=== PATIENT | female | born 1965 | race Two or more races ===

== ENCOUNTER 2020-09-25 11:46 | Day surgery (SDC) | payer MEDICAID, SELFPAY ==
[2020-09-22 14:14] VITALS: BMI 46.7
--- NOTE | 2020-09-23 15:09 | P.CONAN_ITS ---
Documented by User: Aleksandra Boyle 09/23/20 15:09 HPI - Anesthesia Eval Consult details Narrative: 55yo F for Colonoscopy PMFSH Past Medical History Medical History (Updated 09/25/20 @ 13:05 by Hanny Rajput) Anemia Asthma GERD (gastroesophageal reflux disease) History of anxiety History of COVID-19 HTN (hypertension) Hx of irritable bowel syndrome Hx of renal calculi Increased BMI Thyroid disease Surgical History Surgical History H/O colonoscopy History of endometrial ablation History of esophagogastroduodenoscopy (EGD) History of surgery on arm Hx of section Hx of cholecystectomy Hx of cystoscopy Hx of laparoscopy Social History Social History Patient Tobacco Use Status: Tobacco use Unknown Use of substances other than those prescribed or required for medical reasons: No Advance Directives Information Provided: No Meds Allergies Allergy/AdvReac Type Severity Reaction Status Date / Time lisinopril [LISINOPRIL] Allergy Intermediate COUGH Unverified 01/09/20 16:51 Home Medications Medication Instructions Recorded Confirmed Last Taken Type albuterol sulfate 1 amp INHALATION TID 09/22/20 09/22/20 Unknown History albuterol sulfate [ProAir HFA] 2 puff INHALATION Q4-6H PRN 09/22/20 09/22/20 Unknown History chlorthalidone 50 mg PO DAILY 09/22/20 09/22/20 Unknown History cholecalciferol (vitamin D3) 1 tab PO BID 09/22/20 09/22/20 Unknown History [Vitamin D3] cyanocobalamin (vitamin B-12) 1 ml IM QMONTH 09/22/20 09/22/20 Unknown History dicyclomine 1 tab PO TID 09/22/20 09/22/20 Unknown History ergocalciferol (vitamin D2) 1,250 mcg PO QWEEK 09/22/20 09/22/20 Unknown History [Vitamin D2] fluoxetine 20 mg PO DAILY 09/22/20 09/22/20 09/25/20 07:00 History hydralazine 100 mg PO BID 09/22/20 09/22/20 09/25/20 07:00 History lorazepam 1 tab PO DAILY PRN 09/22/20 09/22/20 Unknown History metoprolol tartrate 1 tab PO BID 09/22/20 09/22/20 09/25/20 07:00 History omeprazole 1 cap PO QAM 09/22/20 09/22/20 09/25/20 07:00 History verapamil 1 cap PO DAILY 09/22/20 09/22/20 09/25/20 07:00 History Exam Exam Date and Time: September 23, 2020 1509 Height,Weight and Vital Signs: Height 5 ft 4 in Weight 123.377 kg Assessment and Plan Assessment Anesthesia Assessment: Chart Reviewed Documented by User: Hanny Rajput 09/25/20 13:05 [facility] Past Medical History Medical History (Updated 09/25/20 @ 13:05 by Hanny Rajput) Anemia Asthma GERD (gastroesophageal reflux disease) History of anxiety History of COVID-19 HTN (hypertension) Hx of irritable bowel syndrome Hx of renal calculi Increased BMI Thyroid disease Family History Family history of problems with anesthesia: No Surgical History Surgical History H/O colonoscopy History of endometrial ablation History of esophagogastroduodenoscopy (EGD) History of surgery on arm Hx of section Hx of cholecystectomy Hx of cystoscopy Hx of laparoscopy History of Problems with Anesthesia: No Social History Social History Patient Tobacco Use Status: Tobacco use Unknown Use of substances other than those prescribed or required for medical reasons: No Advance Directives Information Provided: No Meds Allergies Allergy/AdvReac Type Severity Reaction Status Date / Time lisinopril [LISINOPRIL] Allergy Intermediate COUGH Unverified 01/09/20 16:51 Home Medications Medication Instructions Recorded Confirmed Last Taken Type albuterol sulfate 1 amp INHALATION TID 09/22/20 09/22/20 Unknown History albuterol sulfate [ProAir HFA] 2 puff INHALATION Q4-6H PRN 09/22/20 09/22/20 Unknown History chlorthalidone 50 mg PO DAILY 09/22/20 09/22/20 Unknown History cholecalciferol (vitamin D3) 1 tab PO BID 09/22/20 09/22/20 Unknown History [Vitamin D3] cyanocobalamin (vitamin B-12) 1 ml IM QMONTH 09/22/20 09/22/20 Unknown History dicyclomine 1 tab PO TID 09/22/20 09/22/20 Unknown History ergocalciferol (vitamin D2) 1,250 mcg PO QWEEK 09/22/20 09/22/20 Unknown History [Vitamin D2] fluoxetine 20 mg PO DAILY 09/22/20 09/22/20 09/25/20 07:00 History hydralazine 100 mg PO BID 09/22/20 09/22/20 09/25/20 07:00 History lorazepam 1 tab PO DAILY PRN 09/22/20 09/22/20 Unknown History metoprolol tartrate 1 tab PO BID 09/22/20 09/22/20 09/25/20 07:00 History omeprazole 1 cap PO QAM 09/22/20 09/22/20 09/25/20 07:00 History verapamil 1 cap PO DAILY 09/22/20 09/22/20 09/25/20 07:00 History Exam Height,Weight and Vital Signs: Vital Signs Temp Pulse Resp BP Pulse Ox 09/25/20 12:31 97.8 F 96 20 149/86 H 95 Airway Mallampati Class: II TM Dist: >3cm Neck ROM: Full Heart: RRR Lungs: CTAB Assessment and Plan Assessment Anesthesia Assessment: Anesthesia Plan Discussed and Chart Reviewed Final Anesthetic Review NPO: Yes ASA Class: III Final Preanesthetic Review: No Changes in Pt Med Stat, Meds/Allgs Chart Reviewed, Consent Obtained/Reviewed and Anes Risks/Benef Reviewed Patient Risk: Intermediate Procedure Risk: Low Assessment/Block/Sedation in SS: Assess/Block/Sedation-SS Anesthetic Plan Anesthetic Plan: MAC: Disposition: Standard PACU
[2020-09-25] MEDS: Lactated Ringers 1,000 ML 100 ML IVCONT (12:30)
[2020-09-25 12:31] VITALS: BP 149/86; PULSE 96; RESP 20; TEMP 36.6; O2SAT 95
--- NOTE | 2020-09-25 12:49 | MHC.SHP ---
Pre-Procedural Eval Section A The patient is an INPATIENT: No Changes since office visit: No Cold of Flu in the past 2 weeks, No New Medical Problems, No Changes in Medication and No Patient answered all questions The History & Physical has been completed within 30 days and I have reviewed it.: Yes Section B Chief Complaint: screening Allergies: Allergies Allergy/AdvReac Type Severity Reaction Status Date / Time lisinopril [LISINOPRIL] Allergy Intermediate COUGH Unverified 01/09/20 16:51 Plan I have reviewed the history and physical and performed a pertinent physical examination on my patient. No changes have occurred unless specified.
[2020-09-25 13:37] VITALS: BP 107/53; PULSE 85; RESP 14; TEMP 36.2; O2SAT 94
[2020-09-25 13:47] VITALS: BP 118/62; PULSE 83; RESP 18; O2SAT 96
--- NOTE | 2020-09-25 15:17 | OP_ITS ---
SURGEON: Jeffrey Rios MD INDICATIONS: Colon cancer screening. PREOPERATIVE DIAGNOSIS: POSTOPERATIVE DIAGNOSIS: PROCEDURE PERFORMED: Colonoscopy to the terminal ileum with snare polypectomy. ESTIMATED BLOOD LOSS: COMPLICATIONS: ANESTHESIA: ASSISTANTS: SPECIMENS: MEDICATIONS: Monitored anesthesia care. DESCRIPTION OF PROCEDURE: History and physical performed. The risks and benefits of the procedure were explained to the patient. Informed consent was obtained. The patient was placed in the left lateral decubitus position. A digital rectal exam was performed and was found to be normal. The Olympus pediatric video colonoscope was introduced into the rectum and advanced to the cecum without difficulty. The cecum was identified by transillumination, palpation, identification of ileocecal valve. Examination was performed and the scope was removed. She tolerated the procedure well and was taken to recovery area in stable condition. FINDINGS: The terminal ileum was normal. The visualized colonic mucosa was normal. Three polyps, all measuring less than 10 mm were removed with snare. These were located in the cecum, at 80 cm, and at 40 cm. There was some liquid stool coating the mucosa, limiting examination for detection of small polyps. This was washed and suctioned. Retroflexed examination showed moderate-sized internal hemorrhoids. IMPRESSION: Colon polyps. RECOMMENDATION: Follow up the biopsy results. MD NAILA Chavez/DISHA / [id number] MTDD
== END 2020-09-25 14:56 | disposition home or self-care (01) ==
PROVIDERS: Visit Provider Internal Medicine Gastroenterology
PROC: 0DJD8ZZ Inspection of Lower Intestinal Tract, Via Natural or Artificial Opening Endoscopic (ICD-10-PCS; CPT 45378; principal; 2020-09-25 13:20)
DX: Z12.11 Encounter for screening for malignant neoplasm of colon (principal); D12.0 Benign neoplasm of cecum; D12.4 Benign neoplasm of descending colon; D12.5 Benign neoplasm of sigmoid colon; K64.8 Other hemorrhoids; K58.9 Irritable bowel syndrome, unspecified; D64.9 Anemia, unspecified; J45.909 Unspecified asthma, uncomplicated; K21.9 Gastro-esophageal reflux disease without esophagitis; I10 Essential (primary) hypertension; Z79.899 Other long term (current) drug therapy; Z88.8 Allergy status to other drugs, medicaments and biological substances; Z90.49 Acquired absence of other specified parts of digestive tract; Z86.16 Personal history of COVID-19
CPT/HCPCS: 45385; 88305

== ENCOUNTER → 2021-09-10 14:38 | Outpatient (BNVA) | payer MEDICAID, SELFPAY | PROVIDERS: PCP Pediatrics; Visit Provider Internal Medicine Pulmonary Disease | DX: R06.00 Dyspnea, unspecified (principal); U09.9 Post COVID-19 condition, unspecified | CPT/HCPCS: 99202 ==

== ENCOUNTER 2021-09-16 09:29 | Outpatient (REF) | payer MEDICAID, SELFPAY ==
--- NOTE | ~2021-09-16 | CT_ITS ---
EXAMINATION: CT CHEST WITHOUT CONTRAST CLINICAL INFORMATION: Post Covid condition COMPARISON: None TECHNIQUE: Multidetector volumetric CT imaging of the chest was done. Axial MIP volume rendering provided. Sagittal and coronal reformatted images were obtained. This CT examination was performed using dose optimization techniques as appropriate, variously including the following: *Automated exposure control *Adjustment of mA and/or kV according to patient size (this includes techniques or standardized protocols for targeted exams where dose is matched to indication/reason for exam; i.e. extremities or head) *Use of iterative reconstruction technique DLP: 258 mGy-cm FINDINGS: HIGH SCHOOL GUIDANCE COUNSELOR: Slight elevation of the left hemidiaphragm LUNGS: The lung volumes are low. There is elevation of the right hemidiaphragm. There is heterogeneous attenuation of the lungs questionable for hypoventilatory changes. There is scarring or subsegmental atelectasis in the right middle lobe. MEDIASTINUM: The mediastinum is normal. PLEURA: There is no pleural effusion. No pleural mass or thickening. AXILLA: No lymphadenopathy. UPPER ABDOMEN: The liver is low in attenuation suggestive of fatty infiltration. OSSEOUS STRUCTURES: There are degenerative changes of the spine. CT/CT chest wo con IMPRESSION: Low lung volumes, elevated right hemidiaphragm and heterogeneous attenuation suggestive of hypoventilatory changes. Fleischner guidelines were followed.
== END 2021-09-16 09:30 | disposition home or self-care (01) ==
LOC: HO.CT 09:29
PROVIDERS: PCP Pediatrics; Visit Provider Internal Medicine Pulmonary Disease
DX: U09.9 Post COVID-19 condition, unspecified (principal)
CPT/HCPCS: 71250

== ENCOUNTER → 2021-12-17 09:14 | Outpatient (REF) | payer MEDICAID, SELFPAY ==
--- NOTE | 2021-12-17 09:18 | CA_ITS ---
Transthoracic Echocardiogram Patient (Last, First, Middle): Chelle Melchor, Gender: Female Date of : 1965 Age: 56 Procedure Date: 12/17/2021 Procedure Type: Transthoracic Echocardiogram Location: OP Height: 160.02 cm Weight: 118.84 kg BSA: 2.17 m2 Heart Rate: bpm BP: 137 / 80 mmHg Order Schedule Clerk: Referring MD: Ry Plata MD Symptoms: R06.00 - Dyspnea, unspecified Study Quality: Adequate ECG Rhythm: Sinus Conclusions: - The left ventricular systolic function is normal. The calculated ejection fraction is 63% by biplane method. - No obvious valvular pathology seen on this study. - There is no evidence of pulmonary hypertension. - There is no evidence of pericardial effusion. Findings Left Ventricle Normal left ventricular cavity size. There is mildly increased left ventricular wall thickness. The left ventricular systolic function is normal. The calculated ejection fraction is 63% by biplane method. There is no evidence of regional wall motion abnormalities. Diastolic function is normal for age. Right Ventricle Normal right ventricular cavity size and systolic function. Atria Both atria are normal in size. Aortic Valve There is a normal trileaflet aortic valve. There is no aortic valve stenosis. There is no aortic valve regurgitation. Mitral Valve The mitral valve appears normal. There is no mitral valve regurgitation. There is no mitral valve stenosis. Pulmonic Valve The pulmonic valve is likely normal. Tricuspid Valve Normal tricuspid valve structure. There is trace tricuspid valve regurgitation. There is no evidence of pulmonary hypertension. Great Vessels The aortic annulus, sinuses of valsalva, and asc aorta are normal in size. Venous The inferior vena cava was not well visualized. Pericardium/Pleural There is no evidence of pericardial effusion. Prior Study Comparison No prior study available for comparison. Recommendations, Care & Conclusions No obvious valvular pathology seen on this study. Measurements 2D Linear Measurements IVSd: 1.28 0.6-0.9/0.6-1.0 cm LVIDd: 3.43 3.9-5.3/4.2-5.9 cm LVIDd Index: 1.58 2.4-3.2/2.2-3.1 cm/m2 LVIDs: 2.35 2.0-3.6 cm LVPWd: 1.25 0.7-1.1 cm Ao Root: 3.10 2.1-3.5 cm LA Diam: 2.90 2.7-3.8/3.0-4.0 cm LAIDs Index: 1.34 1.5-2.3 cm/m2 LV Mass: 178.21 67-162/88-224 g LV Mass Index: 82.12 43-95/49-115 g/m2 LVOT Diam: 2.10 3.0+(-)1.3 cm 2D Systolic Function EF 4C: 64.20 >55% EF 2C: 62.40 >55% EF BiP: 62.70 >55% Mitral Valve MV Pk E: 0.50 MV PK A: 0.74 MV Decel Time: 113.00 E/A: 0.70 E'Lateral: 4.46 E'Medial: 6.20 E/E' Med: 8.10 E/E' Lat: 11.20 PHT: 33.00 MVA PHT: 6.67 Decel Zapata: 4.44 Aortic Valve AoV Pk Ovidio: 1.05 AoV Mn Ovidio: 0.68 AoV VTI: 0.19 AoV Pk Grad: 4.00 Aov Mn Grad: 2.00 DINORAH Cont.VTI: 3.03 LVOT LVOT Pk Ovidio: 0.80 LVOT Mn Ovidio: 0.50 LVOT VTI: 0.17 LVOT Pk Grad: 3.00 LVOT Mn Grad: 1.00 LVOT Diam: 2.10 LVOT Area: 3.46 Diastolic Function MV Pk E: 0.50 MV Pk A: 0.74 E/A: 0.70 E'Medial: 6.20 E/E' Med: 8.10 E' Laterial: 4.46 E/E' Lat: 11.20 Right Ventricle TAPSE (mm): 20.00 Tricuspid Valve TR Pk Ovidio: 1.84 TR Pk Grad: 14.00 RA Press: 3.00 RVSP: 17.00 Great Vessels Aorta Ao Root-2D: 3.10 2.0-3.7 cm Ao Asc: 3.20 2.1-3.4 cm Pulmonary Valve PV Pk Ovidio: 0.92 Peak PV Grad: 3.00 Updated in Other Vendor System with Status of Final Олег Fuentes MD electronically signed on 12/19/2021 1:02:12 PM with status of Final
== END ==
LOC: HO.CARD 09:14
PROVIDERS: Visit Provider Internal Medicine Pulmonary Disease
DX: R06.00 Dyspnea, unspecified (principal)
CPT/HCPCS: 93306

== ENCOUNTER 2022-01-06 14:22 | Outpatient (REF) | payer MEDICAID, SELFPAY ==
--- NOTE | 2022-01-06 17:30 | PFT_ITS ---
Forced vital capacity 79%, FEV1 91%. FEV1 over FVC ratio is 91. [id number] 160% and MVV 111%. Post bronchodilator therapy, no significant changes noted. Total lung capacity 73%. Residual volume 51%. Diffusion capacity 77%. CONCLUSION: Mild restrictive pulmonary disorder. No obstructive airway disorder. No significant response to bronchodilator therapy. The results are compared with the PFT results from 07/01/2019, and the total lung capacity is slightly decreased. No other significant change. Azucena Rodriguez MD MSB/MODL / [id number]
== END 2022-01-06 14:23 | disposition home or self-care (01) ==
LOC: HO.RESP 14:22
PROVIDERS: Visit Provider Internal Medicine Pulmonary Disease
DX: R06.00 Dyspnea, unspecified (principal)
CPT/HCPCS: 94060; 94727; 94729

== ENCOUNTER → 2022-01-14 13:53 | Outpatient (BNVA) | payer MEDICAID, SELFPAY | PROVIDERS: PCP Pediatrics; Visit Provider Internal Medicine Pulmonary Disease | DX: R06.00 Dyspnea, unspecified (principal); U09.9 Post COVID-19 condition, unspecified | CPT/HCPCS: 99212 ==

== ENCOUNTER 2023-08-01 10:28 | Day surgery (SDC) | payer MEDICAID, SELFPAY ==
[2023-07-28 13:56] VITALS: BMI 46.5
--- NOTE | 2023-07-31 11:50 | HO.ANESPROP2 ---
HPI - Anesthesia Eval Consult details Narrative: 58yo F for Colonoscopy PMFSH Active Problems Active Problems: All Active Problems Dyspnea on exertion (Acute) Post covid-19 condition, unspecified (Acute) Increased BMI (Acute) Past Medical History Medical History (Updated 09/10/21 @ 15:09 by Ry Plata MD) Increased BMI History of COVID-19 History of anxiety Hx of renal calculi Asthma Hx of irritable bowel syndrome Thyroid disease HTN (hypertension) GERD (gastroesophageal reflux disease) Anemia Family History Family history of problems with anesthesia: No Surgical History Surgical History (Updated 07/28/23 @ 13:56 by Paula Pickard, MINDI) Hx of cystoscopy History of surgery on arm Hx of section Hx of cholecystectomy Hx of laparoscopy History of endometrial ablation History of esophagogastroduodenoscopy (EGD) H/O colonoscopy History of Problems with Anesthesia: No Social History Social History (Updated 07/28/23 @ 13:57 by Paula Pickard, MINDI) Patient Tobacco Use Status: Tobacco use Unknown Meds Allergies Allergy/AdvReac Type Severity Reaction Status Date / Time lisinopril [LISINOPRIL] Allergy Intermediate COUGH Verified 01/14/22 13:54 Home Medications ?Medication ?Instructions ?Recorded ?Confirmed ?Last Taken ?Type albuterol sulfate 2.5 mg/3 mL 1 amp inhalation TID 09/22/20 07/28/23 Unknown History (0.083 %) solution for nebulization albuterol sulfate 90 mcg/actuation 2 puff inhalation Q4-6H PRN 09/22/20 07/28/23 Unknown History aerosol inhaler (ProAir HFA) Shortness Of Breath chlorthalidone 50 mg tablet 50 mg PO DAILY 09/22/20 07/28/23 Unknown History cholecalciferol (vitamin D3) 50 1 tab PO BID 09/22/20 07/28/23 Unknown History mcg (2,000 unit) tablet (Vitamin D3) cyanocobalamin (vitamin B-12) 1 ml IM QMONTH 09/22/20 07/28/23 Unknown History 1,000 mcg/mL injection solution dicyclomine 20 mg tablet 1 tab PO TID 09/22/20 07/28/23 Unknown History ergocalciferol (vitamin D2) 1,250 1,250 mcg PO QWEEK 09/22/20 07/28/23 Unknown History mcg (50,000 unit) capsule (Vitamin D2) fluoxetine 20 mg tablet 20 mg PO DAILY 09/22/20 07/28/23 09/25/20 07:00 History hydralazine 100 mg tablet 100 mg PO BID 09/22/20 07/28/23 09/25/20 07:00 History lorazepam 0.5 mg tablet 1 tab PO DAILY PRN Anxiety 09/22/20 07/28/23 Unknown History metoprolol tartrate 100 mg tablet 1 tab PO BID 09/22/20 07/28/23 09/25/20 07:00 History verapamil 360 mg 24 hr 1 cap PO DAILY 09/22/20 07/28/23 09/25/20 07:00 History capsule,extended release pantoprazole 40 mg tablet,delayed 40 mg PO DAILY 07/28/23 07/28/23 Unknown History release Exam Height,Weight and Vital Signs: Height 5 ft 4 in Weight 122.924 kg Assessment and Plan Assessment Anesthesia Assessment: Chart Reviewed Final Anesthetic Review Family History of Problems with Anesthesia: No History of Problems with Anesthesia: No
[2023-08-01 11:32] VITALS: BMI 44.3
[2023-08-01 11:45] VITALS: BP 137/75; PULSE 62; RESP 16; TEMP 36.5; O2SAT 100
[2023-08-01] MEDS: Lactated Ringers 1,000 ML 100 ML IVCONT (11:55)
--- NOTE | 2023-08-01 12:41 | HO.ANESPROP2 ---
[facility] Active Problems Active Problems: All Active Problems (Updated 09/10/21 @ 15:09 by Ry Plata MD) Dyspnea on exertion (Acute) Post covid-19 condition, unspecified (Acute) Increased BMI (Acute) Past Medical History Medical History (Updated 09/10/21 @ 15:09 by Ry Plata MD) Increased BMI History of COVID-19 History of anxiety Hx of renal calculi Asthma Hx of irritable bowel syndrome Thyroid disease HTN (hypertension) GERD (gastroesophageal reflux disease) Anemia Family History Family history of problems with anesthesia: No Surgical History Surgical History (Updated 07/28/23 @ 13:56 by Paula Pickard RN) Hx of cystoscopy History of surgery on arm Hx of section Hx of cholecystectomy Hx of laparoscopy History of endometrial ablation History of esophagogastroduodenoscopy (EGD) H/O colonoscopy History of Problems with Anesthesia: No Social History Social History (Updated 07/28/23 @ 13:57 by Paula Pickard RN) Patient Tobacco Use Status: Never used Tobacco Use of substances other than those prescribed or required for medical reasons: No Are you DNR?: No Advance Directives: No Advance Directives Information Provided: Yes Meds Allergies Allergy/AdvReac Type Severity Reaction Status Date / Time lisinopril [LISINOPRIL] Allergy Intermediate COUGH Verified 01/14/22 13:54 Active Medications: Current Medications Albuterol Sulfate (Albuterol Sulfate (0.083%) 2.5 Mg/3 Ml Vial.Neb) 2.5 mg INHALE ONCE PRN PRN Reason: Shortness of Breath/Wheezing Lactated Ringer's (Lr) 1,000 mls @ 100 mls/hr IVCONT .Q10H DIANE Last Admin: 08/01/23 11:55 Dose: 100 mls/hr Ondansetron HCl (Ondansetron Hcl 4 Mg/2 Ml Vial) 4 mg IVPUSH ONCE PRN PRN Reason: Nausea and Vomiting Stop: 08/01/23 15:36 Ondansetron HCl (Ondansetron Hcl 4 Mg/2 Ml Vial) 4 mg IVPUSH ONCE PRN PRN Reason: Nausea and Vomiting Stop: 08/01/23 16:42 Home Medications ?Medication ?Instructions ?Recorded ?Confirmed ?Last Taken ?Type albuterol sulfate 2.5 mg/3 mL 1 amp inhalation TID 09/22/20 07/28/23 Unknown History (0.083 %) solution for nebulization albuterol sulfate 90 mcg/actuation 2 puff inhalation Q4-6H PRN 09/22/20 07/28/23 Unknown History aerosol inhaler (ProAir HFA) Shortness Of Breath chlorthalidone 50 mg tablet 50 mg PO DAILY 09/22/20 07/28/23 Unknown History cholecalciferol (vitamin D3) 50 1 tab PO BID 09/22/20 07/28/23 Unknown History mcg (2,000 unit) tablet (Vitamin D3) cyanocobalamin (vitamin B-12) 1 ml IM QMONTH 09/22/20 07/28/23 Unknown History 1,000 mcg/mL injection solution dicyclomine 20 mg tablet 1 tab PO TID 09/22/20 07/28/23 Unknown History ergocalciferol (vitamin D2) 1,250 1,250 mcg PO QWEEK 09/22/20 07/28/23 Unknown History mcg (50,000 unit) capsule (Vitamin D2) fluoxetine 20 mg tablet 20 mg PO DAILY 09/22/20 07/28/23 09/25/20 07:00 History hydralazine 100 mg tablet 100 mg PO BID 09/22/20 07/28/23 09/25/20 07:00 History lorazepam 0.5 mg tablet 1 tab PO DAILY PRN Anxiety 09/22/20 07/28/23 Unknown History metoprolol tartrate 100 mg tablet 1 tab PO BID 09/22/20 07/28/23 08/01/23 History verapamil 360 mg 24 hr 1 cap PO DAILY 09/22/20 07/28/23 08/01/23 History capsule,extended release pantoprazole 40 mg tablet,delayed 40 mg PO DAILY 07/28/23 07/28/23 Unknown History release Exam Height,Weight and Vital Signs: Height 5 ft 4 in Weight 117.084 kg Last Vital Signs Temp 97.7 F 08/01/23 11:45 Pulse 62 08/01/23 11:45 Resp 16 08/01/23 11:45 BP 137/75 08/01/23 11:45 Pulse Ox 100 08/01/23 11:45 O2 Del Method Room Air 08/01/23 11:45 Airway Mallampati Class: III TM Dist: >3cm Neck ROM: Full Loose/Missing/Broken Teeth: No Heart: rrr Lungs: clear Assessment and Plan Final Anesthetic Review Family History of Problems with Anesthesia: No History of Problems with Anesthesia: No NPO: Yes ASA Class: III Final Preanesthetic Review: No Changes in Pt Med Stat, Meds/Allgs Chart Reviewed, Consent Obtained/Reviewed and Anes Risks/Benef Reviewed Patient Risk: Intermediate Procedure Risk: Low Anesthetic Plan Anesthetic Plan: MAC: Disposition: Standard PACU
--- NOTE | 2023-08-01 12:48 | MHC.SHP ---
Pre-Procedural Eval Section A - 24 Hr Update-Section A only Date of Service: 08/01/23 Section B - Complete if H&P > 30 days Chief Complaint: Encounter for screening for malignant neoplasm of Details of Present Illness: see H&P no changes Relevant Family History (Specify if Yes): No Relevant Social History: None Present Medications: see Short Stay Collaborative assessment Medical History: No relevant PMH History of Previous Operations: No relevant previous surgery Allergies: Allergies Allergy/AdvReac Type Severity Reaction Status Date / Time lisinopril [LISINOPRIL] Allergy Intermediate COUGH Verified 01/14/22 13:54 Review of Systems Sugical H&P ROS: Negative: Constitution, Cardiovascular, Respiratory, Neurological, Psychiatric, Hem-Onc, Allergic/Immunologic, Gastrointestinal, Genitourinary, Musculoskeletal, Integumentary, Endocrine and Eyes/Ears/Nose/Throat Exam Surgical H&P Exam: Normal: HEENT, Normal: Heart, Normal: Lungs, Normal: Extremities, Normal: Abdomen, Normal: Skin and Normal: Neurological Plan Diagnosis/Plan: Unchanged I have reviewed the history and physical and performed a pertinent physical examination on my patient. No changes have occurred unless specified. Time Spent With Patient Time: Total time managing care of this patient today ____ minutes.
[2023-08-01 13:15] VITALS: BP 102/54; PULSE 64; RESP 16; TEMP 36.8; O2SAT 95
[2023-08-01 13:30] VITALS: BP 125/60; PULSE 54; RESP 18; TEMP 36.4; O2SAT 98
--- NOTE | 2023-08-01 22:39 | OP_ITS ---
DATE OF SERVICE: 08/01/2023 SURGEON: Jeffrey Rios MD INDICATIONS: Colon cancer screening. PREOPERATIVE DIAGNOSIS: POSTOPERATIVE DIAGNOSIS: PROCEDURE PERFORMED: Colonoscopy to the terminal ileum with biopsy. ESTIMATED BLOOD LOSS: COMPLICATIONS: ANESTHESIA: Monitored anesthesia care. ASSISTANTS: SPECIMENS: DESCRIPTION OF PROCEDURE: A history and physical was performed. The risks and benefits of the procedure were explained to the patient. Informed consent was obtained. The patient was placed in the left lateral decubitus position. A digital rectal exam was performed and was found to be normal. The Olympus pediatric video colonoscope was introduced into the rectum and advanced to the cecum. The cecum was identified by transillumination, palpation, and identification of ileocecal valve. Examination was performed. The scope was removed. She tolerated the procedure well and was returned to the recovery area in stable condition. FINDINGS: The terminal ileum was examined and appeared normal. The visualized colonic mucosa was within normal limits without evidence of masses or ulcers. A single polyp measuring less than 5 mm was identified at 45 cm and removed with a biopsy forceps. Retroflexed examination showed moderate-sized internal hemorrhoids. IMPRESSION: Colon polyp. RECOMMENDATION: Follow up the biopsy results. MD NAILA Chavez/DISAH / [id number]
== END 2023-08-01 14:01 | disposition home or self-care (01) ==
PROVIDERS: PCP Pediatrics; Visit Provider Internal Medicine Gastroenterology
PROC: 0DJD8ZZ Inspection of Lower Intestinal Tract, Via Natural or Artificial Opening Endoscopic (ICD-10-PCS; CPT 45378; principal; 2023-08-01 13:40)
DX: Z12.11 Encounter for screening for malignant neoplasm of colon (principal); Z86.010 Personal history of colon polyps; K63.5 Polyp of colon; K64.8 Other hemorrhoids; K58.9 Irritable bowel syndrome, unspecified; K21.9 Gastro-esophageal reflux disease without esophagitis; I10 Essential (primary) hypertension; D50.9 Iron deficiency anemia, unspecified; E55.9 Vitamin D deficiency, unspecified; E53.8 Deficiency of other specified B group vitamins; E03.9 Hypothyroidism, unspecified; J45.909 Unspecified asthma, uncomplicated; Z87.442 Personal history of urinary calculi; F41.8 Other specified anxiety disorders; Z79.899 Other long term (current) drug therapy; Z86.16 Personal history of COVID-19; Z90.49 Acquired absence of other specified parts of digestive tract
CPT/HCPCS: 45380; 88305; J2704

== ENCOUNTER 2023-08-17 14:17 | Outpatient (REF) | payer MEDICAID, SELFPAY ==
[2023-08-18 08:42] LABS: HIV AB/AG Nonreactive (Nonreactive); HIV Num 1 0.04 S/CO (0.00-0.99); ~HepC Num1 0.05 S/CO (0.00-0.79); ~Hepatitis C Antibody Nonreactive (Nonreactive)
== END 2023-08-17 14:18 | disposition home or self-care (01) ==
LOC: HO.CHCLDS 14:17
PROVIDERS: Visit Provider Internal Medicine
DX: Z00.00 Encounter for general adult medical examination without abnormal findings (principal); Z11.4 Encounter for screening for human immunodeficiency virus [HIV]
CPT/HCPCS: 36415; 86803; 87389

== ENCOUNTER 2023-12-14 09:30 | Outpatient (REF) | payer MEDICAID, SELFPAY ==
[2023-12-14 14:21] LABS: MANUAL DIFF FLAG NO
[2023-12-14 14:37] LABS: Basophils Percent Auto 0.4 % (0-2); Eosinophils Absolute Auto 0.1 X10*3/uL (0.0-0.4); Eosinophils Percent Auto 1.3 % (0-4); Estimated Average Glucose 105 mg/dL; Hematocrit 41.1 % (37.0-47.0); Hemoglobin 13.3 g/dl (12.0-16.0); Hemoglobin A1c % 5.3 % (<6.0); Imm Gran Abs Auto 0.02 X10*3/uL (0.00-0.03); Imm Gran Pct Auto 0.3 % (0.0-0.4); Lymphocytes Percent Auto 42.9 % (20-40); Mean Corpuscular HGB Conc 32.4 g/dl (31.0-35.0); Mean Corpuscular Hemoglobin 31.8 pg (27.0-33.0); Mean Corpuscular Volume 98.3 fL (80.0-98.0); Monocytes Absolute Auto 0.6 X10*3/uL (0.1-1.2); Monocytes Percent Auto 8.5 % (2-11); Neutrophils Absolute Auto 3.3 x10*3/uL (2.0-8.3); Neutrophils Percent Auto 46.6 % (45-73); Platelet Count 304 X10*3/uL (160-400); Red Blood Count 4.18 X10*6/uL (4.20-5.50); Red Cell Distribution Width 13.6 % (11.0-16.0); White Blood Count 7.1 X10*3/uL (4.8-10.8)
[2023-12-14 14:45] LABS: Alanine Aminotransferase 17 U/L (0-31); Alkaline Phosphatase 94 U/L (39-117); Anion Gap 13 (12-20); Aspartate Amino Transferase 18 U/L (5-31); Bilirubin Direct 0.2 mg/dL (0.0-0.5); Bilirubin Total 0.5 mg/dL (0.0-1.0); Blood Urea Nitrogen 13 mg/dL (9-16); Carbon Dioxide 27 mmol/L (22-29); Chloride 110 mmol/L (96-108); Cholesterol 193 mg/dL (<200); Estimated Glomerular Filt Rate > 60; Glucose Fasting 102 mg/dL (60-99); HDL Cholesterol 48 mg/dL (>40); LDL Cholesterol Calculated 113 mg/dL (<100); Lipase 9 U/L (8-78); Sodium 146 mmol/L (135-145); Total Protein 6.7 g/dL (6.5-8.0); Triglycerides 162 mg/dL (<150)
[2023-12-14 14:49] LABS: Creatinine Urine 348.94 mg/dL
[2023-12-14 15:08] LABS: TSH reflex Free T4 1.95 uIU/mL (0.32-4.0)
[2023-12-14 15:13] LABS: Vitamin B12 244 pg/mL (200-900)
== END 2023-12-14 09:31 | disposition home or self-care (01) ==
LOC: HO.CHCLDS 09:30
PROVIDERS: Visit Provider Pediatrics
DX: I10 Essential (primary) hypertension (principal); E66.01 Morbid (severe) obesity due to excess calories; G47.33 Obstructive sleep apnea (adult) (pediatric); Z80.0 Family history of malignant neoplasm of digestive organs
CPT/HCPCS: 36415; 80048; 80061; 80076; 82043; 82306; 82570; 82607; 82746; 83036; 83690; 84443; 85025

== ENCOUNTER 2024-05-28 09:36 | Outpatient (REF) | payer MEDICAID, SELFPAY ==
--- OUTSIDE RECORDS SUMMARY | 2024-05-28 10:06 | XMS_ITS | Encounter Summary ---
Author Organization [employer] Address [address] [place] [address] Care Team Providers Care Pig Breeder Name Role Phone Dorinda Iniguez MD Primary Care Provider [phone] Encounter Details Date Type Department Care Team (Late st Contact Info) Description 05/06/2022 Orders Only [facility] [address] [place] [address] Suki Schmitt LPN Social History Tobacco Use Types Packs/Day Years Used Date Smoking Tobacco: Never Assessed Comments Unknown Sex and Gender Information Value Date Recorded Sex Assigned at Female 02/21/2022 10:16 AM EDT Legal Sex Female 10:16 AM EDT Gender Identity Female 02/21/2022 10:16 AM EDT Sexual Orientation Straight 02/21/2022 10 :16 AM EDT documented as of this encounter Plan of Treatment Upcoming Encounters Date Type Department Care Team (Late st Contact Info) Description 07/09/2024 10:00 AM EDT Office Visit [facility] [address] [place], [place] [phone] Dee Lynch [address] [place], [place] [phone] documented as of this encounter Visit Diagnoses Not on filedocumented in this encounter Care Teams Pig Breeder Relationship Specialty Start Date End Date Dorinda Iniguez MD [address] [place] [address] PCP - General Family Medicine 04/24/18 Ginny Hernandez Splitter MachinePlate Embosser 01/17/24 documented as of this encounter
--- OUTSIDE RECORDS SUMMARY | 2024-05-28 10:07 | XMS_ITS | Encounter Summary ---
Author Organization [facility] Address [address] [place] [address] Care Team Providers Care Slps Name Role Phone Dorinda Iniguez MD Primary Care Provider [phone] Encounter Details Date Type Department Care Team (Latest Contact Info) Description 09/08/2021 Abstract [facility] CONVERSIONS Dental, Provider, DDS Social History Tobacco Use Types Packs/Day Years [...] Description 07/09/2024 10:00 AM EDT Office Visit [facility] [address] [place], [place] [phone] Dee Lynch [address] [place] [address] documented as of this encounter Visit Diagnoses Not on filedocumented in this encounter Care Teams Slps Relationship Specialty Start Date End Date Dorinda Iniguez MD [address] [place] [address] PCP - General Family Medicine 04/24/18 Ginny Hernandez Cone CleanerVenue Coordinator 01/17/24 documented as of this encounter
--- OUTSIDE RECORDS SUMMARY | 2024-05-28 10:07 | XMS_ITS | Encounter Summary ---
Author Organization [employer] [facility] Address [address] [place] [address] Care Team Providers Care Master Machinist Name Role Phone Dorinda Iniguez MD Primary Care Provider [phone] Encounter Details Date Type Department Care Team (Latest Contact Info) Description 10/15/2018 Abstract [facility] CONVERSIONS Dental, Provider, DDS Social History [...] Description 07/09/2024 10:00 AM EDT Office Visit [facility] [address] [place], [place] [phone] Dee Lynch [address] [place] [address] documented as of this encounter Visit Diagnoses Not on filedocumented in this encounter Care Teams Master Machinist Relationship Specialty Start Date End Date Dorinda Iniguez MD [address] [place] [address] PCP - General Family Medicine 04/24/18 Ginny Hernandez Staking TechnicianTerra Cotta Roofer 01/17/24 documented as of this encounter
--- OUTSIDE RECORDS SUMMARY | 2024-05-28 10:07 | XMS_ITS | Encounter Summary ---
Author Organization [employer] Address [address] [facility] 7 [place] [address] Care Team Providers Care Teacher Home Therapy Name Role Phone Dorinda Iniguez MD Primary Care Provider [phone] Reason for Visit * Reason Onset Date Comments Medication Question 04/12/2024 Encounter Details Date Type Department Care Team ([facility] st Contact Info) Description 04/12/2024 Telephone [facility] [address] [place] [address] Dorinda Iniguez MD [address] [place] [phone] Medication Question Social History Tobacco Use Types Packs/Day Years Used Date Smoking Tobacco: Never Passive Smoke Exposure: Never Smokeless Tobacco: Never Alcohol Use Standard Drinks/Week Comments Never 0 (1 standard drink = 0.6 oz pur e alcohol) Depression Answer Date Recorded Patient Health Questionnaire-9 Score 4 08/17/2023 Patient Health Questionnaire-9 Score 4 08/17/2023 Last PHQ-9: Questionnaire Data Not on file 0 08/17/2023 Housing Stability Answer Date Recorded What is your housing situation today? I have alva garcia 08/10/[address] you li ve. Do you have problems with any of the following? None of the above 08/10/2023 Food Insecurity Answer Date Recorded Within the past 12 months, y ou worried that your food would run out before you got money to buy more: Never True 08/10/2023 Within the past 12 months,th e food you bought just didn't last and you didn't have enough money to get more: Never True Transportation Answer Date Recorded In the past 12 months, has l ack of transportation kept you from medical appts, meetings, work or from getting things needed for daily living? No 08/10/2023 Utilities Answer Date Recorded In the past 12 months, has t he electric, gas, oil or water company threatened to shut off services in your home? No 08/10/2023 Depression Answer Date Recorded Patient Health Questionnaire-2 Score 0 08/17/2023 Comments Unknown Sex and Gender Information Value Date Recorded Sex Assigned at Female 02/21/2022 10:16 AM EDT Legal Sex Female 10:16 AM EDT Gender Identity Female 02/21/2022 10:16 AM EDT Sexual Orientation Straight 02/21/2022 10 :16 AM EDT documented as of this encounter Miscellaneous Notes * Telephone Encounter - Andrew Davis - 04/15/2024 9:30 AM EST Tc from pt calling in regards to message prior requesting guaiFENesin-codeine (Robitussin-AC) 100-10 MG/5ML syrup stating it helps her much more. * Telephone Encounter - Blade [place] - 04/12/2024 1:20 PM EST Tc from pt requesting a call back to discuss getting a medication for her couch. PT stating that she would like a medication to suppress her Cough but she doesn't want med benzonatate 200 mg capsule.Pt states that medication doesn't work for her and it doesn't help. Contact pt at [phone] documented in this encounter Plan of Treatment Upcoming Encounters Date Type Department Care Team (Late st Contact Info) Description 07/09/2024 10:00 AM EDT Office Visit [facility] [address] [place], [place] [phone] Dee Lynch [address] [place], [place] [phone] documented as of this encounter Visit Diagnoses Not on filedocumented in this encounter Additional Health Concerns Assessment Noted Time PHQ-9 Depression Total Score: 4 08/17/19 24 1:37 PM EDT documented as of this encounter Care Teams Teacher Home Therapy Relationship Specialty Start Date End Date Dorinda Iniguez MD [address] [place] [phone] PCP - General Family Medicine 04/24/18 Ginny Hernandez Director Utilization ManagementGoodyear Welter 01/17/24 documented as of this encounter
--- OUTSIDE RECORDS SUMMARY | 2024-05-28 10:07 | XMS_ITS | Encounter Summary ---
Author Organization [employer] Address [address] [facility] 7 [place] [address] Care Team Providers Care Career Services Director Name Role Phone Dorinda Iniguez MD Primary Care Provider [phone] Reason for Visit * Reason Comments Pre-visit Planning SDOH negative, Tobac co screening negative. Encounter Details Date Type Department Care Team ([facility] Contact Info) Description 05/21/2024 Patient Outreach [facility] P[facility]S [address] [place], [place] [phone] Dorinda Iniguez MD [address] [place] [address] Pre-visit Planning (SDOH negative, Tobacco screening negative.) Social History Tobacco Use Types Packs/Day Years [...] Recorded Patient Health Questionnaire-2 Score 0 08/17/2023 Internet Access Answer Date Recorded Internet Access Q1 Yes 05/21/2024 Internet Access Q2 Not on file 05/21/2024 Comments Unknown Sex and Gender Information Value Date Recorded Sex Assigned at Female 02/21/2022 10:16 AM EDT Legal Sex Female 10:16 AM EDT Gender Identity Female 02/21/2022 10:16 AM EDT Sexual Orientation Straight 02/21/2022 10 :16 AM EDT documented as of this encounter Progress Notes * Kitty Dior - 05/21/2024 11:52 AM EST CC Kitty Alaniz placed successful outbound call to patient for pre-visit planning. Patient name and confirmed. Patient confirms appt date and time, and has transportation arrangements. Biggest concern for appointment at this time is no concerns. Appropriate screenings completed in anticipation ofappointment. documented in this encounter Plan of Treatment Upcoming Encounters Date Type Department Care Team (Late st Contact Info) Description 07/09/2024 10:00 AM EDT Office Visit [facility] [address] [place] [phone] Dee Lynch [address] [place], [place] [phone] documented as of this encounter Visit Diagnoses Not on filedocumented in this encounter Additional Health Concerns Assessment Noted Time PHQ-9 Depression Total Score: 4 08/17/19 24 1:37 PM EDT documented as of this encounter Care Teams Career Services Director Relationship Specialty Start Date End Date Dorinda Iniguez MD [address] [place] [address] PCP - General Family Medicine 04/24/18 Ginny Hernandez Tractor Trailer DriverWound Care Coordinator 01/17/24 documented as of this encounter
--- OUTSIDE RECORDS SUMMARY | 2024-05-28 10:07 | XMS_ITS | Clinical Summary ---
Author Organization [employer] Address [address] [place] [address] [address] [place] [address] Care Team Providers Care Residential Lawn Specialist Name Role Phone Dorinda Iniguez MD Primary Care Provider [phone] Allergies Active Allergy Reactions Criticality Noted Date Comments Lisinopril Rash,Unknown,Cough High 04/24/2010 Other reaction(s): cough, Cough Other reaction(s): cough Other reaction(s): cough, Cough Medications LORazepam (Ativan) 0.5 MG tablet TAKE ONE TABLET EVERY MORNING AND TWO TABLETS AT BEDTIME NEEDED 023 Active lidocaine (Lidoderm) 5 % patch APPLY TO LOWER BACK REGION. LEAVE ON FOR 12 HOURS OFF FOR 12 HOURS, NEEDED. 023 Active Procto-Med HC 2.5 % rectal creamIndication s:Irritable bowel syndrome with diarrhea APPLY RECTALLY TWICE DAILY 28 g 5 023 Active metoprolol tartrate (Lopressor) 75 MG tablet Take 75 mg by mouth in the morning and 75 mg at noon and 75 mg in the evening. 023 Active loperamide (Imodium) 2 MG capsule Take 2 mg by mouth. Active traMADol (Ultram) 50 MG tablet Take 50 mg by mouth every 6 (six) hours if needed. Active pregabalin (Lyrica) 75 MG capsule ONE BY MOUTH EVERY NIGHT X3 DAYS THEN ONE BY MOUTH TWICE A DAY 024 Active Ventolin HFA 108 (90 Base) MCG/ACT inhalerIndicati ons:Moderate persistent asthma without complication INHALE ONE PUFF EVERY 4 HOURS NEEDED FOR COUGH 18 g 1 024 Active ammonium lactate (AmLactin) 12 % lotionIndicatio ns:Dry skin Apply topically if needed for dry skin. 225 g 11 024 2024 Active albuterol (2.5 MG/3ML) 0.083% nebulizer solutionIndicat ions:Moderate persistent asthma without complication Take 3 mL (2.5 mg) by nebulization every 6 (six) hours if needed for wheezing or shortness of breath. 90 mL 3 Active hydrALAZINE (Apresoline) 100 MG tablet Take 1 tablet (100 mg) by mouth 3 times daily. 90 tablet 024 2024 Active Arnuity Ellipta 100 MCG/ACT inhaler TAKE 1 PUFF EVERY DAY Active verapamil ER (Verelan) 360 MG 24 hr capsuleIndicati ons:Benign essential hypertension Take 1 tab orally daily 30 capsule Active dicyclomine (Bentyl) 20 MG tablet Take 1 tablet (20 mg) by mouth before breakfast, before lunch, before evening meal, and at bedtime. 120 tablet Active cholecalciferol ( Vitamin D3) 50 MCG (2000 UT) capsuleIndicati ons:Vitamin D deficiency Take 1 capsule orally daily 30 capsule Active fluticasone (Flonase) 50 MCG/ACT nasal sprayIndication s:Nasal congestion INSERT 1-2 SPRAYS IN EACH NOSTRIL EVERY DAY NEEDED 48 mL 1 Active LORazepam (Ativan) 0.5 MG tablet Take 1 tab orally daily prn anxiety 30 tablet Active Advair Diskus 500-50 MCG/ACT aerosol powder INHALE 1 PUFF INTO THE LUNGS 2 TIMES DAILY FOR 30 DAYS. Active aspirin (Aspirin Low Dose) 81 MG chewable tablet Chew 1 tablet (81 mg) Once per day. 90 tablet 5 Active nystatin (Mycostatin) 183923 UNIT/GM powder Apply topically 2 times daily. 60 g 5 024 2024 Active pantoprazole (ProtoNix) 40 MG EC tablet TAKE 1 TABLET BY MOUTH EVERY MORNING 90 tablet Active Semaglutide-Bin ght Management (Wegovy) 0.5 MG/0.5ML solution auto-injector INJECT ONE PEN (=0.5 MG) SUBCUTANEOUSLY ONCE A WEEK 2 mL Active gabapentin (Neurontin) 100 MG capsule Take 2 capsules orally qhs 60 capsule 3 025 Active gabapentin (Neurontin) 100 MG capsule Take 2 capsules orally qhs 60 capsule 3 024 2024 Discontinued(R eorder (will not trigger notification to Pharmacy)) Semaglutide-Bin ght Management (Wegovy) 0.5 MG/0.5ML solution auto-injector INJECT ONE PEN (=0.5 MG) SUBCUTANEOUSLY ONCE A WEEK 2 mL 024 2024 Discontinued(R eorder (will not trigger notification to Pharmacy)) acetaminophen (Tylenol 8 Hour) 650 MG ER tablet Take 1 tablet (650 mg) by mouth every 8 (eight) hours if needed for mild pain for up to 10 days. Do not crush, chew, or split. 30 tablet 2024 amoxicillin-cla vulanate (Augmentin) 875-125 MG tablet Take 1 tablet by mouth 2 times daily for 10 days. 20 tablet 024 2024 dextromethorpha n-guaiFENesin (Tussin DM) 10-100 MG/5ML liquidIndicatio ns:Influenza B Take 5 mL by mouth every 4 (four) hours if needed for cough for up to 10 days. 236 mL 2024 oseltamivir (Tamiflu) 75 MG capsuleIndicati ons:Influenza B Take 1 capsule (75 mg) by mouth 2 times daily for 5 days. 10 capsule 025 2024 predniSONE (Deltasone) 20 MG tabletIndicatio ns:Influenza B Take 1 tablet (20 mg) by mouth Once per day for 5 days. 5 tablet 025 2024 Active Problems Problem Noted Date Diagnosed Date Ear ache 10/04/2023 Assessment & Plan (10/04/2023 3:32 PM EDT): Advised if symptoms worsen of ear infection to f/u with [facility]. Epigastric pain 06/09/2022 Disorder of vitamin B12 11/15/2018 Female stress incontinence 05/08/2018 Muscle strain of right thigh 10/05/2017 Verruca vulgaris 09/22/2017 Kidney stone 02/02/2016 Generalized anxiety disorder 10/06/2015 Hordeolum externum 07/04/2013 Vitamin D deficiency 02/03/2012 Obesity 02/03/2012 Irritable bowel syndrome with diarrhea 2 Iron deficiency anemia 02/03/2012 Hypothyroidism 02/03/2012 Gastroesophageal reflux disease without esophagi tis 02/03/2012 Depressive disorder 02/03/2012 Benign essential hypertension 02/03/2012 Assessment & Plan (10/04/2023 3:33 PM EDT): F/u with Dr. Iniguez Anxiety state 02/03/2012 Encounters Date Type Department Care Team Description 05/28/2024 9:15 AM EST Office Visit [facility] [address] [place] [address] Dorinda Iniguez MD Benign essential hypertension (Primary Dx); Dietary counseling; Exercise counseling 05/28/2024 Travel 05/22/2024 Refill [facility] [address] [place] [address] Dorinda Iniguez MD Influenza B 05/21/2024 Patient Outreach [facility] [address] [place] [address] Dorinda Iniguez MD Pre-visit Planning (SDOH negative, Tobacco screening negative.) 05/17/2024 3:20 PM EST Office Visit [facility] [address] [place] [address] Angie Giraldo MD Influenza B (Primary Dx) 05/17/2024 Travel 05/17/2024 Telephone [facility] [address] [place] [address] Dorinda Iniguez MD Nurse Triage 05/06/2024 Telephone [facility] [address] [place] [address] Dorinda Iniguez MD Prior Authorization (Anne ) 04/30/2024 Refill [facility] [address] [place] [address] Dorinda Iniguez MD 04/25/2024 Refill [facility] [address] [place] [phone] Dorinda Iniguez MD 04/25/2024 Telephone [facility] [address] [place] [phone] Dorinda Iniguez MD Nurse Triage 04/18/2024 11:30 AM EST Telemedicine [facility] [address] [place] [address] Logan Guerrero MD Acute non-recurrent maxillary sinusitis (Primary Dx) 04/18/2024 Travel 04/18/2024 Telephone [facility] [address] [place] [phone] Dorinda Iniguez MD Nurse Triage 04/12/2024 Telephone [facility] [address] [place] [phone] Dorinda Iniguez MD Medication Question 03/05/2024 Refill [facility] [address] [place] [address] Dorinda Iniguez MD 03/04/2024 Telephone [facility] [address] [place] [address] Dorinda Iniguez MD Wejoselyn no longer covered April 24, 2024 03/01/2024 Refill [facility] [address] [place] [address] Dorinda Iniguez MD from Last 3 Months Immunizations Name Administration Dates Next Due Hep A, Adult 12/14/2023 Influenza injectable quadriv alent IIV4 with preservative 03/08/2018,03/07/2017,01/22/2015 Influenza injectable quadriv alent preservative free 01/11/2023,02/10/2022,01/13/2021,03/16,01/17/2019,01/11/2016 Influenza, IIV3, injectable 12/14/2023,1 05/16/2021,12/23/2020,01/28,02/27/2019,02/03/2014 Influenza, Split (incl. emily fied surface antigen) 01/10/2013,12/21/2011 Pneumococcal Conjugate PCV 20 08/17/2023 Pneumococcal Polysaccharide PPSV23 09/05/2013 RSV Adjuvant 08/25/2023 Tdap 07/06/2023,09/05/2013 Zoster, Recombinant 12/06/2017,09/23/2017 Social History Tobacco Use Types Packs/Day Years Used Date Smoking Tobacco: Never Passive Smoke Exposure: Never Smokeless Tobacco: Never Tobacco Cessation:Counseling Given: Not Answered Alcohol Use Standard Drinks/Week Comments Never 0 (1 standard drink = 0.6 oz pur e alcohol) Depression Answer Date Recorded Patient Health Questionnaire-9 Score 2 05/28/2024 Patient Health Questionnaire-9 Score 2 05/28/2024 Last PHQ-9: Questionnaire Data Not on file 0 05/28/2024 Housing Stability Answer Date Recorded What is [...] Date Recorded Patient Health Questionnaire-2 Score 0 05/28/2024 Internet Access Answer Date Recorded Internet Access Q1 Yes 05/21/2024 Internet Access Q2 Not on file 05/21/2024 Comments No Sex and Gender Information Value Date Recorded Sex Assigned at Female 02/21/2022 10:16 AM EDT Legal Sex Female 10:16 AM EDT Gender Identity Female 02/21/2022 10:16 AM EDT Sexual Orientation Straight 02/21/2022 10 :16 AM EDT Last Filed Vital Signs Vital Sign Reading Time Taken Comments Blood Pressure 112/70 05/28/2024 9:05 AM EST Pulse 100 05/28/2024 9:05 AM EST Temperature 36.8 ??C (98.3 ??F) 05/28/2024 9:05 AM ES T Respiratory Rate 20 05/28/2024 9:05 AM EST Oxygen Saturation 98% 05/17/2024 3:01 PM EST Inhaled Oxygen Concentration - - Weight 109 kg (240 lb) 05/28/2024 9:05 AM EST Height 160 cm (5' 3 ) 05/28/2024 9:05 AM EST Body Mass Index 42.51 05/28/2024 9:05 AM EST Plan of Treatment Upcoming Encounters Date Type Department Care Team (Late st Contact Info) Description 07/09/2024 10:00 AM EDT Office Visit [facility] [address] [place] [phone] [address] [place] [phone] Health Maintenance Due Date Last Done Comments CT Colonography 1963 Dental X-Ray: Full Mouth 1963 FIT DNA/Cologuard 1963 FIT 1963 FOBT 1963 Sigmoidoscopy 1963 Dental Oral Exam 06/04/2023 12/01/2022 COVID-19 Vaccine ( season) 2023 Dental Prophylaxis 07/08/2024 01/08/2024, 0 07/04/2023, 12/01/2022, Additional history exists Depression Screening 08/16/2024 08/17/2023, 08/17/19 24 Dental X-Ray: Bitewings 01/08/2025 01/08/2024 SDOH Screening 05/21/2025 05/21/2024 Alcohol/Substance Use Screening 05/28/2025 05/28/2024 Tobacco Screening 05/28/2025 05/28/2024 Mammogram 08/03/2025 08/04/2023 Cervical Cancer Screening 09/01/2026 HPV/Cotest 09/01/2026 09/01/2021 Pap Smear 09/01/2026 09/01/2021 Colonoscopy 07/31/2028 08/01/2023, 09/25/2020 Colorectal Cancer Screening 07/31/2028 Lipid Panel 12/13/2028 12/14/2023, 06/09/2022 DTaP/Tdap/Td Vaccines (3 - Td or Tdap) 07/05/2033 07/06/2023, 09/05/2013 Zoster Vaccines Completed 12/06/2017, 09/23/2017 HIV Screening Completed 08/17/2023 Hepatitis C Screening Completed 08/17/2023 Pneumococcal Vaccine: 50+ Years Completed 08/17/2023, 09/05/2013 RSV Patients and Patients Aged 60 years or older Completed 08/25/2023 Hepatitis A Vaccines Aged Out 12/14/2023 No long er eligible based on patient's age to complete this topic Influenza Vaccine Completed 12/14/2023, , 01/11/2023, Additional history exists HIB Vaccines Aged Out No longer eligi ble based on patient's age to complete this topic HPV Vaccines Aged Out No longer eligi ble based on patient's age to complete this topic Hepatitis B Vaccines Aged Out No long er eligible based on patient's age to complete this topic IPV Vaccines Aged Out No longer eligi ble based on patient's age to complete this topic Meningococcal Vaccine Aged Out No kenia brooke eligible based on patient's age to complete this topic RSV under 20 months Aged Out No longe r eligible based on patient's age to complete this topic Rotavirus Vaccines Aged Out No longer eligible based on patient's age to complete this topic Procedures Procedure Name Priority Date/Time Associated Diagnosis Comments POCT INFLUENZA B Routine 05/17/2024 3:50 PM EST Influenza B POCT INFLUENZA A Routine 05/17/2024 3:50 PM EST Influenza B POCT RAPID COVID ANTIGEN Routine 05/17/2024 3:48 PM EST Influenza B PROPHYLAXIS - ADULT Routine 01/08/2024 1 0:00 AM EDT BITEWINGS - 4 RADIOGRAPHIC IMAGES Routine 01/08/2024 10:00 AM EDT LIPID PANEL, STANDARD Routine 12/14/2023 9:32 AM EDT Family history of pancreatic cancer FARHAN (obstructive sleep apnea) Class 3 severe obesity with serious comorbidity in adult, unspecified BMI, unspecified obesity type (CMS/HCC) Benign essential hypertension HEPATITIS C AB W/REFL TO HCV RNA, QN, PCR Routine 08/17/2023 2:19 PM EDT Annual physical exam HIV 1/2 ANTIGEN/ANTIBODY, FOURTH GENERATION W/RFL Routine 08/17/2023 2:19 PM EDT Annual physical exam MAMMOGRAPHY Routine 08/04/2023 COLONOSCOPY Routine 08/01/2023 PERIODIC ORAL EVALUATION - ESTABLISHED PATIENT Routine 12/01/2022 3:00 PM EDT HM PAP/HPV Routine 09/01/2021 from Last 3 Months or Most Recently Relevant to Health Maintenance Results * (ABNORMAL) POCT Rapid Influenza B OSOM (05/17/2024 3:50 PM EST) Pathologist [facility] Rapid Influenza B Ag Positive( A) Negative, Indeterminate QC Media Lot # [id number] Lot# Expiration Date Swab 05/17/2024 3:50 PM EST Angie Giraldo MD POINT OF CARE TEST ENTER/ED IT ORDERABLES Final Result * POCT Rapid Influenza A OSOM (05/17/2024 3:50 PM EST) Pathologist [facility] Rapid Influenza A Ag Negative Negative, Indeterminate QC Media Lot # [id number] Lot# Expiration Date Swab Nasopharyngeal structure / Unknown 05/17/2024 3:50 PM EST us Angie Giraldo MD POINT OF CARE TEST ENTER/ED IT ORDERABLES Final Result * POCT Rapid Covid-19 BinaxNOW (05/17/2024 3:48 PM EST) Rapid COVID Ag Negative QC Media Lot # [id number] Lot# Expiration Date [id number] Swab 05/17/2024 3:48 PM EST Angie Giraldo MD POINT OF CARE TEST ENTER/ED IT ORDERABLES Final Result * (ABNORMAL) Lipid Panel, Standard (12/14/2023 9:32 AM EDT) Triglycerides 162(H) <150 mg/dL [facility] Comment:Desirable Triglyceri de: less than 150 mg/dLBorderline High Triglyceride 150-199 mg/dLHigh Triglyceride: 200-499 mg/dLVery High Triglyceride: greater than or equal to 5OO mg/dL Cholesterol 193 <200 mg/dL [facility] Comment:Desirable Cholestero l: less than 200 mg/dLBorderline High Cholesterol: 200-239 mg/dLHigh Cholesterol: greater than 239 mg/dL LDL Cholesterol Calculated 113(H) <100 mg/dL [facility] Comment:Desirable LDL: less than 100 mg/dLNear Optimal/Above Optimal LDL: 110- 129 mg/dLBorderline High LDL: 130-159 mg/dLHigh LDL: 160-189 mg/dLVery High LDL: greater than or equal to 190 mg/dL HDL Cholesterol 48 >40 mg/dL [facility] Comment:Desirable HDL: great er than 40 mg/dL Note: This HDL assay may give artificially low results in patients with liver disease. Blood Venous blood specimen / Unknown 12/14/2023 9:32 AM EDT 12/14/2023 2:14 PM EDT us Dorinda Iniguez MD LAB BLOOD ORDERABLES Final Re sult [facility] [address] [place] [phone] * Hepatitis C Antibody with Reflex to HCV, RNA, Quantitative, Real-Time PCR (08/17/2023 2:19 PM EDT) Hepatitis C Antibody Nonreactive Nonreactive [facility] Comment:Antibodies to HCV no t detected; does not exclude early acuteHCV infection. Blood Venous blood specimen / Unknown 08/17/2023 2:19 PM EDT 08/17/2023 5:21 PM EDT us Angie Giraldo MD LAB BLOOD ORDERABLES Final Result Performing Organization Address [facility]/ZIP Co de Phone Number [facility] [address] [place] [address] [phone] * HIV-1/2 Antigen and Antibodies, Fourth Generation, with Reflexes (08/17/2023 2:19 PM EDT) HIV AB/AG Nonreactive Nonreactive [facility] Comment:HIV-1 p24 Ag and/or HIV-1/HIV-2 Ab not detected.A test result that is nonreactive does not exclude thepossibility of exposure to or infection with HIV-1 and/orHIV-2. Nonreactive results in this assay for individualswith prior exposure to HIV-1 and/or HIV-2 may be due toantigen and antibody levels that are below the limit ofdetection of this assay.The [employer] HIV Ag/Ab Combo assay result andsupplemental assay results should be interpreted inconjunction with the patient's clinical presentation,history and other laboratory results. If the results areinconsistent with clinical evidence, additional testing issuggested to confirm the result. Blood Venous blood specimen / Unknown 08/17/2023 2:19 PM EDT 08/17/2023 5:21 PM EDT us Angie Giraldo MD LAB BLOOD ORDERABLES Final Result Performing Organization Address [facility]/ZIP Co de Phone Number [facility] [address] [place] [address] [phone] * Hm Mammography (08/04/2023) Mammogram Normal Normal, Abnormal, BIRADS 1 , BIRADS 2 Anatomical Region Laterality Modality Other Dorinda Iniguez MD HEALTH MAINTENANCE Final Resu lt * (ABNORMAL) Colonoscopy (08/01/2023) Colonoscopy Abnormal(A ) Normal Dorinda Iniguez MD HEALTH MAINTENANCE Final Resu lt * Pap Smear (09/01/2021) Pap Negative for intraephithelial lesion or malignancy Negative for intraephithelial lesion or malignancy, Other HPV Undetected Undetected, Indeterminate, Quantitative, Not Detected Sakina Cline MD HEALTH MAINTENANCE Final Result from Last 3 Months or Most Recently Relevant to Health Maintenance [place] [address] [place] [address] [facility] MEDICAID STAND ADULT Care Teams Residential Lawn Specialist Relationship Specialty Start Date End Date Dorinda Iniguez MD [address] [place] [phone] PCP - General Family Medicine 04/24/18 Ginny Hernandez Trace Evidence TechnicianMobile Architect 01/17/24
--- OUTSIDE RECORDS SUMMARY | 2024-05-28 10:07 | XMS_ITS | Encounter Summary ---
Author Organization [employer] Address [address] [place] [address] 7 [place] [address] Care Team Providers Care Jv Baseball Coach Name Role Phone Dorinda Iniguez MD Primary Care Provider [phone] Reason for Visit * Reason Comments Cough Encounter Details Date Type Department Care Team ([facility] Contact Info) Description 05/17/2024 3:20 PM EST Office Visit [facility] PEDS [address] [place], [place] [phone] Angie Giraldo MD [address] [place] [address] Influenza B (Primary Dx) Social History Tobacco Use Types Packs/Day Years [...] AM EDT documented as of this encounter Last Filed Vital Signs Vital Sign Reading Time Taken Comments Blood Pressure 135/88 05/17/2024 3:01 PM EST Pulse 107 05/17/2024 3:01 PM EST Temperature 36.4 ??C (97.5 ??F) 05/17/2024 3:01 PM ES T Respiratory Rate 20 05/17/2024 3:01 PM EST Oxygen Saturation 98% 05/17/2024 3:01 PM EST Inhaled Oxygen Concentration - - Weight - - Height - - Body Mass Index - - documented in this encounter Progress Notes * Angie Giraldo MD - 05/17/2024 3:20 PM EST Subjective Patient ID: Chelle Arias is a 58 y.o. female who presents for No chief complaint on file.. Cough Pertinent negatives include no chills. Patient was diagnosed with COVID-19 at the end of March and presented with a cough.. Treated with initial improvement and then developed a cough subsequently after. As the cough was persistent shedecides to come here to the office for an evaluation. It is associated with fatigue, body aches andsubjective fever. Patient is also anxious because her father is currently in the ICU in [place]. States that she was supposed to receive a course of prednisone from her press bucker which was notsent to her pharmacy. .prb Current Outpatient Medications on File Prior to Visit Medication Sig Dispense Refill Advair Diskus 500-50 MCG/ACT aerosol powder INHALE 1 PUFF INTO THE LUNGS 2 TIMES DAILY FOR 30 DAYS. albuterol (2.5 MG/3ML) 0.083% nebulizer solution Take 3 mL (2.5 mg) by nebulization every 6 (six) hours if needed for wheezing or shortness of breath. 90 mL 3 ammonium lactate (AmLactin) 12 % lotion Apply topically if needed for dry skin. 225 g 11 Arnuity Ellipta 100 MCG/ACT inhaler TAKE 1 PUFF EVERY DAY aspirin (Aspirin Low Dose) 81 MG chewable tablet Chew 1 tablet (81 mg) Once per day. 90 tablet 5 cholecalciferol (SM Vitamin D3) 50 MCG (2000 UT) capsule Take 1 capsule orally daily 30 capsule 11 dicyclomine (Bentyl) 20 MG tablet Take 1 tablet (20 mg) by mouth before breakfast, before lunch, before evening meal, and at bedtime. 120 tablet 11 fluticasone (Flonase) 50 MCG/ACT nasal spray INSERT 1-2 SPRAYS IN EACH NOSTRIL EVERY DAY NEEDED 48 mL 1 gabapentin (Neurontin) 100 MG capsule Take 2 capsules orally qhs 60 capsule 3 hydrALAZINE (Apresoline) 100 MG tablet Take 1 tablet (100 mg) by mouth 3 times daily. 90 tablet 11 lidocaine (Lidoderm) 5 % patch APPLY TO LOWER BACK REGION. LEAVE ON FOR 12 HOURS OFF FOR 12 HOURS, NEEDED. loperamide (Imodium) 2 MG capsule Take 2 mg by mouth. LORazepam (Ativan) 0.5 MG tablet TAKE ONE TABLET EVERY MORNING AND TWO TABLETS AT BEDTIME NEEDED LORazepam (Ativan) 0.5 MG tablet Take 1 tab orally daily prn anxiety 30 tablet 0 metoprolol tartrate (Lopressor) 75 MG tablet Take 75 mg by mouth in the morning and 75 mg at noon and 75 mg in the evening. nystatin (Mycostatin) 244299 UNIT/GM powder Apply topically 2 times daily. 60 g 5 pantoprazole (ProtoNix) 40 MG EC tablet TAKE 1 TABLET BY MOUTH EVERY MORNING 90 tablet 0 pregabalin (Lyrica) 75 MG capsule ONE BY MOUTH EVERY NIGHT X3 DAYS THEN ONE BY MOUTH TWICE A DAY Procto-Med HC 2.5 % rectal cream APPLY RECTALLY TWICE DAILY 28 g 5 Semaglutide-Weight Management (Wegovy) 0.5 MG/0.5ML solution auto-injector INJECT ONE PEN (=0.5 MG)SUBCUTANEOUSLY ONCE A WEEK 2 mL 0 traMADol (Ultram) 50 MG tablet Take 50 mg by mouth every 6 (six) hours if needed. Ventolin HFA 108 (90 Base) MCG/ACT inhaler INHALE ONE PUFF EVERY 4 HOURS NEEDED FOR COUGH 18 g 1 verapamil ER (Verelan) 360 MG 24 hr capsule Take 1 tab orally daily 30 capsule 11 No current facility-administered medications on file prior to visit. Allergies Allergen Reactions Lisinopril Rash, Unknown and Cough Other reaction(s): cough, Cough Other reaction(s): cough Other reaction(s): cough, Cough Review of Systems Constitutional: Negative for activity change, appetite change, chills and diaphoresis. HENT: Negative for dental problem, drooling and ear discharge. Respiratory: Positive for cough. Gastrointestinal: Negative for anal bleeding, blood in stool and constipation. Objective BP 135/88 (BP Location: Left arm, Patient Position: Sitting, BP Cuff Size: Adult long) Pulse 107 Temp 97.5 ??F (36.4 ??C) (Oral) Resp 20 SpO2 98% Physical Exam Constitutional: General: She is not in acute distress. Appearance: Normal appearance. She is ill-appearing. She is not toxic-appearing or diaphoretic. Pulmonary: Breath sounds: Decreased air movement present. Neurological: Mental Status: She is alert. Assessment/Plan Diagnoses and all orders for this visit: Influenza B Comments: Supportive care: Fluids, rest, Medication as directed. Call the office if no improvement in the next week or so. Orders: - POCT Rapid Influenza A OSOM - POCT Rapid Influenza B OSOM - POCT Rapid Covid-19 BinaxNOW - dextromethorphan-guaiFENesin (Tussin DM) 10-100 MG/5ML liquid; Take 5 mL by mouth every 4 (four) hours if needed for cough for up to 10 days. - oseltamivir (Tamiflu) 75 MG capsule; Take 1 capsule (75 mg) by mouth 2 times daily for 5 days. - predniSONE (Deltasone) 20 MG tablet; Take 1 tablet (20 mg) by mouth Once per day for 5 days. documented in this encounter Plan of Treatment Upcoming Encounters Date Type Department Care Team (Late st Contact Info) Description 07/09/2024 10:00 AM EDT Office Visit [facility] DENTAL [address] [place] [address] [phone] Dee Lynch [address] [place] [address] [phone] documented as of this encounter Procedures Procedure Name Priority Date/Time Associated Diagnosis Comments POCT INFLUENZA B Routine 05/17/2024 3:50 PM EST Influenza B POCT INFLUENZA A Routine 05/17/2024 3:50 PM EST Influenza B POCT RAPID COVID ANTIGEN Routine 05/17/2024 3:48 PM EST Influenza B documented in this encounter Results * (ABNORMAL) POCT Rapid Influenza B OSOM (05/17/2024 3:50 PM EST) Rapid Influenza B Ag Positive( A) Negative, Indeterminate QC Media Lot # [id number] Lot# Expiration Date Swab 05/17/2024 3:50 PM EST Angie Giraldo MD POINT OF CARE TEST ENTER/ED IT ORDERABLES Final Result * POCT Rapid Influenza A OSOM (05/17/2024 3:50 PM EST) Pathologist [facility] Rapid Influenza A Ag Negative Negative, Indeterminate QC Media Lot # [id number] Lot# Expiration Date Swab Nasopharyngeal structure / Unknown 05/17/2024 3:50 PM EST Angie Giraldo MD POINT OF CARE TEST ENTER/ED IT ORDERABLES Final Result * POCT Rapid Covid-19 BinaxNOW (05/17/2024 3:48 PM EST) Rapid COVID Ag Negative QC Media Lot # [id number] Lot# Expiration Date 3,,026 Swab 05/17/2024 3:48 PM EST Angie Giraldo MD POINT OF CARE TEST ENTER/ED IT ORDERABLES Final Result documented in this encounter Visit Diagnoses Diagnosis Influenza B- Primary Influenza with other respiratory manifestations documented in this encounter Additional Health Concerns Assessment Noted Time PHQ-9 Depression Total Score: 4 08/17/19 1:37 PM EDT documented as of this encounter Care Teams Jv Baseball Coach Relationship Specialty Start Date End Date Dorinda Iniguez MD [address] [place] [id number] PCP - General Family Medicine 04/24/18 Ginny Hernandez Origination SpecialistSurgical Services Asst 01/17/24 documented as of this encounter
--- OUTSIDE RECORDS SUMMARY | 2024-05-28 10:07 | XMS_ITS | Clinical Summary ---
Author Organization [facility] Address [address] [place] [address] Phone Care Team Providers Care [facility] Psychiatrist Name Role Phone Dorinda Iniguez MD Primary Care Provider [phone] Allergies Active Allergy Reactions Criticality Noted Date Comments Lisinopril Other (see comments) 04/24/2010 Other reaction(s): cough Other reaction(s): cough, Cough Oxycodone 12/15/2014 Other reaction(s): Itching Medications albuterol (2.5 MG/3ML) 0.083% nebulizer solution INHALE ONE AMPULE USING A NEBULIZER THREE TIMES DAILY NEEDED Active verapamil ER (VERELAN) 360 MG 24 hr capsule Take 360 mg by mouth in the morning. 3 Active sucralfate (CARAFATE) 1 g tablet TAKE ONE TABLET BY MOUTH THREE TIMES DAILY ON AN EMPTY STOMACH ONE HOUR BEFORE MEALS AND BEDTIME 3 Active LORazepam (ATIVAN) 0.5 MG tablet TAKE ONE TABLET EVERY MORNING AND TWO TABLETS AT BEDTIME NEEDED 9 Active ketotifen (ZADITOR) 0.025 % ophthalmic solution 1 drop Active acetaminophen-c odeine (TYLENOL with CODEINE #3) 300-30 MG per tablet Take 1 tablet by mouth every 6 (six) hours if needed Active aspirin 81 MG chewable tablet CHEW ONE TABLET BY MOUTH EVERY DAY 3 Active nystatin (MYCOSTATIN) cream Apply topically 2 (two) times a day 1 Active dicyclomine (BENTYL) 20 MG tablet Take 20 mg by mouth 3 Active pantoprazole (PROTONIX) 40 MG EC tablet Take 40 mg by mouth 1 (one) time each day before breakfast Do not crush, chew, or split. Active Cholecalciferol (Vitamin D3) 50 MCG (2000 UT) tablet Take 1 tablet by mouth 1 (one) time each day Active gabapentin (NEURONTIN) 300 MG capsule Take 300 mg by mouth in the morning and 300 mg in the evening and 300 mg before bedtime. Active loperamide (IMODIUM) 2 MG capsule Take 2 mg by mouth 4 (four) times a day if needed for diarrhea Active traMADol (ULTRAM) 50 MG tablet Take 50 mg by mouth every 6 (six) hours if needed for moderate pain Active lidocaine (LIDODERM) 5 % patch Apply 1 patch topically 1 (one) time each day Remove & discard patch within 12 hours or as directed by MD. Active hydrALAZINE 100 MG tablet Take 1 tablet (100 mg total) by mouth in the morning and 1 tablet (100 mg total) in the evening and 1 tablet (100 mg total) before bedtime. 270 tablet 3 3 Active metoprolol tartrate 75 MG tablet Take 75 mg by mouth 3 times a day 270 tablet 3 3 Active Fluticasone Furoate (Arnuity Ellipta) 100 MCG/ACT aerosol powder Inhale 1 puff Active QUEtiapine (SEROquel) 25 MG tablet Take 25 mg by mouth every night Active Melatonin 5 MG tablet Take 1 tablet by mouth every night Active Active Problems Problem Noted Date Diagnosed Date Noncompliance with treatment 06/04/2023 Asthma 04/07/2022 Overview (10/10/2022): Last Assessment & Plan: Continue with the use of Flovent 1 puff twice a day and albuterol as needed At this moment patient does not need further interventions for asthma. Her asthma is well under control and she knows how to use inhalers and has a plan of action. The dyspnea on exertion will continue being working out as above. Obstructive sleep apnea 04/07/2022 Overview (10/10/2022): Last Assessment & Plan: Patient definitely not willing to use CPAP. She said that she is claustrophobic. I explained her that this may be predisposing to right ventricular strain and pulmonary hypertension. Female stress incontinence 05/08/2018 Renal stone 02/02/2016 Hypertension 02/03/2012 Hypothyroidism 02/03/2012 Iron deficiency anemia 02/03/2012 Obesity 02/03/2012 Irritable bowel syndrome with diarrhea 2 Vitamin D deficiency 02/03/2012 Resolved Problems Problem Noted Date Diagnosed Date Resolved Date Gastro-esophageal reflux dis ease without esophagitis 10/10/2022 06/04/2023 Screening for malignant neoplasm of colon 10/10/2022 10/11/2022 Epigastric pain 06/09/2022 10/11/2022 Dyspnea on exertion 04/07/2022 10/12/19 23 Overview (10/10/2022): Last Assessment & Plan: I explained Chelle that her dyspnea is probably multifactorial. Her asthma is well under control and the pulmonary function test did not show restriction, did not show obstruction and her diffusing capacity is only mildly reduced but corrects with alveolar ventilation which rule out pulmonary hypertension. Most likely her dyspnea is secondary to the following factors: Deconditioning, overweight, mild asthma. She is going to have the echocardiogram in the next couple of days and depending of the results I will decide if I do a referral to cardiology or if he needs further testing. Disorder of vitamin B12 11/15/201805/25 Strain of muscle of right thigh 10/05/2017 10/11/2022 Verruca vulgaris 09/22/2017 10/11/2022 Generalized anxiety disorder 10/06/2015 06/04/2023 Hordeolum externum 07/04/2013 3 Anxiety state 02/03/2012 06/04/2023 Depressive disorder 02/03/2012 06/04/19 24 Family History Medical History Relation Comments Diabetes Father Heart disease Father Hypertension Father Diabetes Mother Hypertension Mother Cancer Sister Relation Status Comments Father Mother Sister Social History Tobacco Use Types Packs/Day Years Used Date Smoking Tobacco: Never Smokeless Tobacco: Never Alcohol Use Standard Drinks/Week Comments Never 0 (1 standard drink = 0.6 oz pur e alcohol) Comments Unknown Sex and Gender Information Value Date Recorded Sex Assigned at Not on file Legal Sex Female 8:13 AM EDT Gender Identity Not on file Sexual Orientation Not on file Last Filed Vital Signs Vital Sign Reading Time Taken Comments Blood Pressure 128/80 06/05/2023 9:29 AM EST Pulse 58 06/05/2023 9:29 AM EST Temperature - - Respiratory Rate - - Oxygen Saturation 96% 10/11/2022 8:42 AM EDT Inhaled Oxygen Concentration - - Weight 112 kg (247 lb) 06/05/2023 9:29 AM EST Height 162.6 cm (5' 4 ) 10/11/2022 8:42 AM EDT Body Mass Index 42.4 10/11/2022 8:42 AM EDT Plan of Treatment Health Maintenance Due Date Last Done Comments Breast Cancer Screening 1965 Colorectal Cancer Screening: Annual FOBT 2012 Colorectal Cancer Screening: Colonoscopy 2012 Colorectal Cancer Screening: Sigmoidoscopy 2012 Pneumococcal Vaccine: Pediatrics (0 to 5 Years) and At-Risk Patients (6 to 64 Years) (2 of 2 - PCV) 09/05/2014 09/05/2013 Influenza Vaccine (#1) 2023 3, 02/10/2022, 01/13/2021, Additional history exists Hepatitis B Vaccine Aged Out No longe r eligible based on patient's age to complete this topic Insurance [place] Care Teams [facility] Facility Psychiatrist Relationship Specialty Start Date End Date Dorinda Iniguez MD [address] PCP - General Internal Medicine 07/06/22
--- OUTSIDE RECORDS SUMMARY | 2024-05-28 10:07 | XMS_ITS | Encounter Summary ---
Author Organization [employer] Address [address] [facility] 7t [place] [address] Care Team Providers Care Cardiology Associate Name Role Phone Dorinda Iniguez MD Primary Care Provider [phone] Encounter Details Date Type Department Care Team (Latest Contact Info) Description 05/28/2024 Travel Social History Tobacco Use Types Packs/Day Years [...] Description 07/09/2024 10:00 AM EDT Office Visit [facility] [address] [place], [place] [phone] Dee Lynch [address] [place], [place] [phone] documented as of this encounter Visit Diagnoses Not on filedocumented in this encounter Additional Health Concerns Assessment Noted Time PHQ-9 Depression Total Score: 2 05/28/19 25 9:31 AM EST documented as of this encounter Care Teams Cardiology Associate Relationship Specialty Start Date End Date Dorinda Iniguez MD [address] [place] [address] PCP - General Family Medicine 04/24/18 Ginny Hernandez Airplane TechnicianSteel Handler 01/17/24 documented as of this encounter
--- OUTSIDE RECORDS SUMMARY | 2024-05-28 10:07 | XMS_ITS | Encounter Summary ---
Author Organization [facility] Address [address] [place] [address] Care Team Providers Care Assistant Hairstylist Name Role Phone Dorinda Iniguez MD Primary Care Provider [phone] Encounter Details Date Type Department Care Team (Latest Contact Info) Description 04/22/2019 Abstract [facility] CONVERSIONS Dental, Provider, DDS Social History [...] Description 07/09/2024 10:00 AM EDT Office Visit [facility] DENTAL [address] [place], [place] [phone] Dee Lynch [address] [place] [address] documented as of this encounter Visit Diagnoses Not on filedocumented in this encounter Care Teams Assistant Hairstylist Relationship Specialty Start Date End Date Dorinda Iniguez MD [address] [place] [address] PCP - General Family Medicine 04/24/18 Ginny Hernandez Nutritional Health CoachDragline Operator 01/17/24 documented as of this encounter
--- OUTSIDE RECORDS SUMMARY | 2024-05-28 10:07 | XMS_ITS | Encounter Summary ---
Author Organization [employer] Address [address] [facility] 7t [place] [address] Care Team Providers Care Pin Inserter Regulator Name Role Phone Dorinda Iniguez MD Primary Care Provider [phone] Encounter Details Date Type Department Care Team (Latest Contact Info) Description 05/17/2024 Travel Social History Tobacco Use Types Packs/Day [...] Description 07/09/2024 10:00 AM EDT Office Visit [facility] [address] [place], [place] [phone] Dee Lynch [address] [place], [place] [phone] documented as of this encounter Visit Diagnoses Not on filedocumented in this encounter Additional Health Concerns Assessment Noted Time PHQ-9 Depression Total Score: 4 08/17/19 24 1:37 PM EDT documented as of this encounter Care Teams Pin Inserter Regulator Relationship Specialty Start Date End Date Dorinda Iniguez MD [address] [place] [address] PCP - General Family Medicine 04/24/18 Ginny Hernandez Infrastructure Design EngineerPolitical Science Professor 01/17/24 documented as of this encounter
--- OUTSIDE RECORDS SUMMARY | 2024-05-28 10:07 | XMS_ITS | Encounter Summary ---
Author Organization [employer] [facility] Address [address] [place] [address] Care Team Providers Care Carpenters Name Role Phone Dorinda Iniguez MD Primary Care Provider [phone] Encounter Details Date Type Department Care Team (Latest Contact Info) Description 04/02/2020 Abstract [facility] CONVERSIONS Dental, Provider, DDS Social History Tobacco [...] Description 07/09/2024 10:00 AM EDT Office Visit [facility] DENTAL [address] [place], [place] [phone] Dee Lynch [address] [place] [address] documented as of this encounter Visit Diagnoses Not on filedocumented in this encounter Care Teams Carpenters Relationship Specialty Start Date End Date Dorinda Iniguez MD [address] [place] [address] PCP - General Family Medicine 04/24/18 Ginny Hernandez Analysis DirectorSystems Test Engineer 01/17/24 documented as of this encounter
--- OUTSIDE RECORDS SUMMARY | 2024-05-28 10:07 | XMS_ITS | Encounter Summary ---
Author Organization [employer] Address [address] [facility] 7 [place] [address] Care Team Providers Care Facility Maintenance Helper Name Role Phone Dorinda Iniguez MD Primary Care Provider Reason for Visit * Reason Onset Date Comments Nurse Triage 05/17/2024 Encounter Details Date Type Department Care Team ([facility] st Contact Info) Description 05/17/[address] [facility] MED & PEDS [address] [place] [address] Dorinda Iniguez MD [address] [place] [address] Nurse Triage Social History Tobacco Use Types Packs/Day Years [...] encounter Miscellaneous Notes * Telephone Encounter - Kristina Kinsey RN - 05/17/2024 10:22 AM EST Call returned to Chelle Arias to triage below. Reports having cough x 2 months. Per pt continues to have cough with sputum. Pt also endorses fever , congestion x 2 days. Denies any vomiting. Mild diarrhea yesterday. Pt using albuterol nebulizer Q4H. Pt advised of disposition, agrees to DEC today. Reviewed home care advise, ER precautions and reasons to call back. Protocol Used: COVID-19 - Diagnosed or Suspected (Adult) Protocol-Based Disposition: Discuss with PCP and Callback by Nurse within 1 Hour Future Appointments Date Time Provider Department Center 05/17/2024 3:[address] [facility] SAME DAY CARE [facility] 05/28/2024 9:15 AM Dorinda Iniguez MD [facility] 07/09/2024 10:[address] [facility] Insurance verified as active per Real Time Eligibility in [place]. Video visit offer not recorded Positive Triage Question: * HIGH RISK patient (e.g., weak immune system, age > 64 years, obesity with BMI of 30 or higher,, chronic lung disease) and COVID symptoms (e.g., cough, fever) (Exceptions: Already seen by doctor or FIELD SERVICE ANALYST/PA and no new or worsening symptoms.) * All higher-acuity triage questions were negative Care Advice Discussed: * Reassurance and Education - Suspected COVID-19 and Testing Needed * Cough Medicines * Coughing Spells * Pain and Fever Medicines * Reasons To Call Back - Fever over 103 F (39.4 C) - Chest pain or difficulty breathing occurs - Cough or other symptoms last more than 3 weeks - You become worse * Telephone Encounter - Autumn Cline - 05/17/2024 9:15 AM EST Symptom: Cough Outcome: Schedule an urgent appointment (within 1 hour) or talk to a nurse or provider soon Reason: Wheezing (high-pitched whistling sound) The caller accepted this outcome. documented in this encounter Plan of Treatment Upcoming Encounters Date Type Department Care Team (Late st Contact Info) Description 07/09/2024 10:00 AM EDT Office Visit [facility] DENTAL [address] [place] [phone] Dee Lynch [address] [place] [address] documented as of this encounter Visit Diagnoses Not on filedocumented in this encounter Additional Health Concerns Assessment Noted Time PHQ-9 Depression Total Score: 4 08/17/19 24 1:37 PM EDT documented as of this encounter Care Teams Facility Maintenance Helper Relationship Specialty Start Date End Date Dorinda Iniguez MD [address] [place] [address] PCP - General Family Medicine 04/24/18 Ginny Hernandez Wind Turbine Sheet Metal WorkerBusiness Management Manager 01/17/24 documented as of this encounter
--- OUTSIDE RECORDS SUMMARY | 2024-05-28 10:07 | XMS_ITS | Encounter Summary ---
Author Organization [employer] Address [address] [place] [address] 7t [place] [address] Care Team Providers Care Personal Driver Name Role Phone Dorinda Iniguez MD Primary Care Provider [phone] Encounter Details Date Type Department Care Team ([facility] Contact Info) Description 05/28/2024 9:15 AM EST Office Visit [facility] CHC MED & PEDS [address] [place], [place] [phone] Dorinda Iniguez MD [address] [place] [address] Benign essential hypertension (Primary Dx); Dietary counseling; Exercise counseling Social History Tobacco Use Types Packs/Day Years [...] 20 05/28/2024 9:05 AM EST Oxygen Saturation - - Inhaled Oxygen Concentration - - Weight 109 kg (240 lb) 05/28/2024 9:05 AM EST Height 160 cm (5' 3 ) 05/28/2024 9:05 AM EST Body Mass Index 42.51 05/28/2024 9:05 AM EST documented in this encounter Plan of Treatment Upcoming Encounters Date Type Department Care Team (Late st Contact Info) Description 07/09/2024 10:00 AM EDT Office Visit [facility] D[facility]AL [address] [place] [address] [phone] Dee Lynch [address] [place] [address] [phone] Scheduled Orders Name Type Priority Associated Diagnoses Orde r Schedule CBC auto differential Lab Routine Dietary counseling Exercise counseling Benign essential hypertension Expected: 05/28/2024 (Approximate), Expires: 05/28/2025 Albumin, Random Urine W/Creatinine Lab Routine Dietary counseling Exercise counseling Benign essential hypertension Expected: 05/28/2024 (Approximate), Expires: 05/28/2025 TSH with Reflex to Free T4 Lab Routine Dietary counseling Exercise counseling Benign essential hypertension Expected: 05/28/2024 (Approximate), Expires: 05/28/2025 Vitamin D 1,25 dihydroxy Lab Routine Dietary counseling Exercise counseling Benign essential hypertension Expected: 05/28/2024 (Approximate), Expires: 05/28/2025 Basic Metabolic Panel Lab Routine Dietary counseling Exercise counseling Benign essential hypertension Expected: 05/28/2024 (Approximate), Expires: 05/28/2025 documented as of this encounter Visit Diagnoses Diagnosis Benign essential hypertension- Primary Essential hypertension, benign Dietary counseling Dietary surveillance and counseling Exercise counseling documented in this encounter Additional Health Concerns Assessment Noted Time PHQ-9 Depression Total Score: 2 05/28/19 25 9:31 AM EST documented as of this encounter Care Teams Personal Driver Relationship Specialty Start Date End Date Dorinda Iniguez MD [address] [place] [address] PCP - General Family Medicine 04/24/18 Ginny Hernandez Software Licensing ExecutiveOphthalmic Surgical Assistant 01/17/24 documented as of this encounter
--- OUTSIDE RECORDS SUMMARY | 2024-05-28 10:07 | XMS_ITS | Encounter Summary ---
Author Organization [employer] Address [address] [facility] 7t [place] [address] Care Team Providers Care Printed Circuit Boards Beveler Name Role Phone Dorinda Iniguez MD Primary Care Provider [phone] Reason for Visit * Reason Comments Med Refill Encounter Details Date Type Department Care Team ([facility] st Contact Info) Description 03/05/2024 Refill [facility] CHC MED & PEDS [address] [place], [place] [phone] Dorinda Iniguez MD 505 [place] [address] Social History Tobacco Use Types Packs/Day Years [...] Description 07/09/2024 10:00 AM EDT Office Visit [facility] D[facility]AL [address] [place], [place] [phone] Dee Lynch [address] [place], [place] [phone] documented as of this encounter Visit Diagnoses Not on filedocumented in this encounter Additional Health Concerns Assessment Noted Time PHQ-9 Depression Total Score: 4 08/17/19 24 1:37 PM EDT documented as of this encounter Care Teams Printed Circuit Boards Beveler Relationship Specialty Start Date End Date Dorinda Iniguez MD 505 [place] [address] PCP - General Family Medicine 04/24/18 Ginny Hernandez Physical Therapy Aides TeacherWebsphere Commerce Consultant 01/17/24 documented as of this encounter
--- OUTSIDE RECORDS SUMMARY | 2024-05-28 10:07 | XMS_ITS | Encounter Summary ---
Author Organization [employer] Address [address] [facility] 7t [place] [address] Care Team Providers Care Scientific Manager Name Role Phone Dorinda Iniguez MD Primary Care Provider [phone] Reason for Visit * Reason Comments Med Refill Encounter Details Date Type Department Care Team ([facility] st Contact Info) Description 03/01/2024 Refill [facility] CHC MED & PEDS [address] [place], [place] [phone] Dorinda Iniguez MD 505 [place] [address] Social History Tobacco Use Types Packs/Day Years [...] Description 07/09/2024 10:00 AM EDT Office Visit [facility] D[facility]AL 91 [place], [place] [phone] Dee Lynch 91 [place], [place] [phone] documented as of this encounter Visit Diagnoses Not on filedocumented in this encounter Additional Health Concerns Assessment Noted Time PHQ-9 Depression Total Score: 4 08/17/19 24 1:37 PM EDT documented as of this encounter Care Teams Scientific Manager Relationship Specialty Start Date End Date Dorinda Iniguez MD [address] [place] [address] PCP - General Family Medicine 04/24/18 Ginny Hernandez Registration RepScrap Materials Buyer 01/17/24 documented as of this encounter
--- OUTSIDE RECORDS SUMMARY | 2024-05-28 10:07 | XMS_ITS | Encounter Summary ---
Author Organization [employer] Address [address] [facility] 7 [place] [address] Care Team Providers Care Tube Bender Hand Name Role Phone Dorinda Iniguez MD Primary Care Provider Reason for Visit * Reason Onset Date Comments Nurse Triage 04/18/2024 Encounter Details Date Type Department Care Team ([facility] st Contact Info) Description 04/18/2024 Telephone [facility] MEDICINE [address] [place] [address] Dorinda Iniguez MD [address] [place] [address] Nurse Triage Social History Tobacco Use Types [...] encounter Miscellaneous Notes * Telephone Encounter - Ilene Norton RN - 04/18/2024 10:26 AM EST Called pt. Back via [email or web address] customer service analyst [phone] Andrew. Rescheduled pt. Appt to a televisit with dr. Harper for 1130am Positive Covid x 3 days and cough congested with green phlegm. * Telephone Encounter - Ilene Norton RN - 04/18/2024 9:42 AM EST Called pt. Via [employer] customer service analyst Carly [phone]. Pt. States that she went to ED x 3 days ago and pt. Is positive for Covid. Pt. Has been taking Prednisone and a cough pill that has not been helping Tessalon. Pt. Is still having a bad cough, congestion, phlegm is green. Positive fever. Inside of mouth is raw. No problem with breathing because she has been using inhaler. Protocol Used: COVID-19 - Diagnosed or Suspected (Adult) Protocol-Based Disposition: Discuss with PCP and Callback by Nurse within 1 Hour Video visit not offered Positive Triage Questions: * HIGH RISK patient and influenza exposure within the last 7 days and ONE OR MORE respiratory symptoms: cough, sore throat, runny or stuffy nose * Fever present > 3 days (72 hours) * All higher-acuity triage questions were negative Care Advice Discussed: * Humidifier * Coughing Spells * COVID-19 - How to Protect Others - When You Are Sick With COVID-19 * Clean Your Hands Often * Clean High Touch Surfaces Every Day * Stay Away From Others in Your Home * Call Ahead Before Visiting Your Doctor (or SUPPORT STAFF/PA) * Telephone Encounter - Kerry Quickjia - 04/18/2024 8:42 AM EST Symptom: Cough Outcome: Schedule an urgent appointment (within 1 hour) or talk to a nurse or provider soon Reason: a barky, tight cough (or croup by caller's report) + COVID on 04/12/24 The caller accepted this outcome. Please contact at [phone] Sammarinese documented in this encounter Plan of Treatment Upcoming Encounters Date Type Department Care Team (Late st Contact Info) Description 07/09/2024 10:00 AM EDT Office Visit [facility] [address] [place] [address] Dee Lynch [address] [place] [address] documented as of this encounter Visit Diagnoses Not on filedocumented in this encounter Additional Health Concerns Assessment Noted Time PHQ-9 Depression Total Score: 4 08/17/19 24 1:37 PM EDT documented as of this encounter Care Teams Tube Bender Hand Relationship Specialty Start Date End Date Dorinda Iniguez MD [address] [place] [address] PCP - General Family Medicine 04/24/18 Ginny Hernandez Message Broker DeveloperTechnical Manager Chemical Plant 01/17/24 documented as of this encounter
--- OUTSIDE RECORDS SUMMARY | 2024-05-28 10:07 | XMS_ITS | Encounter Summary ---
Author Organization [employer] Address 75 [facility] 7 [place] [address] Care Team Providers Care Bookstore Clerk Name Role Phone Dorinda Iniguez MD Primary Care Provider [phone] Reason for Visit * Reason Onset Date Comments Prior Authorization 05/06/2024 Anne Encounter Details Date Type Department Care Team ([facility] st Contact Info) Description 05/06/2024 Telephone [facility] CHC MED & PEDS [address] [place] [address] Dorinda Iniguez MD [address] [place] [address] Prior Authorization (Anne ) Social History Tobacco Use Types Packs/Day Years [...] encounter Miscellaneous Notes * Telephone Encounter - Deb Rubio LPN - 05/06/2024 11:04 AM EST Pt was denied for Wegovy scanned into media , sending as an FYI documented in this encounter Plan of Treatment Upcoming Encounters Date Type Department Care Team (Late st Contact Info) Description 07/09/2024 10:00 AM EDT Office Visit [facility] [address] [place] [address] [phone] Dee Lynch [address] [place], [place] [phone] documented as of this encounter Visit Diagnoses Not on filedocumented in this encounter Additional Health Concerns Assessment Noted Time PHQ-9 Depression Total Score: 4 08/17/19 24 1:37 PM EDT documented as of this encounter Care Teams Bookstore Clerk Relationship Specialty Start Date End Date Dorinda Iniguez MD [address] [place] [address] PCP - General Family Medicine 04/24/18 Ginny Hernandez Newspaper Editor ManagingAutomotive Assembler 01/17/24 documented as of this encounter
--- OUTSIDE RECORDS SUMMARY | 2024-05-28 10:07 | XMS_ITS | Encounter Summary ---
Author Organization [employer] Address 75 [facility] 7 [place] [address] Care Team Providers Care Cooker Syrup Name Role Phone Dorinda Iniguez MD Primary Care Provider [phone] Reason for Visit * Reason Onset Date Comments Med Refill 04/30/2024 Encounter Details Date Type Department Care Team ([facility] st Contact Info) Description 04/30/2024 Refill [facility] CHC MED & PEDS [address] [place] [address] Dorinda Iniguez MD [address] [place] [address] Social History Tobacco Use Types Packs/Day Years [...] encounter Miscellaneous Notes * Telephone Encounter - Autumn Cline - 04/30/2024 10:31 AM EST TC from pt requesting medication refill. Medications needing refill : Semaglutide-Weight Management (Wegovy) 0.5 MG/0.5ML solution auto-injector To be sent to: [facility]/pharmacy #[id number] [place], [place] - [address] [place] [address] documented in this encounter Plan of Treatment Upcoming Encounters Date Type Department Care Team ([facility] st Contact Info) Description 07/09/2024 10:00 AM EDT Office Visit [facility] DENTAL [address] [place] [address] Dee Lynch 91 [place], [place] [phone] documented as of this encounter Visit Diagnoses Not on filedocumented in this encounter Additional Health Concerns Assessment Noted Time PHQ-9 Depression Total Score: 4 08/17/19 24 1:37 PM EDT documented as of this encounter Care Teams Cooker Syrup Relationship Specialty Start Date End Date Dorinda Iniguez MD [address] [place] [address] PCP - General Family Medicine 04/24/18 Ginny Hernandez Leaf TinnerLegal Assistant 01/17/24 documented as of this encounter
--- OUTSIDE RECORDS SUMMARY | 2024-05-28 10:07 | XMS_ITS | Encounter Summary ---
Author Organization [employer] Address 75 [facility] 7 [place] [address] Care Team Providers Care Digital Project Manager Name Role Phone Dorinda Iniguez MD Primary Care Provider [phone] Reason for Visit * Reason Onset Date Comments Med Refill 05/22/2024 Encounter Details Date Type Department Care Team ([facility] st Contact Info) Description 05/22/2024 Refill [facility] CHC MED & PEDS [address] [place] [address] Dorinda Iniguez MD [address] [place] [address] Influenza B Social History Tobacco Use Types Packs/Day Years [...] * Telephone Encounter - Autumn Cline - 05/22/2024 9:57 AM EST TC from pt requesting medication refill. Medications needing refill : predniSONE (Deltasone) 20 MG tablet To be sent to: [facility]/pharmacy #[id number] documented in this encounter Plan of Treatment Upcoming Encounters Date Type Department Care Team (Late st Contact Info) Description 07/09/2024 10:00 AM EDT Office Visit [facility] DENTAL [address] [place] [address] [phone] Dee Lynch [address] [place], [place] [phone] documented as of this encounter Visit Diagnoses Diagnosis Influenza B Influenza with other respiratory manifestations documented in this encounter Additional Health Concerns Assessment Noted Time PHQ-9 Depression Total Score: 4 08/17/19 24 1:37 PM EDT documented as of this encounter Care Teams Digital Project Manager Relationship Specialty Start Date End Date Dorinda Iniguez MD [address] [place] [address] PCP - General Family Medicine 04/24/18 Ginny Hernandez Constitutional Law ProfessorRaise Driller 01/17/24 documented as of this encounter
--- OUTSIDE RECORDS SUMMARY | 2024-05-28 10:08 | XMS_ITS | Encounter Summary ---
Author Organization [employer] Address [address] [place] [address] 7 [place] [address] Care Team Providers Care Tube Filler Name Role Phone Dorinda Iniguez MD Primary Care Provider [phone] Reason for Visit * Reason Comments Med Refill Encounter Details Date Type Department Care Team (Late Contact Info) Description 11/08/2022 Refill [facility] MED & PEDS [address] [place], [place] [phone] Dorinda Iniguez MD [address] [place], [place] [phone] Vitamin D deficiency; Generalized anxiety disorder Social History Tobacco Use Types Packs/Day Years Used Date Smoking Tobacco: Never Passive Smoke Exposure: Never Smokeless Tobacco: Never Depression Answer Date Recorded Patient Health Questionnaire-9 Score 4 06/09/2022 Depression Answer Date Recorded Patient Health Questionnaire-2 Score 1 06/09/2022 Comments Unknown Sex and Gender Information Value Date Recorded Sex Assigned at Female 02/21/2022 10:16 AM EDT Legal Sex Female 10:16 AM EDT Gender Identity Female 02/21/2022 10:16 AM EDT Sexual Orientation Straight 02/21/2022 10 :16 AM EDT COVID-19 Exposure Response Date Recorded In the last 10 days, have yo u been in contact with someone who was confirmed or suspected to have Coronavirus/COVID-19? No / Unsure 10/20/2022 3:02 PM EDT documented as of this encounter Plan of Treatment Upcoming Encounters Date Type Department Care Team ([facility] Contact Info) Description 07/09/2024 10:00 AM EDT Office Visit [facility] DENTAL [address] [place] [address] Dee Lnych [address] [place] [address] documented as of this encounter Visit Diagnoses Diagnosis Vitamin D deficiency Generalized anxiety disorder documented in this encounter Additional Health Concerns Assessment Noted Time PHQ-9 Depression Total Score: 4 06/09/19 23 1:44 PM EST documented as of this encounter Care Teams Tube Filler Relationship Specialty Start Date End Date Dorinda Iniguez MD [address] [place] [phone] PCP - General Family Medicine 04/24/18 Ginny Henrandez Trim Setter HelperVan Driver Helper 01/17/24 documented as of this encounter
--- OUTSIDE RECORDS SUMMARY | 2024-05-28 10:08 | XMS_ITS | Clinical Summary ---
Author Organization [facility] Address [address] [place] [id number] Care Team Providers Care Science Liaison Name Role Phone Dorinda Iniguez MD Primary Care Provider [phone] Allergies Active Allergy Reactions Criticality Noted Date Comments Lisinopril Cough 04/07/2022 Medications Medication Sig Dispensed Refills Start Date End Date Status semaglutide (Wegovy) 0.25 mg/0.5 mL injection pen Inject into the skin. Active traMADoL (ULTRAM) 50 mg tablet Take 1 Tablet by mouth every 6 hours as needed. Active gabapentin (NEURONTIN) 100 mg capsule Take 1 Capsule by mouth daily. Active LORazepam (ATIVAN) 0.5 mg tablet Take 1 Tablet by mouth daily as needed. Active hydrocortisone (ANUSOL-HC) 2.5 % rectal cream Apply topically. Active biotin 5 mg capsule Take by mouth. A ctive hydrOXYzine HCL (ATARAX) 50 mg tablet Take 1 Tablet by mouth at bedtime. Active miscellaneous medical supply misc Elastic Bandages & Supports (Relief Knee) Misc By Does not apply route. Active cyanocobalamin (VITAMIN B-12) 1,000 mcg/mL injection Inject 0.1 mL into the muscle every 30 days. Active hydrALAZINE (APRESOLINE) 100 mg tablet Take 1 Tablet by mouth 3 times daily. Active ketotifen fumarate (ZADITOR) 0.035 % ophthalmic solution 1 Drop 2 times daily. Active acetaminophen-codeine (TYLENOL #3) 300-30 mg per tablet Take 1 Tablet by mouth every 6 hours as needed. Active aspirin 81 mg chewable tablet Take 1 Tablet by mouth daily. Active omeprazole (PriLOSEC) [address] capsule Take 1 Capsule by mouth daily. Active nystatin (MYCOSTATIN) cream Apply topically 2 times daily. Active cetirizine (ZyrTEC) 10 mg capsule Take by mouth. Active hydrocortisone 2.5 % cream Apply topically 2 times daily. Active sucralfate (CARAFATE) 1 gram tablet Take 1 Tablet by mouth 3 times daily. Active dextromethorphan-guai FENesin (ROBITUSSIN-DM) 10-100 mg/5 mL liquid Take by mouth. Active acetaminophen (TYLENOL) 500 mg capsule Take by mouth. Active Active Problems Problem Noted Date Diagnosed Date Asthma 04/07/2022 Overview (04/01/2024): Last Assessment & Plan: Continue with Flovent 110 mcg twice a day Continue with albuterol as needed Dyspnea on exertion 04/07/2022 Overview (04/01/2024): Last Assessment & Plan: Multifactorial dyspnea due to combination of deconditioning, asthma and most likely diastolic dysfunction due to the hypertension She will benefit from a weight reduction program. Continue with medications for asthma Continue following at [facility] with Dr. Dickey Obstructive sleep apnea 04/07/2022 Overview (04/01/2024): Last Assessment & Plan: Follow-up with her sleep physician Medical History Medical History Date Comments Anemia DX:Anemia GERD (gastroesophageal reflux disease) DX:GERD (gastroesophageal reflux disease) Obesity DX:Obesity Essential hypertension, benign D X:Essential hypertension, benign Depression determined by examination DX:Depression determined by examination IBS (irritable colon syndrome) D X:IBS (irritable colon syndrome) Hordeolum externum of right eye, unspecified eyelid DX:Hordeolum externum of rig ht eye, unspecified eyelid Vitamin C deficiency DX:Vitamin C deficiency Vitamin D deficiency disease DX: Vitamin D deficiency disease Anxiety disorder DX:Anxiety diso rder Hypothyroid DX:Hypothyroid Kidney stones DX:Kidney stones Female stress incontinence DX:Fe male stress incontinence Other viral warts DX:Other viral warts Benign essential hypertension DX :Benign essential hypertension Irritable bowel syndrome with diarrhea DX:Irritable bowel syndrome with diarrhea Muscle strain of right thigh DX: Muscle strain of right thigh Generalized anxiety disorder DX: Generalized anxiety disorder B12 deficiency DX:B12 deficienc y Social History Tobacco Use Types Packs/Day Years Used Date Smoking Tobacco: Never Smokeless Tobacco: Never Alcohol Use Standard Drinks/Week Comments Never 0 (1 standard drink = 0.6 oz pur e alcohol) Sex and Gender Information Value Date Recorded Sex Assigned at Not on file Gender Identity Not on file Sexual Orientation Not on file Obstetrics History Last Filed Vital Signs Vital Sign Reading Time Taken Comments Blood Pressure 148/78 01/05/2024 1:39 PM EDT Pulse 85 01/05/2024 1:39 PM EDT Temperature - - Respiratory Rate - - Oxygen Saturation - - Inhaled Oxygen Concentration - - Weight 117 kg (259 lb) 01/05/2024 1:39 PM EDT Height 160 cm (5' 3 ) 01/05/2024 1:39 PM EDT Body Mass Index 45.88 01/05/2024 1:39 PM EDT Plan of Treatment Upcoming Encounters Date Type Department Care Team (Late st Contact Info) Description 07/04/2024 11:30 AM EDT Office Visit Pulmonolgy - [place] [address] [facility] [address] [place] [phone] Artem Hanna MD [address] [facility] [address] [place] [address] Health Maintenance Due Date Last Done Comments Breast Cancer Screening 1965 Pneumococcal Vaccine: Pediat rics (0 to 5 Years) and At-Risk Patients (6 to 64 Years) (1 of 2 - PCV) 1969 DTaP,Tdap,and Td Vaccines (1 - Tdap) 1982 Cervical Cancer Screening: P ap Smear 1984 Zoster Vaccines (1 of 2) 2013 Cholesterol Screening (Lipid Panel) 03/22/2022 Colorectal Cancer Screening: Colonoscopy 03/22/2022 Depression Screening 03/22/2022 HIV Screening 03/22/2022 Hepatitis C Screening 03/22/2022 Social Influencers of Health Screening 03/22/2022 RSV Immunization Patients 60 + Years Old (1 - Risk 60-74 years 1-dose series) 2023 COVID-19 Vaccine ( - 2023-2 5 season) 2023 Influenza Vaccine (#1) 2023 HIB Vaccines Aged Out No longer eligi ble based on patient's age to complete this topic HPV Vaccines Aged Out No longer eligi ble based on patient's age to complete this topic Hepatitis A Vaccines Aged Out No long er eligible based on patient's age to complete this topic Hepatitis B Vaccines Aged Out No long er eligible based on patient's age to complete this topic IPV Vaccines Aged Out No longer eligi ble based on patient's age to complete this topic MMR Vaccines Aged Out No longer eligi ble based on patient's age to complete this topic Meningococcal ACWY Vaccine Aged Out N o longer eligible based on patient's age to complete this topic RSV Immunization Patients Un jann 20 months Aged Out No longer eligible b ased on patient's age to complete this topic Varicella Vaccines Aged Out No longer eligible based on patient's age to complete this topic Care Teams Science Liaison Relationship Specialty Start Date End Date Dorinda Iniguez MD [address] [place] [phone] PCP - General 07/07/11
--- OUTSIDE RECORDS SUMMARY | 2024-05-28 10:08 | XMS_ITS | Encounter Summary ---
Author Organization [employer] Address 75 [facility] 7 [place] [address] Care Team Providers Care Statistical Geneticist Name Role Phone Dorinda Iniguez MD Primary Care Provider [phone] Reason for Visit * Reason Onset Date Comments Nurse Triage 12/13/2022 Encounter Details Date Type Department Care Team ([facility] st Contact Info) Description 12/13/2022 Telephone [facility] MEDICINE [address] [place] [address] Dorinda Iniguez MD [address] [place] [address] Nurse Triage Social History Tobacco Use Types [...] encounter Miscellaneous Notes * Telephone Encounter - Kerry Chappell - 12/13/2022 2:48 PM EDT Symptom: Cough Outcome: Schedule an appointment to be seen within 24 hours Reason: Caller denied all higher acuity questions The caller accepted this outcome Please contact at [phone] documented in this encounter Plan of Treatment Upcoming Encounters Date Type Department Care Team (Late st Contact Info) Description 07/09/2024 10:00 AM EDT Office Visit [facility] DENTAL [address] [place] [phone] Dee Lynch [address] [place], [place] [phone] documented as of this encounter Visit Diagnoses Not on filedocumented in this encounter Additional Health Concerns Assessment Noted Time PHQ-9 Depression Total Score: 4 06/09/19 23 1:44 PM EST documented as of this encounter Care Teams Statistical Geneticist Relationship Specialty Start Date End Date Dorinda Iniguez MD 505 [place] [address] PCP - General Family Medicine 04/24/18 Ginny Hernandez Cloth BookerUser Acceptance Tester 01/17/24 documented as of this encounter
--- OUTSIDE RECORDS SUMMARY | 2024-05-28 10:08 | XMS_ITS | Encounter Summary ---
Author Organization [employer] Address 75 [facility] 7 [place] [address] Care Team Providers Care Electrical Engineering Technologist Name Role Phone Dorinda Iniguez MD Primary Care Provider [phone] Reason for Visit * Reason Onset Date Comments Appointment Request 10/11/2022 Encounter Details Date Type Department Care Team ([facility] st Contact Info) Description 10/11/2022 Telephone [facility] MEDICINE [address] [place] [address] Dorinda Iniguez MD [address] [place] [address] Appointment Request Social History Tobacco Use Types Packs/Day Years [...] PM EDT documented as of this encounter Miscellaneous Notes * Telephone Encounter - Kerry Chappell - 10/11/2022 3:14 PM EDT Tc from pt requesting an office visit with PCP , states PCP advised pt to follow up with pt after seeing back specialist[facility]. Please contact at [phone] Kiswahili documented in this encounter Plan of Treatment Upcoming Encounters Date Type Department Care Team (Late st Contact Info) Description 07/09/2024 10:00 AM EDT Office Visit [facility] DENTAL [address] [place] [address] [phone] Dee Lynch [address] [place], [place] [phone] documented as of this encounter Visit Diagnoses Not on filedocumented in this encounter Additional Health Concerns Assessment Noted Time PHQ-9 Depression Total Score: 4 06/09/19 23 1:44 PM EST documented as of this encounter Care Teams Electrical Engineering Technologist Relationship Specialty Start Date End Date Dorinda Iniguez MD [address] [place] [address] PCP - General Family Medicine 04/24/18 Ginny Hernandez Director BroadcastEdi Specialist 01/17/24 documented as of this encounter
--- OUTSIDE RECORDS SUMMARY | 2024-05-28 10:08 | XMS_ITS | Encounter Summary ---
Author Organization [employer] Address 75 [facility] 7 [place] [address] Care Team Providers Care Pin Sorter And Bagger Name Role Phone Dorinda Inigeuz MD Primary Care Provider [phone] Reason for Visit * Reason Onset Date Comments Appointment Request 06/15/2023 Encounter Details Date Type Department Care Team ([facility] st Contact Info) Description 06/15/2023 Telephone [facility] MEDICINE [address] [place] [address] Dorinda Iniguez MD [address] [place] [address] Appointment Request Social History Tobacco Use Types Packs/Day Years Used Date Smoking Tobacco: Never Passive Smoke Exposure: Never Smokeless Tobacco: Never Alcohol Use Standard Drinks/Week Comments Never 0 (1 standard drink = 0.6 oz pur e alcohol) Depression Answer Date Recorded Patient Health Questionnaire-9 Score 4 06/09/2022 Housing Stability Answer Date Recorded What is your housing situation today? I have alva garcia 02/09/[address] you li ve. Do you have problems with any of the following? None of the above 02/09/2023 Food Insecurity Answer Date Recorded Within the past 12 months, y ou worried that your food would run out before you got money to buy more: Sometimes True 2022 Within the past 12 months,th e food you bought just didn't last and you didn't have enough money to get more: Never True 02/09/2023 Transportation Answer Date Recorded In the past 12 months, has l ack of transportation kept you from medical appts, meetings, work or from getting things needed for daily living? No 02/09/2023 Utilities Answer Date Recorded In the past 12 months, has t he electric, gas, oil or water company threatened to shut off services in your home? No 02/09/2023 Depression Answer Date Recorded Patient Health Questionnaire-2 Score 1 06/09/2022 Comments Unknown Sex and Gender Information Value Date Recorded Sex Assigned at Female 02/21/2022 10:16 AM EDT Legal Sex Female 10:16 AM EDT Gender Identity Female 02/21/2022 10:16 AM EDT Sexual Orientation Straight 02/21/2022 10 :16 AM EDT documented as of this encounter Miscellaneous Notes * Telephone Encounter - Debra Burt - 06/15/2023 2:32 PM EST Tc from pt requesting a call back pt is traveling on July 08 and will like to see PCP before traveling and also do PE. Georgian Speaker documented in this encounter Plan of Treatment Upcoming Encounters Date Type Department Care Team (Late st Contact Info) Description 07/09/2024 10:00 AM EDT Office Visit [facility] DENTAL [address] [place] [address] Dee Lynch [address] [place], [place] [phone] documented as of this encounter Visit Diagnoses Not on filedocumented in this encounter Additional Health Concerns Assessment Noted Time PHQ-9 Depression Total Score: 4 06/09/19 23 1:44 PM EST documented as of this encounter Care Teams Pin Sorter And Bagger Relationship Specialty Start Date End Date Dorinda Iniguez MD [address] [place] [address] PCP - General Family Medicine 04/24/18 Ginny Hernandez Business Employment SpecialistBean Sorter 01/17/24 documented as of this encounter
--- OUTSIDE RECORDS SUMMARY | 2024-05-28 10:08 | XMS_ITS | Encounter Summary ---
Author Organization [employer] Address 75 [facility] 7 [place] [address] Care Team Providers Care Cattle Tester Name Role Phone Dorinda Iniguez MD Primary Care Provider [phone] Reason for Visit * Reason Onset Date Comments Paperwork/Forms 08/17/2023 Encounter Details Date Type Department Care Team ([facility] st Contact Info) Description 08/17/2023 Telephone [facility] MEDICINE [address] [place] [address] Dorinda Iniguez MD [address] [place] [address] Paperwork/Forms Social History Tobacco Use Types Packs/Day Years [...] encounter Miscellaneous Notes * Telephone Encounter - Jerrica Quiles RN - 08/21/2023 3:15 PM EDT [facility] Returned call to [facility] regarding VO. LVM to return call. * Telephone Encounter - Piotr Mata - 08/17/2023 2:01 PM EDT [facility] requesting orders to restart home services and the last officeto be faxed to [phone] documented in this encounter Plan of Treatment Upcoming Encounters Date Type Department Care Team (Late st Contact Info) Description 07/09/2024 10:00 AM EDT Office Visit [facility] DENTAL [address] [place] [address] [phone] Dee Lynch [address] [place], [place] [phone] documented as of this encounter Visit Diagnoses Not on filedocumented in this encounter Additional Health Concerns Assessment Noted Time PHQ-9 Depression Total Score: 4 08/17/19 24 1:37 PM EDT documented as of this encounter Care Teams Cattle Tester Relationship Specialty Start Date End Date Dorinda Iniguez MD [address] [place] [address] PCP - General Family Medicine 04/24/18 Ginny Hernandez Clinical InvestigatorProduction Control Clerk 01/17/24 documented as of this encounter
--- OUTSIDE RECORDS SUMMARY | 2024-05-28 10:08 | XMS_ITS | Encounter Summary ---
Author Organization [employer] Address 75 [facility] 7t [place] [address] Care Team Providers Care Technical Editor Name Role Phone Dorinda Iniguez MD Primary Care Provider [phone] Encounter Details Date Type Department Care Team ([facility] st Contact Info) Description 08/04/2023 Orders Only [facility] MED & PEDS [address] [place], [place] [phone] ProviderSakina MD Social History Tobacco Use Types Packs/Day Years [...] Description 07/09/2024 10:00 AM EDT Office Visit [facility] DENTAL [address] [place], [place] [phone] Dee Lynch [address] [place], [place] [phone] documented as of this encounter Procedures Procedure Name Priority Date/Time Associated Diagnosis Comments MAMMOGRAPHY SCREENING Routine 08/04/2023 3:41 PM EDT documented in this encounter Results * MAMMOGRAPHY SCREENING (08/04/2023 3:41 PM EDT) Anatomical Region Laterality Modality Breast Left Mammography us Historical Provider MD AQUINO BI PROCEDURES Final R esult documented in this encounter Visit Diagnoses Not on filedocumented in this encounter Additional Health Concerns Assessment Noted Time PHQ-9 Depression Total Score: 4 06/09/19 23 1:44 PM EST documented as of this encounter Care Teams Technical Editor Relationship Specialty Start Date End Date Dorinda Iniguez MD [address] [place] [address] PCP - General Family Medicine 04/24/18 Ginny Hernandez Brim RounderClient Program Manager 01/17/24 documented as of this encounter
--- OUTSIDE RECORDS SUMMARY | 2024-05-28 10:08 | XMS_ITS | Encounter Summary ---
Author Organization [employer] Address 75 [facility] 7 [place] [address] Care Team Providers Care Ditch Rider Name Role Phone Dorinda Iniguez MD Primary Care Provider [phone] Reason for Visit * Reason Onset Date Comments Nurse Triage 02/21/2023 Encounter Details Date Type Department Care Team ([facility] st Contact Info) Description 02/21/2023 Telephone [facility] MEDICINE [address] [place] [address] Dorinda Iniguez MD [address] [place] [phone] Nurse Triage Social History Tobacco Use Types [...] encounter Miscellaneous Notes * Telephone Encounter - Jailene Dia RN - 02/21/2023 3:40 PM EDT Triage call Pt reports dizziness. Pt was positive for Covid 02/03/23 and was prescribed paxlovid completing this medication. Pt reports that dizziness has been a problem ever since Covid. Pt reports if standing too long Pt will become dizzy and excessively fatigued. Pt is concerned because the dizziness could cause a fall. Pt drinks up to 5 glasses of liquid daily and is encouraged to increase to6-8 glasses daily, Pt agrees. Pt is voiding without difficulty and has increased the last 2 days. Pt is offered [facility] tomorrow in [facility] but reports another apt. Apt with Dr. Iniguez 02/23/23 @ 345pm. Insurance is verified as active prior to booking. Protocol Used: Dizziness (Adult) Care Advice Discussed: * Reassurance and Education - Dizziness From Not Drinking Enough Liquids * Drink Fluids * Lie Down and Rest * Reasons To Call Back - After 2 hours of rest and fluids And still feeling dizzy. - Passes out (faints). - You become worse. * Telephone Encounter - Kerry Chappell - 02/21/2023 2:43 PM EDT Symptom: Dizziness Outcome: Schedule an urgent appointment (within 4 hours) or talk to a nurse or provider soon Reason: Getting worse The caller accepted this outcome Please contact at [phone] Cuban documented in this encounter Plan of Treatment Upcoming Encounters Date Type Department Care Team (Late st Contact Info) Description 07/09/2024 10:00 AM EDT Office Visit [facility] DENTAL [address] [place], [place] [phone] Dee Lynch [address] [place], [place] [phone] documented as of this encounter Visit Diagnoses Not on filedocumented in this encounter Additional Health Concerns Assessment Noted Time PHQ-9 Depression Total Score: 4 06/09/19 23 1:44 PM EST documented as of this encounter Care Teams Ditch Rider Relationship Specialty Start Date End Date Dorinda Iniguez MD [address] [place] [address] PCP - General Family Medicine 04/24/18 Ginny Hernandez Medical Billing And Coding InstructorWire Saw Operator 01/17/24 documented as of this encounter
--- OUTSIDE RECORDS SUMMARY | 2024-05-28 10:08 | XMS_ITS | Encounter Summary ---
Author Organization [employer] Address 75 [facility] 7t [place] [address] Care Team Providers Care Social Service Liaison Name Role Phone Dorinda Iniguez MD Primary Care Provider [phone] Encounter Details Date Type Department Care Team ([facility] st Contact Info) Description 03/03/2023 Abstract [facility] MEDICINE [address] [place], [place] [phone] Sarahi Pearl Social History Tobacco Use Types Packs/Day Years [...] Description 07/09/2024 10:00 AM EDT Office Visit [facility] DENTAL [address] [place], [place] [phone] Syed, Dee [address] [place], [place] [phone] documented as of this encounter Procedures Procedure Name Priority Date/Time Associated Diagnosis Comments COLONOSCOPY Routine 09/25/2020 documented in this encounter Results * Colonoscopy (09/25/2020) Colonoscopy Normal Normal Narrative Sarahi Pearl - 09/25/2020 Recommended 5 year follow up Historical Provider HEALTH MAINTENANCE Final Result documented in this encounter Visit Diagnoses Not on filedocumented in this encounter Additional Health Concerns Assessment Noted Time PHQ-9 Depression Total Score: 4 06/09/19 23 1:44 PM EST documented as of this encounter Care Teams Social Service Liaison Relationship Specialty Start Date End Date Dorinda Iniguez MD [address] [place] [address] PCP - General Family Medicine 04/24/18 Ginny Hernandez Benefits Specialist RecruiterArt Therapy Certified Supervisor 01/17/24 documented as of this encounter
--- OUTSIDE RECORDS SUMMARY | 2024-05-28 10:08 | XMS_ITS | Encounter Summary ---
Author Organization [employer] Address 75 [facility] 7 [place] [address] Care Team Providers Care Biophysics Professor Name Role Phone Dorinda Iniguez MD Primary Care Provider [phone] Reason for Visit * Reason Onset Date Comments Call Back Request 09/29/2023 Encounter Details Date Type Department Care Team ([facility] Contact Info) Description 09/29/2023 Telephone [facility] CHC MED & PEDS [address] [place] [address] Dorinda Iniguez MD [address] [place] [address] Call Back Request Social History Tobacco Use Types Packs/Day [...] encounter Miscellaneous Notes * Telephone Encounter - Wing Aleah RN - 10/04/2023 10:56 AM EDT Tc to pt using [facility] [employer] [place] [id number]. Advised pt about message by Brenda. Pt reportsfinishing last antibiotic regiment of bactrim prescribed by PCP on 09/21 and pt reports no signs of improvement for ear pain. Gave same day appt today at 2:[address] Burns. Pt verbalized understanding and agreement with plan. * Telephone Encounter - LUIS ALFREDO Carter - 10/04/2023 8:58 AM EDT Ok, thank you for letting me know Evelia Sending to team nurses to please reach out to pt and let her know that we attempted to contact office for sooner appt and switch office for sooner availability, but no such luck at this time. She maycall office herself and ask to be on waiting list, and go to ED/Walk in Center sooner PRN. Thanks! * Telephone Encounter - LUIS ALFREDO Carter - 10/03/2023 2:42 PM EDT If new referral needed for alternative location, please let me know and I can place. Thank you! * Telephone Encounter - Jerrica Quiles RN - 10/02/2023 2:19 PM EDT Attempted to call ENT pt was referred to at last visit. This RN was on hold for an hour to speak with someone. Please advise if there is another facility pt can be referred to that can see pt stat asoriginal referral was sent. * Telephone Encounter - LUIS ALFREDO Carter - 09/29/2023 4:54 PM EDT Covering provider: Reviewed last PCP note from 09/22/23: Plan for urgent/[facility] ENT referral. 6 months is a little long. Please call ENT office to see if possible to speak with a nurse to triage/prioritize pt visit. Thank you! * Telephone Encounter - Renetta Mejia - 09/29/2023 2:40 PM EDT Tc from pt requesting to speak with a nurse. Pt states was scheduled with ENT for 04/04/24. Please contact pt at [phone] documented in this encounter Plan of Treatment Upcoming Encounters Date Type Department Care Team (Late st Contact Info) Description 07/09/2024 10:00 AM EDT Office Visit [facility] DENTAL [address] [place] [address] [phone] Dee Lynch [address] [place], [place] [phone] documented as of this encounter Visit Diagnoses Not on filedocumented in this encounter Additional Health Concerns Assessment Noted Time PHQ-9 Depression Total Score: 4 08/17/19 24 1:37 PM EDT documented as of this encounter Care Teams Biophysics Professor Relationship Specialty Start Date End Date Dorinda Iniguez MD [address] [place] [address] PCP - General Family Medicine 04/24/18 Ginny Hernandez Motorcoach DriverOrchid Grower 01/17/24 documented as of this encounter
[2024-05-28 14:14] LABS: MANUAL DIFF FLAG NO
[2024-05-28 14:18] LABS: Basophils Percent Auto 0.3 % (0-2); Eosinophils Percent Auto 0.3 % (0-4); Hematocrit 39.1 % (37.0-47.0); Imm Gran Abs Auto 0.08 X10*3/uL (0.00-0.03); Imm Gran Pct Auto 0.7 % (0.0-0.4); Lymphocytes Absolute Auto 2.7 X10*3/uL (1.2-4.9); Lymphocytes Percent Auto 24.4 % (20-40); Mean Corpuscular HGB Conc 33.2 g/dl (31.0-35.0); Mean Corpuscular Hemoglobin 32.3 pg (27.0-33.0); Mean Platelet Volume 11.2 fL (9.4-12.3); Monocytes Absolute Auto 1.4 X10*3/uL (0.1-1.2); Monocytes Percent Auto 12.6 % (2-11); Neutrophils Absolute Auto 6.7 x10*3/uL (2.0-8.3); Neutrophils Percent Auto 61.7 % (45-73); Platelet Count 342 X10*3/uL (160-400); Red Blood Count 4.03 X10*6/uL (4.20-5.50); Red Cell Distribution Width 13.6 % (11.0-16.0); White Blood Count 10.9 X10*3/uL (4.8-10.8)
[2024-05-28 14:34] LABS: Anion Gap 15 (12-20); Blood Urea Nitrogen 7 mg/dL (9-16); Calcium 8.4 mg/dL (8.4-10.2); Carbon Dioxide 28 mmol/L (22-29); Chloride 105 mmol/L (96-108); Estimated Glomerular Filt Rate > 60; Glucose Random 118 mg/dL (60-115); Potassium 4.2 mmol/L (3.3-5.1); Sodium 144 mmol/L (135-145)
[2024-05-28 14:41] LABS: Microalbum/Creatinine Ratio Ur 68.1 ug/mg cr (<30)
[2024-05-28 14:53] LABS: TSH reflex Free T4 1.68 uIU/mL (0.32-4.0)
[2024-06-02 15:13] LABS: VITAMIN D (1,25 OH) D3 33 pg/mL; Vit D (1,25-Dihydroxy) Total 33 pg/mL (18-72); Vitamin D (1,25 OH) D2 <8 pg/mL
== END 2024-05-28 09:37 | disposition home or self-care (01) ==
LOC: HO.CHCLDS 09:36
PROVIDERS: Visit Provider Pediatrics
DX: I10 Essential (primary) hypertension (principal); Z71.3 Dietary counseling and surveillance; Z18.2 Retained plastic fragments
CPT/HCPCS: 36415; 80048; 82043; 82570; 82652; 84443; 85025

== ENCOUNTER 2024-10-12 07:36 | Outpatient (REF) | payer MEDICAID, SELFPAY ==
[2024-10-12 08:38] LABS: Hematocrit 40.6 % (37.0-47.0); Hemoglobin 13.7 g/dl (12.0-16.0); Mean Corpuscular HGB Conc 33.7 g/dl (31.0-35.0); Mean Corpuscular Hemoglobin 32.1 pg (27.0-33.0); Mean Corpuscular Volume 95.1 fL (80.0-98.0); Mean Platelet Volume 10.4 fL (9.4-12.3); Platelet Count 325 X10*3/uL (160-400); Red Blood Count 4.27 X10*6/uL (4.20-5.50); Red Cell Distribution Width 13.8 % (11.0-16.0); White Blood Count 9.3 X10*3/uL (4.8-10.8)
[2024-10-12 09:13] LABS: Alanine Aminotransferase 12 U/L (0-31); Alkaline Phosphatase 78 U/L (39-117); Aspartate Amino Transferase 17 U/L (5-31); Bilirubin Direct 0.2 mg/dL (0.0-0.5); Bilirubin Total 0.6 mg/dL (0.0-1.0); Blood Urea Nitrogen 21 mg/dL (9-16); Estimated Glomerular Filt Rate 56; Lipase 8 U/L (8-78); Total Protein 6.4 g/dL (6.5-8.0)
== END 2024-10-12 07:37 | disposition home or self-care (01) ==
LOC: HO.LAB 07:36
PROVIDERS: Visit Provider Internal Medicine Gastroenterology
DX: R10.9 Unspecified abdominal pain (principal)
CPT/HCPCS: 36415; 80076; 82565; 83690; 84520; 85027

== ENCOUNTER 2024-10-30 11:54 | Day surgery (SDC) | payer MEDICAID, SELFPAY ==
--- OUTSIDE RECORDS SUMMARY | 2024-10-11 12:42 | XMS_ITS | Encounter Summary ---
Author Organization [employer] Address 75 [facility] 7 [place] [address] Care Team Providers Care Buttonhole Marker Name Role Phone Dorinda Iniguez MD Primary Care Provider [phone] Reason for Visit * Reason Onset Date Comments Med Refill 08/28/2024 Encounter Details Date Type Department Care Team ([facility] st Contact Info) Description 08/28/2024 Telephone [facility] MEDICINE [address] [place] [address] Dorinda Iniguez MD [address] [place] [address] Med Refill Social History Tobacco Use Types Packs/Day Years [...] encounter Miscellaneous Notes * Telephone Encounter - Suki Schmitt LPN - 08/28/2024 2:22 PM EDT Medication pended to PCP. * Telephone Encounter - Nu Casas - 08/28/2024 2:16 PM EDT TC from pt requesting medication refill. Medications needing refill : Tirzepatide-Weight Management 5 MG/0.5ML solution auto-injector To be sent to: [facility]/pharmacy #[id number] - [place], [place] - [address] [facility] documented in this encounter Plan of Treatment Upcoming Encounters Date Type Department Care Team (Late st Contact Info) Description 01/13/2025 10:00 AM EDT Office Visit [facility] DENTAL [address] [place] [address] Dee Lynch [address] [place] [address] documented as of this encounter Visit Diagnoses Not on filedocumented in this encounter Additional Health Concerns Assessment Noted Time PHQ-9 Depression Total Score: 2 05/28/19 25 9:31 AM EST documented as of this encounter Care Teams Buttonhole Marker Relationship Specialty Start Date End Date Dorinda Iniguez MD [address] [place] [address] PCP - General Family Medicine 04/24/18 Ginny Hernandez Relay CheckerChief Of Field Operations 01/17/24 documented as of this encounter
[2024-10-28 12:22] VITALS: BMI 40.6
--- NOTE | 2024-10-29 13:49 | HO.ANESPROP2 ---
Documented by User: Aleksandra Boyle NP 10/29/24 13:53 HPI - Anesthesia Eval Consult details Narrative: 59yo F for Upper Endoscopy Anesthesia Pre-Procedure Meds Is the patient on any of the following meds?: GLP1/DPP4 PMFSH Active Problems Active Problems: All Active Problems Dyspnea on exertion (Acute) Post covid-19 condition, unspecified (Acute) Increased BMI (Acute) Past Medical History Medical History Hypothyroid IBS (irritable bowel syndrome) Iron deficiency anemia Renal calculi Anxiety Increased BMI Asthma HTN (hypertension) GERD (gastroesophageal reflux disease) Family History Family history of problems with anesthesia: No Surgical History Surgical History Hx of cystoscopy History of surgery on arm Hx of section Hx of cholecystectomy Hx of laparoscopy History of endometrial ablation History of esophagogastroduodenoscopy (EGD) H/O colonoscopy History of Problems with Anesthesia: No Social History Social History Patient Tobacco Use Status: Never used Tobacco Use of substances other than those prescribed or required for medical reasons: No Are you DNR?: No Advance Directives: No Advance Directives Information Provided: Yes Patient : No : No Poor oral hygiene: No Meds Allergies Allergy/AdvReac Type Severity Reaction Status Date / Time lisinopril (LISINOPRIL) AdvReac Intermediate Cough Verified 10/28/24 12:25 Home Medications ?Medication ?Instructions ?Recorded ?Confirmed ?Last Taken ?Type albuterol sulfate 2.5 mg/3 mL 1 amp inhalation TID 09/22/20 10/28/24 Unknown History (0.083 %) solution for nebulization chlorthalidone 50 mg tablet 50 mg PO DAILY 09/22/20 10/28/24 Unknown History cholecalciferol (vitamin D3) 50 1 tab PO BID 09/22/20 10/28/24 Unknown History mcg (2,000 unit) tablet (Vitamin D3) cyanocobalamin (vitamin B-12) 1 ml IM QMONTH 09/22/20 10/28/24 Unknown History 1,000 mcg/mL injection solution dicyclomine 20 mg tablet 1 tab PO TID 09/22/20 10/28/24 Unknown History ergocalciferol (vitamin D2) 1,250 1,250 mcg PO QWEEK 09/22/20 10/28/24 Unknown History mcg (50,000 unit) capsule (Vitamin D2) fluoxetine 20 mg tablet 20 mg PO DAILY 09/22/20 10/28/24 09/25/20 07:00 History hydralazine 100 mg tablet 100 mg PO BID 09/22/20 10/28/24 09/25/20 07:00 History lorazepam 0.5 mg tablet 1 tab PO DAILY PRN Anxiety 09/22/20 10/28/24 Unknown History metoprolol tartrate 100 mg tablet 1 tab PO BID 09/22/20 10/28/24 10/17/24 History verapamil 360 mg 24 hr 1 cap PO DAILY 09/22/20 10/28/24 10/17/24 History capsule,extended release pantoprazole 40 mg tablet,delayed 40 mg PO DAILY 07/28/23 10/28/24 Unknown History release albuterol sulfate 90 mcg/actuation 2 puff inhalation Q4-6H PRN 10/28/24 10/28/24 Unknown History aerosol inhaler Shortness Of Breath Or Wheezing gabapentin 300 mg capsule 300 mg PO BEDTIME 10/28/24 10/28/24 Unknown History multivitamin 1 tab PO DAILY 10/28/24 10/28/24 Unknown History pregabalin 75 mg capsule 75 mg PO BID 10/28/24 10/28/24 Unknown History sucralfate 1 gram tablet 1 g PO TID 10/28/24 10/28/24 Unknown History tirzepatide (weight loss) 7.5 7.5 mg subcut QWEEK 10/28/24 10/28/24 Unknown History mg/0.5 mL subcutaneous pen injector (Zepbound) Exam Height,Weight and Vital Signs: Height 5 ft 4 in Weight 107.229 kg Assessment and Plan Assessment Anesthesia Assessment: Chart Reviewed Final Anesthetic Review Family History of Problems with Anesthesia: No History of Problems with Anesthesia: No Documented by User: Daniela Collado MD 10/30/24 13:17 [facility] Past Medical History Medical History Hypothyroid IBS (irritable bowel syndrome) Iron deficiency anemia Renal calculi Anxiety Increased BMI Asthma HTN (hypertension) GERD (gastroesophageal reflux disease) Surgical History Surgical History Hx of cystoscopy History of surgery on arm Hx of section Hx of cholecystectomy Hx of laparoscopy History of endometrial ablation History of esophagogastroduodenoscopy (EGD) H/O colonoscopy Social History Social History Patient Tobacco Use Status: Never used Tobacco Use of substances other than those prescribed or required for medical reasons: No Are you DNR?: No Advance Directives: No Advance Directives Information Provided: Yes Patient : No : No Poor oral hygiene: No Meds Allergies Allergy/AdvReac Type Severity Reaction Status Date / Time lisinopril (LISINOPRIL) AdvReac Intermediate Cough Verified 10/28/24 12:25 Home Medications ?Medication ?Instructions ?Recorded ?Confirmed ?Last Taken ?Type albuterol sulfate 2.5 mg/3 mL 1 amp inhalation TID 09/22/20 10/28/24 Unknown History (0.083 %) solution for nebulization chlorthalidone 50 mg tablet 50 mg PO DAILY 09/22/20 10/28/24 Unknown History cholecalciferol (vitamin D3) 50 1 tab PO BID 09/22/20 10/28/24 Unknown History mcg (2,000 unit) tablet (Vitamin D3) cyanocobalamin (vitamin B-12) 1 ml IM QMONTH 09/22/20 10/28/24 Unknown History 1,000 mcg/mL injection solution dicyclomine 20 mg tablet 1 tab PO TID 09/22/20 10/28/24 Unknown History ergocalciferol (vitamin D2) 1,250 1,250 mcg PO QWEEK 09/22/20 10/28/24 Unknown History mcg (50,000 unit) capsule (Vitamin D2) fluoxetine 20 mg tablet 20 mg PO DAILY 09/22/20 10/28/24 09/25/20 07:00 History hydralazine 100 mg tablet 100 mg PO BID 09/22/20 10/28/24 09/25/20 07:00 History lorazepam 0.5 mg tablet 1 tab PO DAILY PRN Anxiety 09/22/20 10/28/24 Unknown History metoprolol tartrate 100 mg tablet 1 tab PO BID 09/22/20 10/28/24 10/17/24 History verapamil 360 mg 24 hr 1 cap PO DAILY 09/22/20 10/28/24 10/17/24 History capsule,extended release pantoprazole 40 mg tablet,delayed 40 mg PO DAILY 07/28/23 10/28/24 Unknown History release albuterol sulfate 90 mcg/actuation 2 puff inhalation Q4-6H PRN 10/28/24 10/28/24 Unknown History aerosol inhaler Shortness Of Breath Or Wheezing gabapentin 300 mg capsule 300 mg PO BEDTIME 10/28/24 10/28/24 Unknown History multivitamin 1 tab PO DAILY 10/28/24 10/28/24 Unknown History pregabalin 75 mg capsule 75 mg PO BID 10/28/24 10/28/24 Unknown History sucralfate 1 gram tablet 1 g PO TID 10/28/24 10/28/24 Unknown History tirzepatide (weight loss) 7.5 7.5 mg subcut QWEEK 10/28/24 10/28/24 Unknown History mg/0.5 mL subcutaneous pen injector (Zepbound) Exam Airway Mallampati Class: II TM Dist: >3cm Neck ROM: Full Heart: rrr Lungs: cta Assessment and Plan Assessment Anesthesia Assessment: Anesthesia Plan Discussed Final Anesthetic Review NPO: Yes ASA Class: III Final Preanesthetic Review: No Changes in Pt Med Stat, Meds/Allgs Chart Reviewed, Consent Obtained/Reviewed and Anes Risks/Benef Reviewed Patient Risk: Intermediate Procedure Risk: Low Anesthetic Plan Anesthetic Plan: MAC: Disposition: Standard PACU
[2024-10-30 12:46] VITALS: BMI 40.4
[2024-10-30 12:57] VITALS: BP 149/75; PULSE 70; RESP 16; TEMP 36.8; O2SAT 99
--- NOTE | 2024-10-30 13:29 | MHC.SHP ---
Pre-Procedural Eval Section A - 24 Hr Update-Section A only Date of Service: 10/30/24 The patient is an INPATIENT: No Changes since office visit: No Cold of Flu in the past 2 weeks, No New Medical Problems, No Changes in Medication and No Patient answered all questions The patient has been examined within 24 hours of the surgical procedure. The History & Physical has been completed within 30 days and I have reviewed it.: Yes Section B - Complete if H&P > 30 days Chief Complaint: Unspecified abdominal pain Allergies: Allergies Allergy/AdvReac Type Severity Reaction Status Date / Time lisinopril (LISINOPRIL) AdvReac Intermediate Cough Verified 10/28/24 12:25 Plan I have reviewed the history and physical and performed a pertinent physical examination on my patient. No changes have occurred unless specified. Time Spent With Patient Time: Total time managing care of this patient today ____ minutes.
[2024-10-30 13:54] VITALS: BP 100/55; PULSE 73; RESP 20; TEMP 36.2; O2SAT 92
[2024-10-30 14:00] VITALS: BP 100/55; PULSE 69; RESP 18; O2SAT 94
--- NOTE | 2024-10-30 14:04 | OP_ITS ---
DATE OF SERVICE: 10/30/2024 SURGEON: Jeffrey Rios MD INDICATIONS: 1. Gastroesophageal reflux disease. 2. Epigastric pain. PREOPERATIVE DIAGNOSIS: POSTOPERATIVE DIAGNOSIS: PROCEDURE PERFORMED: Upper endoscopy with biopsy. ESTIMATED BLOOD LOSS: COMPLICATIONS: ANESTHESIA: Monitored anesthesia care. ASSISTANTS: SPECIMENS: DESCRIPTION OF PROCEDURE: A history and physical was performed. The risks and benefits of the procedure were explained to the patient. Informed consent was obtained. The patient was placed in the left lateral decubitus position. The Olympus video gastroscope was introduced into the esophagus, stomach, and duodenum. Examination was performed. The scope was removed. She tolerated the procedure well and was returned to the recovery area in stable condition. FINDINGS: Esophagus: The esophagus showed an irregular EG junction. This was biopsied. Stomach: The stomach showed no evidence of masses, ulcers, or polyps. Duodenum: The bulb and second portion were normal. Biopsies were obtained from the esophagus, stomach, and duodenum. IMPRESSION: Gastroesophageal reflux disease. RECOMMENDATION: Follow up the biopsy results. MD NAILA Chavez/MODL / [id number]
[2024-10-30 14:15] VITALS: BP 135/65; PULSE 57; RESP 18; O2SAT 96
== END 2024-10-30 14:45 | disposition home or self-care (01) ==
PROVIDERS: PCP Pediatrics; Visit Provider Internal Medicine Gastroenterology
PROC: 0DJ08ZZ Inspection of Upper Intestinal Tract, Via Natural or Artificial Opening Endoscopic (ICD-10-PCS; CPT 43235; principal; 2024-10-30 14:00)
DX: R10.13 Epigastric pain (principal); K21.9 Gastro-esophageal reflux disease without esophagitis; Z80.0 Family history of malignant neoplasm of digestive organs; K58.0 Irritable bowel syndrome with diarrhea; I10 Essential (primary) hypertension; J45.909 Unspecified asthma, uncomplicated; D50.9 Iron deficiency anemia, unspecified; E03.9 Hypothyroidism, unspecified; E53.8 Deficiency of other specified B group vitamins; E55.9 Vitamin D deficiency, unspecified; Z87.442 Personal history of urinary calculi; F41.9 Anxiety disorder, unspecified; Z79.85 Long-term (current) use of injectable non-insulin antidiabetic drugs; Z79.899 Other long term (current) drug therapy; Z90.49 Acquired absence of other specified parts of digestive tract; Z98.890 Other specified postprocedural states; Z88.8 Allergy status to other drugs, medicaments and biological substances
CPT/HCPCS: 43239; 88305; 88313; 88342; J2003; J2704

== ENCOUNTER 2024-11-12 11:16 | Outpatient (REF) | payer MEDICAID, SELFPAY ==
--- OUTSIDE RECORDS SUMMARY | 2024-10-30 10:00 | XMS_ITS ---
Author Organization [facility] Address [address] [place] [phone] Care Team Providers Care Oil Sprayer Name Role Phone Hira JASON, Dorinda Primary Care Provider Ute Rios Jr, Jeffrey Goins REASON FOR VISIT abdominal pain Encounters Encounter Location Date Provider [place] [facility] [address] [place] [id number] 10/30/2024 Jeffrey Rios Jr Plan Of Treatment No Information Progress Notes * RAYMOND WRIGHT MDOB: [birth year] (59 yo F)Acc No.[id number]:10/30/2024 EGD/MAC Patient: Jerrell RAYMOND HERNANDEZ Provider: Jerrell Rios MD :1965 A ge:59 Y S ex:Female Date:10/30/2024 Address:[address] [place] [address] Pcp:Dorinda Iniguez MD Subjective: * Chief Complaints: * 1 . Abdominal pain. * Medical History: Objective: * Vitals: Assessment: Plan: * Treatment: * * The named appointment provid er may or may not be the originator of this progress note, and it is not deemed complete until electronically signed by the appointment provider. Sign off status: Pending * Provider: Jerrell Rios MD Date: 10/30/2024 Generated for Printi ng/Faxing/eTransmitting on: 11/12/2024 12:30 PM EDT
--- NOTE | ~2024-11-12 | CT_ITS ---
EXAMINATION: CT ABDOMEN PELVIS WITH IV CONTRAST HISTORY: abd pain COMPARISON: There are no prior studies for available comparison. TECHNIQUE: CT scan of the abdomen and pelvis was performed following administration of 85 mL Omnipaque 350 using standard departmental protocol. Coronal and sagittal reformatted images were generated and reviewed. Oral contrast material was not administered at the request of the referring physician. This CT exam was performed with one or more of the following dose reduction techniques: automated exposure control, adjustment of the mA and/or kV according to patient size, use of iterative reconstruction technique. DLP: 667 mGy-cm FINDINGS: LOWER CHEST: The visualized lung bases are clear. There is no pleural effusion. CARDIOVASCULATURE: The heart is normal in size. There is no pericardial effusion. LIVER: The liver is normal in size and contour. No liver mass is identified. The hepatic and portal veins are patent. GALLBLADDER / BILE DUCTS: The gallbladder is surgically absent. There is no intra or extrahepatic biliary ductal dilatation. SPLEEN: The spleen is normal in size. No focal splenic lesion is identified. PANCREAS: The pancreas is unremarkable in appearance. ADRENAL GLANDS: Within normal limits. KIDNEYS/RETROPERITONEUM: No renal calculi are identified. There is no hydronephrosis. No renal masses are identified. LYMPH NODES: No abdominal or pelvic lymphadenopathy. VASCULATURE: The abdominal aorta is normal in caliber. MESENTERY/PERITONEUM: No free fluid. No masses. There is no free intraperitoneal gas. STOMACH: The stomach is collapsed, limiting evaluation. SMALL BOWEL: The small bowel is normal in caliber. COLON: The colon is unremarkable. APPENDIX: Normal. URINARY BLADDER/PELVIC ORGANS: The urinary bladder is collapsed, limiting evaluation. The uterus is unremarkable. BONES / SOFT TISSUES: There is a fat-containing right inguinal hernia. There is a rounded sclerotic focus in the L5 vertebral body, of uncertain significance CT/CT abdomen pelvis w IV con IMPRESSION: Fat-containing right inguinal hernia. Electronically signed by: Roni Salguero MD 11/12/2024 12:17 PM EDT
[2024-11-12] MEDS: iohexoL 350 MG/ML 100 ML INFUS..BTL IV (12:10)
--- OUTSIDE RECORDS SUMMARY | 2024-11-12 12:30 | XMS_ITS | Clinical Summary ---
Author Organization [facility] Address [address] [place] [address] Phone Care Team Providers Care Data Operations Director Name Role Phone Dorinda Iniguez MD Primary Care Provider [phone] Allergies Active Allergy Reactions Criticality Noted Date [...] Colorectal Cancer Screening: Sigmoidoscopy 2012 Pneumococcal Vaccine: 50+ Years (2 of 2 - PCV) 09/05/2014 09/05/2013 Influenza Vaccine (#1) 2024 3, 02/10/2022, 01/13/2021, Additional history exists Pneumococcal Vaccine: Peds (0 to 5 Years) and At-Risk Patients (6 to 49 Years) Discontinued 09/05/2013 Hepatitis B Vaccine Aged Out No longe r eligible based on patient's age to complete this topic Insurance Medicaid [place] Medicaid [place] Care Teams Data Operations Director Relationship Specialty Start Date End Date Dorinda Iniguez MD [address] PCP - General Internal Medicine 07/06/22
--- OUTSIDE RECORDS SUMMARY | 2024-11-12 12:30 | XMS_ITS | Clinical Summary ---
Author Organization [address] [facility] Address [address] [place] [address] Phone Care Team Providers Care Real Estate Branch Manager Name Role Phone Dorinda Iniguez MD Primary Care Provider [phone] Allergies Active Allergy Reactions Criticality Noted Date Comments Lisinopril Cough 04/07/2022 Medications semaglutide (Wegovy) 0.25 mg/0.5 mL injection pen [...] biotin 5 mg capsule Take by mouth. Activ e hydrOXYzine HCL (ATARAX) 50 mg tablet Take [...] solution 1 Drop 2 times daily. Active acetaminophen-c odeine (TYLENOL #3) 300-30 mg per tablet Take 1 Tablet by mouth every 6 hours as needed. Active aspirin 81 mg chewable tablet Take 1 Tablet by mouth daily. Active omeprazole (PriLOSEC) [address] capsule Take 1 Capsule by mouth daily. Active nystatin (MYCOSTATIN) cream Apply topically 2 times daily. Active cetirizine (ZyrTEC) 10 mg capsule Take by mouth. Activ e hydrocortisone 2.5 % cream Apply topically 2 times daily. Active sucralfate (CARAFATE) 1 gram tablet Take 1 Tablet by mouth 3 times daily. Active dextromethorpha n-guaiFENesin (ROBITUSSIN-DM) 10-100 mg/5 mL liquid Take by mouth. Activ e acetaminophen (TYLENOL) 500 mg capsule Take by mouth. Acti ve fluticasone propion-salmete roL (Wixela Inhub) 500-50 mcg/dose diskus inhaler Inhale 1 puff by mouth 2 (two) times a day. Rinse mouth with water after use to reduce aftertaste and incidence of candidiasis. Do not swallow. 1 each 12 5 07/05/19 26 Active albuterol HFA (PROAIR HFA ; PROVENTIL HFA ; VENTOLIN HFA) 90 mcg/actuation inhaler Inhale 2 puffs by mouth every 6 (six) hours if needed for wheezing. 6.7 g 11 5 07/05/19 26 Active Active Problems Problem Noted Date Diagnosed [...] with medications for asthma Continue following at [facility] with Dr. Dickey Obstructive sleep apnea [...] at Not on file Legal Sex Female 10:51 AM EST Gender Identity Not on file Sexual Orientation Not on file Obstetrics History Last Filed Vital Signs Vital Sign Reading Time Taken Comments Blood Pressure 143/78 07/04/2024 11:16 AM EDT Pulse 85 01/05/2024 1:39 PM EDT Temperature 36 C (96.8 F) 07/04/2024 11:16 AM EDT Respiratory Rate - - Oxygen Saturation 100% 07/04/2024 11:16 AM EDT Inhaled Oxygen Concentration - - Weight 111 kg (244 lb 3.2 oz) 07/04/2024 11:16 A M EDT Height 160 cm (5' 3 ) 01/05/2024 1:39 PM EDT Body Mass Index 43.26 01/05/2024 1:39 PM EDT Plan of Treatment Upcoming Encounters Date Type Department Care Team (Late st Contact Info) Description 01/17/2025 1:00 PM EDT Office Visit Pulmonolgy - [place] [address] [place] [phone] Artem Hanna MD [address] [facility] [address] [address] [place] [address] Health Maintenance Due Date Last Done Comments Breast Cancer Screening 1965 Cervical Cancer Screening: Pap Smear 1984 Colorectal Cancer Screening: Colonoscopy 03/22/2022 Social Influencers of Health Screening 03/22/2022 COVID-19 Vaccine ( - season) 2023 Depression Screening 04/24/2024 Influenza Vaccine (#1) 2024 , 01/11/2023, 03/16/2022, Additional history exists Hypertension/CHF/CAD Annual BMP Blood Test 05/28/2025 05/28/2024 Cholesterol Screening (Lipid Panel) 12/13/2028 12/14/2023 DTaP,Tdap,and Td Vaccines (3 - Td or Tdap) 07/05/2033 07/06/2023, 09/05/2013 Zoster Vaccines Completed 12/06/2017, 09/23/2017 HIV Screening Completed 08/17/2023 Hepatitis C Screening Completed 08/17/2023 Pneumococcal Vaccine: 50+ Years Completed 08/17/2023, 09/05/2013 RSV Immunization Adult Patients Completed 08/25/2023 Hepatitis A Vaccines Aged Out 12/14/2023 No long er eligible based on patient's age to complete this topic HIB Vaccines Aged Out No longer eligi [...] patient's age to complete this topic Meningococcal B Vaccine Aged Out No l onger eligible based on patient's age to complete this topic RSV Immunization Patients Under 20 months Aged Out No longer eligible based on patient's age to complete this topic Varicella Vaccines Aged Out No longer eligible based on patient's age to complete this topic Insurance MEDICAID - [place] Care Teams Real Estate Branch Manager Relationship Specialty Start Date End Date Dorinda Iniguez MD [address] [place] [phone] PCP - General 07/07/11
--- OUTSIDE RECORDS SUMMARY | 2024-11-12 12:30 | XMS_ITS | Encounter Summary ---
Author Organization [employer] Address [address] [facility] 7 [place] [address] Care Team Providers Care Realtime Reporter Name Role Phone Dorinda Iniguez MD Primary Care Provider [phone] Reason for Visit * Reason Onset Date Comments Med Refill 08/28/2024 Encounter Details Date Type Department Care Team ([facility] st Contact Info) Description 08/28/2024 Telephone [facility] [address] [place] [address] Dorinda Iniguez MD [address] [place] [id number] Med Refill Social History Tobacco Use Types [...] MG/0.5ML solution auto-injector To be sent to: [facility]/pharmacy #[id number] [place], [place] - [address] [place] [address] documented in this encounter Plan of Treatment Upcoming Encounters Date Type Department Care Team (Late st Contact Info) Description 12/24/2024 10:30 AM EDT Office Visit [facility] [address] [place] [address] Dorinda Iniguez MD [address] [place] [address] 01/13/2025 10:00 AM EDT Office Visit [facility] [address] [place] [address] Dee Lynch [address] [place] [address] documented as of this encounter Visit Diagnoses Not on filedocumented in this encounter Additional Health Concerns Assessment Noted Time PHQ-9 Depression Total Score: 2 05/28/19 25 9:31 AM EST documented as of this encounter Care Teams Realtime Reporter Relationship Specialty Start Date End Date Dorinda Iniguez MD [address] [place] [address] PCP - General Family Medicine 04/24/18 Ginny Hernandez Licensed EmbalmerTipple Operator 01/17/24 documented as of this encounter
--- OUTSIDE RECORDS SUMMARY | 2024-11-12 12:30 | XMS_ITS | Data Portability ---
Author Organization [facility] Lawrence Ballard [facility], [facility] Address [address] [place] [address] Care Team Providers Care Vice President Fixed Income Name Role Phone [facility] Primary Care Provider Assessment Encounter Date Assessment Date Assessment LastModified by Organization Details LastModified Time 10/04/2023 10/04/2023 I am seeing the patient today under the supervision of Dr. Martinez who was available but who did not see the patient. Patient comes to the office with known Right shoulder impingement syndrome. The patient has done well with conservative management for their shoulder pain. Has had increasing discomfort over the past several weeks without injury. Pain is generalized about the shoulder. Off and on discomfort is noted at night. PFMSH and ROS has been reviewed, updated, and signed by me and is located in the patient's chart. PHYSICAL FINDINGS: The patient is well appearing, in no apparent distress, alert and oriented to person, place and time. Gait is symmetric. No significant swelling, warmth or erythema about either shoulder. There is mild tenderness to palpation about the shoulder and AC joint. Active range of motion of the shoulder is near full with mild to moderate pain through mid range manipulations. 4/5 strength of the shoulder, but the rotator cuff seems to fire well. Good stability of the shoulder. Peripheral, vascular, lymphatic examination, skin, neurologic coordination, reflexes, sensation are within normal limits. ASSESSMENT: Impingement SyndromeRight shoulder. PLAN: The patient has done well with conservative management in regards to the Right shoulder. We discussed the role of medications, physical therapy, injections, and potential surgical interventions depending on conservative outcome Continued conservative management recommended. Along with cortisone injection today. Please see procedure note. Patient will follow up as directed. I am seeing the patient today under the supervision of Dr. Martinez who was available but who did not see the patient. HPI: Patient presents today follow-up regarding their Right knee. They have had difficulty up and down stairs sitting standing. Previous injection gave good relief until recent. Problems ambulating. Csns-hfm-koggobj medications are helping somewhat but not significantly. Pain is constant aching sometimes sharp pain with giving out sensations. Past family, medical, social history and review of systems has been reviewed, updated and is located in the patient s chart. Examination: The patient is well appearing and in no apparent distress. Alert and oriented x3. Gait is symmetric. Examination of the Right knee reveals no evidence of any edema, erythema, or warmth. No Deformity. Range of motion of the knee limited with mild discomfort at the end ranges. Mild effusion. Does have some tenderness to palpation about the medial hemijoint line. No tenderness to palpation about the lateral hemijoint line. Patellofemoral crepitus is noted. mild lateral ligamentous laxity. Negative Greta s. Calf is supple and nontender. Neurovascularly intact distally. Impression: Right Knee osteoarthritis Plan: We discussed the role of conservative management including medications, physical therapy, injection and bracing. At this point the patient was to proceed with injection. Please see procedure note [email or web address] Not available 10/04/2023 16:12:58 01/04/2024 01/04/2024 I am seeing the patient today under the supervision of Dr Martinez who was available but who did not see the patient. [email or web address] Not available 01/04/2024 13:18:51 04/05/2024 04/05/2024 I am seeing the patient today under the supervision of Dr Martinez who was available but who did not see the patient. [email or web address] Not available 04/05/2024 10:57:07 08/30/2024 08/30/2024 I am seeing the patient today under the supervision of Dr Martinez who was available but who did not see the patient. [email or web address] Not available 08/30/2024 08:52:13 Plan of Treatment Reminders Order Date Submit Date Provider Last Modified By Organization Details Last Modified Time Details Appointments NEW PROBLEM 2024 03:30P M Toan Vazquez PA-C Not available Not available Not available NEW PROBLEM 2024 03:00P Al Mcgill PA-C Not available Not available Not available NEW PROBLEM 2024 02:00P Al Mcgill PA-C Not available Not available Not available Lab None recorded . Referral None recorded . Procedures None recorded . Surgeries None recorded . Imaging None recorded . Medication Orders None recorded . Patient TargetsNo targets recorded. Patient InstructionsNo instructions recorded. Reason for Referral None Reported. Problems Name Problem SNOMED Code Status Onset Date Resolution Date Notes Provider Name and Address Organization Details Recorded Time Full thickness rotator cuff tear 187446690 Active 2015 Problem Code: M75.120; Problem Code Type: ICD-10; Status: 'A'; Not Available [facility] 4 11:28:24 Strain of muscle and/or tendon of thigh 473165836 Active 2017 Problem Code: S76.311A ; Problem Code Type: ICD-10; Status: 'A'; Not Available [facility] 4 11:28:23 Idiopathi c osteoarth ritis 233021297 Active 2018 Problem Code: M17.11; Problem Code Type: ICD-10; Status: 'A'; Not Available [facility] 4 11:28:24 Impingeme nt syndrome of left shoulder region 539269295086 104 Active 2023 Christoph Juarez PA-C [address], [place], [address] , [facility] 4 10:56:59 Impingeme nt syndrome of right shoulder region 391275020589 102 Active 2023 GIANA thayer [place] [facility] 4 09:41:15 Bilateral osteoarth ritis of knees 104511681561 107 Active 2023 GIANA thayer [place] [facility] 4 09:41:24 Osteoarth ritis of knee 726046059 Active 2023 GIANA thayer [facility] 4 09:41:26 Osteoarth ritis of right knee joint 907503662803 100 Active 2023 Christoph Juarez PA-C [address], [place], [address] , [facility] 4 10:57:31 Problem Notes None recorded. Procedures Surgical History Date Name Laterality Status Provider Name and Address Organization Details Recorded Time 5 JZKNEE INJ Marcelino completed Christoph Juarez PA-C [address], [place], [address], [facility] 08/30/2024 08:52:05 5 JZShoulder INJ Marcelino completed Christoph Juarez PA-C [address], [place], [address], [facility] 08/30/2024 08:52:07 4 JZKNEE INJ completed Christoph Juarez PA-C [address], [place], [address], [facility] 04/05/2024 10:56:45 4 JZShoulder INJ Marcelino completed Christoph Juarez PA-C [address], [place], [address], [facility] 04/05/2024 10:56:48 4 JZKNEE INJ completed Christoph Juarez PA-C [address], [place], [address], [facility] 01/04/2024 13:18:30 4 JZShoulder INJ Marcelino completed Christoph Juarez PA-C [address], [place], [address], [facility] 01/04/2024 13:18:21 4 JZKNEE INJ completed Christoph Juarez PA-C [address], [place], [address], [facility] 10/04/2023 16:12:36 4 JZShoulder INJ completed Christoph Juarez PA-C [address], [place], [address], [facility] 10/04/2023 16:12:39 Imaging Results None recorded. Procedure Notes None recorded. Medical Equipment None Reported. Allergies Allergen ID Allergen Name Allergen Category Reaction Reaction Severity Criticality Documentation Date Start Date Code Code System Note Provider Name and Address Organization Details Recorded Time 755071 lisinopri l medicatio n Not available Not available Not available 10/04/2023 02534 RxNorm GIANA MATTHEWS [facility] 16:05:49 Medications Name Sig Start Date Stop Date Status Note LastModified by Organization Details LastModified Time quetiapine 25 mg tablet TAKE 1 TABLET BY MOUTH EVERYDAY AT BEDTIME active Not Available Not Available No t Available amoxicillin 500 mg capsule TAKE 1 CAPSULE BY MOUTH TWICE A DAY FOR 10 DAYS 10/03 completed Not Available Not Available Not Available prednisone 10 mg tablet TAKE 1 TABLET (10 MG) BY MOUTH ONCE PER DAY FOR 5 DAYS. 10/03 completed Not Available Not Available Not Available albuterol sulfate 2.5 mg/3 mL (0.083 %) solution for nebulizatio n TAKE 1 VIAL BY NEBULIZAT ION EVERY 4 HOURS NEEDED FOR WHEEZING FOR UP TO 30 DAYS. active Not Available Not Available No t Available verapamil ER 360 mg 24 hr capsule,ext ended release TAKE ONE CAPSULE DAILY active Not Available Not Available No t Available loperamide 2 mg capsule TAKE ONE CAPSULE FOUR TIMES DAILY NEEDED FOR DIARRHEA active Not Available Not Available No t Available metoprolol tartrate 100 mg tablet TAKE ONE TABLET TWICE DAILY active Not Available Not Available No t Available fluconazole 150 mg tablet TAKE 1 TABLET BY MOUTH ONE TIME FOR 1 DOSE active Not Available Not Available No t Available sucralfate 1 gram tablet TAKE ONE TABLET BY MOUTH THREE TIMES DAILY ON AN EMPTY STOMACH ONE HOUR BEFORE MEALS AND AT BEDTIME active Not Available Not Available No t Available ondansetron HCl 4 mg tablet TAKE 2 TABLETS BY MOUTH EVERY 8 HRS IF NEEDED FOR NAUSEA OR VOMITING FOR UP TO 7 DAYS. active Not Available Not Available No t Available prednisone 20 mg tablet TAKE 1 TABLET (20 MG) BY MOUTH ONCE PER DAY FOR 5 DAYS. 08/30 completed Not Available Not Available Not Available metronidazo le 250 mg tablet TAKE 1 TABLET BY MOUTH 3 TIMES A DAY FOR 10 DAYS 08/30 completed Not Available Not Available Not Available verapamil ER (SR) 180 mg tablet,exte nded release TAKE 2 CAPSULES BY MOUTH EVERY DAY active Not Available Not Available No t Available dextrometho rphan-guaif enesin 10 mg-100 mg/5 mL oral syrup TAKE 5 ML BY MOUTH EVERY 4 HOURS NEEDED FOR COUGH FOR UP TO 10 DAYS * NOT COVERED active Not Available Not Available No t Available sulfamethox azole 800 mg-trimetho prim 160 mg tablet TAKE 1 TABLET BY MOUTH TWICE A DAY FOR 10 DAYS 10/03 completed Not Available Not Available Not Available tramadol 50 mg tablet TAKE 1 TABLET BY MOUTH 3 TIMES A DAY NEEDED FOR SEVERE PAIN active Not Available Not Available No t Available acetaminoph en 500 mg tablet TAKE 1-2 TABLETS BY MOUTH EVERY 6 HOURS IF NEEDED FOR MODERATE PAIN/FEVE R OR HEADACHE. MAX 3000MG/DA Y active Not Available Not Available No t Available acetaminoph en ER 650 mg tablet,exte nded release PLEASE SEE ATTACHED FOR DETAILED DIRECTION S active Not Available Not Available No t Available lorazepam 0.5 mg tablet TAKE 1 TABLET BY MOUTH EVERY DAY NEEDED FOR ANXIETY active Not Available Not Available No t Available dicyclomine 20 mg tablet TAKE 1 TABLET (20 MG) BY MOUTH BEFORE BREAKFAST , BEFORE LUNCH, BEFORE EVENING MEAL, AND AT BEDTIME. active Not Available Not Available No t Available hydralazine 100 mg tablet TAKE 1 TABLET BY MOUTH 3 TIMES DAILY. active Not Available Not Available No t Available pantoprazol e 40 mg tablet,mile yed release TAKE 1 TABLET BY MOUTH EVERY DAY IN THE MORNING active Not Available Not Available No t Available erythromyci n 5 mg/gram (0.5 %) eye ointment PLACE 1/2 INCH STRIP INSIDE LEFT UPPER EYELID AND ON LEFT UPPER EYELID 3 TIMES A DAY FOR 10 DAYS 10/03 completed Not Available Not Available Not Available oseltamivir 75 mg capsule TAKE 1 CAPSULE BY MOUTH TWICE A DAY FOR 5 DAYS active Not Available Not Available No t Available pseudoephed rine-guaife nesin ER 80-700 mg tablet,exte nded release Percocet 5-325MG Tablet 06/28 completed Statu s: 'Disc ontin ued'; Not Available Not Available Not Available nystatin 100,000 unit/gram topical cream APPLY TO AFFECTED AREA TWICE A DAY active Not Available Not Available No t Available prednisone 50 mg tablet TAKE 1 TABLET BY MOUTH EVERY DAY FOR 5 DAYS 08/30 completed Not Available Not Available Not Available lidocaine 5 % topical patch APPLY TO LOWER BACK REGION LEAVE ON FOR 12 HOURS OFF FOR 12 HOURS , NEEDED. active Not Available Not Available No t Available metoprolol tartrate 50 mg tablet TAKE 1 AND 1/2 TABLETS BY MOUTH 3 TIMES A DAY active Not Available Not Available No t Available Advair Diskus 500 mcg-50 mcg/dose powder for inhalation INHALE 1 PUFF INTO THE LUNGS 2 TIMES DAILY FOR 30 DAYS. active Not Available Not Available No t Available gabapentin 300 mg capsule TAKE 1 TO 2 CAPSULES BEDTIME NEEDED active Not Available Not Available No t Available aspirin 81 mg chewable tablet CHEW ONE TABLET ONCE DAILY active Not Available Not Available No t Available ammonium lactate 12 % topical cream APPLY TO THE AFFECTED AREA(S) NEEDED FOR DRY SKIN active Not Available Not Available No t Available codeine 10 mg-guaifene sin 100 mg/5 mL oral liquid TAKE 5 ML BY MOUTH EVERY 6 (SIX) HOURS IF NEEDED FOR COUGH FOR UP TO 5 DAYS. 10/03 completed Not Available Not Available Not Available fluticasone propionate 220 mcg/actuati on HFA aerosol inhaler INHALE 1 PUFF BY MOUTH 2 TIMES A DAY active Not Available Not Available No t Available gabapentin 100 mg capsule TAKE 2 CAPSULES BY MOUTH AT BEDTIME active Not Available Not Available No t Available nystatin 100,000 unit/gram topical powder APPLY TO AFFECTED AREA TWICE A DAY active Not Available Not Available No t Available lorazepam 1 mg tablet TAKE ONE TABLET BY MOUTH ONE HOUR PRIOR TO THE MRI PROCEDURE , MAY TAKE SECOND DOSE IF NEEDED active Not Available Not Available No t Available ibuprofen 600 mg tablet TAKE 1 TABLET BY MOUTH 3 TIMES A DAY FOR 10 DAYS 08/30 completed Not Available Not Available Not Available fluticasone propionate 50 mcg/actuati on nasal spray,suspe nsion INSERT 1-2 SPRAYS IN EACH NOSTRIL EVERY DAY NEEDED active Not Available Not Available No t Available amoxicillin 875 mg-potassiu m clavulanate 125 mg tablet TAKE 1 TABLET BY MOUTH TWICE A DAY FOR 10 DAYS 08/30 completed Not Available Not Available Not Available amoxicillin 500 mg-potassiu m clavulanate 125 mg tablet TAKE 1 TABLET BY MOUTH THREE TIMES A DAY 08/30 completed Not Available Not Available Not Available Ventolin HFA 90 mcg/actuati on aerosol inhaler INHALE 2 PUFFS BY MOUTH EVERY 6 HOURS NEEDED FOR WHEEZE active Not Available Not Available No t Available Laxative (bisacodyl) 5 mg tablet,mile yed release TAKE 2 TABLETS BY MOUTH AT 3PM AND 7PM FOR 1 DAY 01/03 completed Not Available Not Available Not Available pregabalin 75 mg capsule TAKE 1 CAPSULE BY MOUTH TWICE A DAY active Not Available Not Available No t Available diclofenac 1 % topical gel DIRECTED APPLY 3-4 GRAMS TO AFFECTED AREA 3 TIMES A DAY active Not Available Not Available No t Available melatonin 5 mg tablet TAKE TWO TABLETS AT BEDTIME active Not Available Not Available No t Available cholecalcif alexus (vitamin D3) 50 mcg (2,000 unit) capsule TAKE 1 CAPSULE BY MOUTH EVERY DAY active Not Available Not Available No t Available Gavilax 17 gram/dose oral powder MIX WITH GATORADE/ CRYSTAL LIGHT AND DRINK STARTING AT 5:00 PM THE DAY BEFORE PROCEDURE active Not Available Not Available No t Available Arnuity Ellipta 100 mcg/actuati on powder for inhalation TAKE 1 PUFF EVERY DAY active Not Available Not Available No t Available Proctosol HC 2.5 % topical cream perineal applicator APPLY RECTALLY TWICE DAILY active Not Available Not Available No t Available Wegovy 0.25 mg/0.5 mL subcutaneou s pen injector INJECT 0.25 MG SUBCUTANE OUSLY WEEKLY active Not Available Not Available No t Available Wegovy 0.5 mg/0.5 mL subcutaneou s pen injector INJECT ONE PEN (=0.5 MG) SUBCUTANE OUSLY ONCE A WEEK active Not Available Not Available No t Available Paxlovid 300 mg (150 mg x 2)-100 mg tablets in a dose pack TAKE 3 TABLETS BY MOUTH TWICE A DAY FOR 5 DAYS DIRECTED 10/03 completed Not Available Not Available Not Available Zepbound 5 mg/0.5 mL subcutaneou s pen injector INJECT 0.5 ML (5 MG) UNDER THE SKIN 1 (ONE) TIME PER WEEK. active Not Available Not Available No t Available Zepbound 2.5 mg/0.5 mL subcutaneou s pen injector INJECT 0.5 ML (2.5 MG) UNDER THE SKIN 1 (ONE) TIME PER WEEK. active Not Available Not Available No t Available Vitals Date Recorded Body height Body mass index (BMI) Body weight Provider Name and Address Organization Details Last Updated DateTime 08/30/2024 162.56 cm 43.3 kg/m2 719753.28 [facility] 08/30/2024 08:42:57 Date Recorded Body height Body mass index (BMI) Body weight Provider Name and Address Organization Details Last Updated DateTime 10/04/2023 162.56 cm 43.3 kg/m2 505101.28 g GIANA MATTHEWS [facility] 10/04/2023 16:05:41 Date Recorded Body height Body mass index (BMI) Body weight Provider Name and Address Organization Details Last Updated DateTime 01/04/2024 162.56 cm 43.3 kg/m2 344646.28 g [facility] 01/04/2024 13:07:55 Date Recorded Body height Body mass index (BMI) Body weight Provider Name and Address Organization Details Last Updated DateTime 04/05/2024 162.56 cm 43.3 kg/m2 720931.28 g [facility] 04/05/2024 10:54:19 Social History None recorded. Functional Status None recorded. Mental Status None recorded. Family History Nothing Reported. Medical History No medical history recorded. Gynecological HistoryNo gynecological history recorded. Obstetrics History GPAL:G 0 P 0 0 0 0 Past Encounters Encounter ID Performer Location Encounter Start Date Encounter Closed Date Diagnosis/Indication Diagnosis SNOMED-CT Code Diagnosis ICD10 Code Diagnosis Note [id number] MAURIZIO Dominguez [address] [place] [address] 10/04/2023 15:56:12 10/30/2023 15:48:51 Impingement syndrome of right shoulder region 2720959314 63394 M75.41 Osteoarthr itis of knee 144080770 M17.9 [id number] MAURIZIO Dominguez [address] [place] [address] 01/04/2024 13:02:45 01/26/2024 09:47:57 Bilateral osteoarthritis of knees 5630584073 81369 M17.0 Impingemen t syndrome of right shoulder region 4328553242 59063 M75.41 Impingemen t syndrome of left shoulder region 5013166361 38206 M75.42 [id number] MAURIZIO Dominguez [address] [place] [address] 04/05/2024 10:49:56 04/29/2024 15:31:43 Impingement syndrome of right shoulder region 8850265651 16110 M75.41 Impingemen t syndrome of left shoulder region 6782322297 25525 M75.42 Osteoarthr itis of right knee joint 3199645827 51296 M17.11 [id number] MAURIZIO Dominguez [address] [place] [address] 08/30/2024 08:22:16 09/18/2024 10:24:29 Bilateral osteoarthritis of knees 8121580265 37451 M17.0 Impingemen t syndrome of right shoulder region 4511594386 12248 M75.41 Health Concerns Section Related Observation LastModified by Organization Detai ls LastModified Time None Recorded Concern Status LastModified by Organization Details LastModified Time None Recorded Advance Directives Directive None Recorded Payers Insurance Date Sequence Insurance Name Policy Number Policy Ash Covered Member ID Ash Member ID Guarantor Name 09/18/2024 1 [place] [facility] ([place]) Chelle Melchor [id number] Chelle Melchor 09/25/2023 1 [place] [facility] Chelle Melchor [id number] Chelle Melchor 04/02/2024 1 [place] [facility] Chelle Melchor [id number] Chelle Al Melchor OBGyn Episode No OBEpisode recorded.
[2024-11-13 08:45] LABS: Creatinine POC 1.1 mg/dL (0.5-1.4); GFR POC 52
== END 2024-11-12 11:17 | disposition home or self-care (01) ==
LOC: HO.CT 11:16
PROVIDERS: PCP Pediatrics; Visit Provider Internal Medicine Gastroenterology
DX: R10.9 Unspecified abdominal pain (principal)
CPT/HCPCS: 74177; 82565; Q9967

== ENCOUNTER → 2024-11-12 11:56 | Outpatient (BNV) | payer MEDICAID, SELFPAY | PROVIDERS: PCP Pediatrics; Visit Provider Radiology Diagnostic Radiology | DX: K40.90 Unilateral inguinal hernia, without obstruction or gangrene, not specified as recurrent (principal) | CPT/HCPCS: 74177 ==

== ENCOUNTER 2025-01-20 11:31 | Outpatient (REF) | payer MEDICAID, SELFPAY ==
--- OUTSIDE RECORDS SUMMARY | 2023-08-01 08:00 | XMS_ITS ---
Author Organization [facility] Address [address] [place] [id number] Care Team Providers Care Soldering Machine Feeder Name Role Phone Hira JASON, Dorinda Primary Care Provider Jeffrey [place] Jr REASON FOR VISIT screening Encounters Encounter Location Date Provider Diagnosis [facility] [address] [place] [id number] 08/01/2023 Jeffrey Rios Jr Encounter for screening colonoscopy Z12.11 and Colon polyps K63.5 Assessments Encounter Date Diagnosis (ICD Code) Assessment Notes Treatment Notes Treatment Clinical Notes Section Notes 08/01/2023 Encounter for screening colonoscopy (ICD-10 - Z12.11) 08/01/2023 Colon polyps (ICD-10 - K63.5) Plan Of Treatment No Information Progress Notes * RAYMOND WRIGHT MDOB: [birth year] (59 yo F)Acc No.[id number]:08/01/2023 COLON WITH MAC Patient: Jerrell RAYMOND HERNANDEZ Provider: Jerrell Rios MD :1965 A ge:58 Y S ex:Female Date:08/01/2023 Address:[address] [place], [place] [id number] Pcp:Dorinda Iniguez MD Subjective: * Chief Complaints: [...] 0 08/01/2023 Generated for Jaymie lucia/Hilary/Alonsoitting on: 0 01/20/2025 11:16 AM EDT
--- OUTSIDE RECORDS SUMMARY | 2024-10-30 10:00 | XMS_ITS ---
Author Organization [facility] Address [address] [place] [phone] Care Team Providers Care Saddle And Harness Maker Name Role Phone Hira JASON, Dorinda Primary Care Provider Ute Rios Jr, Jeffrey Goins [phone] REASON FOR VISIT abdominal pain Encounters Encounter Location Date Provider Diagnosis [facility] [place] [address] [place] [id number] 10/30/2024 Jeffrey Rios Jr Plan Of Treatment No Information Progress Notes * RAYMOND WRIGHT MDOB: [birth year] (59 yo F)Acc No.[id number]:10/30/2024 EGD/MAC Patient: Jerrell RAYMOND HERNANDEZ Provider: Jerrell Rios MD :1965 A ge:59 Y S ex:Female Date:10/30/2024 Address:[address] [place] [address] Pcp:Dorinda Iniguez MD Subjective: * Chief Complaints: [...] 0 10/30/2024 Generated for Printi ng/Faxing/eTransmitting on: 0 01/20/2025 11:16 AM EDT
--- OUTSIDE RECORDS SUMMARY | 2025-01-20 13:09 | XMS_ITS | Clinical Summary ---
Author Organization [facility] Address [address] [place] [address] Phone Care Team Providers Care Director Of Channel Marketing Name Role Phone Dorinda Iniguez MD Primary Care Provider [phone] Allergies Active Allergy Reactions Criticality Noted Date [...] complete this topic Insurance Medicaid [place] Medicaid [place] Care Teams Director Of Channel Marketing Relationship Specialty Start Date End Date Dorinda Iniguez MD [address] PCP - General Internal Medicine 07/06/22
--- OUTSIDE RECORDS SUMMARY | 2025-01-20 13:09 | XMS_ITS | Patient Health Record ---
Author Organization [facility] Address [address] [place] [address] Care Team Providers Care Greens Planter Name Role Phone Hira JASON, Dorinda Primary Care Provider Jeffrey Blackman Jr Unavailable [phone] Allergies Allergen (clinical drug ingredient) Drug/Non Drug Allergy documented on EMR Reaction Allergy Type Onset Date Status lisinopril Lisinopril Unknown Drug Allergy Activ e Results Component Value Reference Range Notes Complete Blood Count no Diff Reviewed date:10/22/2024 03:41:25 PM Interpretation: Performing Lab:[facility], [address] [place] [phone] Notes/Report: White Blood Count 9.3 4.8-10.8 X10*3/uL Red Blood Count 4.27 4.20-5.50 X10*6/uL Hemoglobin 13.7 12.0-16.0 g/dl Hematocrit 40.6 37.0-47.0 % Mean Corpuscular Volume 95.1 80.0-98.0 fL Mean Corpuscular Hemoglobin 32.1 27.0-33.0 pg Mean Corpuscular HGB Conc 33.7 31.0-35.0 g/dl Red Cell Distribution Width 13.8 11.0-16.0 % Platelet Count 325 160-400 X10*3/uL Mean Platelet Volume 10.4 9.4-12.3 fL NRBC Pct Auto 0.0 0.0-0.2 /100WBC NRBC Abs Auto 0.000 0.0-0.012 X10*3/uL Liver Panel Reviewed date:10/22/2024 03:38:48 PM Interpretation: Performing Lab:[facility], [address] [place] [phone] Notes/Report: Bilirubin Total 0.6 0.0-1.0 mg/dL Bilirubin Direct 0.2 0.0-0.5 mg/dL Aspartate Amino Transferase 17 5-31 U/L Alanine Aminotransferase 12 0-31 U/L Total Protein 6.4 6.5-8.0 g/dL Albumin Level 4.0 3.5-5.0 g/dL Alkaline Phosphatase 78 39-117 U/L Blood Urea Nitrogen Reviewed date:10/15/2024 04:39:10 PM Interpretation: Performing Lab:[facility], [address] [place] [phone] Notes/Report: Blood Urea Nitrogen 21 9-16 mg/dL Creatinine Reviewed date:10/15/2024 04:39:19 PM Interpretation: Performing Lab:[facility], [address] [place] [phone] Notes/Report: Creatinine 1.01 0.5-1.4 mg/dL Estimated Glomerular Filt Rate 56 Chronic Kidney Disease: Estimated GFR < 60 mL/min/1.73m2 Severe Kidney Disease: Estimated GFR < 15 mL/min/1.73m2 Lipase Reviewed date:10/22/2024 03:39:01 PM Interpretation: Performing Lab:[facility], [address] [place] [phone] Notes/Report: Lipase 8 8-78 U/L Pathology Reviewed date:11/04/2024 08:11:06 AM Interpretation: Performing Lab:[facility], [address] [place] [phone] Notes/Report: CT abdomen pelvis w con Reviewed date:11/14/2024 08:46:19 AM Interpretation: Performing Lab: Notes/Report: [address] [address] [address] Scan Report Signed Patient: Chelle Helm MR# : [id number] : 1965 Acct:[id number] Age/Sex: 59 / F ADM Date: 11/12/24 Loc: HO.CT Attending Dr: Jeffrey Narayan MD Ordering Physician: Jeffrey Narayan MD Date of Service: 11/12/24 Procedure(s): CT abdomen pelvis w IV con Accession Number(s): [id number] cc: Dorinda Iniguez MD; Jeffrey Narayan MD Report Number: [id number]: Total DLP = 667.00 mGy-cm EXAMINATION: CT ABDOMEN PELVIS WITH IV CONTRAST HISTORY: abd pain COMPARISON: There are no prior studies for available comparison. TECHNIQUE: CT scan of the abdomen and pelvis was performed following administration of 85 mL Omnipaque 350 using standard departmental protocol. Coronal and sagittal reformatted images were generated and reviewed. Oral contrast material was not administered at the request of the referring physician. This CT exam was performed with one or more of the following dose reduction techniques: automated exposure control, adjustment of the mA and/or kV according to patient size, use of iterative reconstruction technique. DLP: 667 mGy-cm FINDINGS: LOWER CHEST: The visualized lung bases are clear. There is no pleural effusion. CARDIOVASCULATURE: The heart is normal in size. There is no pericardial effusion. LIVER: The liver is normal in size and contour. No liver mass is identified. The hepatic and portal veins are patent. GALLBLADDER / BILE DUCTS: The gallbladder is surgically absent. There is no intra or extrahepatic biliary ductal dilatation. SPLEEN: The spleen is normal in size. No focal splenic lesion is identified. PANCREAS: The pancreas is unremarkable in appearance. ADRENAL GLANDS: Within normal limits. KIDNEYS/RETROPERITONEUM: No renal calculi are identified. There is no hydronephrosis. No renal masses are identified. LYMPH NODES: No abdominal or pelvic lymphadenopathy. VASCULATURE: The abdominal aorta is normal in caliber. MESENTERY/PERITONEUM: No free fluid. No masses. There is no free intraperitoneal gas. STOMACH: The stomach is collapsed, limiting evaluation. SMALL BOWEL: The small bowel is normal in caliber. COLON: The colon is unremarkable. APPENDIX: Normal. URINARY BLADDER/PELVIC ORGANS: The urinary bladder is collapsed, limiting evaluation. The uterus is unremarkable. BONES / SOFT TISSUES: There is a fat-containing right inguinal hernia. There is a rounded sclerotic focus in the L5 vertebral body, of uncertain significance CT/CT abdomen pelvis w IV con IMPRESSION: Fat-containing right inguinal hernia. Electronically signed by: Roni Salguero MD 11/12/2024 12:17 PM EDT RP Dictated By: Roni Salguero MD Signed By: <Electronically signed by Roni Salguero MD in OV> 11/12/24 1217 DD/ 1156 TD/TT: 11/12/24 1209 Casing Puller: Creatinine GFR POC Reviewed date:11/14/2024 08:44:34 AM Interpretation: Performing Lab:[facility], [address] [place] [phone] Notes/Report: [id number] 1.14 52 1149 [place] Creatinine POC 1.1 0.5-1.4 mg/dL GFR POC 52 Chronic Kidney Disease: Estimated GFR < 60 mL/min/1.73m2 Severe Kidney Disease: Estimated GFR < 15 mL/min/1.73m2 Reason For Referral Referring Provider First Name Dorinda Referring Provider Last Name Hira Referring Provider Speciality Internal M edicine Referred Organization [facility] Referred Provider Jeffrey Narayan Jr Referred Address [address] [place] [phone], Referred Provider Specialty Gastroentero logy General Awilda Harvey 2024 02:39:04 PM >[place] REFERRAL FROM [facility] FOR VISIT WITH DR NARAYAN ON [phone] Referral Priority Routine Reason small right groin he rnia Diagnosis 1 Right inguinal pain (R10.31) Referral Organization [facility] Referring Provider First Name Jeffrey Referring Provider Last Name Gabriel Coronado Referring Provider Speciality Gastroente rology Referred Provider Ibrahima Victoria Referred Provider Specialty Surgery Referral Priority Routine Referral Appointment Date 01/14/2025 Medications Medication SIG (Take, Route, Frequency, Duration) Notes Start Date End Date Status Verapamil HCl ER 360 MG TAKE ONE CAPSULE BY MOUTH EVERY DAY Oral for 30 Active Vitamin D (Ergocalciferol) 1.25 MG (79332 UT) TAKE ONE CAPSULE EVERY WEEK Oral for 28 Active Chlorthalidone 50 MG TAKE ONE TABLET DAILY Oral for 30 Active Vitamin D3 50 MCG (2000 UT) TAKE ONE CAPSULE BY MOUTH TWICE DAILY Oral for 30 Active Multivitamin Active Biotin Active hydroCHLOROthiazide 25 MG TAKE ONE TABLE T BY MOUTH EVERY MORNING Diagnosis Unavailable Oral for 90 Not-Taking traMADol HCl 50 MG TAKE 1 TABLET BY MOUTH THREE TIMES A DAY NEEDED FOR MODERATE TO SEVERE PAIN Oral for 20 Not-Taking Albuterol Sulfate (2.5 MG/3ML) 0.083% INHALE ONE AMPULE USING A NEBULIZER THREE TIMES DAILY NEEDED Inhalation for 10 Active LORazepam 0.5 MG one in morning two at night Oral Twice a day Active Lidocaine Active Collagen Active Pantoprazole Sodium 40 MG 1 tablet Orall y Once a day for 30 day(s) 07/01/2021 Active Loperamide HCl 2 MG 1 capsule as needed Orally Four times a day for 30 days 03/14/2019 Active Sucralfate 1 GM TAKE ONE TABLET BY MOUTH THREE TIMES DAILY ON AN EMPTY STOMACH ONE HOUR BEFORE MEALS AND AT BEDTIME Diagnosis Unavailable Oral for 30 Active Vitamin C Active hydrALAZINE HCl 100 MG TAKE ONE TABLET TWICE DAILY WITH FOOD Oral for 30 Active Zepbound 7.5 MG/0.5ML INJECT 0.5 ML (7.5 MG) UNDER THE SKIN 1 (ONE) TIME PER WEEK. Subcutaneous for 28 Days Active Metoprolol Tartrate 100 MG TAKE ONE TABLET BY MOUTH TWICE DAILY Oral for 30 Active ProAir HFA 108 (90 Base) MCG/ACT INHALE ONE PUFF EVERY 4 HOURS NEEDED FOR COUGH Inhalation for 30 Active Biotin Maximum Strength 5000 MCG TAKE ONE CAPSULE DAILY Oral for 90 Active Dicyclomine HCl 20 MG 1 tablet Orally 2- 4 times a day for 30 days 03/14/2019 Active Gabapentin 300 MG TAKE ONE OR TWO CAPSULES AT BEDTIME NEEDED Oral for 30 Active Cyanocobalamin 1000 MCG/ML INJECT 1ml INTRAMUSCULARLY EVERY MONTH Injection for 28 Active Ventolin HFA 108 (90 Base) MCG/ACT INHALE ONE PUFF EVERY 4 HOURS NEEDED FOR COUGH Inhalation for 36 [id number],Unav ailable Active FLUoxetine HCl 20 MG TAKE ONE CAPSULE EVERY MORNING Oral for 30 Active Pregabalin 75 MG ONE BY MOUTH EVERY NIGHT X3 DAYS THEN ONE BY MOUTH TWICE A DAY Oral for 30 Active Immunizations Vaccine Route Administration Date Status Comme nts Influenza Unknown 02/27/2019 Administered Influenza Unknown 01/29/2020 Administered Influenza Unknown 12/23/2020 Administered Influenza Unknown 03/16/2022 Administered Influenza Unknown 06/28/2023 Refused Social History Tobacco Use: Social History Observation Description Date Details (start date - stop date) Never Smoker NA - NA Tobacco Use/Smoking Question Answer Notes Patient is a nonsmoker Alcohol Screen Question Answer Notes Did you have a drink containing alcohol in the p ast year? No Points 0 Interpretation Negative Problems Problem Type SNOMED Code ICD Code Onset Dates Problem Status W/U Status Risk Notes Problem 67076090 Epigastric pain (R10.13) Active confirmed Problem 769035431 Special screenin g for malignant neoplasms, colon (Z12.11) Active confirmed Problem 828357089 Irritable bowel syndrome with diarrhea (K58.0) Active confirmed Problem 828596676 Gastroesophageal reflux disease without esophagitis (K21.9) Active confirmed Vital Signs Temperature 97.8 degrees Fahrenheit 10/11/2024 Blood pressure diastolic 01 mm Hg 10/11/2024 Height 64 in 10/11/2024 Blood pressure systolic 001 mm Hg 10/11/2024 Weight 236.4 lbs 10/11/2024 BMI 40.57 kg/m2 10/11/2024 Encounters Encounter Location Date Provider Diagnosis [facility] [address] [place] [phone] 10/30/2024 Jeffrey Narayan Jr [facility] [address] [place] [phone] 10/11/2024 Jeffrey Narayan Jr Abdominal pain R10.9 ; Irritable bowel syndrome with diarrhea K58.0 and Special screening for malignant neoplasms, colon Z12.11 [facility] [address] [place] [phone] 10/22/2024 Jeffrey Narayan Jr [facility] [address] [place] [phone] 11/04/2024 Jeffrey Narayan Jr [facility] [address] [place] [phone] 11/14/2024 Jeffrey Narayan Jr [facility] [address] [place] [phone] 12/31/2024 Jeffrey Narayan Jr Assessments Encounter Date Diagnosis (ICD Code) Assessment Notes Treatment Notes Treatment Clinical Notes Section Notes 10/11/2024 Abdominal pain (ICD-10 - R10.9) We discussed her symptoms today. She will have further evaluation with urther laboratory testing, CT imaging, and endoscopy because of her persistent symptoms despite treatment with proton pump inhibitors and antispasmodics. She is advised to stop Zepbound 1 week before the procedure and chlorthalidone the day before the procedure. She will continue her present medical regimen unchanged. 10/11/2024 Irritable bowel syndrome with diarrhea (ICD-10 - K58.0) We discussed her symptoms today. She will have further evaluation with urther laboratory testing, CT imaging, and endoscopy because of her persistent symptoms despite treatment with proton pump inhibitors and antispasmodics. She is advised to stop Zepbound 1 week before the procedure and chlorthalidone the day before the procedure. She will continue her present medical regimen unchanged. 10/11/2024 Special screening for malignant neoplasms, colon (ICD-10 - Z12.11) We discussed her symptoms today. She will have further evaluation with urther laboratory testing, CT imaging, and endoscopy because of her persistent symptoms despite treatment with proton pump inhibitors and antispasmodics. She is advised to stop Zepbound 1 week before the procedure and chlorthalidone the day before the procedure. She will continue her present medical regimen unchanged. Plan Of Treatment Pending Test Test Name Order Date BUN 10/11/2024 CREATININE 10/11/2024 LIVER PROFILE 09/14/2020 LIVER PROFILE 10/11/2024 LIPASE 09/14/2020 LIPASE 10/11/2024 CBC w/o DIFF 09/14/2020 CBC w/o DIFF 10/11/2024 CT ABD & PELVIS WITH CONTRAST 10/11/2024 TSH REFLEX FREE T4 09/14/2020 Future Test Test Name Order Date UPPER GI ENDOSCOPY 06/26/2019 COLONOSCOPY 09/14/2020 COLONOSCOPY 06/28/2023 Insurance Providers Payer Name Payer Address Payer Phone Subscriber Number Group Number Insured Name Patient Relationship to Insured Coverage Start Date Coverage End Date MEDICAID OF [facility] [address] [place] [phone] [id number] CHELLE WRIGHT Self - patient is the insured Medical (General) History Medical History History ICD Code iron deficiency anemia GERD, EGD 06/28/19, and no H. pylori or Ba rrett's esophagus hypertension irritable bowel syndrome vitamin D deficiency kidney stones vitamin B12 deficiency Anxiety disorder Hypothyroidism asthma History of covid 19 infection Colonoscopy 08/15, benign polyp, 5-year f ollow-up Surgical History Surgery Date(Month/Year) Surgery in the right kidney - kidney sto [place] Right arm surgery section cholecystectomy
[2025-01-20 14:31] LABS: Anion Gap 12 (12-20); Blood Urea Nitrogen 25 mg/dL (9-16); Calcium 9.4 mg/dL (8.4-10.2); Carbon Dioxide 26 mmol/L (22-29); Chloride 109 mmol/L (96-108); Estimated Glomerular Filt Rate > 60; Potassium 5.1 mmol/L (3.3-5.1); Sodium 142 mmol/L (135-145)
== END 2025-01-20 11:32 | disposition home or self-care (01) ==
LOC: HO.CHCLDS 11:31
PROVIDERS: Visit Provider Student in an Organized Health Care Education/Training Program
DX: R25.2 Cramp and spasm (principal)
CPT/HCPCS: 36415; 80048

== ENCOUNTER 2025-01-24 13:26 | Outpatient (REF) | payer MEDICAID, SELFPAY ==
--- OUTSIDE RECORDS SUMMARY | 2023-08-01 08:00 | XMS_ITS ---
Author Organization [facility] Address [address] [place] [id number] Care Team Providers Care Band Builder Name Role Phone Hira JASON, Dorinda Primary Care Provider Jeffrey Blackman Jr [phone] REASON FOR VISIT screening Encounters Encounter Location Date Provider Diagnosis [facility] [address] [place] [id number] 08/01/2023 Jeffrey Rios Jr Encounter for screening colonoscopy Z12.11 and Colon polyps K63.5 Assessments Encounter Date Diagnosis (ICD Code) Assessment Notes Treatment Notes Treatment Clinical Notes Section Notes 08/01/2023 Encounter for screening colonoscopy (ICD-10 - Z12.11) 08/01/2023 Colon polyps (ICD-10 - K63.5) Plan Of Treatment No Information Progress Notes * RAYMOND WRIGHT MDOB: [birth year] (59 yo F)Acc No.[id number]:08/01/2023 COLON WITH MAC Patient: Jerrell RAYMOND HERNANDEZ Provider: Jerrell Rios MD :1965 A ge:58 Y S ex:Female Date:08/01/2023 Address:[address] [place], [place] [id number] Pcp:Dorinda Iniguez MD Subjective: * Chief Complaints: * 1 . Screening. * Medical History: Objective: * Vitals: Assessment: * Assessment: 1. E ncounter for screening colonoscopy - Z12.11 (Primary) 2 . C olon polyps - K63.5 Plan: * Treatment: * Procedure Codes: 4 5380 COLONOSCOPY AND BIOPSY * * The named appointment provid er may or may not be the originator of this progress note, and it is not deemed complete until electronically signed by the appointment provider. Sign off status: Pending * Provider: Jerrell Rios MD Date: 0 08/01/2023 Generated for Jaymie lucia/Hilary/Alonsoitting on: 01:48 PM EDT
--- OUTSIDE RECORDS SUMMARY | 2024-10-30 10:00 | XMS_ITS ---
Author Organization [facility] Address [address] [place] [phone] Care Team Providers Care Brake Tester Name Role Phone Hira JASON, Dorinda Primary Care Provider Ute Rios Jr, Jeffrey Goins REASON FOR VISIT abdominal pain Encounters Encounter Location Date Provider [place] [facility] [place] [address] [place] [id number] 10/30/2024 Jeffrey Rios Jr Plan Of Treatment No Information Progress Notes * RAYMOND WRIGHT MDOB: [birth year] (59 yo F)Acc No.[id number]:10/30/2024 EGD/MAC Patient: Jerrell RAYMOND HERNANDEZ Provider: Jerrell Rios MD :1965 A ge:59 Y S ex:Female Date:10/30/2024 Address:[address] [place] [address] Pcp:Dorinda Iniguez MD Subjective: * Chief Complaints: [...] 0 10/30/2024 Generated for Printi ng/Faxing/eTransmitting on: 01:47 PM EDT
--- OUTSIDE RECORDS SUMMARY | 2025-01-20 11:00 | XMS_ITS | Encounter Summary ---
Author Organization [employer] Address [address] [place] [address] [address] [place] [address] Care Team Providers Care Seo Executive Name Role Phone Dorinda Iniguez MD Primary Care Provider [phone] Reason for Referral * Imaging (Routine) - Authorized Specialty Diagnoses / Procedures Referred By Conttraci t Referred To Contact Cardiology Diagnoses Leg cramps Procedures Vascular US lower extremity venous insufficiency right Nona Umaña MD [address] [place] [address] Phone: tel: fax: [address] Phone: tel: fax: Referral ID Status Reason Start Date Expiration Date Visits Requested Visits Authorized [id number] Authorized Perform Procedure 01/20/2025 01/20/2026 1 1 Encounter Details Date Type Department Care Team (Late st Contact Info) Description 01/20/2025 11:00 AM EDT Office Visit [facility] [address] [place], [place] [phone] Nona Umaña MD [address] [place], [place] [phone] Leg cramps (Primary Dx); Ecchymosis Social History Tobacco Use Types Packs/Day Years [...] Sign Reading Time Taken Comments Blood Pressure 138/78 01/20/2025 11:17 AM EDT Pulse 83 01/20/2025 11:17 AM EDT Temperature 36.3 C (97.3 F) 01/20/2025 11:17 AM EDT Respiratory Rate 18 01/20/2025 11:17 AM EDT Oxygen Saturation 98% 01/20/2025 11:17 AM EDT Inhaled Oxygen Concentration - - Weight 106 kg (233 lb) 01/20/2025 11:17 AM EDT Height 160 cm (5' 3 ) 01/20/2025 11:17 AM EDT Body Mass Index 41.27 01/20/2025 11:17 AM EDT documented in this encounter Progress Notes * Nona Umaña MD - 01/20/2025 11:00 AM EDT Images from the original note were not included. Subjective Patient ID: Chelle Arias is a 59 y.o. female who presents for No chief complaint on file.. Leg Pain The injury mechanism is unknown. Pain location: right posterior knee area. The quality of the pain is described as aching. The pain is at a severity of 6/10. The pain is moderate. The pain has been Constant since onset. Associated symptoms include an inability to bear weight. The symptoms are aggravated by movement and weight bearing. Review of Systems Constitutional: Negative. Respiratory: Negative. Negative for shortness of breath. Cardiovascular: Negative for chest pain and palpitations. Gastrointestinal: Negative. Genitourinary: Negative. Musculoskeletal: Positive for gait problem. Negative for neck pain. Neurological: Negative for headaches. Objective Physical Exam Constitutional: Appearance: Normal appearance. Cardiovascular: Rate and Rhythm: Normal rate and regular rhythm. Pulses: Normal pulses. Heart sounds: Normal heart sounds. Pulmonary: Effort: Pulmonary effort is normal. Musculoskeletal: Left knee: Ecchymosis present. Tenderness present. Legs: Neurological: Mental Status: She is alert. Assessment/Plan Diagnoses and all orders for this visit: Leg cramps Comments: STAT USg ordered Will decide management accordingly Orders: - Basic Metabolic Panel; Future - Vascular US lower extremity venous insufficiency right; Future Ecchymosis Comments: advised warm compress documented in this encounter Plan of Treatment Not on file documented as of this encounter Procedures Procedure Name Priority Date/Time Associated Diagnosis Comments BASIC METABOLIC PANEL Routine 01/20/2025 11:42 AM EDT Leg cramps documented in this encounter Results * (ABNORMAL) Basic Metabolic Panel (01/20/2025 11:42 AM EDT) Sodium 142 135 - 145 mmol/L [facility] Potassium 5.1 3.3 - 5.1 mmol/L [facility] Chloride 109(H) 96 - 108 mmol/L [facility] Carbon Dioxide 26 22 - 29 mmol/L [facility] Anion Gap 12 12 - 20 [facility] Urea Nitrogen (BUN) 25(H) 9 - 16 mg/dL [facility] Creatinine, Serum 0.80 0.5 - 1.4 mg/dL [facility] Estimated Glomerular Filt Rate >60 [facility] Comment:Chronic Kidney Disea se: Estimated GFR < 60 mL/min/1.60x8Nrwepd Kidney Disease: Estimated GFR < 15 mL/min/1.73m2 Glucose 88 60 - 115 mg/dL [facility] Calcium 9.4 8.4 - 10.2 mg/dL [facility] Blood Venous blood specimen / Unknown 01/20/2025 11:42 AM EDT 01/20/2025 2:07 PM EDT us Nona Umaña MD LAB BLOOD ORDERABLES Final Resul t [facility] [address] [place] [address] [phone] documented in this encounter Visit Diagnoses Diagnosis Leg cramps- Primary Cramp of limb Ecchymosis Other specified circulatory system disorders documented in this encounter Additional Health Concerns Assessment Noted Time PHQ-9 Depression Total Score: 2 05/28/19 25 9:31 AM EST documented as of this encounter Care Teams Seo Executive Relationship Specialty Start Date End Date Dorinda Iniguez MD [address] [place] [address] PCP - General Family Medicine 04/24/18 Ginny Hernandez Gluer Machine Setup OperatorArea Captain 01/17/24 documented as of this encounter
--- NOTE | ~2025-01-24 | US_ITS ---
EXAMINATION: US TRIPLEX LOWER EXTREMITY, RIGHT CLINICAL INFORMATION: Swelling COMPARISON: None available. TECHNIQUE: Color-flow triplex imaging with spectral analysis and compression Doppler were performed on the right lower extremity. FINDINGS: Respiratory variation, normal compression and augmented flow are noted throughout the right lower extremity. The visualized common femoral vein, superficial femoral vein, profunda femoral vein, popliteal vein and midcalf peroneal and posterior tibial venous segments show no evidence of deep venous thrombosis. There is no Farias's cyst. US/US venous duplex LE RT IMPRESSION: No evidence of deep venous thrombosis involving the right lower extremity. Electronically signed by: Theresa Galdamez MD 01/24/2025 02:41 PM EDT
--- NOTE | ~2025-01-24 | XR_ITS ---
EXAMINATION: XR FOOT, RIGHT CLINICAL INFORMATION: pain COMPARISON: None available. TECHNIQUE: AP, lateral, and oblique views of the right foot. FINDINGS: No fractures are identified. Joint spaces are preserved. No erosions are noted. There is no joint malalignment or diastases. There is moderate sized plantar calcaneal spur. XR/XR foot RT min 3V IMPRESSION: There is a moderate-sized plantar calcaneal spur, a nonspecific finding. Electronically signed by: Tha Saucedo MD 01/24/2025 01:45 PM EDT
--- OUTSIDE RECORDS SUMMARY | 2025-01-24 13:47 | XMS_ITS | Encounter Summary ---
Author Organization [employer] Address [address] [place] [address] [address] [place] [address] Care Team Providers Care Client Solutions Director Name Role Phone Dorinda Iniguez MD Primary Care Provider [phone] Reason for Visit * Reason Onset Date Comments Referral 01/22/2025 Encounter Details Date Type Department Care Team ([facility] Contact Info) Description 01/22/2025 Telephone [facility] [address] [place], [place] [phone] Dorinda Iniguez MD [address] [place] [address] Referral Social History Tobacco Use Types Packs/Day Years [...] is your housing situation today? I have lava garcia 08/10/[address] you [...] encounter Miscellaneous Notes * Telephone Encounter - Nona Umaña MD - 01/24/2025 11:59 AM EDT US lower leg ordered and is in the chart * Telephone Encounter - Patricia Nicole RN - 01/23/2025 10:07 AM EDT [facility]. Pt stated was advised an US would be ordered and pt is requesting an update on order. Author advised will review with provider, and that pt will be contacted byradiology to schedule an appointment for US. Pt verbalized understanding and agreement with plan. * Telephone Encounter - Javier Blank - 01/22/2025 9:25 AM EDT Tc from pt requesting a referral for a sonogram. Any questions contact pt at [phone] documented in this encounter Plan of Treatment Not on file documented as of this encounter Visit Diagnoses Not on filedocumented in this encounter Additional Health Concerns Assessment Noted Time PHQ-9 Depression Total Score: 2 05/28/19 9:31 AM EST documented as of this encounter Care Teams Client Solutions Director Relationship Specialty Start Date End Date Dorinda Iniguez MD [address] [place] [id number] PCP - General Family Medicine 04/24/18 Ginny Hernandez Spectral ScientistCommunity Aide 01/17/24 documented as of this encounter
--- OUTSIDE RECORDS SUMMARY | 2025-01-24 13:47 | XMS_ITS | Encounter Summary ---
Author Organization [employer] Address [address] [place] [address] 7 [place] [address] Care Team Providers Care Wallpaper Inspector And Shipper Name Role Phone Dorinda Iniguez MD Primary Care Provider [phone] Reason for Visit * Reason Comments Med Refill Encounter Details Date Type Department Care Team ([facility] st Contact Info) Description 03/05/2024 Refill [facility] CHC MED & PEDS [address] [place], [place] [phone] Dorinda Iniguez MD [address] [place] [address] Social History Tobacco Use Types Packs/Day Years [...] as of this encounter Plan of Treatment Not on file documented as of this encounter Visit Diagnoses Not on filedocumented in this encounter Additional Health Concerns Assessment Noted Time PHQ-9 Depression Total Score: 4 08/17/19 24 1:37 PM EDT documented as of this encounter Care Teams Wallpaper Inspector And Shipper Relationship Specialty Start Date End Date Dorinda Iniguez MD [address] [place] [address] PCP - General Family Medicine 04/24/18 Ginny Hernandez Repeat ChiefMerchandising Professor 01/17/24 documented as of this encounter
--- OUTSIDE RECORDS SUMMARY | 2025-01-24 13:47 | XMS_ITS | Encounter Summary ---
Author Organization [employer] Address [address] [place] [address] 7 [place] [address] Care Team Providers Care Edger Technician Name Role Phone Dorinda Iniguez MD Primary Care Provider [phone] Reason for Visit * Reason Onset Date Comments Referral 01/23/2025 TC US leg Encounter Details Date Type Department Care Team ([facility] Contact Info) Description 01/23/2025 Telephone [facility] CHC MED & PEDS [address] [place] [address] Dorinda Iniguez MD [address] [place] [address] Referral ([place] US leg) Social History Tobacco Use Types Packs/Day Years [...] encounter Miscellaneous Notes * Telephone Encounter - Sharon Diez [place] - 01/23/2025 3:34 PM EDT Order for US of the right leg was changed, to R/O DVT and STAT order. Faxed to [facility], Called patient to informed of appointment 01/24 at 2:30 pm. Informed Lizbeth to follow up since appointment for tomorrow was on hold until referral is review per social media campaign manager. documented in this encounter Plan of Treatment Not on file documented as of this encounter Visit Diagnoses Not on filedocumented in this encounter Additional Health Concerns Assessment Noted Time PHQ-9 Depression Total Score: 2 05/28/19 25 9:31 AM EST documented as of this encounter Care Teams Edger Technician Relationship Specialty Start Date End Date Dorinda Iniguez MD [address] [facility] [place] [address] PCP - General Family Medicine 04/24/18 Ginny Hernandez Live Source OperatorFalsework Builder 01/17/24 documented as of this encounter
--- OUTSIDE RECORDS SUMMARY | 2025-01-24 13:47 | XMS_ITS | Encounter Summary ---
Author Organization [employer] Address [address] [place] [address] 7 [place] [address] Care Team Providers Care Sledger Name Role Phone Dorinda Iniguez MD Primary Care Provider [phone] Reason for Visit * Reason Onset Date Comments Med Refill 05/22/2024 Encounter Details Date Type Department Care Team ([facility] st Contact Info) Description 05/22/2024 Refill [facility] CHC MED & PEDS [address] [place] [address] Dorinda Iniguez MD [address] [place] [address] Influenza B Social History Tobacco Use Types [...] 20 MG tablet To be sent to: [facility]/pharmacy #[id number] documented in this encounter Plan of Treatment Not on file documented as of this encounter Visit Diagnoses Diagnosis Influenza B Influenza with other respiratory manifestations documented in this encounter Additional Health Concerns Assessment Noted Time PHQ-9 Depression Total Score: 4 08/17/19 24 1:37 PM EDT documented as of this encounter Care Teams Sledger Relationship Specialty Start Date End Date Dorinda Iniguez MD [address] [place] [address] PCP - General Family Medicine 04/24/18 Ginny Hernandez Laboratory MillerGuest Relations Executive 01/17/24 documented as of this encounter
--- OUTSIDE RECORDS SUMMARY | 2025-01-24 13:47 | XMS_ITS | Encounter Summary ---
Author Organization [employer] Address [address] [place] [address] 7t [place] [address] Care Team Providers Care Fiber Designer Name Role Phone Dorinda Iniguez MD Primary Care Provider [phone] Reason for Referral * Imaging (Routine) - Pending Review Specialty Diagnoses / Procedures Referred By Nathan ying Referred To Contact Cardiology Diagnoses Leg cramps Procedures Vascular US lower extremity venous duplex left Nona Umaña MD [address] [place] [address] Phone: tel: fax: [address] Phone: tel: fax: Referral ID Status Reason Start Date Expiration Date Visits Requested Visits Authorized [id number] Pending Review Perform Procedure 01/24/2025 01/24/2026 1 1 Encounter Details Date Type Department Care Team (Late st Contact Info) Description 01/24/2025 Orders Only [facility] CHC MED & PEDS [address] [place], [place] [phone] Nona Umaña MD [address] [place] [address] Leg cramps (Primary Dx) Social History Tobacco Use Types [...] as of this encounter Visit Diagnoses Diagnosis Leg cramps- Primary Cramp of limb documented in this encounter Additional Health Concerns Assessment Noted Time PHQ-9 Depression Total Score: 2 05/28/19 25 9:31 AM EST documented as of this encounter Care Teams Fiber Designer Relationship Specialty Start Date End Date Dorinda Iniguez MD [address] [place] [address] PCP - General Family Medicine 04/24/18 Ginny Hernandez Frame PolisherWildfire Prevention Specialist 01/17/24 documented as of this encounter
--- OUTSIDE RECORDS SUMMARY | 2025-01-24 13:47 | XMS_ITS | Encounter Summary ---
Author Organization [employer] Address [address] [place] [address] 7 [place] [address] Care Team Providers Care Build And Release Manager Name Role Phone Dorinda Iniguez MD Primary Care Provider [phone] Reason for Referral * Imaging (STAT) - Authorized Specialty Diagnoses / Procedures Referred By Conttraci t Referred To Contact Cardiology Diagnoses Leg cramps Procedures VASC US Lower Extremity Venous Duplex Right Dorinda Iniguez MD [address] [place] [address] Phone: tel: fax: [address] Phone: tel: fax: Referral ID Status Reason Start Date Expiration Date Visits Requested Visits Authorized [id number] Authorized Perform Procedure 01/23/2025 01/23/2026 1 1 Encounter Details Date Type Department Care Team ([facility] st Contact Info) Description 01/23/2025 Telephone [facility] CHC MED & PEDS [address] [place], [place] [phone] Dorinda Iniguez MD [address] [place], [place] [phone] Social History Tobacco Use Types Packs/Day Years [...] of this encounter Visit Diagnoses Diagnosis Leg cramps Cramp of limb documented in this encounter Additional Health Concerns Assessment Noted Time PHQ-9 Depression Total Score: 2 05/28/19 25 9:31 AM EST documented as of this encounter Care Teams Build And Release Manager Relationship Specialty Start Date End Date Dorinda Iniguez MD [address] [place] [address] PCP - General Family Medicine 04/24/18 Ginny Hernandez Horse Race TimerWater Service Supervisor 01/17/24 documented as of this encounter
--- OUTSIDE RECORDS SUMMARY | 2025-01-24 13:47 | XMS_ITS | Encounter Summary ---
Author Organization [employer] Address [address] [facility] 7 [place] [address] Care Team Providers Care Systems Protection Technician Name Role Phone Dorinda Iniguez MD Primary Care Provider [phone] Reason for Visit * Reason Onset Date Comments Medication Question 04/12/2024 Encounter Details Date Type Department Care Team ([facility] st Contact Info) Description 04/12/2024 Telephone [facility] MEDICINE [address] [place] [address] Dorinda Iniguez MD [address] [place] [id number] Medication Question Social History Tobacco Use Types [...] and it doesn't help. Contact pt at [phone] documented in this encounter Plan of Treatment Not on file documented as of this encounter Visit Diagnoses Not on filedocumented in this encounter Additional Health Concerns Assessment Noted Time PHQ-9 Depression Total Score: 4 08/17/19 24 1:37 PM EDT documented as of this encounter Care Teams Systems Protection Technician Relationship Specialty Start Date End Date Dorinda Iniguez MD [address] [place] [address] PCP - General Family Medicine 04/24/18 Ginny Hernandez Pediatric NephrologistSheep Herder 01/17/24 documented as of this encounter
--- OUTSIDE RECORDS SUMMARY | 2025-01-24 13:47 | XMS_ITS | Clinical Summary ---
Author Organization [facility] Address [address] [place] [address] Phone Care Team Providers Care Bowling Floor Desk Clerk Name Role Phone Dorinda Iniguez MD Primary Care Provider [phone] Allergies Active Allergy Reactions Criticality Noted Date [...] complete this topic Insurance Medicaid [place] Medicaid [place] Care Teams Bowling Floor Desk Clerk Relationship Specialty Start Date End Date Dorinda Iniguez MD [address] PCP - General Internal Medicine 07/06/22
--- OUTSIDE RECORDS SUMMARY | 2025-01-24 13:47 | XMS_ITS | Clinical Summary ---
Author Organization [employer] Address [address] [place] [address] 7t [place] [address] Care Team Providers Care Hand Picker Name Role Phone Dorinda Iniguez MD Primary Care Provider [phone] Allergies Active Allergy Reactions Criticality Noted Date [...] FOR COUGH 18 g 1 024 Active albuterol (2.5 MG/3ML) 0.083% nebulizer solutionIndicat ions:Moderate persistent asthma without complication Take 3 mL (2.5 mg) by nebulization every 6 (six) hours if needed for wheezing or shortness of breath. 90 mL 3 024 Active hydrALAZINE (Apresoline) 100 MG tablet Take 1 tablet (100 mg) by mouth 3 times daily. 90 tablet 024 Active Arnuity Ellipta 100 MCG/ACT inhaler TAKE 1 PUFF EVERY DAY Active cholecalciferol (SM Vitamin D3) 50 MCG (2000 UT) capsuleIndicati ons:Vitamin D deficiency Take 1 capsule orally daily 30 capsule 024 Active aspirin (Aspirin Low Dose) 81 MG chewable tablet Chew 1 tablet (81 mg) Once per day. 90 tablet 024 Active nystatin (Mycostatin) 063291 UNIT/GM powder Apply topically 2 times daily. 60 g 024 2024 Active gabapentin (Neurontin) 100 MG capsule Take 2 capsules orally qhs 60 capsule 3 025 Active dicyclomine (Bentyl) 20 MG tablet TAKE 1 TABLET (20 MG) BY MOUTH BEFORE BREAKFAST, BEFORE LUNCH, BEFORE EVENING MEAL, AND AT BEDTIME. 120 tablet 025 Active albuterol (2.5 MG/3ML) 0.083% nebulizer solution Take 3 mL (2.5 mg) by nebulization every 6 (six) hours if needed for wheezing. 75 mL 025 2025 Active verapamil SR (Calan SR) 180 MG ER tabletIndicatio ns:Benign essential hypertension TAKE 2 CAPSULES BY MOUTH EVERY DAY 180 tablet 3 025 Active Tirzepatide-Bin ght Management (Zepbound) 10 MG/0.5ML solution auto-injectorIn dications:Class 3 severe obesity due to excess calories with serious comorbidity and body mass index (BMI) of 40.0 to 44.9 in adult (HCC) Inject 0.5 mL (10 mg) under the skin 1 (one) time per week. 2 mL 5 025 Active LORazepam (Ativan) 0.5 MG tabletIndicatio ns:Generalized anxiety disorder Take 1 tab orally daily prn anxiety 30 tablet 025 Active pantoprazole (ProtoNix) 40 MG EC tablet TAKE 1 TABLET BY MOUTH EVERY DAY IN THE MORNING 90 tablet 025 Active pantoprazole (ProtoNix) 40 MG EC tablet TAKE 1 TABLET BY MOUTH EVERY DAY IN THE MORNING 90 tablet 025 2024 Discontinued(R eorder (will not trigger notification to Pharmacy)) Active Problems Problem Noted Date Diagnosed Date FARHAN (obstructive sleep apnea) 05/28/2024 BMI 40.0-44.9, adult ([facility]) 05/28/2024 Ear ache 10/04/2023 Assessment & Plan (10/04/2023 3:32 PM EDT): Advised if symptoms worsen of ear infection to f/u with [facility]. Osteoarthritis of both knees 08/16/2023 Epigastric pain 06/09/2022 Asthma 04/07/2022 Overview (09/23/2024): Last Assessment & Plan: Continue with Flovent 110 mcg twice a day Continue with albuterol as needed Disorder of vitamin B12 11/15/2018 Female stress [...] Encounters Date Type Department Care Team Description 01/24/[address] [facility] [address] [place] [address] Nona Umaña MD Leg cramps (Primary Dx) 01/23/[address] [facility] [address] [place] [address] Dorinda Iniguez MD Referral (TC US leg) 01/23/2025 Telephone [facility] [address] [place] [address] Dorinda Iniguez MD 01/22/[address] [facility] [address] [place] [address] Dorinda Iniguez MD Referral 01/20/2025 11:00 AM EDT Office Visit [facility] [address] [place] [address] Nona Umaña MD Leg cramps (Primary Dx); Ecchymosis 01/20/2025 Travel 01/20/2025 Telephone [facility] [address] [place] [address] Dorinad Iniguez MD Nurse Triage 01/13/2025 10:00 AM EDT Office Visit [facility] AD[facility] DENTAL [address] [place] [address] Dee Lynch 01/13/2025 Refill [facility] [address] [place] [phone] Dorinda Iniguez MD 01/08/[address] [facility] [address] [place] [address] Dorinda Iniguez MD 01/03/[address] [facility] [address] [place] [address] Dorinda Iniguez MD Kidney stone (Primary Dx) 01/02/2025 Telephone [facility] [address] [place] [phone] Dorinda Iniguez MD Prior Authorization 01/01/2025 Telephone [facility] [address] [place] [phone] Dorinda Iniguez MD Referral 12/26/[address] [facility] [address] [place] [address] Deb Rubio LPN 12/24/2024 10:30 AM EDT Office Visit [facility] [address] [place] [address] Dorinda Iniguez MD Class 3 severe obesity due to excess calories with serious comorbidity and body mass index (BMI) of 40.0 to 44.9 in adult (Primary Dx); Generalized anxiety disorder; Benign essential hypertension; Moderate persistent asthma without complication 12/24/2024 Travel 12/16/2024 Patient Outreach [facility] [address] [place], [place] [phone] Kerry Chappell Pre-visit Planning (Pre visit planning unable to LVM ) 11/28/[address] [facility] [address] [place] [address] Dorinda Iniguez MD Med Refill 11/22/[address] [facility] [address] [place] [address] Dorinda Iniguez MD Referral 11/14/[address] [facility] [address] [place] [address] Nona Umaña MD 11/13/2024 3:20 PM EDT Office Visit [facility] [address] [place] [address] Nona Umaña MD Calcaneal spur of foot, right (Primary Dx) 11/13/2024 Travel 11/13/[address] [facility] [address] [place] [address] Dorinda Iniguez MD Nurse Triage 11/12/2024 Orders Only GENERIC EXTERNAL DATA DEPARTMENT Provider, Generic External Data 10/30/2024 Orders Only GENERIC EXTERNAL DATA DEPARTMENT Provider, Generic External Data from Last 3 Months Immunizations Immunization Administration Dates Next Due Hep A, Adult 09/23/2024,12/14/2023 Influenza injectable quadriv alent IIV4 with preservative 03/08/2018,03/07/2017,01/22/2015 Influenza injectable quadriv alent preservative free 01/11/2023,02/10/2022,01/13/2021,03/16,01/17/2019,01/11/2016 Influenza, IIV3, injectable 12/14/2023,1 05/16/2021,12/23/2020,01/28,02/27/2019,02/03/2014 Influenza, Injectable, MDCK, preservative free 12/14/2023 Influenza, Split (incl. emily fied surface antigen) [...] Mass Index 41.27 01/20/2025 11:17 AM EDT Plan of Treatment Health Maintenance Due Date Last Done Comments CT Colonography 1965 Dental X-Ray: Full Mouth 1965 FIT DNA/Cologuard 1965 FIT 1965 FOBT 1965 Sigmoidoscopy 1965 COVID-19 Vaccine ( season) 2024 Dental X-Ray: Bitewings 01/08/2025 01/08/2024 Dental Oral Exam 01/11/2025 07/10/2024, 12/01/2022 SDOH Screening 05/21/2025 05/21/2024 Alcohol/Substance Use Screening 05/28/2025 05/28/2024 Depression Screening 05/28/2025 05/28/2024, 05/28/19 25 Disability Screening 05/28/2025 05/28/2024 Dental Prophylaxis 07/14/2025 01/13/2025, 0 07/10/2024, 01/08/2024, Additional history exists Tobacco Screening 01/20/2026 01/20/2025 Cervical Cancer Screening 09/01/2026 HPV/Cotest 09/01/2026 09/01/2021 Pap Smear 09/01/2026 09/01/2021 Mammogram 09/06/2026 09/06/2024, 08/04/2023 Colonoscopy 07/31/2028 08/01/2023, 04/0 12/2023, 09/25/2020 Colorectal Cancer Screening 07/31/2028 Lipid Panel 12/13/2028 12/14/2023, 06/09/2022 DTaP/Tdap/Td Vaccines (3 - Td or Tdap) 07/05/2033 07/06/2023, 09/05/2013 Zoster Vaccines Completed 12/06/2017, 09/23/2017 HIV Screening Completed 08/17/2023 Hepatitis C Screening Completed 08/17/2023 Pneumococcal Vaccine: 50+ Years Completed 08/17/2023, 09/05/2013 RSV Patients and Patients Aged 60 years or older Completed 08/25/2023 Hepatitis A Vaccines Aged Out 09/23/2024, 12/14/19 24 No longer eligible based on patient's age to complete this topic Influenza Vaccine Completed 01/06/2025, , 12/14/2023, Additional history exists HIB Vaccines Aged Out [...] Routine 01/20/2025 11:42 AM EDT Leg cramps CASE PRESENTATION, DETAILED AND EXTENSIVE TREATMENT PLANNING Routine 01/13/2025 10:00 AM EDT PROPHYLAXIS - ADULT Routine 01/13/2025 1 0:00 AM EDT AMB REFERRAL TO UROLOGY Routine 12/13/2024 Kidney stone XR FOOT 1-2 VIEWS RIGHT Routine 11/13/2024 Calcaneal spur of foot, right CT ABDOMEN PELVIS W CONTRAST Routine 11/12/2024 11:56 AM EDT POCT CREATININE GFR Routine 11/12/2024 1 1:49 AM EDT HEMATOXYLIN AND EOSIN STAIN Routine 10/30/2024 1:45 PM EDT MAMMOGRAPHY Routine 09/06/2024 PERIODIC ORAL EVALUATION - ESTABLISHED PATIENT Routine 07/10/2024 3:00 PM EDT BITEWINGS - 4 RADIOGRAPHIC IMAGES Routine [...] 08/17/2023 2:19 PM EDT Annual physical exam COLONOSCOPY Routine 08/01/2023 PAP/HPV Routine 09/01/2021 from Last 3 Months or Most Recently Relevant to Health Maintenance Results * (ABNORMAL) Basic Metabolic Panel (01/20/2025 11:42 AM EDT) Sodium 142 135 - 145 mmol/L [facility] Potassium 5.1 3.3 - 5.1 mmol/L [facility] Chloride 109(H) 96 - 108 mmol/L [facility] Carbon Dioxide 26 22 - 29 mmol/L [facility] Anion Gap 12 12 - 20 [facility] Urea Nitrogen (BUN) 25(H) 9 - 16 mg/dL [facility] Creatinine, Serum 0.80 0.5 - 1.4 mg/dL [facility] Estimated Glomerular Filt Rate >60 [facility] Comment:Chronic Kidney Disea se: Estimated GFR < 60 mL/min/1.93q2Ofnunc Kidney Disease: Estimated GFR < 15 mL/min/1.73m2 Glucose 88 60 - 115 mg/dL [facility] Calcium 9.4 8.4 - 10.2 mg/dL [facility] Blood Venous blood specimen / Unknown 01/20/2025 11:42 AM EDT 01/20/2025 2:07 PM EDT Nona Umaña MD LAB BLOOD ORDERABLES Final Resul t [facility] [address] [place] [phone] * Referral to Urology (12/13/2024) Dorinda Iniguez MD OUTPATIENT REFERRAL ORDERABLE S Final Result * XR Foot 1-2 Views Right (11/13/2024) Anatomical Region Laterality Modality Lower Extremities, Foot Right Radiogra phic Imaging Nona Umaña MD IMG XR PROCEDURES Final Result * CT Abdomen Pelvis w/ Contrast (11/12/2024 11:56 AM EDT) Anatomical Region Laterality Modality Body, Pelvis, Abdomen Computed T omography 11/12/2024 11:5 6 AM EDT Narrative 11/12/2024 12:20 PM EDT [address] [address] [address] Scan Report Signed Patient: Chelle Helm MR# : [id number] : 1965 Acct:[id number] Age/Sex: 59 / F ADM Date: 11/12/24 Loc: HO.CT Attending Dr: Jeffrey Rios MD Ordering Physician: Jeffrey Rios MD Date of Service: 11/12/24 Procedure(s): CT abdomen pelvis w IV con Accession Number(s): [id number] cc: Dorinda Iniguez MD; Jeffrey Rios MD Report Number: [id number]: Total DLP = 667.00 mGy-cm EXAMINATION: CT [...] 11/12/24 1217 DD/ 1156 TD/TT: 11/12/24 1209 Reinforcing Steel Worker Wire Mesh: Procedure Note Donotuseinterpreter, Image - 11/12/[address] [address] [address] Scan Report Signed Patient: Chelle Helm MMR# : [id number] : 1965Acct:[id number] Age/Sex: 59 / FADM Date: 11/12/24 Loc: HO.CT Attending Dr: Jeffrey Rios MD Ordering Physician: Jeffrey Rios MD Date of Service: 11/12/24 Procedure(s): CT abdomen pelvis w IV con Accession Number(s): [id number] cc: Dorinda Iniguez MD; Jeffrey Rios MD Report Number: [id number]: Total DLP = 667.00 mGy-cm EXAMINATION: CT [...] Roni Salguero MD 11/12/2024 12:17 PM EDT Dictated By: Roni Salguero MD Signed By: <Electronically signed by Roni Salguero MD in OV> 11/12/24 1217 DD/ 1156 TD/TT: 11/12/24 1209 Reinforcing Steel Worker Wire Mesh: [facility] External Provider IMG CT PROCEDURES Final Result * POCT Creatinine GFR (11/12/2024 11:49 AM EDT) POCT Creatinine 1.1 0.5 - 1.4 mg/dL [facility] GFR POC 52 [facility] Comment:Chronic Kidney Disea se: Estimated GFR < 60 mL/min/1.76j4Iueczb Kidney Disease: Estimated GFR < 15 mL/min/1.73m2 11/12/2024 11:4 9 AM EDT 11/13/2024 8:43 AM EDT Narrative [facility] - 11/13/2024 8:45 AM EDT [id number] us Generic External Data Provider LAB POINT OF CARE TEST DOCKED DEVICE ORDERABLES Final Result [facility] [address] [place] [phone] * Hematoxylin and Eosin Stain (10/30/2024 1:45 PM EDT) 10/30/2024 1:45 PM EDT 10/30/2024 2:45 PM EDT Whit [facility] - 11/01/2024 3:15 PM EDT ----- ------- Name: Chelle Helm Age/Sex: 59/F : 1965 Unit#: [id number] Attend Dr: Jeffrey Rios MD Re10/30/24 [place] [facility] [facility] Disch: ----- ------- SPEC : [id number] RECD: 10/30/24-9918 STATUS: FAHAD MARTINEZ NUM: [id number] ADONIS: 10/30/24-[address]: Jeffrey Rios MD ENTERED: 10/30/24-9106 SP TYPE: Surgical OTHR DR: Dorinda Iniguez MD ORDERED: HE Stain/6, Gross Micro L4/3, IHC, Special st. 2/3, H. pylori, AB/PAS/3 Diagnosis A. Duodenum, biopsy: Duodenal mucosa within normal limits. B. Stomach, antrum, biopsy: Antral-type and oxyntic mucosa with mild chronic inactive inflammation; no Helicobacter organisms seen. C. EG junction, biopsy: - Cardiofundic-type mucosa with moderate chronic inactive inflammation; no intestinal metaplasia seen. - Active esophagitis (maximum eosinophil count 1 per high powered field). Clinical History Pre-Op Dx: Unspecified abdominal pain Post-Op Dx: GERD Microscopic Description A-C. Microscopic sections examined. No metaplastic changes are seen, supported by AB/PAS stains (A, B and C); no Helicobacter organisms are seen, supported by H. pylori immunostain (B). Material Received A. Duodenal bx's B. Gastric antrum bx's C. EG junction bx's Gross Description Received in 3 parts. A. Received in formalin labeled duodenal biopsies are 3 fragments of olsen-white soft tissue measuring 0.2-0.4 cm in greatest dimension which are wrapped in lens paper and entirely submitted for microscopic examination, 3 pieces in cassette A. B. Received in formalin labeled gastric antrum biopsies are 2 fragments of olsen-white soft tissue measuring 0.3 and 0.4 cm in greatest dimension which are wrapped in lens paper and entirely submitted for microscopic examination, 2 pieces in cassette B. C. Received in formalin labeled EG junction biopsies are 5 fragments of pink white soft tissue measuring 0.2-0.3 cm in greatest dimension which are wrapped in lens paper and entirely submitted for microscopic examination, 5 pieces in cassette C. ([facility]) CONTINUED ON NEXT PAGE ----- ------- Name: Chelle Helm Age/Sex: 59/F : 1965 Unit#: [id number] Attend Dr: Jeffrey Rios MD Re10/30/24 Status: [facility] Location: [facility] Disch: ----- ------- SPEC : [id number] RECD: 10/30/24 STATUS: FAHAD MARTINEZ NUM: [id number] ADONIS: 10/30/24 [facility] DR: Jeffrey Rios MD ENTERED: 10/30/24 SP TYPE: Surgical OTHR DR: Dorinda Iniguez MD ORDERED: HE Stain/6, Gross Micro L4/3, IHC, Special st. 2/3, H. pylori, AB/PAS/3 Gross Description (Continued) Special studies ordered and performed: Immunostain for H. pylori on B; AB/PAS stains on A, B and C IHC S/NG Disclaimer NOTE: Unless otherwise stated, all tissue is formalin-fixed and paraffin-embedded. Some or all of the immunohistochemical tests reported herein may have been developed and their performance characteristics determined by [facility]. They have not been cleared or approved by the U.S. Food and Drug Administration (FDA). However, the FDA has determined that such clearance or approval is not necessary. This laboratory is certified under the Clinical Laboratory Improvement Amendments of 1988 (CLIA) as qualified to perform high complexity clinical laboratory testing. Copies To: Dorinda Iniguez MD [address] [id number] Jeffrey Rios MD [facility] [address] [place] [address] ----- ------- Signed (signature on file) Merrick Lunsford MD 11/01/24 1515 ----- ------- END OF REPORT us Generic External Data Provider LAB BLOOD ORDERAB LES Final Result [facility] [address] [place] [phone] * Mammography (09/06/2024) Pathologist [facility] Mammogram Normal Normal, Abnormal, BIRADS 1 , BIRADS 2 Anatomical Region Laterality Modality Other Dorinda Iniguez MD HEALTH MAINTENANCE Final Resu lt * (ABNORMAL) Lipid Panel, Standard (12/14/2023 9:32 AM EDT) Pathologist [facility] Triglycerides 162(H) <150 mg/dL [facility] Comment:Desirable Triglyceri de: less than 150 mg/dLBorderline High Triglyceride 150-199 mg/dLHigh Triglyceride: 200-499 mg/dLVery High Triglyceride: greater than or equal to 5OO mg/dL Cholesterol 193 <200 mg/dL [facility] Comment:Desirable Cholestero l: less than 200 mg/dLBorderline High Cholesterol: 200-239 mg/dLHigh Cholesterol: greater than 239 mg/dL LDL Cholesterol Calculated 113(H) <100 mg/dL [facility] Comment:Desirable LDL: less than 100 mg/dLNear Optimal/Above Optimal LDL: 110- 129 mg/dLBorderline High LDL: 130-159 mg/dLHigh LDL: 160-189 mg/dLVery High LDL: greater than or equal to 190 mg/dL HDL Cholesterol 48 >40 mg/dL [facility] Comment:Desirable HDL: great er than 40 mg/dL Note: This HDL assay may give artificially low results in patients with liver disease. Blood Venous blood specimen / Unknown 12/14/2023 9:32 AM EDT 12/14/2023 2:14 PM EDT us Dorinda Iniguez MD LAB BLOOD ORDERABLES Final Re sult Performing Organization Address [facility] Co de Phone Number [facility] [address] [place] [phone] * Hepatitis C Antibody with Reflex to HCV, RNA, Quantitative, Real-Time PCR (08/17/2023 2:19 PM EDT) Pathologist [facility] Hepatitis C Antibody Nonreactive Nonreactive [facility] Comment:Antibodies to HCV no t detected; does not exclude early acuteHCV infection. Blood Venous blood specimen / Unknown 08/17/2023 2:19 PM EDT 08/17/2023 5:21 PM EDT us Angie Giraldo MD LAB BLOOD ORDERABLES Final Result Performing Organization Address [facility] de Phone Number [facility] [address] [place] [phone] * HIV-1/2 Antigen and Antibodies, Fourth Generation, with Reflexes (08/17/2023 2:19 PM EDT) HIV AB/AG Nonreactive Nonreactive [facility] Comment:HIV-1 p24 Ag and/or HIV-1/HIV-2 Ab not detected.A test result that is nonreactive does not exclude thepossibility of exposure to or infection with HIV-1 and/orHIV-2. Nonreactive results in this assay for individualswith prior exposure to HIV-1 and/or HIV-2 may be due toantigen and antibody levels that are below the limit ofdetection of this assay.[employer] HIV Ag/Ab Combo assay result andsupplemental assay results should be interpreted inconjunction with the patient's clinical presentation,history and other laboratory results. If the results areinconsistent with clinical evidence, additional testing issuggested to confirm the result. Blood Venous blood specimen / Unknown 08/17/2023 2:19 PM EDT 08/17/2023 5:21 PM EDT us Angie Giraldo MD LAB BLOOD ORDERABLES Final Result [facility] [address] [place] [phone] * (ABNORMAL) Colonoscopy (08/01/2023) Colonoscopy Abnormal(A ) Normal us Dorinda Iniguez MD HEALTH MAINTENANCE Final Resu lt * Hm Pap Smear (09/01/2021) Pap Negative for intraephithelial lesion or malignancy Negative for intraephithelial lesion or malignancy, Other HPV Undetected Undetected, Indeterminate, Quantitative, Not Detected Historical Provider HEALTH MAINTENANCE Final Result from Last 3 Months or Most Recently Relevant to Health Maintenance [place] [place] [address] [employer] AD[place] Care Teams Hand Picker Relationship Specialty Start Date End Date Dorinda Iniguez MD [address] [place] [phone] PCP - General Family Medicine 04/24/18 Ginny Hernandez Medical Collections RepresentativeSenior Energy Consultant 01/17/24
--- OUTSIDE RECORDS SUMMARY | 2025-01-24 13:47 | XMS_ITS | Encounter Summary ---
Author Organization [employer] Address [address] [place] [address] [address] [place] [address] Care Team Providers Care Router Operator Radial Name Role Phone Dorinda Iniguez MD Primary Care Provider [phone] Encounter Details Date Type Department Care Team (Latest Contact Info) Description 04/02/2020 Abstract [facility] CONVERSIONS Dental, Provider, DDS Social History [...] on filedocumented in this encounter Care Teams Router Operator Radial Relationship Specialty Start Date End Date Dorinda Iniguez MD [address] [place] [address] PCP - General Family Medicine 04/24/18 Ginny Hernandez Recruitment OfficerMainstreaming Facilitator 01/17/24 documented as of this encounter
--- OUTSIDE RECORDS SUMMARY | 2025-01-24 13:47 | XMS_ITS | Encounter Summary ---
Author Organization [employer] Address [address] [facility] [address]t [place] [address] Care Team Providers Care Access Analyst Name Role Phone Dorinda Iniguez MD Primary Care Provider [phone] Encounter Details Date Type Department Care Team (Latest Contact Info) Description 01/20/2025 Travel Social History Tobacco Use Types Packs/Day [...] documented as of this encounter Care Teams Access Analyst Relationship Specialty Start Date End Date Dorinda Iniguez MD [address] [place] [address] PCP - General Family Medicine 04/24/18 Ginny Hernandez Acid FillerBottle Hop 01/17/24 documented as of this encounter
--- OUTSIDE RECORDS SUMMARY | 2025-01-24 13:47 | XMS_ITS | Encounter Summary ---
Author Organization [employer] Address [address] [place] [address] 7 [place] [address] Care Team Providers Care Dairy Management Specialist Name Role Phone Dorinda Iniguez MD Primary Care Provider [phone] Encounter Details Date Type Department Care Team ([facility] st Contact Info) Description 05/06/2022 Orders Only [facility] [address] [place] [address] Suki Schmitt LPN Social History Tobacco Use [...] on filedocumented in this encounter Care Teams Dairy Management Specialist Relationship Specialty Start Date End Date Dorinda Iniguez MD [address] [place] [address] PCP - General Family Medicine 04/24/18 Ginny Hernandez Scrub NurseProduct Scientist 01/17/24 documented as of this encounter
--- OUTSIDE RECORDS SUMMARY | 2025-01-24 13:47 | XMS_ITS | Clinical Summary ---
Author Organization 175 [facility] Address 175 [place] [address] Phone Care Team Providers Care Grounds Crew Supervisor Name Role Phone Dorinda Iniguez MD Primary Care Provider [phone] Allergies Active Allergy Reactions Criticality Noted Date [...] solution 1 Drop 2 times daily. Active acetaminophen- codeine (TYLENOL #3) 300-30 mg per tablet Take [...] Tablet by mouth 3 times daily. Active dextromethorph an-guaiFENesin (ROBITUSSIN-DM ) 10-100 mg/5 mL liquid Take by mouth. Activ e acetaminophen (TYLENOL) 500 mg capsule Take by mouth. Acti ve fluticasone propion-salmet Andres (Wixela Inhub) 500-50 mcg/dose diskus inhaler Inhale 1 puff by mouth 2 (two) times a day. Rinse mouth with water after use to reduce aftertaste and incidence of candidiasis. Do not swallow. 1 each 5 01/18/20 26 Active albuterol HFA (PROAIR HFA ; PROVENTIL HFA ; VENTOLIN HFA) 90 mcg/actuation inhaler Inhale 2 puffs by mouth every 6 (six) hours if needed for wheezing. 6.7 g 11 5 01/18/20 26 Active fluticasone propion-salmet Andres (Wixela Inhub) 500-50 mcg/dose diskus inhaler Inhale 1 puff by mouth 2 (two) times a day. Rinse mouth with water after use to reduce aftertaste and incidence of candidiasis. Do not swallow. 1 each 12 5 01/18/20 25 Discontinu ed(Reorder ) albuterol HFA (PROAIR HFA ; PROVENTIL HFA ; VENTOLIN HFA) 90 mcg/actuation inhaler Inhale 2 puffs by mouth every 6 (six) hours if needed for wheezing. 6.7 g 5 01/18/20 25 Discontinu ed(Reorder ) Active Problems Problem Noted Date Diagnosed Date [...] with medications for asthma Continue following at [facility] with Dr. Dickey Obstructive sleep apnea 04/07/2022 Overview (04/01/2024): Last Assessment & Plan: Follow-up with her sleep physician Encounters Date Type Department Care Team Description 01/17/2025 1:00 PM EDT Office Visit Pulmonology [facility] 175 [facility] [address] [place] [phone] Artem Hanna MD Moderate persistent asthma, unspecified whether complicated (Primary Dx); Obstructive sleep apnea 12/20/2024 Telephone Pulmonology [facility] 175 [facility] 200 [place] [phone] Artem Hanna MD from Last 3 Months Medical History Medical History Date Comments Anemia [...] Sign Reading Time Taken Comments Blood Pressure 130/80 01/17/2025 1:14 PM EDT Pulse 98 01/17/2025 1:14 PM EDT Temperature 36.2 C (97.1 F) 01/17/2025 1:14 PM EDT Respiratory Rate 16 01/17/2025 1:14 PM EDT Oxygen Saturation 99% 01/17/2025 1:14 PM EDT Inhaled Oxygen Concentration - - Weight 108 kg (237 lb 9.6 oz) 01/17/2025 1:14 PM EDT Height 160 cm (5' 3 ) 01/17/2025 1:14 PM EDT Body Mass Index 42.09 01/17/2025 1:14 PM EDT Plan of Treatment Upcoming Encounters Date Type Department Care Team ([facility] st Contact Info) Description 02/17/2025 9:45 AM EDT Office Visit Orthopedic Surgery - [place] [address] [phone] Kashif Klein DPM [address] [phone] 07/18/2025 1:00 PM EDT Office Visit Pulmonology [facility] [address] [phone] Artem Hanan MD [address] [address] Health Maintenance Due Date Last Done Comments Breast Cancer Screening 1965 Colorectal Cancer Screening: Colonoscopy 1965 Cervical Cancer Screening: Pap Smear 1984 Social Influencers of Health Screening 03/22/2022 Depression Screening 04/24/2024 COVID-19 Vaccine ( season) 2024 Hypertension/CHF/CAD Annual BMP Blood Test 05/28/2025 05/28/2024 [...] this topic Influenza Vaccine Completed 01/06/2025, , 01/11/2023, Additional history exists HIB Vaccines [...] to complete this topic Insurance MEDICAID - [place] Care Teams Grounds Crew Supervisor Relationship Specialty Start Date End Date Dorinda Iniguez MD [address] [place] [phone] [facility] - General 07/07/11
--- OUTSIDE RECORDS SUMMARY | 2025-01-24 13:47 | XMS_ITS | Encounter Summary ---
Author Organization [employer] Address 75 [facility] 7 [place] [address] Care Team Providers Care Toxicology Teacher Name Role Phone Dorinda Iniguez MD Primary Care Provider [phone] Reason for Visit * Reason Onset Date Comments Med Refill 08/28/2024 Encounter Details Date Type Department Care Team ([facility] st Contact Info) Description 08/28/2024 Telephone [facility] MED[facility]INE [address] [place] [address] Dorinda Iniguez MD [address] [place] [address] Med Refill Social History Tobacco Use Types [...] MG/0.5ML solution auto-injector To be sent to: [facility]/pharmacy #[id number] documented in this encounter Plan of Treatment Not on file documented as of this encounter Visit Diagnoses Not on filedocumented in this encounter Additional Health Concerns Assessment Noted Time PHQ-9 Depression Total Score: 2 05/28/19 25 9:31 AM EST documented as of this encounter Care Teams Toxicology Teacher Relationship Specialty Start Date End Date Dorinda Iniguez MD [address] [place] [address] PCP - General Family Medicine 04/24/18 Ginny Hernandez Agribusiness ProfessorEmergency Response Coordinator 01/17/24 documented as of this encounter
--- OUTSIDE RECORDS SUMMARY | 2025-01-24 13:47 | XMS_ITS | Encounter Summary ---
Author Organization [employer] Address 75 [facility] 7 [place] [address] Care Team Providers Care Degreaser Operator Name Role Phone Dorinda Iniguez MD Primary Care Provider [phone] Reason for Visit * Reason Onset Date Comments Med Refill 07/01/2024 Encounter Details Date Type Department Care Team (Late st Contact Info) Description 07/01/2024 Refill [facility] MEDICINE [address] [place] [address] Dorinda Iniguez MD [address] [place] [address] Benign essential hypertension; BMI 40.0-44.9, adult (CMS/HCC); FARHAN (obstructive sleep apnea) Social History Tobacco Use Types Packs/Day Years [...] encounter Miscellaneous Notes * Telephone Encounter - Nu Casas - 07/01/2024 2:40 PM EDT TC from pt requesting medication refill. Medications needing refill : Tirzepatide-Weight Management (Zepbound) 2.5 MG/0.5ML solution auto-injector To be sent to: [facility]/pharmacy #[id number] documented in this encounter Plan of Treatment Not on file documented as of this encounter Visit Diagnoses Diagnosis Benign essential hypertension Essential hypertension, benign BMI 40.0-44.9, adult (CMS/HCC) (HCC) FARHAN (obstructive sleep apnea) Obstructive sleep apnea (adult) (pediatric) documented in this encounter Additional Health Concerns Assessment Noted Time PHQ-9 Depression Total Score: 2 05/28/19 25 9:31 AM EST documented as of this encounter Care Teams Degreaser Operator Relationship Specialty Start Date End Date Dorinda Iniguez MD [address] [place] [address] PCP - General Family Medicine 04/24/18 Ginny Hernandez Gas Line RepairerDivisional Merchandising Manager 01/17/24 documented as of this encounter
--- OUTSIDE RECORDS SUMMARY | 2025-01-24 13:47 | XMS_ITS | Encounter Summary ---
Author Organization [employer] Address [address] [place] [address] 7 [place] [address] Care Team Providers Care Tool Crib Manager Name Role Phone Dorinda Iniguez MD Primary Care Provider [phone] Reason for Visit * Reason Comments Med Refill Encounter Details Date Type Department Care Team ([facility] st Contact Info) Description 03/01/2024 Refill [facility] MED & PEDS [address] [place], [place] [phone] Dorinda Iniguez MD [address] [place] [address] Social History Tobacco Use Types Packs/Day Years [...] documented as of this encounter Care Teams Tool Crib Manager Relationship Specialty Start Date End Date Dorinda Iniguez MD [address] [place] [address] PCP - General Family Medicine 04/24/18 Ginny Hernandez Crm Marketing ExecutiveForm Setter Supervisor 01/17/24 documented as of this encounter
--- OUTSIDE RECORDS SUMMARY | 2025-01-24 13:47 | XMS_ITS | Encounter Summary ---
Author Organization [employer] Address [address] [place] [address] 7 [place] [address] Care Team Providers Care Pole Peeler Name Role Phone Dorinda Iniguez MD Primary Care Provider [phone] Encounter Details Date Type Department Care Team (Latest Contact Info) Description 09/08/2021 Abstract [facility] CONVERSIONS Dental, Provider, DDS Social History Tobacco [...] on filedocumented in this encounter Care Teams Pole Peeler Relationship Specialty Start Date End Date Dorinda Iniguez MD [address] [place] [address] PCP - General Family Medicine 04/24/18 Ginny Hernandez Oracle Fusion Middleware ArchitectAirplane First Officer 01/17/24 documented as of this encounter
--- OUTSIDE RECORDS SUMMARY | 2025-01-24 13:47 | XMS_ITS | Encounter Summary ---
Author Organization [employer] Address [address] [place] [address] 7 [place] [address] Care Team Providers Care Senior Database Administrator Name Role Phone Dorinda Iniguez MD Primary Care Provider [phone] Encounter Details Date Type Department Care Team (Latest Contact Info) Description 10/15/2018 Abstract [facility] CONVERSIONS Dental, Provider, DDS Social History [...] on filedocumented in this encounter Care Teams Senior Database Administrator Relationship Specialty Start Date End Date Dorinda Iniguez MD [address] [place] [address] PCP - General Family Medicine 04/24/18 Ginny Hernandez Lot PorterHead Sugar Reprocess Operator 01/17/24 documented as of this encounter
--- OUTSIDE RECORDS SUMMARY | 2025-01-24 13:47 | XMS_ITS | Encounter Summary ---
Author Organization [employer] Address 75 [facility] 7 [place] [address] Care Team Providers Care Molding Machine Setter Name Role Phone Dorinda Iniguez MD Primary Care Provider [phone] Reason for Visit * Reason Onset Date Comments Nurse Triage 01/20/2025 Encounter Details Date Type Department Care Team ([facility] st Contact Info) Description 01/20/[address] [facility] MEDICINE [address] [place] [address] Dorinda Iniguez MD [address] [place] [phone] Nurse Triage Social History Tobacco Use Types [...] encounter Miscellaneous Notes * Telephone Encounter - Gladys Valadez LPN - 01/20/2025 9:24 AM EDT Triage call returned with BLS #[id number] Sol. Patient reports that she was having leg cramps and then noted a lump behind right knee. No accidentor injury reported and no prolonged sitting or travel. Patient reports that area is the size of a fist and now is discolored blackish. Has been taking previously prescribed pain medications but area looks worse. Disposition reviewed and patient in agreement with plan. ASK/ today at 11am Protocol Used: Skin Lump or Localized Swelling (Adult) Protocol-Based Disposition: See in Office or Video Visit Today Video visit not offered Positive Triage Question: * Swelling is painful to touch and no fever * All higher-acuity triage questions were negative Care Advice Discussed: * Reasons To Call Back - You become worse * Telephone Encounter - Crescencio Murray - 01/20/2025 9:13 AM EDT Symptom: Skin Lump Outcome: Schedule an appointment to be seen within 3 days Reason: Caller denied all higher acuity questions The caller accepted this outcome. Behind right knee has a lump that has now bruised up . Angolan Speaking documented in this encounter Plan of Treatment Not on file documented as of this encounter Visit Diagnoses Not on filedocumented in this encounter Additional Health Concerns Assessment Noted Time PHQ-9 Depression Total Score: 2 05/28/19 25 9:31 AM EST documented as of this encounter Care Teams Molding Machine Setter Relationship Specialty Start Date End Date Dorinda Iniguez MD [address] [place] [address] PCP - General Family Medicine 04/24/18 Ginny Hernandez Plastic Surgery TechnicianHand Salter 01/17/24 documented as of this encounter
--- OUTSIDE RECORDS SUMMARY | 2025-01-24 13:47 | XMS_ITS | Encounter Summary ---
Author Organization [employer] Address [address] [place] [address] 7 [place] [address] Care Team Providers Care After School Tutor Name Role Phone Dorinda Iniguez MD Primary Care Provider [phone] Encounter Details Date Type Department Care Team (Latest Contact Info) Description 04/22/2019 Abstract [facility] CONVERSIONS Dental, Provider, DDS Social History Tobacco [...] on filedocumented in this encounter Care Teams After School Tutor Relationship Specialty Start Date End Date Dorinda Iniguez MD [address] [place] [address] PCP - General Family Medicine 04/24/18 Ginny Hernandez Chief PsychologyHand Assembler 01/17/24 documented as of this encounter
--- OUTSIDE RECORDS SUMMARY | 2025-01-24 13:48 | XMS_ITS | Encounter Summary ---
Author Organization [employer] Address 75 [facility] 7 [place] [address] Care Team Providers Care Pharmacy Buyer Name Role Phone Dorinda Iniguez MD Primary Care Provider [phone] Reason for Visit * Reason Onset Date Comments Paperwork/Forms 08/17/2023 Encounter Details Date Type Department Care Team ([facility] st Contact Info) Description 08/17/2023 Telephone [facility] [address] [place] [address] Dorinda Iniguez MD [address] [place] [phone] Paperwork/Forms Social History Tobacco Use Types Packs/Day [...] AM EDT documented as of this encounter Functional Status * Over the past 2 weeks, how often have you been bothered by any of the following problems? Question Answer Date of Assessment Author Patient Health Questionnaire-2 Score 0 07/24 1:37 PM EDT [facility] [place] * If you checked off any problems on this questionnaire so far, Question Answer Date of Assessment Author How difficult have these problems made it for you to do your work, take care of things at home, or get along with other people? Not difficult at all 08/17/2023 1:37 PM EDT [facility] [place] * Over the past 2 weeks, how often have you been bothered by any of the following problems? Question Answer Date of Assessment Author Little interest or pleasure in doing things Not at all 08/17/2023 1:37 PM [place] [place] Feeling down, depressed, or hopeless Not at all 08/17/2023 1:37 PM EDT [facility] [place] Trouble falling or staying asleep, or sleeping too much More than half the days 08/17/2023 1:37 PM [place] [place] Feeling tired or having little energy Several days 08/17/2023 1:37 PM [place] [place] Poor appetite or overeating Several days 08/17/2023 1:37 PM EDT [facility] [place] Feeling bad about yourself - or that you are a failure or have let yourself or your family down Not at all 08/17/2023 1:37 PM EDT [facility] [place] Trouble concentrating on things, such as reading the newspaper or watching television Not at all 08/17/2023 1:37 PM EDT [facility] [place] Moving or speaking so slowly that other people could have noticed? Or the opposite - being so fidgety or restless that you have been moving around a lot more than usual. Not at all 08/17/2023 1:37 PM EDT [facility] [place] Thoughts that you would be better off or hurting yourself in some way Not at all 08/17/2023 1:37 PM EDT [facility] [place] Patient Health Questionnaire-9 Score 4 08/17/2023 1:37 PM EDT [facility] [place] documented as of this encounter Miscellaneous Notes * Telephone Encounter - Jerrica Quiles RN - 08/21/2023 3:15 PM EDT Last OV fax[facility] as [facility] to [facility] LVM to return call. * Telephone Encounter - Piotr Mata - 08/17/2023 2:01 PM EDT Tc from Jarret the VN at [facility] requesting orders to restart home services and the last officeto be faxed to [phone] documented in this encounter Plan of Treatment Not on file documented as of this encounter Visit Diagnoses Not on filedocumented in this encounter Additional Health Concerns Assessment Noted Time PHQ-9 Depression Total Score: 4 08/17/19 24 1:37 PM EDT documented as of this encounter Care Teams Pharmacy Buyer Relationship Specialty Start Date End Date Dorinda Iniguez MD [address] [place] [address] PCP - General Family Medicine 04/24/18 Ginny Hernandez Licensed Dispensing OpticianParachute/Combatant Diver Officer 01/17/24 documented as of this encounter
--- OUTSIDE RECORDS SUMMARY | 2025-01-24 13:48 | XMS_ITS | Encounter Summary ---
Author Organization [employer] Address [address] [facility] 7t [place] [address] Care Team Providers Care Ski Lift Attendant Name Role Phone Dorinda Iniguez MD Primary Care Provider [phone] Encounter Details Date Type Department Care Team ([facility] st Contact Info) Description 08/04/2023 Orders Only [facility] CHC MED & PEDS [address] [place] [address] ProviderSakina MD Social History Tobacco Use Types [...] documented as of this encounter Care Teams Ski Lift Attendant Relationship Specialty Start Date End Date Dorinda Iniguez MD [address] [place] [address] PCP - General Family Medicine 04/24/18 Ginny Hernandez Sales Representative Marine SuppliesLabel Rewinder 01/17/24 documented as of this encounter
--- OUTSIDE RECORDS SUMMARY | 2025-01-24 13:48 | XMS_ITS | Encounter Summary ---
Author Organization [employer] Address [address] [place] [address] 7 [place] [address] Care Team Providers Care Superintendent Production Name Role Phone Dorinda Iniguez MD Primary Care Provider [phone] Reason for Visit * Reason Comments Med Refill Encounter Details Date Type Department Care Team ([facility] st Contact Info) Description 11/08/2022 Refill [facility] CHC MED & PEDS [address] [place], [place] [phone] Dorinda Iniguez MD [address] [place] [address] Vitamin D deficiency; Generalized anxiety disorder Social [...] documented as of this encounter Care Teams Superintendent Production Relationship Specialty Start Date End Date Dorinda Iniguez MD [address] [place] [address] PCP - General Family Medicine 04/24/18 Ginny Hernandez Cna Per DiemTractor Mechanic 01/17/24 documented as of this encounter
--- OUTSIDE RECORDS SUMMARY | 2025-01-24 13:48 | XMS_ITS | Patient Health Record ---
Author Organization [facility] Address [address] [place] [address] Care Team Providers Care [employer] Division Manager Name Role Phone Hira JASON, Dorinda Primary Care Provider Jeffrey Blackman Jr Unavailable [phone] Allergies Allergen (clinical drug ingredient) Drug/Non Drug Allergy documented on EMR Reaction Allergy Type Onset Date Status lisinopril Lisinopril Unknown Drug Allergy Activ e Results Component Value Reference Range Notes Complete Blood Count no Diff Reviewed date:10/22/2024 03:41:25 PM Interpretation: Performing Lab:[facility], [address] [place] [phone] Notes/Report: White Blood Count 9.3 4.8-10.8 X10*3/uL [...] Panel Reviewed date:10/22/2024 03:38:48 PM Interpretation: Performing Lab:[facility], [address] [place] [phone] Notes/Report: Bilirubin Total 0.6 0.0-1.0 mg/dL Bilirubin Direct 0.2 0.0-0.5 mg/dL Aspartate Amino Transferase 17 5-31 U/L Alanine Aminotransferase 12 0-31 U/L Total Protein 6.4 6.5-8.0 g/dL Albumin Level 4.0 3.5-5.0 g/dL Alkaline Phosphatase 78 39-117 U/L Blood Urea Nitrogen Reviewed date:10/15/2024 04:39:10 PM Interpretation: Performing Lab:[facility], [address] [place] [phone] Notes/Report: Blood Urea Nitrogen 21 9-16 mg/dL Creatinine Reviewed date:10/15/2024 04:39:19 PM Interpretation: Performing Lab:[facility], [address] [place] [phone] Notes/Report: Creatinine 1.01 0.5-1.4 mg/dL Estimated Glomerular Filt Rate 56 Chronic Kidney Disease: Estimated GFR < 60 mL/min/1.73m2 Severe Kidney Disease: Estimated GFR < 15 mL/min/1.73m2 Lipase Reviewed date:10/22/2024 03:39:01 PM Interpretation: Performing Lab:[facility], [address] [place] [phone] Notes/Report: Lipase 8 8-78 U/L Pathology Reviewed date:11/04/2024 08:11:06 AM Interpretation: Performing Lab:[facility], [address] [place] [phone] Notes/Report: CT abdomen pelvis w con Reviewed date:11/14/2024 08:46:19 AM Interpretation: Performing Lab: Notes/Report: [address] [address] [address] Scan Report Signed Patient: Chelle Helm MR# : [id number] : 1965 Acct:[id number] Age/Sex: 59 / F ADM Date: 11/12/24 Loc: HO.CT Attending Dr: Jeffrye Narayan MD Ordering Physician: Jeffrey Narayan MD Date of Service: 11/12/24 Procedure(s): CT abdomen pelvis w IV con Accession Number(s): [id number] cc: Dorinda Iniguez MD; Jeffrey Narayan MD Report Number: [id number]: Total DLP = 667.00 mGy-cm EXAMINATION: CT [...] 11/12/24 1217 DD/ 1156 TD/TT: 11/12/24 1209 Vice President Tax: Creatinine GFR POC Reviewed date:11/14/2024 08:44:34 AM Interpretation: Performing Lab:[facility], [address] [place] [phone] Notes/Report: [id number] 1.14 52 1149 [place] Creatinine POC 1.1 0.5-1.4 mg/dL GFR POC 52 Chronic Kidney Disease: Estimated GFR < 60 mL/min/1.73m2 Severe Kidney Disease: Estimated GFR < 15 mL/min/1.73m2 Reason For Referral Referring Provider First Name Dorinda Referring Provider Last Name Hira Referring Provider Speciality Internal M edicine Referred Organization [facility] Referred Provider Jeffrey Narayan Jr Referred Address [address] [place] [phone], Referred Provider Specialty Gastroentero logy General Awilda Harvey 2024 02:39:04 PM >[place]ED [place] REFERRAL FROM [facility] FOR VISIT WITH DR NARAYAN ON [phone] Referral Priority Routine Reason small right groin he rnia Diagnosis 1 Right inguinal pain (R10.31) Referral Organization [facility] Referring Provider First Name Jeffrey [...] 30 Active Vitamin D (Ergocalciferol) 1.25 MG (33555 UT) TAKE ONE CAPSULE EVERY WEEK Oral [...] Problem Status W/U Status Risk Notes Problem 70537135 Epigastric pain (R10.13) Active confirmed Problem 873542544 Special screenin g for malignant neoplasms, colon (Z12.11) Active confirmed Problem 996808294 Irritable bowel syndrome with diarrhea (K58.0) Active confirmed Problem 212218095 Gastroesophageal reflux disease without esophagitis (K21.9) Active confirmed Vital Signs Temperature 97.8 degrees Fahrenheit 10/11/2024 Blood pressure diastolic 01 mm Hg 10/11/2024 Height 64 in 10/11/2024 Blood pressure systolic 001 mm Hg 10/11/2024 Weight 236.4 lbs 10/11/2024 BMI 40.57 kg/m2 10/11/2024 Encounters Encounter Location Date Provider Diagnosis [facility] [address] [place] [id number] 10/30/2024 Jeffrey Narayan Jr [facility] [address] [place] [phone] 10/11/2024 Jeffrey Narayan Jr Abdominal pain R10.9 ; Irritable bowel syndrome with diarrhea K58.0 and Special screening for malignant neoplasms, colon Z12.11 [facility] [address] [place] [phone] 10/22/2024 Jeffrey Narayan Jr [facility] [address] [place] [phone] 11/04/2024 Jeffrey Narayan Jr [facility] [address] [place] [phone] 11/14/2024 Jeffrey Narayan Jr [facility] [address] [place] [phone] 12/31/2024 Jeffrey Narayan Jr Assessments Encounter Date [...] LIPASE 09/14/2020 LIPASE 10/11/2024 CBC w/o DIFF 10/11/2024 CBC w/o DIFF 09/14/2020 CT ABD & PELVIS WITH CONTRAST 10/11/2024 TSH REFLEX FREE T4 09/14/2020 Future Test Test Name Order Date UPPER GI ENDOSCOPY 06/26/2019 COLONOSCOPY 09/14/2020 COLONOSCOPY 06/28/2023 Insurance Providers Payer Name Payer Address Payer Phone Subscriber Number Group Number Insured Name Patient Relationship to Insured Coverage Start Date Coverage End Date MEDICAID OF [facility] [address] [place] [phone] [id number] CHELLE WRIGHT Self - patient is the [...]
--- OUTSIDE RECORDS SUMMARY | 2025-01-24 13:48 | XMS_ITS | Encounter Summary ---
Author Organization [employer] Address [address] [facility] 7t [place] [address] Care Team Providers Care Flower Grower Name Role Phone Dorinda Iniguez MD Primary Care Provider [phone] Encounter Details Date Type Department Care Team ([facility] st Contact Info) Description 03/03/2023 Abstract [facility] MEDICINE [address] [place], [place] [phone] Sarahi Pearl Social History Tobacco Use Types [...] Procedure Name Priority Date/Time Associated Diagnosis Comments HM COLONOSCOPY Routine 09/25/2020 documented in this encounter Results * Hm Colonoscopy (09/25/2020) Colonoscopy Normal Normal Narrative Sarahi Pearl - 09/25/2020 Recommended 5 year follow up us Historical Provider HEALTH MAINTENANCE Final Result documented in this encounter Visit Diagnoses Not on filedocumented in this encounter Additional Health Concerns Assessment Noted Time PHQ-9 Depression Total Score: 4 06/09/19 23 1:44 PM EST documented as of this encounter Care Teams Flower Grower Relationship Specialty Start Date End Date Dorinda Iniguez MD [address] [place] [address] PCP - General Family Medicine 04/24/18 Ginny Hernandez Chief Operator SynthesisAd Taker 01/17/24 documented as of this encounter
--- OUTSIDE RECORDS SUMMARY | 2025-01-24 13:48 | XMS_ITS | Encounter Summary ---
Author Organization [employer] Address [address] [place] [address] 7 [place] [address] Care Team Providers Care Director Of Rotc Name Role Phone Dorinda Iniguez MD Primary Care Provider Reason for Visit * Reason Onset Date Comments Call Back Request 09/29/2023 Encounter Details Date Type Department Care Team ([facility] Contact Info) Description 09/29/2023 Telephone [facility] MED & PEDS [address] [place] [address] Dorinda Iniguez MD [address] [place] [address] Call Back Request Social History Tobacco Use [...] 10:56 AM EDT Tc to pt using [employer] Graduate Student [place], [place] [address]. Advised pt about message by Brenda. Pt [...] ENT for 04/04/24. Please contact pt at [phone] documented in this encounter Plan of Treatment Not on file documented as of this encounter Visit Diagnoses Not on filedocumented in this encounter Additional Health Concerns Assessment Noted Time PHQ-9 Depression Total Score: 4 08/17/19 24 1:37 PM EDT documented as of this encounter Care Teams Director Of Rotc Relationship Specialty Start Date End Date Dorinda Iniguez MD [address] [place] [address] PCP - General Family Medicine 04/24/18 Ginny Hernandez Filter Tender JellyPile Driving Setter 01/17/24 documented as of this encounter
--- OUTSIDE RECORDS SUMMARY | 2025-01-24 13:48 | XMS_ITS | Encounter Summary ---
Author Organization [facility] Address [address] [place] [address] Care Team Providers Care Vp Director Of Finance Name Role Phone Dorinda Iniguez MD Primary Care Provider [phone] Reason for Visit * Reason Onset Date Comments Prior Auth 12/20/2024 Encounter Details Date Type Department Care Team (Late st Contact Info) Description 12/20/2024 Telephone Pulmonology - [place] [address] [facility] [place] [phone] Artem Hanna MD [address] [place] [address] Social History Tobacco Use Types Packs/Day Years Used Date Smoking Tobacco: Never Smokeless Tobacco: Never Alcohol Use Standard Drinks/Week Comments Never 0 (1 standard drink = 0.6 oz pur e alcohol) Comments Unknown Sex and Gender Information Value Date Recorded Sex Assigned at Not on file Legal Sex Female 10:51 AM EST Gender Identity Not on file Sexual Orientation Not on file documented as of this encounter Progress Notes * Yolanda Davis MA - 12/30/2024 3:33 PM EDT [employer] [place] request form printed ,completed nad faxed to [employer] with all clinical documentation. * Di Parra - 12/30/2024 2:21 PM EDT [facility] pa request admin information received . Attached to encounter * Yolanda Davis MA - 12/24/2024 1:56 PM EDT PA for ALBUTEROL INHALER initiated today on CMM Dx J45.44 Clinicals notes uploaded and sent to insurance company awaiting for insurance determination. * Danika Burr - 12/20/2024 1:44 PM EDT Fax received from Pharmacy, [place] needed for: Albuterol Sulfate HFA 108(90 base)MCG/ACT Aerosol Gloria:[id number] documented in this encounter Plan of Treatment Upcoming Encounters Date Type Department Care Team (Late st Contact Info) Description 02/17/2025 9:45 AM EDT Office Visit Orthopedic Surgery - [place] [address] [phone] Kashif Klein DPM [address] [phone] 07/18/2025 1:00 PM EDT Office Visit Pulmonology - [place] [address] [phone] Artem Hanna MD [address] [address] documented as of this encounter Visit Diagnoses Not on filedocumented in this encounter Care Teams Vp Director Of Finance Relationship Specialty Start Date End Date Dorinda Iniguez MD [address] [place] [address] PCP - General 07/07/11 documented as of this encounter
--- OUTSIDE RECORDS SUMMARY | 2025-01-24 13:48 | XMS_ITS | Encounter Summary ---
Author Organization [employer] Address [address] [facility] 7 [place] [address] Care Team Providers Care Senior Data Analyst Name Role Phone Dorinda Iniguez MD Primary Care Provider [phone] Reason for Visit * Reason Onset Date Comments Appointment Request 06/15/2023 Encounter Details Date Type Department Care Team ([facility] st Contact Info) Description 06/15/2023 Telephone [facility] MEDICINE [address] [place] [address] Dorinda Iniguez MD [address] [place] [address] Appointment Request Social History Tobacco Use Types [...] PCP before traveling and also do PE. Indonesian Speaker documented in this encounter Plan of Treatment Not on file documented as of this encounter Visit Diagnoses Not on filedocumented in this encounter Additional Health Concerns Assessment Noted Time PHQ-9 Depression Total Score: 4 06/09/19 23 1:44 PM EST documented as of this encounter Care Teams Senior Data Analyst Relationship Specialty Start Date End Date Dorinda Iniguez MD [address] [place] [address] PCP - General Family Medicine 04/24/18 Ginny Hernandez Glass Mould CleanerHeavy Mobile Equipment Operator 01/17/24 documented as of this encounter
== END 2025-01-24 13:27 | disposition home or self-care (01) ==
LOC: HO.US 13:26
PROVIDERS: PCP Pediatrics; Visit Provider Student in an Organized Health Care Education/Training Program
DX: R25.2 Cramp and spasm (principal); M79.671 Pain in right foot
CPT/HCPCS: 73630; 93971

== ENCOUNTER → 2025-01-24 13:28 | Outpatient (BNV) | payer MEDICAID, SELFPAY | PROVIDERS: PCP Pediatrics; Visit Provider Radiology Diagnostic Radiology | DX: M79.661 Pain in right lower leg (principal); R22.41 Localized swelling, mass and lump, right lower limb; M77.31 Calcaneal spur, right foot | CPT/HCPCS: 73630; 93971 ==

== ENCOUNTER 2025-02-28 12:42 | Outpatient (AMB) | payer MEDICAID, SELFPAY ==
--- OUTSIDE RECORDS SUMMARY | 2024-10-30 09:00 | XMS_ITS ---
Author Organization [facility] Address [address] [place] [phone] Care Team Providers Care Crossing Tender Name Role Phone Hira JASON, Dorinda Primary Care Provider Ute Rios Jr, Jeffrey Goins REASON FOR VISIT abdominal pain Encounters Encounter Location Date Provider Diagnosis [facility] [place] [address] [place] [id number] 10/30/2024 Jeffrey Rios Jr Plan Of Treatment No Information Progress Notes * RAYMOND WRIGHT MDOB: [birth year] (59 yo F)Acc No.[id number]:10/30/2024 EGD/MAC Patient: Jerrell RAYMOND HERNANDEZ Provider: Jerrell Rios MD :1965 A ge:59 Y S ex:Female Date:10/30/2024 Address:[address] [place] [address] Pcp:Dorinda Iniguez MD Subjective: * Chief Complaints: [...] MD Date: 0 10/30/2024 Generated for Adrianai ng/Familindg/eTransmitting on: 04/30/2024 02:51 PM EST
--- NOTE | 2025-02-28 12:49 | MHC.OFFVIS ---
Vital Signs 02/28/25 12:51 Height 5 ft 3 in Weight 222 lb BMI 39.3 BP 158/77 H Blood Pressure Location Rt brachial Position Sitting Pulse 92 Intake Visit Reasons: Small rt groin hernia Intake Note: Patient referred by Dr. Ram for Rt inguinal hernia. Patient c/o: on and off pain at site. Reports at times constipation, diarrhea. Imaging: Abdomen pelvis CT: 11-12-2024 Knit Goods Cutter Hand Required: Yes Information Interpreted: clinical only (Mouna SWAIN) Accompanied by: Self / Same As Patient Allergies lisinopril (LISINOPRIL) Adverse Reaction (Intermediate, Verified 02/28/25 12:56) Cough HPI Comments Details: 59-year-old female patient presenting for evaluation of abdominal pain. She reports the pain mainly in the left groin but denies any palpable lump. She does report constipation which has been ongoing. There has been no nausea vomiting, fever or chills. She reports a prior history of section and cholecystectomy. A CT abdomen and pelvis was positive for a fat containing right inguinal hernia but no left inguinal hernia noted. She presents for consideration of repair of the right inguinal hernia. She denies a prior history of hernia surgeries. [facility] Medical History Hypothyroid IBS (irritable bowel syndrome) Iron deficiency anemia Renal calculi Anxiety Increased BMI Asthma HTN (hypertension) GERD (gastroesophageal reflux disease) Surgical History Hx of cystoscopy History of surgery on arm Hx of section Hx of cholecystectomy Hx of laparoscopy History of endometrial ablation History of esophagogastroduodenoscopy (EGD) H/O colonoscopy Social History Patient Tobacco Use Status: Never used Tobacco Review of Systems Const All systems reviewed & are unremarkable except as noted in HPI and below Physical Exam Vital Signs: Last Vital Signs Pulse 92 02/28/25 12:51 BP 158/77 H 02/28/25 12:51 BMI result Body Mass Index 39.3 Const General: cooperative and no acute distress Nutritional Appearance: well nourished Orientation/consciousness: patient oriented x3 Limitations: no limitations HEENT Head: Yes normocephalic and Yes atraumatic Ears: hearing grossly normal bilaterally Resp Effort & Inspection: normal respiratory effort, no audible wheezes, no cough and no respiratory distress Cardio Jugular venous distension: no JVD GI Other: Patient examined in the standing position with Valsalva maneuvers. No palpable hernias noted on either side with special attention to the left inguinal region. Inspection: Yes normal to inspection Palpation (GI): Soft to palpation, nontender and no guarding Skin Other: Warm, dry, no rash Neuro General: patient oriented x3 Extrem General: Yes no clubbing, cyanosis or edema Assessment & Plan Assessment & Plan (1) Right inguinal hernia: Code(s): K40.90 - Unilateral inguinal hernia, without obstruction or gangrene, not specified as recurrent Category: Medical Plan 59-year-old female patient presenting with complaints of left groin pain found on CT to have a fat containing right inguinal hernia. On examination she is minimally tender in the left groin however no palpable hernias noted with Valsalva maneuvers. No palpable hernias noted in the right side as well. Review of the CT does reveal a small fat containing right inguinal hernia. As this hernias asymptomatic and not palpable I recommended observation with no surgical intervention. No hernias identified by CT on the left side therefore no surgical intervention is recommended for this site as well. She is welcome to call should the symptoms change in any way or if a lump becomes more noticeable. She expressed understanding and agrees with the plan. Coding Level of Care Code New Pt Level 4 (74761) Diagnoses Right inguinal hernia K40.90
[2025-02-28 12:51] VITALS: BP 158/77; PULSE 92; BMI 39.3
--- OUTSIDE RECORDS SUMMARY | 2025-02-28 14:51 | XMS_ITS | Encounter Summary ---
Author Organization [employer] Address [address] [facility] 7 [place] [address] Care Team Providers Care Vb Developer Name Role Phone Dorinda Iniguez MD Primary Care Provider Reason for Visit * Reason Onset Date Comments Med Refill 08/28/2024 Encounter Details Date Type Department Care Team ([facility] st Contact Info) Description 08/28/2024 Telephone [facility] MEDICINE [address] [place] [address] Dorinda Iniguez MD [address] [place] [address] Med Refill Social History Tobacco Use Types [...] encounter Miscellaneous Notes * Telephone Encounter - uSki Schmitt LPN - 08/28/2024 2:22 PM EDT Medication pended to PCP. * Telephone Encounter - Nu Casas - 08/28/2024 2:16 PM EDT TC from pt requesting medication refill. Medications needing refill : Tirzepatide-Weight Management 5 MG/0.5ML solution auto-injector To be sent to: [facility]/pharmacy #[id number] [place], [place] - [address] [place] [address] documented in this encounter Plan of Treatment Upcoming Encounters Date Type Department Care Team (Late st Contact Info) Description 03/25/2025 11:30 AM EST Office Visit [facility] MED & PEDS [address] [place], [place] [phone] Dorinda Iniguez MD [address] [place] [address] documented as of this encounter Visit Diagnoses Not on filedocumented in this encounter Additional Health Concerns Assessment Noted Time PHQ-9 Depression Total Score: 2 05/28/19 25 9:31 AM EST documented as of this encounter Care Teams Vb Developer Relationship Specialty Start Date End Date Dorinda Iniguez MD [address] [place] [address] PCP - General Family Medicine 04/24/18 Ginny Hernandez Conservation EngineerVice President Talent Management 01/17/24 documented as of this encounter
--- OUTSIDE RECORDS SUMMARY | 2025-02-28 14:51 | XMS_ITS | Encounter Summary ---
Author Organization [employer] Address [address] [place] [address] [place] [address] Care Team Providers Care Quarry Worker Name Role Phone Dorinda Iniguez MD Primary Care Provider [phone] Encounter Details Date Type Department Care Team (Late st Contact Info) Description 05/06/2022 Orders Only [facility] MED & PEDS [address] [place] [address] Suki Schmitt LPN Social History Tobacco Use [...] Description 03/25/2025 11:30 AM EST Office Visit [facility] MED & PEDS [address] [place] [address] Dorinda Iniguez MD [address] [place] [address] documented as of this encounter Visit Diagnoses Not on filedocumented in this encounter Care Teams Quarry Worker Relationship Specialty Start Date End Date Dorinda Iniguez MD [address] [place] [address] PCP - General Family Medicine 04/24/18 Ginny Hernandez Metal SprayerAqua Ammonia Operator 01/17/24 documented as of this encounter
--- OUTSIDE RECORDS SUMMARY | 2025-02-28 14:51 | XMS_ITS | Encounter Summary ---
Author Organization [employer] Address [address] [facility] 7 [place] [address] Care Team Providers Care Musical Engineer Name Role Phone Dorinda Iniguez MD Primary Care Provider [phone] Reason for Visit * Reason Onset Date Comments Med Refill 07/01/2024 Encounter Details Date Type Department Care Team (Late st Contact Info) Description 07/01/2024 Refill [facility] MEDICINE [address] [place] [address] Dorinda Iniguez MD [address] [place] [address] Benign essential hypertension; BMI 40.0-44.9, adult (CMS/HCC); [...] MG/0.5ML solution auto-injector To be sent to: [facility]/pharmacy #[id number] documented in this encounter Plan of Treatment Upcoming Encounters Date Type Department Care Team ([facility] st Contact Info) Description 03/25/2025 11:30 AM EST Office Visit [facility] MED & PEDS [address] [place] [address] Dorinda Iniguez MD [address] [place] [address] documented as of this encounter Visit Diagnoses Diagnosis Benign essential hypertension Essential hypertension, benign BMI 40.0-44.9, adult (CMS/HCC) (HCC) FARHAN (obstructive sleep apnea) Obstructive sleep apnea (adult) (pediatric) documented in this encounter Additional Health Concerns Assessment Noted Time PHQ-9 Depression Total Score: 2 05/28/19 25 9:31 AM EST documented as of this encounter Care Teams Musical Engineer Relationship Specialty Start Date End Date Dorinda Iniguez MD [address] [place] [address] PCP - General Family Medicine 04/24/18 Ginny Hernandez Freight Brake OperatorPreflight Inspector 01/17/24 documented as of this encounter
--- OUTSIDE RECORDS SUMMARY | 2025-02-28 14:51 | XMS_ITS | Encounter Summary ---
Author Organization [employer] Address [address] [place] [address] 7 [place] [address] Care Team Providers Care Orthotist/Prosthetist Name Role Phone Dorinda Iniguez MD Primary Care Provider [phone] Reason for Visit * Reason Onset Date Comments Referral 01/22/2025 Encounter Details Date Type Department Care Team ([facility] Contact Info) Description 01/22/2025 Telephone [facility]S [address] [place], [place] [phone] Dorinda Iniguez MD 505 [place] [address] Referral Social History Tobacco Use Types Packs/Day [...] 10:07 AM EDT [facility]. Pt stated was advised an US would [...] a sonogram. Any questions contact pt at [phone] documented in this encounter Plan of Treatment Upcoming Encounters Date Type Department Care Team (Late st Contact Info) Description 03/25/2025 11:30 AM EST Office Visit [facility] MED & PEDS [address] [place] [address] Dorinda Iniguez MD 505 [place] [address] documented as of this encounter Visit Diagnoses Not on filedocumented in this encounter Additional Health Concerns Assessment Noted Time PHQ-9 Depression Total Score: 2 05/28/19 25 9:31 AM EST documented as of this encounter Care Teams Orthotist/Prosthetist Relationship Specialty Start Date End Date Dorinda Iniguez MD [address] [place] [address] PCP - General Family Medicine 04/24/18 Ginny Hernandez Hybrid Corn BreederDomain Architect 01/17/24 documented as of this encounter
--- OUTSIDE RECORDS SUMMARY | 2025-02-28 14:51 | XMS_ITS | Encounter Summary ---
Author Organization [employer] Address [address] [place] [address] 7 [place] [address] Care Team Providers Care Stock Saw Operator Name Role Phone Dorinda Iniguez MD Primary Care Provider [phone] Encounter Details Date Type Department Care Team (Latest Contact Info) Description 04/02/2020 Abstract [facility] CONVERSIONS Dental, Provider, DDS Social History [...] Description 03/25/2025 11:30 AM EST Office Visit [facility] MED & PEDS [address] [place] [address] Dorinda Iniguez MD [address] [place] [address] documented as of this encounter Visit Diagnoses Not on filedocumented in this encounter Care Teams Stock Saw Operator Relationship Specialty Start Date End Date Dorinda Iniguez MD [address] [place] [address] PCP - General Family Medicine 04/24/18 Ginny Hernandez Law Office ReceptionistOver Short And Damage Clerk 01/17/24 documented as of this encounter
--- OUTSIDE RECORDS SUMMARY | 2025-02-28 14:52 | XMS_ITS | Clinical Summary ---
Author Organization [employer] Address [address] [place] [address] 7t [place] [address] Care Team Providers Care Portfolio Director Name Role Phone Dorinda Iniguez MD Primary Care Provider [phone] Allergies Active Allergy Reactions Criticality Noted Date Comments Lisinopril Rash,Unknown,Cough High 04/24/2010 Other reaction(s): cough, Cough Other reaction(s): cough Other reaction(s): cough, Cough Medications LORazepam (Ativan) 0.5 MG tablet TAKE ONE TABLET EVERY MORNING AND TWO TABLETS AT BEDTIME NEEDED 05/31/19 23 Active lidocaine (Lidoderm) 5 % patch APPLY TO LOWER BACK REGION. LEAVE ON FOR 12 HOURS OFF FOR 12 HOURS, NEEDED. 05/31/19 23 Active Procto-Med HC 2.5 % rectal creamIndications :Irritable bowel syndrome with diarrhea APPLY RECTALLY TWICE DAILY 28 g 5 06/16/19 23 Active metoprolol tartrate (Lopressor) 75 MG tablet Take 75 mg by mouth in the morning and 75 mg at noon and 75 mg in the evening. 10/12/19 23 Active loperamide (Imodium) 2 MG capsule Take 2 mg by mouth. Active traMADol (Ultram) 50 MG tablet Take 50 mg by mouth every 6 (six) hours if needed. Active pregabalin (Lyrica) 75 MG capsule ONE BY MOUTH EVERY NIGHT X3 DAYS THEN ONE BY MOUTH TWICE A DAY 06/16/19 24 Active Ventolin HFA 108 (90 Base) MCG/ACT inhalerIndicatio ns:Moderate persistent asthma without complication INHALE ONE PUFF EVERY 4 HOURS NEEDED FOR COUGH 18 g 1 07/25/19 24 Active albuterol (2.5 MG/3ML) 0.083% nebulizer solutionIndicati ons:Moderate persistent asthma without complication Take 3 mL (2.5 mg) by nebulization every 6 (six) hours if needed for wheezing or shortness of breath. 90 mL 09/11/19 24 Active hydrALAZINE (Apresoline) 100 MG tablet Take 1 tablet (100 mg) by mouth 3 times daily. 90 tablet 09/14/19 24 Active Arnuity Ellipta 100 MCG/ACT inhaler TAKE 1 PUFF EVERY DAY Active cholecalciferol (SM Vitamin D3) 50 MCG (2000 UT) capsuleIndicatio ns:Vitamin D deficiency Take 1 capsule orally daily 30 capsule 09/14/19 24 Active aspirin (Aspirin Low Dose) 81 MG chewable tablet Chew 1 tablet (81 mg) Once per day. 90 tablet 5 02/07/20 24 Active gabapentin (Neurontin) 100 MG capsule Take 2 capsules orally qhs 60 capsule 3 05/28/19 25 Active dicyclomine (Bentyl) 20 MG tablet TAKE 1 TABLET (20 MG) BY MOUTH BEFORE BREAKFAST, BEFORE LUNCH, BEFORE EVENING MEAL, AND AT BEDTIME. 120 tablet 08/27/19 25 Active albuterol (2.5 MG/3ML) 0.083% nebulizer solution Take 3 mL (2.5 mg) by nebulization every 6 (six) hours if needed for wheezing. 75 mL 09/24/19 25 026 Active verapamil SR (Calan SR) 180 MG ER tabletIndication s:Benign essential hypertension TAKE 2 CAPSULES BY MOUTH EVERY DAY 180 tablet 3 10/16/19 25 Active Tirzepatide-Weig ht Management (Zepbound) 10 MG/0.5ML solution auto-injectorInd ications:Class 3 severe obesity due to excess calories with serious comorbidity and body mass index (BMI) of 40.0 to 44.9 in adult (HCC) Inject 0.5 mL (10 mg) under the skin 1 (one) time per week. 2 mL 5 12/25/19 25 Active LORazepam (Ativan) 0.5 MG tabletIndication s:Generalized anxiety disorder Take 1 tab orally daily prn anxiety 30 tablet 12/25/19 25 Active pantoprazole (ProtoNix) 40 MG EC tablet TAKE 1 TABLET BY MOUTH EVERY DAY IN THE MORNING 90 tablet 01/14/20 25 Active nystatin (Mycostatin) 057513 UNIT/GM powder Apply topically 2 times daily. 60 g 5 02/07/20 24 025 Active Problems Problem Noted Date Diagnosed Date FARHAN (obstructive sleep apnea) 05/28/2024 BMI 40.0-44.9, adult ([facility]) 05/28/2024 Ear ache 10/04/2023 Assessment & Plan [...] Department Care Team Description 01/24/2025 Orders Only [facility] MED & PEDS [address] [place], [place] [phone] Nona Umaña MD Leg cramps (Primary Dx) 01/23/2025 Telephone [facility] MED & PEDS [address] [place] [address] Dorinda Iniguez MD Referral (TC US leg) 01/23/2025 Telephone [facility] MED & PEDS [address] [place], [place] [phone] Dorinda Iniguez MD 01/22/2025 Telephone [facility] MED & PEDS [address] [place] [address] Dorinda Iniguez MD Referral 01/20/2025 11:00 AM EDT Office Visit [facility] MED & PEDS [address] [place] [address] Nona Umaña MD Leg cramps (Primary Dx); Ecchymosis 01/20/2025 Travel 01/20/2025 Telephone [facility] [address] [place] [address] Dorinda Iniguez MD Nurse Triage 01/13/2025 10:00 AM EDT Office Visit [facility] ADULT DENTAL [address] [place] [address] Dee Lynch 01/13/[address] [address] Dorinda Iniguez MD 01/08/2025 Telephone [facility] MED & PEDS [address] [place] [address] Dorinda Iniguez MD 01/03/2025 Orders Only [facility] MED & PEDS [address] [place] [address] Dorinda Iniguez MD Kidney stone (Primary Dx) 01/02/[address] [address] Dorinda Iniguez MD Prior Authorization 01/01/[address] [address] Dorinda Iniguez MD Referral 12/26/2024 Telephone [facility] MED & PEDS [address] [place] [address] Deb Rubio LPN 12/24/2024 10:30 AM EDT Office Visit [facility] MED & PEDS [address] [place] [address] Dorinda Iniguez MD Class 3 severe obesity due to excess calories with serious comorbidity and body mass index (BMI) of 40.0 to 44.9 in adult (Primary Dx); Generalized anxiety disorder; Benign essential hypertension; Moderate persistent asthma without complication 12/24/2024 Travel 12/16/2024 Patient Outreach [facility] [address] [place] [address] Kerry Chappell Pre-visit Planning (Pre visit planning unable to LVM ) 11/28/2024 Telephone [facility]EDS [address] [place], [place] [phone] Dorinda Iniguez MD Med Refill from Last 3 Months Immunizations Immunization Administration [...] 01/20/2025 11:17 AM EDT Plan of Treatment Upcoming Encounters Date Type Department Care Team (Late st Contact Info) Description 03/25/2025 11:30 AM EST Office Visit [facility] MED & PEDS [address] [place], [place] [phone] Dorinda Iniguez MD [address] [place] [phone] Health Maintenance Due Date Last Done Comments CT Colonography 1965 Dental X-Ray: Full Mouth 1963 FIT DNA/Cologuard 1965 FIT 1965 FOBT 1965 Sigmoidoscopy 1965 COVID-19 Vaccine ( season) 2024 Dental X-Ray: Bitewings 01/08/2025 01/08/2024 Dental Oral Exam 01/11/2025 07/10/2024, 12/01/2022 SDOH Screening 05/21/2025 05/21/2024 Alcohol/Substance Use Screening 05/28/2025 05/28/2024 Depression Screening 05/28/2025 05/28/2024, 05/28/19 Disability Screening 05/28/2025 05/28/2024 Dental Prophylaxis 07/14/2025 [...] Procedure Name Priority Date/Time Associated Diagnosis Comments US VENOUS DUPLEX LE RT Routine 01/24/2025 2:30 PM EDT BASIC METABOLIC PANEL Routine 01/20/2025 11:42 AM EDT Leg cramps CASE PRESENTATION, DETAILED AND EXTENSIVE TREATMENT PLANNING Routine 01/13/2025 10:00 AM EDT PROPHYLAXIS - ADULT Routine 01/13/2025 1 0:00 AM EDT AMB REFERRAL TO UROLOGY Routine 12/13/2024 Kidney stone HM MAMMOGRAPHY Routine 09/06/2024 PERIODIC ORAL EVALUATION - [...] Recently Relevant to Health Maintenance Results * US VENOUS DUPLEX LE RT (01/24/2025 2:30 PM EDT) Anatomical Region Laterality Modality Abdomen Ultrasound 01/24/2025 2:30 PM EDT Narrative 01/24/2025 2:43 PM EDT [place] [address] Ultrasound Report Signed Patient: Chelle Helm MR# : [id number] : 1965 Acct:[id number] Age/Sex: 59 / F ADM Date: 01/24/25 Loc: HO.US Attending Dr: Nona Umaña MD Ordering Physician: Dorinda Iniguez MD Date of Service: 01/24/25 Procedure(s): US venous duplex LE RT Accession Number(s): [id number] cc: Dorinda Iniguez MD Reason for Exam: Right leg pain, swelling, R/O DVT EXAMINATION: US TRIPLEX LOWER EXTREMITY, RIGHT CLINICAL INFORMATION: Swelling COMPARISON: None available. TECHNIQUE: Color-flow triplex imaging with spectral analysis and compression Doppler were performed on the right lower extremity. FINDINGS: Respiratory variation, normal compression and augmented flow are noted throughout the right lower extremity. The visualized common femoral vein, superficial femoral vein, profunda femoral vein, popliteal vein and midcalf peroneal and posterior tibial venous segments show no evidence of deep venous thrombosis. There is no Farias's cyst. US/US venous duplex LE RT IMPRESSION: No evidence of deep venous thrombosis involving the right lower extremity. Electronically signed by: Theresa Galdamez MD 01/24/2025 02:41 PM EDT Dictated By: Theresa Galdamez MD Signed By: <Electronically signed by Theresa Galdamez MD in [place]> 01/24/25 1441 DD/ 29 TD/TT: 01/24/251435 Quarantine Officer: TOM Procedure Note Donotuseinterpreter, Image - 01/24/2025 [place] [address] Ultrasound Report Signed Patient: Chelle Helm MMR# : [id number] : 1965Acct:[id number] Age/Sex: 59 / FADM Date: 01/24/25 Loc: HO.US Attending Dr: Nona Umaña MD Ordering Physician: Dorinda Iniguez MD Date of Service: 01/24/25 Procedure(s): US venous duplex LE RT Accession Number(s): [id number] cc: Dorinda Iniguez MD Reason for Exam: Right leg pain, swelling, R/O DVT EXAMINATION: US TRIPLEX LOWER EXTREMITY, RIGHT CLINICAL INFORMATION: Swelling COMPARISON: None available. TECHNIQUE: Color-flow triplex imaging with spectral analysis and compression Doppler were performed on the right lower extremity. FINDINGS: Respiratory variation, normal compression and augmented flow are noted throughout the right lower extremity. The visualized common femoral vein, superficial femoral vein, profunda femoral vein, popliteal vein and midcalf peroneal and posterior tibial venous segments show no evidence of deep venous thrombosis. There is no Farias's cyst. US/US venous duplex LE RT IMPRESSION: No evidence of deep venous thrombosis involving the right lower extremity. Electronically signed by: Theresa Galdamez MD 01/24/2025 02:41 PM EDT Dictated By: Theresa Galdamez MD Signed By: <Electronically signed by Theresa Galdamez MD in OV> 01/24/25 1441 DD/ 29 TD/TT: 01/24/251435 Quarantine Officer: TOM us Dorinda Iniguez MD IMG US PROCEDURES Final Resul t * (ABNORMAL) Basic Metabolic Panel (01/20/2025 11:42 AM EDT) Sodium 142 135 - 145 mmol/L [facility] Potassium 5.1 3.3 - 5.1 mmol/L [facility] Chloride 109(H) 96 - 108 mmol/L [facility] Carbon Dioxide 26 22 - 29 mmol/L [facility] Anion Gap 12 12 - 20 [facility] Urea Nitrogen (BUN) 25(H) 9 - 16 mg/dL [facility] Creatinine, Serum 0.80 0.5 - 1.4 mg/dL [facility] Estimated Glomerular Filt Rate >60 [facility] Comment:Chronic Kidney Disea se: Estimated GFR < 60 mL/min/1.38m3Xiialk Kidney Disease: Estimated GFR < 15 mL/min/1.73m2 Glucose 88 60 - 115 mg/dL [facility] Calcium 9.4 8.4 - 10.2 mg/dL [facility] Blood Venous blood specimen / Unknown 01/20/2025 11:42 AM EDT 01/20/2025 2:07 PM EDT Nona Umaña MD LAB BLOOD ORDERABLES Final Resul t [facility] [address] [place] [phone] * Referral to Urology (12/13/2024) Dorinda Iniguez MD OUTPATIENT REFERRAL ORDERABLE S Final Result * Mammography (09/06/2024) Pathologist [facility] Mammogram Normal Normal, Abnormal, BIRADS 1 , BIRADS 2 Anatomical Region Laterality Modality Other us Dorinda Iniguez MD HEALTH MAINTENANCE Final Resu lt * (ABNORMAL) Lipid Panel, Standard (12/14/2023 9:32 AM EDT) Pathologist [facility] Triglycerides 162(H) <150 mg/dL [facility] Comment:Desirable Triglyceri de: less than 150 mg/dLBorderline High Triglyceride 150-199 mg/dLHigh Triglyceride: 200-499 mg/dLVery High Triglyceride: greater than or equal to 5OO mg/dL Cholesterol 193 <200 mg/dL [facility] Comment:Desirable Cholestero l: less than 200 mg/dLBorderline High Cholesterol: 200-239 mg/dLHigh Cholesterol: greater than 239 mg/dL LDL Cholesterol Calculated 113(H) <100 mg/dL [facility] Comment:Desirable LDL: less than 100 mg/dLNear Optimal/Above Optimal LDL: 110- 129 mg/dLBorderline High LDL: 130-159 mg/dLHigh LDL: 160-189 mg/dLVery High LDL: greater than or equal to 190 mg/dL HDL Cholesterol 48 >40 mg/dL [facility] Comment:Desirable HDL: great er than 40 mg/dL Note: This HDL assay may give artificially low results in patients with liver disease. Blood Venous blood specimen / Unknown 12/14/2023 9:32 AM EDT 12/14/2023 2:14 PM EDT us Dorinda Iniguez MD LAB BLOOD ORDERABLES Final Re sult Performing Organization Address [facility] Co de Phone Number [facility] [address] [place] [phone] * Hepatitis C Antibody with Reflex to HCV, RNA, Quantitative, Real-Time PCR (08/17/2023 2:19 PM EDT) Hepatitis C Antibody Nonreactive Nonreactive [facility] Comment:Antibodies to HCV no t detected; does not exclude early acuteHCV infection. Blood Venous blood specimen / Unknown 08/17/2023 2:19 PM EDT 08/17/2023 5:21 PM EDT us Angie Giraldo MD LAB BLOOD ORDERABLES Final Result Performing Organization Address City/[facility]/ZIP Co de Phone Number [facility] [address] [place] [phone] * HIV-1/2 Antigen and Antibodies, Fourth Generation, with Reflexes (08/17/2023 2:19 PM EDT) HIV AB/AG Nonreactive Nonreactive [facility] Comment:HIV-1 p24 Ag and/or HIV-1/HIV-2 Ab not detected.A test result that is nonreactive does not exclude thepossibility of exposure to or infection with HIV-1 and/orHIV-2. Nonreactive results in this assay for individualswith prior exposure to HIV-1 and/or HIV-2 may be due toantigen and antibody levels that are below the limit ofdetection of this assay.[employer] HIV Ag/Ab Combo assay result andsupplemental assay results should be interpreted inconjunction with the patient's clinical presentation,history and other laboratory results. If the results areinconsistent with clinical evidence, additional testing issuggested to confirm the result. Blood Venous blood specimen / Unknown 08/17/2023 2:19 PM EDT 08/17/2023 5:21 PM EDT us Angie Giraldo MD LAB BLOOD ORDERABLES Final Result [facility] [address] [place] [phone] * (ABNORMAL) Colonoscopy (08/01/2023) Pathologist [facility] Colonoscopy Abnormal(A ) Normal us Dorinda Iniguez MD HEALTH MAINTENANCE Final Resu lt * Pap Smear (09/01/2021) Pathologist [facility] Pap Negative for intraephithelial lesion or malignancy Negative for intraephithelial lesion or malignancy, Other HPV Undetected Undetected, Indeterminate, Quantitative, Not Detected us Sakina Cline MD HEALTH MAINTENANCE Final Result from Last 3 Months or Most Recently Relevant to Health Maintenance Insurance [facility] STAND ADULT Care Teams Portfolio Director Relationship Specialty Start Date End Date Dorinda Iniguez MD [address] [place] [phone] PCP - General Family Medicine 04/24/18 Ginny Hernandez Face ManTop Collar Maker 01/17/24
--- OUTSIDE RECORDS SUMMARY | 2025-02-28 14:52 | XMS_ITS | Encounter Summary ---
Author Organization [employer] Address [address] [place] [address] 7 [place] [address] Care Team Providers Care Children'S Aide Name Role Phone Dorinda Iniguez MD Primary Care Provider [phone] Reason for Visit * Reason Comments Med Refill Encounter Details Date Type Department Care Team ([facility] st Contact Info) Description 03/01/2024 Refill [facility] & PEDS [address] [place], [place] [phone] Dorinda Iniguez MD [address] [place] [address] Social History Tobacco Use Types Packs/Day Years [...] Upcoming Encounters Date Type Department Care Team ([facility] st Contact Info) Description 03/25/2025 11:30 AM EST Office Visit [facility] MED & PEDS [address] [place] [address] Dorinda Iniguez MD [address] [place] [address] documented as of this encounter Visit Diagnoses Not on filedocumented in this encounter Additional Health Concerns Assessment Noted Time PHQ-9 Depression Total Score: 4 08/17/19 24 1:37 PM EDT documented as of this encounter Care Teams Children'S Aide Relationship Specialty Start Date End Date Dorinda Iniguez MD [address] [place] [address] PCP - General Family Medicine 04/24/18 Ginny Hernandez [employer] Software DeveloperRetail Store Clerk 01/17/24 documented as of this encounter
--- OUTSIDE RECORDS SUMMARY | 2025-02-28 14:52 | XMS_ITS | Encounter Summary ---
Author Organization [employer] Address [address] [place] [address] 7 [place] [address] Care Team Providers Care Ecology Teacher Name Role Phone Dorinda Iniguez MD Primary Care Provider [phone] Reason for Visit * Reason Onset Date Comments Med Refill 05/22/2024 Encounter Details Date Type Department Care Team ([facility] st Contact Info) Description 05/22/2024 Refill [facility] MED & PEDS [address] [place] [address] Dorinda Iniguez MD [address] [place] [address] Influenza B Social History Tobacco Use Types [...] 20 MG tablet To be sent to: [facility]/pharmacy #[id number] documented in this encounter Plan of Treatment Upcoming Encounters Date Type Department Care Team (Late st Contact Info) Description 03/25/2025 11:30 AM EST Office Visit [facility] MED & PEDS [address] [place] [address] Dorinda Iniguez MD [address] [place] [address] documented as of this encounter Visit Diagnoses Diagnosis Influenza B Influenza with other respiratory manifestations documented in this encounter Additional Health Concerns Assessment Noted Time PHQ-9 Depression Total Score: 4 08/17/19 24 1:37 PM EDT documented as of this encounter Care Teams Ecology Teacher Relationship Specialty Start Date End Date Dorinda Iniguez MD [address] [place] [address] PCP - General Family Medicine 04/24/18 Ginny Hernandez Compensation Programs ManagerDiplomatic Interpreter/Translator 01/17/24 documented as of this encounter
--- OUTSIDE RECORDS SUMMARY | 2025-02-28 14:52 | XMS_ITS | Encounter Summary ---
Author Organization [employer] Address [address] [place] [address] 7 [place] [address] Care Team Providers Care [place] Cutter Name Role Phone Dorinda Iniguez MD Primary Care Provider [phone] Encounter Details Date Type Department Care Team (Latest Contact Info) Description 04/22/2019 Abstract [facility] CONVERSIONS Dental, Provider, DDS Social History Tobacco [...] Description 03/25/2025 11:30 AM EST Office Visit [facility] MED & PEDS [address] [place] [address] Dorinda Iniguez MD [address] [place] [address] documented as of this encounter Visit Diagnoses Not on filedocumented in this encounter Care Teams [place] Cutter Relationship Specialty Start Date End Date Dorinda Iniguez MD [address] [place] [address] PCP - General Family Medicine 04/24/18 Ginny Hernandez Hearth FeederLab Systems Analyst 01/17/24 documented as of this encounter
--- OUTSIDE RECORDS SUMMARY | 2025-02-28 14:52 | XMS_ITS | Encounter Summary ---
Author Organization [employer] Address [address] [place] [address] 7 [place] [address] Care Team Providers Care Weeder Thinner Name Role Phone Dorinda Iniguez MD Primary Care Provider [phone] Reason for Visit * Reason Onset Date Comments Call Back Request 09/29/2023 Encounter Details Date Type Department Care Team ([facility] Contact Info) Description 09/29/2023 Telephone [facility] MED & PEDS [address] [place] [address] Dorinda Iniguez MD [address] [place] [address] Call Back Request Social History Tobacco Use [...] 10:56 AM EDT Tc to pt using [employer] [place] [place], [place] [phone]. Advised pt about message by Brenda. Pt [...] ENT for 04/04/24. Please contact pt at [phone] documented in this encounter Plan of Treatment Upcoming Encounters Date Type Department Care Team (Late st Contact Info) Description 03/25/2025 11:30 AM EST Office Visit [facility] MED & PEDS [address] [place] [address] Dorinda Iniguez MD [address] [place] [address] documented as of this encounter Visit Diagnoses Not on filedocumented in this encounter Additional Health Concerns Assessment Noted Time PHQ-9 Depression Total Score: 4 08/17/19 1:37 PM EDT documented as of this encounter Care Teams Weeder Thinner Relationship Specialty Start Date End Date Dorinda Iniguez MD [address] [place] [phone] PCP - General Family Medicine 04/24/18 Ginny Hernandez Analytical Laboratory TechnicianAdministration Manager 01/17/24 documented as of this encounter
--- OUTSIDE RECORDS SUMMARY | 2025-02-28 14:52 | XMS_ITS | Continuity of Care Document ---
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 The patient was advised to use a warm compress, follow a soft diet, and perform gentle massage to alleviate symptoms. The provider noted that hearing appears slightly worse in the left ear compared to the right ear, but the right ear is the one causing discomfort. A hearing test is recommended in one year to monitor any changes. FOLLOW-UP: The patient was instructed to contact her primary care provider if symptoms worsen or persist. [email or web address] Not available 02/17/2025 15:17:39 Plan of Treatment Reminders Order Date Submit Date Provider Last Modified By Organization Details Last Modified Time Details Appointments Establish ed 15 2025 09:30A M Hearing Test Not available Not available Not available Establish ed 15 2025 10:00A M DO TOLBERT Not available Not available Not available Lab None recorded. Referral None recorded. Procedures None recorded. Surgeries None recorded. Imaging None recorded. Medication Orders None recorded. Patient TargetsNo targets recorded. Patient Instructions Encounter Date Encounter Id Patient Instructions Last Modified By Organization Details Last Modified Time 02/17/2025 [id number] - Use a warm compress to alleviate symptoms. - Follow a soft diet. - Perform gentle massage to the affected area. - Contact primary care provider if symptoms worsen or persist. [email or web address] Not available 02/17/2025 15:17:39 Please note: Parts of this encounter note have been generated by AI based on audio conversation. Patient consent was required prior to utilizing this technology. Content review was required prior to finalizing the note. diana Not available 02/17/2025 15:17:40 Reason for Referral None Reported. Results Created Date Observation Date Name Description Value Unit Range Abnormal Flag Note LastModifiedBy Organization Detail LastModifiedTime 02/18/20 audio gram No observ ation record ed. BARCODE Not Available 2024 16:28:44 Result Notes None recorded. 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 Procedures Surgical History Date Name Laterality Status Provider Name and Address Organization Details Recorded Time 02/17/2025 Comp Audio with Tymps - 78975 & [id number] completed [facility] [address] [facility],[address], [address], [facility] 02/17/2025 14:53:58 Imaging Results None recorded. Procedure Notes None recorded. Medical Equipment None Reported. Medications Name Sig Start Date Stop Date Status Note LastModified by Organization Details LastModified Time albuterol sulfate 2.5 mg/3 mL (0.083 %) solution for nebulizatio n TAKE 3 ML (2.5 MG) VIA NEBULIZAT ION EVERY 6 HOURS NEEDED FOR WHEEZE active Not Available Not Available No t Available fluconazole 150 mg tablet TAKE 1 TABLET BY MOUTH ONE TIME FOR 1 DOSE active Not Available Not Available No t Available prednisone 20 mg tablet TAKE 1 TABLET (20 MG) BY MOUTH ONCE PER DAY FOR 5 DAYS. active Not Available Not Available No t Available metronidazo le 250 mg tablet TAKE 1 TABLET BY MOUTH 3 TIMES A DAY FOR 10 DAYS 02/17 completed Not Available Not Available Not Available verapamil ER (SR) 180 mg tablet,exte nded release TAKE 2 TABLETS BY MOUTH EVERY DAY active Not Available Not Available No t Available topiramate 25 mg tablet TAKE 1 TABLET BY MOUTH EVERY DAY MAY INCREASE BY 1 TAB EVERY 7 DAYS TO MAX OF 100MG A DAY active Not Available Not Available No t Available dextrometho rphan-guaif enesin 10 mg-100 mg/5 mL oral syrup TAKE 5 ML BY MOUTH EVERY 4 HOURS NEEDED FOR COUGH FOR UP TO 10 DAYS * NOT COVERED active Not Available Not Available No t Available tramadol 50 mg tablet TAKE 1 TABLET BY MOUTH 3 TIMES DAILY NEEDED FOR MODERATE TO SEVERE PAIN active Not Available Not Available No t Available acetaminoph en ER 650 mg tablet,exte nded release TAKE 1 CAP BY MOUTH EVERY 8 HOURS NEEDED FOR 14 DAYS active Not Available Not Available No t Available lorazepam 0.5 mg tablet TAKE 1 TAB ORALLY DAILY NEEDED FOR ANXIETY active Not Available Not [...] Not Available Not Available No t Available oseltamivir 75 mg capsule TAKE 1 CAPSULE BY MOUTH EVERY 12 HOURS FOR 5 DAYS active Not Available Not Available No t Available prednisone 50 mg tablet TAKE 1 TABLET BY MOUTH EVERY DAY FOR 5 DAYS active Not Available Not Available No t Available lidocaine 5 % topical patch APPLY TO LOWER BACK REGION AND LEAVE ON FOR 12 HOURS, THEN REMOVE FOR 12 HOURS. USE NEEDED active Not Available Not Available No t Available Advair Diskus 500 mcg-50 mcg/dose powder for inhalation INHALE 1 PUFF BY MOUTH 2 TIMES A DAY. RINSE MOUTH WITH WATER AFTER USE. DO NOT SWALLOW. active Not Available Not Available No t Available gabapentin 100 mg capsule TAKE 2 CAPSULES BY MOUTH AT BEDTIME active Not Available Not Available No t Available nystatin 100,000 unit/gram topical powder APPLY TO AFFECTED AREA TWICE A DAY active Not Available Not Available No t Available ibuprofen 600 mg tablet TAKE 1 TABLET BY MOUTH 3 TIMES A DAY FOR 10 DAYS active Not Available Not Available No t Available fluticasone propionate 50 mcg/actuati on nasal spray,suspe nsion INSERT 1-2 SPRAYS IN EACH NOSTRIL EVERY DAY NEEDED active Not Available Not Available No t Available amoxicillin 875 mg-potassiu m clavulanate 125 mg tablet TAKE 1 TABLET BY MOUTH TWICE A DAY FOR 10 DAYS 02/17 completed Not Available Not Available Not Available amoxicillin 500 mg-potassiu m clavulanate 125 mg tablet TAKE 1 TABLET BY MOUTH THREE TIMES A DAY 02/17 completed Not Available Not Available Not Available Ventolin HFA 90 mcg/actuati on aerosol inhaler INHALE 2 PUFFS BY MOUTH EVERY 6 HOURS NEEDED FOR WHEEZE active Not Available Not Available No t Available pregabalin 75 mg capsule TAKE 1 [...] Available Not Available No t Available Zepbound 10 mg/0.5 mL subcutaneou s pen injector INJECT 0.5 ML (10 MG) UNDER THE SKIN 1 (ONE) TIME PER WEEK. active Not Available Not Available No t Available Zepbound 5 mg/0.5 mL subcutaneou s pen injector INJECT 0.5 ML (5 MG) UNDER THE SKIN 1 (ONE) TIME PER WEEK. active Not Available Not Available No t Available Zepbound 2.5 mg/0.5 mL subcutaneou s pen injector INJECT 0.5 ML (2.5 MG) UNDER THE SKIN 1 (ONE) TIME PER WEEK. active Not Available Not Available No t Available Zepbound 7.5 mg/0.5 mL subcutaneou s pen injector INJECT 7.5 MG UNDER THE SKIN ONCE A WEEK. active Not Available Not Available No t Available Vitals None Recorded Social History None recorded. Functional Status None recorded. Mental Status None recorded. Family History Nothing Reported. Medical History Condition Response Asthma Y Sleep Disorder Y Gynecological HistoryNo gynecological history recorded. Obstetrics History GPAL:G 0 P 0 0 0 0 Past Encounters Encounter ID Performer Location Encounter Start Date Encounter Closed Date Diagnosis/Indication Diagnosis SNOMED-CT Code Diagnosis ICD10 Code Diagnosis IMO Codes Diagnosis Note [id number] KANNAN MOE MD [facility] [address] [address] 02/17/2025 14:22:26 02/17/2025 15:22:05 Abnormal auditory perception 25363972 H93.291 [id number] Sensorineu ral hearing loss of left ear with normal hearing on right side 8236044917 H90.42 [id number] Right Ear:Normal hearing with excellent speech discrimina tion.Type A tympanogra m.Left Ear:Normal hearing with mild HL at 3K Hz only with excellent speech discrimina tion.Type A tympanogra m. Pain of ri ght temporomandibular joint [id number] 0178238 M26.621 [id number] Health Concerns Section Related Observation LastModified by Organization Detai ls LastModified Time None Recorded Concern Status LastModified by Organization Details LastModified Time None Recorded Payers Encounter Date Sequence Insurance Name Policy Number Policy Ash Covered Member ID Ash Member ID Guarantor Name 02/17/2025 1 [place] [facility] PL[facility] Chelle Sesayista [id number] Chelle Melchor Notes Date Note Type Note Provider Name and Address Organization Details Recorded Time 02/17/2025 text/html ROS as noted in the HPI Chelle Melchor is a 59-year-old female who presents for evaluation of right ear pain. The patient reports that the pain started in October and lasted for two days. She states that the pain comes and goes and is sometimes accompanied by ringing in the right ear. She denies any trouble with hearing. The patient does not use a CPAP machine for sleep apnea due to claustrophobia. The provider noted tenderness in the right jaw and suggested that the pain may be related to arthritis in the jaw, potentially caused by missing teeth, which may have affected the alignment of the jaw. An automotive exhaust emissions technician was present during the session to assist with communication. KANNAN FLORES MD [address] [place] [address], [phone], [facility] - [facility] 02/17/2025 15:44:32 OBGyn Episode No OBEpisode recorded.
--- OUTSIDE RECORDS SUMMARY | 2025-02-28 14:52 | XMS_ITS | Encounter Summary ---
Author Organization [employer] Address [address] [facility] 7 [place] [address] Care Team Providers Care District Sales Leader Name Role Phone Dorinda Iniguez MD Primary Care Provider [phone] Reason for Visit * Reason Onset Date Comments Medication Question 04/12/2024 Encounter Details Date Type Department Care Team ([facility] st Contact Info) Description 04/12/2024 Telephone [facility] [address] [place] [address] Dorinda Iniguez MD [address] [place] [phone] Medication Question Social History Tobacco Use Types [...] and it doesn't help. Contact pt at [phone] documented in this encounter Plan of Treatment Upcoming Encounters Date Type Department Care Team (Late st Contact Info) Description 03/25/2025 11:30 AM EST Office Visit [facility] [address] [place], [place] [phone] Dorinda Iniguez MD [address] [place], [place] [phone] documented as of this encounter Visit Diagnoses Not on filedocumented in this encounter Additional Health Concerns Assessment Noted Time PHQ-9 Depression Total Score: 4 08/17/19 24 1:37 PM EDT documented as of this encounter Care Teams District Sales Leader Relationship Specialty Start Date End Date Dorinda Iniguez MD [address] [place] [address] PCP - General Family Medicine 04/24/18 Ginny Hernandez Job Service SpecialistGun Number 01/17/24 documented as of this encounter
--- OUTSIDE RECORDS SUMMARY | 2025-02-28 14:52 | XMS_ITS | Patient Health Record ---
Author Organization [facility] Address [address] [place] [address] Care Team Providers Care Operations Support Specialist Name Role Phone Hira JASON, Dorinda Primary Care Provider Jeffrey Blackman Jr Unavailable Allergies Allergen (clinical drug ingredient) Drug/Non Drug Allergy documented on EMR Reaction Allergy Type Onset Date Status lisinopril Lisinopril Unknown Drug Allergy Activ e Results Component Value Reference Range Notes Complete Blood Count no Diff Reviewed date:10/22/2024 03:41:25 PM Interpretation: Performing Lab:[facility], [address] [place] [phone] Notes/Report: White Blood Count 9.3 4.8-10.8 X10*3/uL [...] Panel Reviewed date:10/22/2024 03:38:48 PM Interpretation: Performing Lab:[facility], [address] [place] [phone] Notes/Report: Bilirubin Total 0.6 0.0-1.0 mg/dL Bilirubin Direct 0.2 0.0-0.5 mg/dL Aspartate Amino Transferase 17 5-31 U/L Alanine Aminotransferase 12 0-31 U/L Total Protein 6.4 6.5-8.0 g/dL Albumin Level 4.0 3.5-5.0 g/dL Alkaline Phosphatase 78 39-117 U/L Blood Urea Nitrogen Reviewed date:10/15/2024 04:39:10 PM Interpretation: Performing Lab:[facility], [address] [place] [phone] Notes/Report: Blood Urea Nitrogen 21 9-16 mg/dL Creatinine Reviewed date:10/15/2024 04:39:19 PM Interpretation: Performing Lab:[facility], [address] [place] [phone] Notes/Report: Creatinine 1.01 0.5-1.4 mg/dL Estimated Glomerular Filt Rate 56 Chronic Kidney Disease: Estimated GFR < 60 mL/min/1.73m2 Severe Kidney Disease: Estimated GFR < 15 mL/min/1.73m2 Lipase Reviewed date:10/22/2024 03:39:01 PM Interpretation: Performing Lab:[facility], [address] [place] [phone] Notes/Report: Lipase 8 8-78 U/L Pathology Reviewed date:11/04/2024 08:11:06 AM Interpretation: Performing Lab:[facility], [address] [place] [phone] Notes/Report: CT abdomen pelvis w con Reviewed date:11/14/2024 08:46:19 AM Interpretation: Performing Lab: Notes/Report: [address] [address] [address] Scan Report Signed Patient: Chelle Helm MR# : [id number] : 1965 Acct:[id number] Age/Sex: 59 / F ADM Date: 11/12/24 Loc: HO.CT Attending Dr: Jeffrey Narayan MD Ordering Physician: Jeffrey Narayan MD Date of Service: 11/12/24 Procedure(s): CT abdomen pelvis w IV con Accession Number(s): [id number] cc: Dorinda Iniguez MD; Jeffrey Narayan MD Report Number: [id number]: Total DLP = 667.00 mGy-cm EXAMINATION: CT [...] 11/12/24 1217 DD/ 1156 TD/TT: 11/12/24 1209 Core Analysis Operator: Creatinine GFR POC Reviewed date:11/14/2024 08:44:34 AM Interpretation: Performing Lab:[facility], [address] [place] [phone] Notes/Report: [id number] 1.14 52 1149 [place] Creatinine POC 1.1 0.5-1.4 mg/dL GFR POC 52 Chronic Kidney Disease: Estimated GFR < 60 mL/min/1.73m2 Severe Kidney Disease: Estimated GFR < 15 mL/min/1.73m2 Reason For Referral Referring Provider First Name Dorinda Referring Provider Last Name Hira Referring Provider Speciality Internal M edicine Referred Organization [facility] Referred Provider Jeffrey Narayan Jr Referred Address [address] [place] [phone], Referred Provider Specialty Gastroentero logy General Awilda Harvey 2024 02:39:04 PM >[place]ED [place] REFERRAL FROM [facility] FOR VISIT WITH DR NARAYAN ON [phone] Referral Priority Routine Reason small right groin he rnia Diagnosis 1 Right inguinal pain (R10.31) Referral Organization [facility] Referring Provider First Name Jeffrey Referring Provider Last Name Gabriel Coronado Referring Provider Speciality Gastroente rology Referred Provider Ibrahima Victoria Referred Provider Specialty Surgery Referral Priority Routine Referral Appointment Date 01/14/2025 Medications Medication SIG (Take, Route, Frequency, Duration) Notes Start Date End Date Status Sucralfate 1 GM TAKE ONE TABLET BY MOUTH THREE TIMES DAILY ON AN EMPTY STOMACH ONE HOUR BEFORE MEALS AND AT BEDTIME Diagnosis Unavailable Oral; Duration: 30 Unknown Dicyclomine HCl 20 MG 1 tablet Orally 2- 4 times a day; Duration: 30 days 03/14/2019 Unknown Ventolin HFA 108 (90 Base) MCG/ACT INHALE ONE PUFF EVERY 4 HOURS NEEDED FOR COUGH Inhalation; Duration: 36 J4540,Unava ilable Unknown Cyanocobalamin 1000 MCG/ML INJECT 1ml INTRAMUSCULARLY EVERY MONTH Injection; Duration: 28 Unknown Pregabalin 75 MG ONE BY MOUTH EVERY NIGHT X3 DAYS THEN ONE BY MOUTH TWICE A DAY Oral; Duration: 30 Unknown Biotin Maximum Strength 5000 MCG TAKE ONE CAPSULE DAILY Oral; Duration: 90 Unknown Gabapentin 300 MG TAKE ONE OR TWO CAPSULES AT BEDTIME NEEDED Oral; Duration: 30 Unknown Metoprolol Tartrate 100 MG TAKE ONE TABLET BY MOUTH TWICE DAILY Oral; Duration: 30 Unknown traMADol HCl 50 MG TAKE 1 TABLET BY MOUTH THREE TIMES A DAY NEEDED FOR MODERATE TO SEVERE PAIN Oral; Duration: 20 Unknown ProAir HFA 108 (90 Base) MCG/ACT INHALE ONE PUFF EVERY 4 HOURS NEEDED FOR COUGH Inhalation; Duration: 30 Unknown FLUoxetine HCl 20 MG TAKE ONE CAPSULE EVERY MORNING Oral; Duration: 30 Unknown Zepbound 7.5 MG/0.5ML INJECT 0.5 ML (7.5 MG) UNDER THE SKIN 1 (ONE) TIME PER WEEK. Subcutaneous; Duration: 28 Days Unknown hydrALAZINE HCl 100 MG TAKE ONE TABLET T WICE DAILY WITH FOOD Oral; Duration: 30 Unknown hydroCHLOROthiazide 25 MG TAKE ONE TABLE T BY MOUTH EVERY MORNING Diagnosis Unavailable Oral; Duration: 90 Unknown Chlorthalidone 50 MG TAKE ONE TABLET LAZ LY Oral; Duration: 30 Unknown Verapamil HCl ER 360 MG TAKE ONE CAPSULE BY MOUTH EVERY DAY Oral; Duration: 30 Unknown Vitamin D (Ergocalciferol) 1.25 MG (95702 UT) TAKE ONE CAPSULE EVERY WEEK Oral; Duration: 28 Unknown LORazepam 0.5 MG one in morning two a t night Oral Twice a day Unknown Lidocaine Unknown Vitamin D3 50 MCG (2000 UT) TAKE ONE CAPSULE BY MOUTH TWICE DAILY Oral; Duration: 30 Unknown Albuterol Sulfate (2.5 MG/3ML) 0.083% INHALE ONE AMPULE USING A NEBULIZER THREE TIMES DAILY NEEDED Inhalation; Duration: 10 Unknown Vitamin C Unknown Collagen Unknown Multivitamin Unknown Biotin Unknown Pantoprazole Sodium 40 MG 1 tablet Orall y Once a day; Duration: 30 day(s) 07/01/2021 Unknown Loperamide HCl 2 MG 1 capsule as needed Orally Four times a day; Duration: 30 days 03/14/2019 Unknown Immunizations Vaccine Route Administration Date Status Comme [...] Problem Status W/U Status Risk Notes Problem Epigastric pain (99199535) Epigastric pain (R10.13) Active confirmed Problem Screening for malignant neoplasm of colon (647153879) Special screening for malignant neoplasms, colon (Z12.11) Active confirmed Problem Irritable bowel syndrome with diarrhea (618388132) Irritable bowel syndrome with diarrhea (K58.0) Active confirmed Problem Gastroesophageal reflux disease without esophagitis (022981589) Gastroesophageal reflux disease without esophagitis (K21.9) Active confirmed Vital Signs Temperature 97.8 degrees Fahrenheit 10/11/2024 Blood pressure diastolic 01 mm Hg 10/11/2024 Height 64 in 10/11/2024 Blood pressure systolic 001 mm Hg 10/11/2024 Weight 236.4 lbs 10/11/2024 BMI 40.57 kg/m2 10/11/2024 Encounters Encounter Location Date Provider Diagnosis [facility] [address] [place] [id number] 10/30/2024 Jeffrey Narayan Jr [facility] [address] [place] [phone] 10/11/2024 Jeffrey Narayan Jr Abdominal pain R10.9 ; Irritable bowel syndrome with diarrhea K58.0 and Special screening for malignant neoplasms, colon Z12.11 [facility] [address] [place] [phone] 10/11/2024 Jeffrey Narayan Jr [facility] [address] [place] [phone] 10/22/2024 Jeffrey Narayan Jr [facility] [address] [place] [phone] 11/04/2024 Jeffreyconnor Narayan Jr [facility] [address] [place] [address] 11/14/2024 Jeffrey Gabriel Coronado [facility] [address] [place] [address] 12/31/2024 Jeffrey Gabriel Coronado Assessments Encounter Date Diagnosis (ICD Code) Assessment [...] symptoms today. She will have further evaluation withf urther laboratory testing, CT imaging, and endoscopy [...] symptoms today. She will have further evaluation withf urther laboratory testing, CT imaging, and endoscopy [...] Start Date Coverage End Date [facility] [address] [place] [id number] CHELLE WRIGHT Self - patient is the [...]
--- OUTSIDE RECORDS SUMMARY | 2025-02-28 14:52 | XMS_ITS | Encounter Summary ---
Author Organization [employer] Address [address] [place] [address] 7 [place] [address] Care Team Providers Care Rodeo Clown Name Role Phone Dorinda Iniguez MD Primary Care Provider [phone] Reason for Visit * Reason Comments Med Refill Encounter Details Date Type Department Care Team ([facility] st Contact Info) Description 03/05/2024 Refill [facility] [address] [place], [place] [phone] Dorinda Iniguez MD [address] [place] [address] Social History Tobacco Use Types Packs/Day Years [...] Upcoming Encounters Date Type Department Care Team ([facility] st Contact Info) Description 03/25/2025 11:30 AM EST Office Visit [facility] [address] [place] [address] Dorinda Iniguez MD [address] [place] [address] documented as of this encounter Visit Diagnoses Not on filedocumented in this encounter Additional Health Concerns Assessment Noted Time PHQ-9 Depression Total Score: 4 08/17/19 24 1:37 PM EDT documented as of this encounter Care Teams Rodeo Clown Relationship Specialty Start Date End Date Dorinda Iniguez MD [address] [place] [address] PCP - General Family Medicine 04/24/18 Ginny Hernandez [employer] ProgrammerOperations Research Manager 01/17/24 documented as of this encounter
--- OUTSIDE RECORDS SUMMARY | 2025-02-28 14:52 | XMS_ITS | Data Portability ---
Author Organization [place] [facility], Allergy Address [address] [address] Care Team Providers Care Sales Representative Health Insurance Name Role Phone LANCE KELLER Primary Care [...] By Organization Details Last Modified Time 02/17/2025 [id number] - Use a warm compress to alleviate [...] was required prior to finalizing the note. [email or web address] Not available 02/17/2025 15:17:40 Reason for Referral None Reported. Results Created Date Observation Date Name Description Value Unit Range Abnormal Flag Note LastModifiedBy Organization Detail LastModifiedTime 02/18/20 25 audio gram No observ ation record ed. BARCODE Not Available 2024 16:28:44 Result Notes None recorded. 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 Procedures Surgical History Date Name Laterality Status Provider Name and Address Organization Details Recorded Time 02/17/2025 Comp Audio with Tymps - 35276 & 28163 completed LE BUTT, [facility] 100 [facility],[address], [address], [facility] 02/17/2025 14:53:58 Imaging Results None recorded. Procedure [...] No t Available pantoprazol e 40 mg tablet,imle yed release TAKE 1 TABLET BY MOUTH [...] ICD10 Code Diagnosis IMO Codes Diagnosis Note [id number] KANNAN MOE MD [facility] [address] [address] 02/17/2025 14:22:26 02/17/2025 15:22:05 Abnormal auditory perception 53871052 H93.291 [id number] Sensorineu ral hearing loss of left ear with normal hearing on right side 3628035202 H90.42 10517780 Right Ear:Normal hearing with excellent speech discrimina tion.Type A tympanogra m.Left Ear:Normal hearing with mild HL at 3K Hz only with excellent speech discrimina tion.Type A tympanogra m. Pain of ri ght temporomandibular joint [id number] 7925622 M26.621 [id number] Health Concerns Section Related Observation LastModified by Organization Detai ls LastModified Time None Recorded Concern Status LastModified by Organization Details LastModified Time None Recorded Advance Directives Directive None Recorded Payers Insurance Date Sequence Insurance Name Policy Number Policy Ash Covered Member ID Ash Member ID Guarantor Name 02/17/2025 1 [place] [facility] Chelle Melendez Ruiz [id number] Chelle Melchor 02/17/2025 1 [place] [facility] Chelle Melendez Ruiz [id number] Chelle Melchor Notes Date Note Type Note [...] affected the alignment of the jaw. An full time staff interpreter was present during the session to assist with communication. KANNAN FLORES MD [address] [place] [address], [address], [facility] - [facility] 02/17/2025 15:44:32 OBGyn Episode No OBEpisode recorded.
--- OUTSIDE RECORDS SUMMARY | 2025-02-28 14:52 | XMS_ITS | Encounter Summary ---
Author Organization [employer] Address [address] [facility] 7t [place] [address] Care Team Providers Care Certified Scrub Tech Name Role Phone Dorinda Iniguez MD Primary Care Provider [phone] Encounter Details Date Type Department Care Team ([facility] st Contact Info) Description 08/04/2023 Orders Only [facility] CHC MED & PEDS [address] [place] [address] ProviderSakina MD Social History Tobacco Use Types [...] Upcoming Encounters Date Type Department Care Team ([facility] st Contact Info) Description 03/25/2025 11:30 AM EST [facility] [address] [place] [address] Dorinda Iniguez MD [address] [place] [address] documented as of this encounter Procedures Procedure Name Priority Date/Time Associated Diagnosis Comments MAMMOGRAPHY SCREENING Routine 08/04/2023 3:41 PM EDT documented in this encounter Results * MAMMOGRAPHY SCREENING (08/04/2023 3:41 PM EDT) Anatomical Region Laterality Modality Breast Left Mammography Historical Provider MD AQUINO BI PROCEDURES Final R esult documented in this encounter Visit Diagnoses Not on filedocumented in this encounter Additional Health Concerns Assessment Noted Time PHQ-9 Depression Total Score: 4 06/09/19 23 1:44 PM EST documented as of this encounter Care Teams Certified Scrub Tech Relationship Specialty Start Date End Date Dorinda Iniguez MD [address] [place] [address] PCP - General Family Medicine 04/24/18 Ginny Hernandez Recreation SpecialistRailroad Passenger Agent 01/17/24 documented as of this encounter
--- OUTSIDE RECORDS SUMMARY | 2025-02-28 14:52 | XMS_ITS | Encounter Summary ---
Author Organization [employer] Address [address] [facility] 7 [place] [address] Care Team Providers Care Aerospace Stress Engineer Name Role Phone Dorinda Iniguez MD Primary Care Provider [phone] Reason for Visit * Reason Onset Date Comments Paperwork/Forms 08/17/2023 Encounter Details Date Type Department Care Team ([facility] st Contact Info) Description 08/17/2023 Telephone [facility] MEDICINE [address] [place] [address] Dorinda Iniguez MD [address] [place] [phone] Paperwork/Forms Social History Tobacco Use Types Packs/Day [...] EDT Last OV faxed as requested to [facility] LVM to return call. * Telephone Encounter - Piotr Mata - 08/17/2023 2:01 PM EDT Tc from Jarret the [facility] at [facility] requesting orders to restart home services and the last officeto be faxed to [phone] documented in this encounter Plan of Treatment Upcoming Encounters Date Type Department Care Team (Late st Contact Info) Description 03/25/2025 11:30 AM EST Office Visit [facility] MED & PEDS [address] [place] [address] Dorinda Iniguez MD [address] [place] [address] documented as of this encounter Visit Diagnoses Not on filedocumented in this encounter Additional Health Concerns Assessment Noted Time PHQ-9 Depression Total Score: 4 08/17/19 24 1:37 PM EDT documented as of this encounter Care Teams Aerospace Stress Engineer Relationship Specialty Start Date End Date Dorinda Iniguez MD [address] [place] [address] PCP - General Family Medicine 04/24/18 Ginny Hernandez Offal SeparatorConsumer Loan Underwriter 01/17/24 documented as of this encounter
--- OUTSIDE RECORDS SUMMARY | 2025-02-28 14:52 | XMS_ITS | Encounter Summary ---
Author Organization [employer] Address [address] [facility] 7t [place] [address] Care Team Providers Care Manifold Builder Name Role Phone Dorinda Iniguez MD Primary Care Provider [phone] Encounter Details Date Type Department Care Team ([facility] st Contact Info) Description 03/03/2023 Abstract [facility] MEDICINE [address] [place], [place] [phone] Sarahi Pearl Social History Tobacco Use Types [...] Upcoming Encounters Date Type Department Care Team ([facility] st Contact Info) Description 03/25/2025 11:30 AM EST Office Visit [facility] MED & PEDS [address] [place] [address] Dorinda Iniguez MD [address] [place] [address] documented as of this encounter Procedures Procedure Name Priority Date/Time Associated Diagnosis Comments COLONOSCOPY Routine 09/25/2020 documented in this encounter Results * Colonoscopy (09/25/2020) Colonoscopy Normal Normal Narrative RyanneSarahi adan - 09/25/2020 Recommended 5 year follow up us Historical Provider HEALTH MAINTENANCE Final Result documented in this encounter Visit Diagnoses Not on filedocumented in this encounter Additional Health Concerns Assessment Noted Time PHQ-9 Depression Total Score: 4 06/09/19 23 1:44 PM EST documented as of this encounter Care Teams Manifold Builder Relationship Specialty Start Date End Date Dorinda Iniguez MD [address] [place] [address] PCP - General Family Medicine 04/24/18 Ginny Hernandez Legal Secretary ReceptionistProcess Equipment Operator 01/17/24 documented as of this encounter
--- OUTSIDE RECORDS SUMMARY | 2025-02-28 14:52 | XMS_ITS | Encounter Summary ---
Author Organization [employer] Address 75 [facility] 7 [place] [address] Care Team Providers Care Ceo [place] Name Role Phone Dorinda Iniguez MD Primary Care Provider [phone] Reason for Visit * Reason Onset Date Comments Appointment Request 06/15/2023 Encounter Details Date Type Department Care Team ([facility] st Contact Info) Description 06/15/2023 Telephone [facility] MEDICINE [address] [place] [address] Dorinda Iniguez MD [address] [place] [address] Appointment Request Social History Tobacco Use Types [...] PCP before traveling and also do PE. Dutch Speaker documented in this encounter Plan of Treatment Upcoming Encounters Date Type Department Care Team (Late st Contact Info) Description 03/25/2025 11:30 AM EST Office Visit [facility] MED & PEDS [address] [place] [address] Dorinda Iniguez MD [address] [place] [address] documented as of this encounter Visit Diagnoses Not on filedocumented in this encounter Additional Health Concerns Assessment Noted Time PHQ-9 Depression Total Score: 4 06/09/19 23 1:44 PM EST documented as of this encounter Care Teams Ceo [place] Relationship Specialty Start Date End Date Dorinda Iniguez MD [address] [place] [address] PCP - General Family Medicine 04/24/18 Ginny Hernandez Fringe MakerInfantry Weapons Crewmember 01/17/24 documented as of this encounter
--- OUTSIDE RECORDS SUMMARY | 2025-02-28 14:52 | XMS_ITS | Encounter Summary ---
Author Organization [employer] Address [address] [place] [address] 7 [place] [address] Care Team Providers Care Environmental Protection Specialist Name Role Phone Dorinda Iniguez MD Primary Care Provider [phone] Encounter Details Date Type Department Care Team (Latest Contact Info) Description 09/08/2021 Abstract [facility] CONVERSIONS Dental, Provider, DDS Social History [...] Description 03/25/2025 11:30 AM EST Office Visit [facility] CHC MED & PEDS [address] [place] [address] Dorinda Iniguez MD [address] [place] [address] documented as of this encounter Visit Diagnoses Not on filedocumented in this encounter Care Teams Environmental Protection Specialist Relationship Specialty Start Date End Date Dorinda Iniguez MD [address] [place] [address] PCP - General Family Medicine 04/24/18 Ginny Hernandez Electronic Game DeveloperGreige Goods Inspector 01/17/24 documented as of this encounter
--- OUTSIDE RECORDS SUMMARY | 2025-02-28 14:52 | XMS_ITS | Encounter Summary ---
Author Organization [employer] Address [address] [place] [address] 7 [place] [address] Care Team Providers Care Hyperbaric Technologist Name Role Phone Dorinda Iniguez MD Primary Care Provider [phone] Reason for Visit * Reason Comments Med Refill Encounter Details Date Type Department Care Team ([facility] Contact Info) Description 11/08/2022 Refill [facility] MED & PEDS [address] [place], [place] [phone] Dorinda Iniguez MD [address] [place] [address] Vitamin D deficiency; Generalized anxiety disorder Social [...] Upcoming Encounters Date Type Department Care Team ([facility] Contact Info) Description 03/25/2025 11:30 AM EST Office Visit [facility] CHC MED & PEDS [address] [place] [address] Dorinda Iniguez MD [address] [place] [address] documented as of this encounter Visit Diagnoses Diagnosis Vitamin D deficiency Generalized anxiety disorder documented in this encounter Additional Health Concerns Assessment Noted Time PHQ-9 Depression Total Score: 4 06/09/19 23 1:44 PM EST documented as of this encounter Care Teams Hyperbaric Technologist Relationship Specialty Start Date End Date Dorinda Iniguez MD [address] [place] [address] PCP - General Family Medicine 04/24/18 Ginny Hernandez Construction EngineerSolvent Recoverer 01/17/24 documented as of this encounter
--- OUTSIDE RECORDS SUMMARY | 2025-02-28 14:52 | XMS_ITS | Encounter Summary ---
Author Organization [employer] Address [address] [place] [address] 7 [place] [address] Care Team Providers Care Signal Tester Name Role Phone Dorinda Iniguez MD Primary Care Provider [phone] Encounter Details Date Type Department Care Team (Latest Contact Info) Description 10/15/2018 Abstract [facility] CONVERSIONS Dental, Provider, DDS Social [...] Description 03/25/2025 11:30 AM EST Office Visit [facility] CHC MED & PEDS [address] [place] [address] Dorinda Iniguez MD [address] [place] [address] documented as of this encounter Visit Diagnoses Not on filedocumented in this encounter Care Teams Signal Tester Relationship Specialty Start Date End Date Dorinda Iniguez MD [address] [place] [address] PCP - General Family Medicine 04/24/18 Ginny Hernandez Hogshead HooperKaiako Kura Kaupapa Maori 01/17/24 documented as of this encounter
--- OUTSIDE RECORDS SUMMARY | 2025-02-28 14:52 | XMS_ITS | Clinical Summary ---
Author Organization [facility] Address [address] [place] [address] Phone Care Team Providers Care Alley Worker Name Role Phone Dorinda Iniguez MD Primary Care Provider [phone] Allergies Active Allergy Reactions Criticality Noted Date [...] complete this topic Insurance Medicaid [place] Medicaid [place] Care Teams Alley Worker Relationship Specialty Start Date End Date Dorinda Iniguez MD [address] PCP - General Internal Medicine 07/06/22
== END 2025-02-28 14:18 | disposition home or self-care (01) ==
LOC: HO.HGS 12:42
PROVIDERS: PCP Pediatrics; Visit Provider Surgery
DX: K40.90 Unilateral inguinal hernia, without obstruction or gangrene, not specified as recurrent (principal)
CPT/HCPCS: 99204

== ENCOUNTER → 2025-02-28 12:42 | Outpatient (BNVA) | payer MEDICAID, SELFPAY | PROVIDERS: PCP Pediatrics; Visit Provider Surgery | DX: Z71.2 Person consulting for explanation of examination or test findings (principal); K40.90 Unilateral inguinal hernia, without obstruction or gangrene, not specified as recurrent | CPT/HCPCS: 99202 ==

== ENCOUNTER 2025-03-05 14:36 | Outpatient (REF) | payer MEDICAID, SELFPAY ==
--- OUTSIDE RECORDS SUMMARY | 2024-10-30 09:00 | XMS_ITS ---
Author Organization [facility] Address [address] [place] [phone] Care Team Providers Care Spindle Frame Carver Name Role Phone Hira JASON, Dorinda Primary Care Provider Ute Rios Jr, Jeffrey Goins REASON FOR VISIT abdominal pain Encounters Encounter Location Date Provider Diagnosis [facility] [address] [place] [id number] 10/30/2024 Jeffrey Rios Jr Plan Of Treatment No Information Progress Notes * RAYMOND WRIGHT MDOB: [birth year] (59 yo F)Acc No.[id number]:10/30/2024 EGD/MAC Patient: Jerrell RAYMOND HERNANDEZ Provider: Jerrell Rios MD :1965 A ge:59 Y S ex:Female Date:10/30/2024 Address:[address] [place] [address] Pcp:Dorinda Iniguez MD Subjective: * Chief Complaints: * 1 . Abdominal pain. * Medical History: Objective: * Vitals: Assessment: Plan: * Treatment: * * The named appointment provid er may or may not be the originator of this progress note, and it is not deemed complete until electronically signed by the appointment provider. Sign off status: Pending * Provider: Jerrell Rios MD Date: 0 10/30/2024 Generated for Adrianai ng/Faxing/eTransmitting on: 1 05/05/2024 09:55 AM EST
--- OUTSIDE RECORDS SUMMARY | 2025-03-01 23:59 | XMS_ITS | Continuity of Care Document ---
Author Organization [facility] Address [address] [place] [address]- Care Team Providers Care Capacity Planning Analyst Name Role Phone Hira JASON, Dorinda Melendez Primary Care Physician [id number] Date(s): 01/30/25 - 03/01/[address] [address]- Attending Physician: Grace Hamm Admitting Physician: Grace Hamm Referring Physician: Grace Hamm Encounter Type: Triage Allergies, Adverse Reactions, Alerts Substance Criticality Severity Reaction Reaction Severity Status lisinopril cough Active Medications albuterol 2.5mg / 3mL (0.083%) (OP) 3 mL = 2.5 mg, Neb, 3 times a day, PRN Wheezing/Shortness of Breath, 0 Refills, Maintenance Start Date: 01/01/19 Status: Ordered Medication Dispense Status: Completed Total Allowed Fills: 1 Fills Dispensed: 0 biotin 5 mg oral capsule TAKE ONE CAPSULE DAILY Start Date: 02/22/21 Status: Ordered Medication Dispense Status: Completed Total Allowed Fills: 1 Fills Dispensed: 0 chlorthalidone 25 mg oral tablet 25 mg, 1, tablet, By Mouth, Daily, # 30 tablet, Refills 0, Maintenance, 01/01/19 1:55:43 PM EDT Start Date: 01/01/19 Status: Ordered Medication Dispense Status: Completed Quantity: 30.0 Unit: tablet Total Allowed Fills: 1 Fills Dispensed: 0 Famotidine = 40 mg, By Mouth, 2 times a day, 0 Refills, Maintenance, 06/22/16 1:23:07 PM EST Start Date: 06/22/16 Status: Ordered Medication Dispense Status: Completed Total Allowed Fills: 1 Fills Dispensed: 0 Flovent HFA 220 mcg/inh inhalation aerosol INHALE ONE PUFF TWICE DAILY. RINSE MOUTH AFTER USE. Start Date: 02/22/21 Status: Ordered Medication Dispense Status: Completed Total Allowed Fills: 1 Fills Dispensed: 0 hydrALAZINE 100 mg oral tablet TAKE ONE TABLET BY MOUTH TWICE DAILY WITH FOOD. Start Date: 02/22/21 Status: Ordered Medication Dispense Status: Completed Total Allowed Fills: 1 Fills Dispensed: 0 hydrOXYzine hydrochloride 50 mg oral tablet TAKE ONE TABLET AT BEDTIME NEEDED Start Date: 02/22/21 Status: Ordered Medication Dispense Status: Completed Total Allowed Fills: 1 Fills Dispensed: 0 loperamide 2 mg oral capsule TAKE ONE CAPSULE FOUR TIMES DAILY NEEDED FOR DIARRHEA Start Date: 02/22/21 Status: Ordered Medication Dispense Status: Completed Total Allowed Fills: 1 Fills Dispensed: 0 LORazepam 0.5 mg oral tablet 1 tablet = 0.5 mg, By Mouth, Daily, PRN as needed for anxiety, 0 Refills, Maintenance, 01/01/19 1:58:04 PM EDT, Tablet Start Date: 01/01/19 Status: Ordered Medication Dispense Status: Completed Total Allowed Fills: 1 Fills Dispensed: 0 Magnesium Chloride = 260 mg, By Mouth, Daily, 0 Refills, Maintenance, 01/01/19 1:58:42 PM EDT Start Date: 01/01/19 Status: Ordered Medication Dispense Status: Completed Total Allowed Fills: 1 Fills Dispensed: 0 metoprolol 100 mg oral tablet 100 mg, 1, tablet, By Mouth, 2 times a day, # 180 tablet, Refills 0, Maintenance, 01/01/19 1:51:29 PM EDT Start Date: 01/01/19 Status: Ordered Medication Dispense Status: Completed Quantity: 180.0 Unit: tablet Total Allowed Fills: 1 Fills Dispensed: 0 mirtazapine 7.5 mg oral tablet TAKE ONE TABLET AT BEDTIME NEEDED Start Date: 02/22/21 Status: Ordered Medication Dispense Status: Completed Total Allowed Fills: 1 Fills Dispensed: 0 nystatin topical 532330 u/gm cream APPLY TO THE AFFECTED AREA(S) TWICE DAILY. Start Date: 02/22/21 Status: Ordered Medication Dispense Status: Completed Total Allowed Fills: 1 Fills Dispensed: 0 omeprazole 40 mg oral enteric coated capsule TAKE ONE CAPSULE BY MOUTH EVERY DAY BEFORE BREAKFAST. Start Date: 02/22/21 Status: Ordered Medication Dispense Status: Completed Total Allowed Fills: 1 Fills Dispensed: 0 ProAir HFA 1 puffs, Inhalation, Every 4 hours, PRN Wheezing/Shortness of Breath, 0 Refills, Maintenance, 09/11/14 11:54:23 AM EDT Start Date: 09/11/14 Status: Ordered Medication Dispense Status: Completed Total Allowed Fills: 1 Fills Dispensed: 0 sucralfate 1 gm oral tablet TAKE ONE TABLET THREE TIMES DAILY ON AN EMPTY STOMACH ONE HOUR BEFORE MEALS AND AT BEDTIME Start Date: 02/22/21 Status: Ordered Medication Dispense Status: Completed Total Allowed Fills: 1 Fills Dispensed: 0 verapamil 300 mg oral capsule, extended release 1 capsule = 300 mg, By Mouth, Daily at bedtime, # 30 capsule, 0 Refills, Maintenance, 01/01/19 1:50:02 PM EDT, CR Capsule Start Date: 01/01/19 Status: Ordered Medication Dispense Status: Completed Quantity: 30.0 Unit: capsule Total Allowed Fills: 1 Fills Dispensed: 0 Vitamin B12 = 1,000 mcg, Intramuscular, 0 Refills, Maintenance, 01/01/19 1:56:53 PM EDT Start Date: 01/01/19 Status: Ordered Medication Dispense Status: Completed Total Allowed Fills: 1 Fills Dispensed: 0 Vitamin D 63889 iu oral capsule 50,000 International_Units, 1, capsule, By Mouth, Every Monday, # 30 capsule, Refills 0, Maintenance, 01/01/19 1:54:19 PM EDT Start Date: 01/01/19 Status: Ordered Medication Dispense Status: Completed Quantity: 30.0 Unit: capsule Total Allowed Fills: 1 Fills Dispensed: 0 Vitamin D2 2000 intl units oral capsule 1 capsule = 2,000 International_Units, By Mouth, Daily, with food, # 60 capsule, 0 Refills, Maintenance, 01/01/19 1:53:53 PM EDT, Capsule Start Date: 01/01/19 Status: Ordered Medication Dispense Status: Completed Quantity: 60.0 Unit: capsule Total Allowed Fills: 1 Fills Dispensed: 0 Problem List Condition Confirmation Course Effective Dates Status Health St atus Informant Obese class II Confirmed Active Social History Social History Type Response Smoking Status Never smoker; Tobacc o user in household: No entered on: 09/11/14 Sex Female Sex Representation Female (finding) Patient Care team information Care Team Personnel Name: Trena Silvermanis Position: [facility] Outreach Member Role: Lifetime Consulting Physician Name: Hira JASON , Dorinda Melendez Position: [facility] Outreach Member Role: PCP Address: [address] [place] [address]- Telecom: Name: Jn Ventura MD Position: [facility] Renal MD Member Role: Lifetime Consulting Physician Address: [address] [facility] [address] [facility] [place] [address]- Telecom: Name: Penny Cid RN Position: [facility] SN RN Member Role: Primary Care Nurse Care Team Related Persons Name: IRWIN SHIN Name: ELIZABETH DELVALLE Insurance Providers Guarantor name: RAYMOND WRIGHT DUSTY Health Plan Information #: 1 Payer: [employer] Payer Identifier: JEAN CLAUDE Member Number: [id number] Group Number: [id number] Subscriber Identifier: JEAN CLAUDE Relationship to Subscriber: self Coverage Type: MEDICAID Coverage Verification Date: NA Telecom: NA Address: NA
--- OUTSIDE RECORDS SUMMARY | 2025-03-05 14:40 | XMS_ITS | Encounter Summary ---
Author Organization [employer] Address [address] [place] [address] 7 [place] [address] Care Team Providers Care Ticket Clerk Name Role Phone Dorinda Iniguez MD Primary Care Provider [phone] Reason for Visit * Reason Comments Rash Encounter Details Date Type Department Care Team ([facility] Contact Info) Description 03/05/2025 2:40 PM EST Office Visit [facility] CHC MED & PEDS [address] [place], [place] [phone] Angie Giraldo MD [address] [place] [address] Intertrigo (Primary Dx); Nausea Social History Tobacco Use Types Packs/Day Years [...] Sign Reading Time Taken Comments Blood Pressure 158/83 03/05/2025 2:23 PM EST Pulse 112 03/05/2025 2:23 PM EST Temperature - - Respiratory Rate 20 03/05/2025 2:23 PM EST Oxygen Saturation 98% 03/05/2025 2:23 PM EST Inhaled Oxygen Concentration - - Weight 101 kg (223 lb) 03/05/2025 2:23 PM EST Height 160 cm (5' 3 ) 03/05/2025 2:23 PM EST Body Mass Index 39.5 03/05/2025 2:23 PM EST documented in this encounter Plan of Treatment Upcoming Encounters Date Type Department Care Team ([facility] Contact Info) Description 03/25/2025 11:30 AM EST Office Visit [facility] MED & PEDS [address] [place] [address] Dorinda Iniguez MD [address] [place] [address] Scheduled Orders Name Type Priority Associated Diagnoses Orde r Schedule Hepatic Function Panel Lab Routine Intertrigo Expected: 03/05/2025 (Approximate), Expires: 03/05/2026 documented as of this encounter Visit Diagnoses Diagnosis Intertrigo- Primary Other specified erythematous condition Nausea Nausea alone documented in this encounter Additional Health Concerns Assessment Noted Time PHQ-9 Depression Total Score: 2 05/28/19 25 9:31 AM EST documented as of this encounter Care Teams Ticket Clerk Relationship Specialty Start Date End Date Dorinda Iniguez MD [address] [place] [address] PCP - General Family Medicine 04/24/18 Ginny Hernandez Bulking Machine OperatorAlarm Adjuster 01/17/24 documented as of this encounter
--- OUTSIDE RECORDS SUMMARY | 2025-03-05 18:04 | XMS_ITS | Encounter Summary ---
Author Organization [employer] Address [address] [place] [address] 7 [place] [address] Care Team Providers Care Theater Technician Name Role Phone Dorinda Iniguez MD Primary Care Provider Reason for Visit * Reason Comments Med Refill Encounter Details Date Type Department Care Team ([facility] st Contact Info) Description 03/01/2024 Refill [facility] CHC MED & PEDS [address] [place], [place] [phone] Dorinda Iniguez MD 505 [place] [address] Social History Tobacco Use Types Packs/Day Years [...] Upcoming Encounters Date Type Department Care Team ([facility] st Contact Info) Description 03/25/2025 11:30 AM EST Office Visit [facility] MED & PEDS [address] [place] [address] Dorinda Iniguez MD 505 [place] [address] documented as of this encounter Visit Diagnoses Not on filedocumented in this encounter Additional Health Concerns Assessment Noted Time PHQ-9 Depression Total Score: 4 08/17/19 24 1:37 PM EDT documented as of this encounter Care Teams Theater Technician Relationship Specialty Start Date End Date Dorinda Iniguez MD 505 [place] [address] PCP - General Family Medicine 04/24/18 Ginny Hernandez Chief EngineerFinisher Hot Strip 01/17/24 documented as of this encounter
--- OUTSIDE RECORDS SUMMARY | 2025-03-05 18:04 | XMS_ITS | Encounter Summary ---
Author Organization [employer] Address [address] [place] [address] 7 [place] [address] Care Team Providers Care Operations Controller Name Role Phone Dorinda Iniguez MD Primary Care Provider [phone] Encounter Details Date Type Department Care Team (Latest Contact Info) Description 04/02/2020 Abstract [facility] CONVERSIONS Dental, Provider, DDS [...] Description 03/25/2025 11:30 AM EST Office Visit [facility] CHC MED & PEDS [address] [place] [address] Dorinda Ingiuez MD 505 [place] [address] documented as of this encounter Visit Diagnoses Not on filedocumented in this encounter Care Teams Operations Controller Relationship Specialty Start Date End Date Dorinda Iniguez MD [address] [place] [address] PCP - General Family Medicine 04/24/18 Ginny Hernandez Parts Sales AdvisorGuard Manager 01/17/24 documented as of this encounter
--- OUTSIDE RECORDS SUMMARY | 2025-03-05 18:04 | XMS_ITS | Encounter Summary ---
Author Organization [employer] Address [address] [place] [address] 7 [place] [address] Care Team Providers Care Glass Beveller Name Role Phone Dorinda Iniguez MD Primary Care Provider [phone] Reason for Visit * Reason Onset Date Comments Call Back Request 09/29/2023 Encounter Details Date Type Department Care Team ([facility] Contact Info) Description 09/29/2023 Telephone [facility] CHC MED & PEDS [address] [place] [address] Dorinda Iniguez MD 505 [place] [address] Call Back Request Social History Tobacco Use [...] 10:56 AM EDT Tc to pt using [facility] [employer] Y[place] D[place], [place] [id number]. Advised pt about message by Brenda. Pt [...] ENT for 04/04/24. Please contact pt at [phone] documented in this encounter Plan of Treatment Upcoming Encounters Date Type Department Care Team (Late st Contact Info) Description 03/25/2025 11:30 AM EST Office Visit [facility] MED & PEDS [address] [place] [address] Dorinda Iniguez MD 505 [place] [address] documented as of this encounter Visit Diagnoses Not on filedocumented in this encounter Additional Health Concerns Assessment Noted Time PHQ-9 Depression Total Score: 4 08/17/19 1:37 PM EDT documented as of this encounter Care Teams Glass Beveller Relationship Specialty Start Date End Date Dorinda Iniguez MD [address] [place] [address] PCP - General Family Medicine 04/24/18 Ginny Hernandez White SourerCity Magistrate 01/17/24 documented as of this encounter
--- OUTSIDE RECORDS SUMMARY | 2025-03-05 18:04 | XMS_ITS | Encounter Summary ---
Author Organization [employer] Address [address] [facility] 7 [place] [address] Care Team Providers Care Towboat Engineer Name Role Phone Dorinda Iniguez MD Primary Care Provider [phone] Reason for Visit * Reason Onset Date Comments Paperwork/Forms 08/17/2023 Encounter Details Date Type Department Care Team ([facility] st Contact Info) Description 08/17/2023 Telephone [facility] MEDICINE [address] [place] [address] Dorinda Iniguez MD [address] [place] [address] Paperwork/Forms Social History Tobacco Use Types Packs/Day [...] 1:37 PM EDT [facility] [place] * How difficult have these problems made it for you to do your work, take care of things at home, or get along with other people? Answer Date of Assessment Author Not difficult at all 08/17/2023 1:37 PM EDT My [place] * Over the past 2 weeks, how often have you been bothered by any of the following problems? Question Answer Date of Assessment Author Little interest or pleasure in doing things Not at all 08/17/2023 1:37 PM [place]IS[place] [facility] [place] Feeling down, depressed, or hopeless Not at all 08/17/2023 1:37 PM [place] [facility] [place] Trouble falling or staying asleep, or sleeping too much More than half the days 08/17/2023 1:37 PM DELIAST [facility] [place] Feeling tired or having little energy Several days 08/17/2023 1:37 PM [place] [facility] [place] Poor appetite or overeating Several days 08/17/2023 1:37 PM [place]IS[place] [facility] [place] Feeling bad about yourself - or that you are a failure or have let yourself or your family down Not at all 08/17/2023 1:37 PM [place]ISAT [facility] [place] Trouble concentrating on things, [...] EDT Last OV faxed as requested to [facility]. Returned call to [facility] regarding VO. LVM to return call. * Telephone Encounter - Piotr Mata - 08/17/2023 2:01 PM EDT [facility] requesting orders to restart home services and the last officeto be faxed to [phone] documented in this encounter Plan of Treatment Upcoming Encounters Date Type Department Care Team (Late st Contact Info) Description 03/25/2025 11:30 AM EST Office Visit [facility] MED & PEDS 505 [place] [address] Dorinda Iniguez MD 505 [place] [address] documented as of this encounter Visit Diagnoses Not on filedocumented in this encounter Additional Health Concerns Assessment Noted Time PHQ-9 Depression Total Score: 4 08/17/19 24 1:37 PM EDT documented as of this encounter Care Teams Towboat Engineer Relationship Specialty Start Date End Date Dorinda Iniguez MD [address] [place] [address] PCP - General Family Medicine 04/24/18 Ginny Hernandez Cloth Roll WinderButtonhole Maker 01/17/24 documented as of this encounter
--- OUTSIDE RECORDS SUMMARY | 2025-03-05 18:04 | XMS_ITS | Encounter Summary ---
Author Organization [employer] Address 75 [facility] 7 [place] [address] Care Team Providers Care Commissary Helper Name Role Phone Dorinda Iniguez MD Primary Care Provider [phone] Reason for Visit * Reason Onset Date Comments Medication Question 04/12/2024 Encounter Details Date Type Department Care Team ([facility] st Contact Info) Description 04/12/2024 Telephone [facility] MEDICINE [address] [place] [address] Dorinda Iniguez MD [address] [place] [address] Medication Question Social History Tobacco Use Types [...] and it doesn't help. Contact pt at [phone] documented in this encounter Plan of Treatment Upcoming Encounters Date Type Department Care Team (Late st Contact Info) Description 03/25/2025 11:30 AM EST Office Visit [facility] MED & PEDS 505 [place], [place] [phone] Dorinda Iniguez MD 505 [place], [place] [phone] documented as of this encounter Visit Diagnoses Not on filedocumented in this encounter Additional Health Concerns Assessment Noted Time PHQ-9 Depression Total Score: 4 08/17/19 24 1:37 PM EDT documented as of this encounter Care Teams Commissary Helper Relationship Specialty Start Date End Date Dorinda Iniguez MD 505 [place] [address] PCP - General Family Medicine 04/24/18 Ginny Hernandez Warehouse ProcessorData Analysis Intern 01/17/24 documented as of this encounter
--- OUTSIDE RECORDS SUMMARY | 2025-03-05 18:04 | XMS_ITS | Encounter Summary ---
Author Organization [employer] Address 75 [facility] 7 [place] [address] Care Team Providers Care Mold Repairer Name Role Phone Dorinda Iniguez MD Primary Care Provider [phone] Reason for Visit * Reason Onset Date Comments Med Refill 07/01/2024 Encounter Details Date Type Department Care Team (Late st Contact Info) Description 07/01/2024 Refill [facility] MEDICINE [address] [place] [address] Dorinda Iniguez MD [address] [place] [address] Benign essential hypertension; BMI 40.0-44.9, adult (CMS/HCC); [...] MG/0.5ML solution auto-injector To be sent to: [facility]/pharmacy #[id number] documented in this encounter Plan of Treatment Upcoming Encounters Date Type Department Care Team ([facility] st Contact Info) Description 03/25/2025 11:30 AM EST Office Visit [facility] MED & PEDS 505 [place] [address] Dorinda Iniguez MD 505 [place] [address] documented as of this encounter Visit Diagnoses Diagnosis Benign essential hypertension Essential hypertension, benign BMI 40.0-44.9, adult (CMS/HCC) (HCC) FARHAN (obstructive sleep apnea) Obstructive sleep apnea (adult) (pediatric) documented in this encounter Additional Health Concerns Assessment Noted Time PHQ-9 Depression Total Score: 2 05/28/19 25 9:31 AM EST documented as of this encounter Care Teams Mold Repairer Relationship Specialty Start Date End Date Dorinda Iniguez MD 505 [place] [address] PCP - General Family Medicine 04/24/18 Ginny Hernandez Tail End RiderMeat Cutter 01/17/24 documented as of this encounter
--- OUTSIDE RECORDS SUMMARY | 2025-03-05 18:04 | XMS_ITS | Continuity of Care Document ---
Author Organization [place] - [facility], [facility] Address [address] [place] [address] Care Team Providers Care Order Taker Name Role Phone LANCE KELLER Primary Care [...] By Organization Details Last Modified Time 02/17/2025 45916 - Use a warm compress to alleviate [...] Organization Details Recorded Time Abnormal auditory perception 32904212 Active 2024 [facility], [facility] [address] [facility], E [facility] [place], [place], [address], [facility] 14:50:30 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 Procedures Surgical History Date Name Laterality Status Provider Name and Address Organization Details Recorded Time 02/17/2025 Comp Audio with Tymps - 46211 & 80483 completed [facility], [facility] [address] [facility],[address], [address], [facility] 02/17/2025 14:53:58 Imaging Results None recorded. Procedure [...] ICD10 Code Diagnosis IMO Codes Diagnosis Note 94306 KANNAN MOE MD [facility] of [address] [address] 02/17/2025 14:22:26 02/17/2025 15:22:05 Abnormal auditory perception 00944839 H93.291 47146908 Sensorineu ral hearing loss of left ear with normal hearing on right side 4653197996 H90.42 [id number] Right Ear:Normal hearing with excellent speech discrimina tion.Type A tympanogra m.Left Ear:Normal hearing with mild HL at 3K Hz only with excellent speech discrimina tion.Type A tympanogra m. Pain of ri ght temporomandibular joint [id number] 9924812 M26.621 [id number] Health Concerns Section Related Observation LastModified by Organization Detai ls LastModified Time None Recorded Concern Status LastModified by Organization Details LastModified Time None Recorded Payers Encounter Date Sequence Insurance Name Policy Number Policy Ash Covered Member ID Ash Member ID Guarantor Name 02/17/2025 1 [place] [facility] Chelle Sesayista [id number] Chelle Melchor Notes Date Note Type Note [...] affected the alignment of the jaw. An foreign language interpreter was present during the session to assist with communication. KANNAN FLORES MD [address] [place] [address], [phone], [facility] - [facility] 02/17/2025 15:44:32 OBGyn Episode No OBEpisode recorded.
--- OUTSIDE RECORDS SUMMARY | 2025-03-05 18:04 | XMS_ITS | Encounter Summary ---
Author Organization [employer] Address [address] [facility] 7 [place] [address] Care Team Providers Care Fur Repairer Name Role Phone Dorinda Iniguez MD Primary Care Provider [phone] Reason for Visit * Reason Onset Date Comments ER Follow-up 03/05/2025 Encounter Details Date Type Department Care Team ([facility] st Contact Info) Description 03/05/2025 Telephone [facility] MEDICINE [address] [place] [address] Dorinda Iniguez MD [address] [place] [address] ER Follow-up Social History Tobacco Use Types Packs/Day Years [...] encounter Miscellaneous Notes * Telephone Encounter - Estephanie Elam RN - 03/05/2025 11:36 AM EST TC placed to pt via [employer]Return[employer] will call clerk (Amado ID#[id number]) for triage. Pt reports they went to urgent care yesterday 03/04/25 for a rash underneath both breasts. Pt reports the rash is open. Pt denies open wound with the rash but endorses clear draining without odor. Pt reports rash is red and itchy. Pt endorses nausea. Pt denies fever or chills. Pt reports rash began on Monday evening. Pt reports they were using Nystatin powder and cream, but rash has worsened which is why they had an evaluation at urgent care yesterday. Pt reports urgent care was supposed to send a cream, but it was not sent. Pt was also advised to contact PCP office for an oral prescription for treatment. Pt reports they advi sed her to contact PCP for oral prescription and that they need liver labs. Recommended pt come into office for an evaluation today. Pt booked for an appointment in same day care today at 2:40 PM. Advised pt to bring any of the paperwork from urgent care to appointment. Pt verbalized understanding and denies questions at this time. Protocol Used: Rash or Redness - Localized (Adult) Protocol-Based Disposition: See in Office or Video Visit Today Video visit offer not recorded Positive Triage Questions: * Patient wants to be seen * Red, moist, irritated area between skin folds (or under larger breasts) * All higher-acuity triage questions were negative Care Advice Discussed: * Reasons To Call Back - Rash spreads or becomes worse - Rash lasts longer than 1 week - You become worse * Telephone Encounter - Neela Camilo - 03/05/2025 9:55 AM EST Patient calling to report ED visit on : Date: 03/04 Hospital: Urgent care Seen for: Rash Symptomatic Yes *if yes message should go to Triage Patient advised will forward to team nurse for follow up Contact pt at [phone] documented in this encounter Plan of Treatment Upcoming Encounters Date Type Department Care Team ([facility] st Contact Info) Description 03/25/2025 11:30 AM EST Office Visit [facility] CHC MED & PEDS [address] [place] [address] Dorinda Iniguez MD 505 [place] [address] documented as of this encounter Visit Diagnoses Not on filedocumented in this encounter Additional Health Concerns Assessment Noted Time PHQ-9 Depression Total Score: 2 05/28/19 25 9:31 AM EST documented as of this encounter Care Teams Fur Repairer Relationship Specialty Start Date End Date Dorinda Iniguez MD 505 [place] [address] PCP - General Family Medicine 04/24/18 Ginny Hernandez PinmakerRemote Broadcast Technician 01/17/24 documented as of this encounter
--- OUTSIDE RECORDS SUMMARY | 2025-03-05 18:04 | XMS_ITS | Patient Health Record ---
Author Organization [facility] Address [address] [place] [address] Care Team Providers Care Emergency Response Officer Name Role Phone Hira JASON, Dorinda Primary Care Provider Jeffrey Blackman Jr Unavailable Allergies Allergen (clinical drug ingredient) Drug/Non Drug Allergy documented on EMR Reaction Allergy Type Onset Date Status lisinopril Lisinopril Unknown Drug Allergy Activ e Results Component Value Reference Range Notes Complete Blood Count no Diff Reviewed date:10/22/2024 03:41:25 PM Interpretation: Performing Lab:[facility], [address] [place] [phone] Notes/Report: White Blood Count 9.3 4.8-10.8 X10*3/uL [...] Panel Reviewed date:10/22/2024 03:38:48 PM Interpretation: Performing Lab:[facility], [address] [place] [phone] Notes/Report: Bilirubin Total 0.6 0.0-1.0 mg/dL Bilirubin Direct 0.2 0.0-0.5 mg/dL Aspartate Amino Transferase 17 5-31 U/L Alanine Aminotransferase 12 0-31 U/L Total Protein 6.4 6.5-8.0 g/dL Albumin Level 4.0 3.5-5.0 g/dL Alkaline Phosphatase 78 39-117 U/L Blood Urea Nitrogen Reviewed date:10/15/2024 04:39:10 PM Interpretation: Performing Lab:[facility], [address] [place] [phone] Notes/Report: Blood Urea Nitrogen 21 9-16 mg/dL Creatinine Reviewed date:10/15/2024 04:39:19 PM Interpretation: Performing Lab:[facility], [address] [place] [phone] Notes/Report: Creatinine 1.01 0.5-1.4 mg/dL Estimated Glomerular Filt Rate 56 Chronic Kidney Disease: Estimated GFR < 60 mL/min/1.73m2 Severe Kidney Disease: Estimated GFR < 15 mL/min/1.73m2 Lipase Reviewed date:10/22/2024 03:39:01 PM Interpretation: Performing Lab:[facility], [address] [place] [phone] Notes/Report: Lipase 8 8-78 U/L Pathology Reviewed date:11/04/2024 08:11:06 AM Interpretation: Performing Lab:[facility], [address] [place] [phone] Notes/Report: CT abdomen pelvis w con Reviewed date:11/14/2024 08:46:19 AM Interpretation: Performing Lab: Notes/Report: [address] [address] [address] Scan Report Signed Patient: Chelle Helm MR# : [id number] : 1965 Acct:[id number] Age/Sex: 59 / F ADM Date: 11/12/24 Loc: HO.CT Attending Dr: Jeffrey Narayan MD Ordering Physician: Jeffrey Narayan MD Date of Service: 11/12/24 Procedure(s): CT abdomen pelvis w IV con Accession Number(s): [id number] cc: Dorinda Iniguez MD; Jeffrey Narayan MD Report Number: [id number]: Total DLP = 667.00 mGy-cm EXAMINATION: CT [...] 11/12/24 1217 DD/ 1156 TD/TT: 11/12/24 1209 Nuclear Medicine Officer: Creatinine GFR POC Reviewed date:11/14/2024 08:44:34 AM Interpretation: Performing Lab:[facility], [address] [place] [phone] Notes/Report: [id number] 1.14 52 1149 [place] Creatinine POC 1.1 0.5-1.4 mg/dL GFR POC 52 Chronic Kidney Disease: Estimated GFR < 60 mL/min/1.73m2 Severe Kidney Disease: Estimated GFR < 15 mL/min/1.73m2 Reason For Referral Referring Provider First Name Dorinda Referring Provider Last Name Hira Referring Provider Speciality Internal M edicine Referred Organization [facility] Referred Provider Jeffrey Narayan Jr Referred Address [address] [place] [phone], Referred Provider Specialty Gastroentero logy General Awilda Harvey 2024 02:39:04 PM >[place]ED [place] REFERRAL FROM [facility] FOR VISIT WITH DR NARAYAN ON [phone] Referral Priority Routine Reason small right groin he rnia Diagnosis 1 Right inguinal pain (R10.31) Referral Organization [facility] Referring Provider First Name Jeffrey [...] 30 Unknown Vitamin D (Ergocalciferol) 1.25 MG (61343 UT) TAKE ONE CAPSULE EVERY WEEK Oral; [...] W/U Status Risk Notes Problem Epigastric pain (32066226) Epigastric pain (R10.13) Active confirmed Problem Screening for malignant neoplasm of colon (586002866) Special screening for malignant neoplasms, colon (Z12.11) Active confirmed Problem Irritable bowel syndrome with diarrhea (289586327) Irritable bowel syndrome with diarrhea (K58.0) Active confirmed Problem Gastroesophageal reflux disease without esophagitis (207293811) Gastroesophageal reflux disease without esophagitis (K21.9) Active confirmed Vital Signs Temperature 97.8 degrees Fahrenheit 10/11/2024 Blood pressure diastolic 01 mm Hg 10/11/2024 Height 64 in 10/11/2024 Blood pressure systolic 001 mm Hg 10/11/2024 Weight 236.4 lbs 10/11/2024 BMI 40.57 kg/m2 10/11/2024 Encounters Encounter Location Date Provider Diagnosis [facility] [address] [place] [id number] 10/30/2024 Jeffrey Narayan Jr [facility] [address] [place] [phone] 10/11/2024 Jeffrey Narayan Jr Abdominal pain R10.9 ; Irritable bowel syndrome with diarrhea K58.0 and Special screening for malignant neoplasms, colon Z12.11 [facility] [address] [place] [phone] 10/11/2024 Jeffrey Narayan Jr [facility] [address] [place] [phone] 10/11/2024 Jeffrey Narayan Jr [facility] [address] [place] [phone] 10/22/2024 Jeffreyconnor Narayan Jr [facility] [address] [place] [address] 11/04/2024 Jeffreyconnor Naryaan Jr [facility] [address] [place] [address] 11/14/2024 Jeffreyconnor Narayan Jr [facility] [address] [place] [address] 12/31/2024 Jeffrey Narayan Jr Assessments Encounter Date [...] Start Date Coverage End Date MEDICAID OF [facility] [address] [place] [id number] CHELLE WRIGHT Self - patient is the [...]
--- OUTSIDE RECORDS SUMMARY | 2025-03-05 18:04 | XMS_ITS | Encounter Summary ---
Author Organization [employer] Address [address] [place] [address] 7 [place] [address] Care Team Providers Care Gripper Installer Name Role Phone Dorinda Iniguez MD Primary Care Provider [phone] Encounter Details Date Type Department Care Team (Latest Contact Info) Description 04/22/2019 Abstract [facility] CONVERSIONS Dental, Provider, DDS Social History Tobacco [...] Description 03/25/2025 11:30 AM EST Office Visit [facility] CHC MED & PEDS [address] [place] [address] Dorinda Iniguez MD [address] [place] [address] documented as of this encounter Visit Diagnoses Not on filedocumented in this encounter Care Teams Gripper Installer Relationship Specialty Start Date End Date Dorinda Iniguez MD [address] [place] [address] PCP - General Family Medicine 04/24/18 Ginny Hernandez Line DriverReading Interventionist 01/17/24 documented as of this encounter
--- OUTSIDE RECORDS SUMMARY | 2025-03-05 18:04 | XMS_ITS | Clinical Summary ---
Author Organization [employer] Address [address] [place] [address] 7t [place] [address] Care Team Providers Care Charge Account Authorizer Name Role Phone Dorinda Iniguez MD Primary Care Provider Allergies Active Allergy Reactions Criticality Noted Date [...] THE MORNING 90 tablet 01/14/20 25 Active fluconazole (Diflucan) 100 MG tabletIndication s:Intertrigo Take 1 tablet (100 mg) by mouth Once per day for 14 days. 14 tablet 03/05/20 25 025 Active hydrocortisone 2.5 % creamIndications :Intertrigo Apply topically in the morning and in the evening. To use 2 times a day for no more than 2 weeks. 28 g 03/05/20 25 Active nystatin (Mycostatin) 189894 UNIT/GM powder Apply topically 2 times daily. 60 g 5 02/07/20 24 025 Active Problems Problem Noted Date Diagnosed Date FARHAN (obstructive sleep apnea) 05/28/2024 BMI 40.0-44.9, adult ([facility]) 05/28/2024 Ear ache 10/04/2023 Assessment & Plan [...] Encounters Date Type Department Care Team Description 03/05/2025 2:40 PM EST Office Visit [facility] MED & PEDS [address] [place] [address] Angie Giraldo MD Intertrigo (Primary Dx); Nausea 03/05/2025 Travel 03/05/2025 Telephone [facility] MEDICINE [address] [place] [address] Dorinda Iniguez MD ER Follow-up 01/24/2025 Orders Only [facility] MED & PEDS [address] [place] [address] Nona Umaña MD Leg cramps (Primary Dx) 01/23/2025 Telephone [facility] MED & PEDS [address] [place] [address] Dorinda Iniguez MD Referral (TC US leg) 01/23/2025 Telephone [facility] MED & PEDS [address] [place] [address] Dorinda Iniguez MD 01/22/2025 Telephone [facility] MED & PEDS [address] [place] [address] Dorinda Iniguez MD Referral 01/20/2025 11:00 AM EDT Office Visit [facility] MED & PEDS [address] [place] [address] Nona Umaña MD Leg cramps (Primary Dx); Ecchymosis 01/20/2025 Travel 01/20/[address] [address] Dorinda Iniguez MD Nurse Triage 01/13/2025 10:00 AM EDT Office Visit [facility] ADULT DENTAL [address] [place] [address] Dee Lynch 01/13/2025 Refill [facility] MEDICINE [address] [place] [address] Dorinda Iniguez MD 01/08/2025 Telephone [facility] MED & PEDS [address] [place] [address] Dorinda Iniguez MD 01/03/2025 Orders Only [facility] MED & PEDS [address] [place] [address] Dorinda Iniguez MD Kidney stone (Primary Dx) 01/02/[address] [address] Dorinda Iniguez MD Prior Authorization 01/01/[address] [address] Dorinda Iniguez MD Referral 12/26/2024 Telephone [facility] MED & PEDS [address] [place], [place] [phone] Deb Rubio LPN 12/24/2024 10:30 AM EDT Office Visit [facility] MED & PEDS [address] [place], [place] [phone] Dorinda Iniguez MD Class 3 severe obesity due to excess calories with serious comorbidity and body mass index (BMI) of 40.0 to 44.9 in adult (Primary Dx); Generalized anxiety disorder; Benign essential hypertension; Moderate persistent asthma without complication 12/24/2024 Travel 12/16/2024 Patient Outreach [address] [address] Kerry Chappell Pre-visit Planning (Pre visit planning unable to LVM ) from Last 3 Months Immunizations Immunization Administration [...] Pulse 112 03/05/2025 2:23 PM EST Temperature 36.3 C (97.3 F) 01/20/2025 11:17 AM EDT Respiratory Rate 20 03/05/2025 2:23 PM EST Oxygen Saturation 98% 03/05/2025 2:23 PM EST Inhaled Oxygen Concentration - - Weight 101 kg (223 lb) 03/05/2025 2:23 PM EST Height 160 cm (5' 3 ) 03/05/2025 2:23 PM EST Body Mass Index 39.5 03/05/2025 2:23 PM EST Plan of Treatment Upcoming Encounters Date Type Department Care Team ([facility] st Contact Info) Description 03/25/2025 11:30 AM EST Office Visit [facility] MED & PEDS [address] [place] [address] Dorinda Iniguez MD [address] [place] [address] Health Maintenance Due Date Last Done Comments [...] 07/10/2024, 01/08/2024, Additional history exists Tobacco Screening 03/05/2026 03/05/2025 Cervical Cancer Screening 09/01/2026 HPV/Cotest 09/01/2026 09/01/2021 Pap Smear 09/01/2026 09/01/2021 Mammogram 09/06/2026 09/06/2024, 08/04/2023 Colonoscopy 07/31/2028 08/01/2023, 09/25/2020 Colorectal Cancer Screening [...] 08/17/2023 2:19 PM EDT Annual physical exam HM COLONOSCOPY Routine 08/01/2023 PAP/HPV Routine 09/01/2021 from Last 3 Months or Most Recently Relevant to Health Maintenance Results * US VENOUS DUPLEX LE RT (01/24/2025 2:30 PM EDT) Anatomical Region Laterality Modality Abdomen Ultrasound 01/24/2025 2:30 PM EDT Narrative 01/24/2025 2:43 PM EDT [place] [address] Ultrasound Report Signed Patient: Chelle Helm MR# : [id number] : 1965 Acct:[id number] Age/Sex: 59 / F ADM Date: 01/24/25 Loc: . Attending Dr: Nona Umaña MD Ordering Physician: Dorinda Iniguez MD Date of Service: 01/24/25 Procedure(s): US venous duplex LE RT Accession Number(s): [id number] cc: Dorinda Iniguez MD Reason for Exam: [...] Theresa Galdamez MD 01/24/2025 02:41 PM EDT RP Dictated By: Theresa Galdamez MD Signed By: <Electronically signed by Theresa Galdamez MD in OV> 01/24/25 1441 DD/ 1430 TD/TT: 01/24/25 1436 Offset Duplicating Machine Operator: TOM Procedure Note Donotuseinterpreter, Image - 01/24/2025 [place] [address] Ultrasound Report Signed Patient: Chelle Helm MMR# : [id number] : 1965Acct:[id number] Age/Sex: 59 / FADM Date: 01/24/25 Loc: . Attending Dr: Nona mUaña MD Ordering Physician: Dorinda Iniguez MD Date of Service: 01/24/25 Procedure(s): US venous duplex LE RT Accession Number(s): [id number] cc: Dorinda Iniguez MD Reason for Exam: [...] Galdamez MD in OV> 01/24/25 1441 DD/ 1430 TD/TT: 01/24/25 1436 Offset Duplicating Machine Operator: TOM us Dorinda Iniguez MD IMG US PROCEDURES Final Resul t * (ABNORMAL) Basic Metabolic Panel (01/20/2025 11:42 AM EDT) Sodium 142 135 - 145 mmol/L [facility] Potassium 5.1 3.3 - 5.1 mmol/L [facility] Chloride 109(H) 96 - 108 mmol/L [facility] Carbon Dioxide 26 22 - 29 mmol/L [facility] Anion Gap 12 12 - 20 [facility] Urea Nitrogen (BUN) 25(H) 9 - 16 mg/dL [facility] Creatinine, Serum 0.80 0.5 - 1.4 mg/dL [facility] Estimated Glomerular Filt Rate >60 [facility] Comment:Chronic Kidney Disea se: Estimated GFR < 60 mL/min/1.67e8Aulkdr Kidney Disease: Estimated GFR < 15 mL/min/1.73m2 Glucose 88 60 - 115 mg/dL [facility] Calcium 9.4 8.4 - 10.2 mg/dL [facility] Blood Venous blood specimen / Unknown 01/20/2025 11:42 AM EDT 01/20/2025 2:07 PM EDT us Nona Umaña MD LAB BLOOD ORDERABLES Final Resul t [facility] [address] [place] [phone] * Referral to Urology (12/13/2024) us Dorinda Iniguez MD OUTPATIENT REFERRAL ORDERABLE S Final Result * Hm Mammography (09/06/2024) Mammogram Normal Normal, Abnormal, BIRADS 1 , BIRADS 2 Anatomical Region Laterality Modality Other Dorinda Iniguez MD HEALTH MAINTENANCE Final Resu lt * (ABNORMAL) Lipid Panel, Standard (12/14/2023 9:32 AM EDT) Pathologist [facility] Triglycerides 162(H) <150 mg/dL [facility] Comment:Desirable Triglyceri de: less than 150 mg/dLBorderline High Triglyceride 150-199 mg/dLHigh Triglyceride: 200-499 mg/dLVery High Triglyceride: greater than or equal to 5OO mg/dL Cholesterol 193 <200 mg/dL [facility] Comment:Desirable Cholestero l: less than 200 mg/dLBorderline High Cholesterol: 200-239 mg/dLHigh Cholesterol: greater than 239 mg/dL LDL Cholesterol Calculated 113(H) <100 mg/dL [facility] Comment:Desirable LDL: less than 100 mg/dLNear Optimal/Above Optimal LDL: 110- 129 mg/dLBorderline High LDL: 130-159 mg/dLHigh LDL: 160-189 mg/dLVery High LDL: greater than or equal to 190 mg/dL HDL Cholesterol 48 >40 mg/dL [facility] Comment:Desirable HDL: great er than 40 mg/dL Note: This HDL assay may give artificially low results in patients with liver disease. Blood Venous blood specimen / Unknown 12/14/2023 9:32 AM EDT 12/14/2023 2:14 PM EDT Dorinda Iniguez MD LAB BLOOD ORDERABLES Final Re sult [facility] [address] [place] [phone] * Hepatitis C Antibody with Reflex to HCV, RNA, Quantitative, Real-Time PCR (08/17/2023 2:19 PM EDT) Pathologist [facility] Hepatitis C Antibody Nonreactive Nonreactive [facility] Comment:Antibodies to HCV no t detected; does not exclude early acuteHCV infection. Blood Venous blood specimen / Unknown 08/17/2023 2:19 PM EDT 08/17/2023 5:21 PM EDT us Angie Giraldo MD LAB BLOOD ORDERABLES Final Result Performing Organization Address [facility] Co de Phone Number [facility] [address] [place] [phone] * HIV-1/2 Antigen and Antibodies, Fourth Generation, with Reflexes (08/17/2023 2:19 PM EDT) HIV AB/AG Nonreactive Nonreactive [facility] Comment:HIV-1 p24 Ag and/or HIV-1/HIV-2 Ab not detected.A test result that is nonreactive does not exclude thepossibility of exposure to or infection with HIV-1 and/orHIV-2. Nonreactive results in this assay for individualswith prior exposure to HIV-1 and/or HIV-2 may be due toantigen and antibody levels that are below the limit ofdetection of this assay.The License [employer] HIV Ag/Ab Combo assay result andsupplemental assay results should be interpreted inconjunction with the patient's clinical presentation,history and other laboratory results. If the results areinconsistent with clinical evidence, additional testing issuggested to confirm the result. Blood Venous blood specimen / Unknown 08/17/2023 2:19 PM EDT 08/17/2023 5:21 PM EDT us Angie Giraldo MD LAB BLOOD ORDERABLES Final Result Performing Organization Address [facility]/ZIP Co de Phone Number [facility] [address] [place] [phone] * (ABNORMAL) Hm Colonoscopy (08/01/2023) Colonoscopy Abnormal(A ) Normal us Dorinda Iniguez MD HEALTH MAINTENANCE Final Resu lt * Hm Pap Smear (09/01/2021) Pap Negative for intraephithelial lesion or malignancy Negative for intraephithelial lesion or malignancy, Other HPV Undetected Undetected, Indeterminate, Quantitative, Not Detected us Historical Provider HEALTH MAINTENANCE Final Result from Last 3 Months or Most Recently Relevant to Health Maintenance Insurance [place] [address] C3 [facility] MEDICAID STAND ADULT Care Teams Charge Account Authorizer Relationship Specialty Start Date End Date Dorinda Iniguez MD [address] [place] [address] PCP - General Family Medicine 04/24/18 Ginny Hernandez Media Marketing DirectorAdvanced Analytics Associate 01/17/24
--- OUTSIDE RECORDS SUMMARY | 2025-03-05 18:04 | XMS_ITS | Encounter Summary ---
Author Organization [employer] Address [address] [place] [address] [place] [address] Care Team Providers Care Manager Of Financial Planning Name Role Phone Dorinda Iniguez MD Primary Care Provider [phone] Encounter Details Date Type Department Care Team (Late st Contact Info) Description 05/06/2022 Orders Only [facility] MED & PEDS [address] [place] [address] Suki Schmitt LPN Social History Tobacco Use [...] Description 03/25/2025 11:30 AM EST Office Visit [facility] MED & PEDS [address] [place] [address] Dorinda Iniguez MD [address] [place] [address] documented as of this encounter Visit Diagnoses Not on filedocumented in this encounter Care Teams Manager Of Financial Planning Relationship Specialty Start Date End Date Dorinda Iniguez MD [address] [place] [address] PCP - General Family Medicine 04/24/18 Ginny Hernandez Analysis LeadIntegrated Campaign Manager 01/17/24 documented as of this encounter
--- OUTSIDE RECORDS SUMMARY | 2025-03-05 18:04 | XMS_ITS | Encounter Summary ---
Author Organization [employer] Address [address] [place] [address] 7 [place] [address] Care Team Providers Care Mission Systems Engineer Name Role Phone Dorinda Iniguez MD Primary Care Provider [phone] Encounter Details Date Type Department Care Team (Latest Contact Info) Description 10/15/2018 Abstract [facility] CONVERSIONS Dental, Provider, DDS Social History Tobacco [...] Description 03/25/2025 11:30 AM EST Office Visit [facility] CHC MED & PEDS [address] [place] [address] Dorinda Iniguez MD [address] [place] [address] documented as of this encounter Visit Diagnoses Not on filedocumented in this encounter Care Teams Mission Systems Engineer Relationship Specialty Start Date End Date Dorinda Iniguez MD [address] [place] [address] PCP - General Family Medicine 04/24/18 Ginny Hernandez Metallurgist ProcessCia Agent 01/17/24 documented as of this encounter
--- OUTSIDE RECORDS SUMMARY | 2025-03-05 18:04 | XMS_ITS | Encounter Summary ---
Author Organization [employer] Address [address] [place] [address] 7 [place] [address] Care Team Providers Care Director Case Name Role Phone Dorinda Iniguez MD Primary Care Provider [phone] Reason for Visit * Reason Onset Date Comments Referral 01/22/2025 Encounter Details Date Type Department Care Team ([facility] Contact Info) Description 01/22/2025 Telephone [facility] CHC MED & PEDS [address] [place], [place] [phone] Dorinda Iniguez MD [address] [place] [address] Referral Social History Tobacco Use Types Packs/Day [...] 10:07 AM EDT TC to pt with [facility]semiautomatic taper operator. Pt stated was advised an US would [...] a sonogram. Any questions contact pt at [phone] documented in this encounter Plan of Treatment Upcoming Encounters Date Type Department Care Team (Late st Contact Info) Description 03/25/2025 11:30 AM EST Office Visit [facility] MED & PEDS [address] [place] [address] Dorinda Iniguez MD [address] [place] [address] documented as of this encounter Visit Diagnoses Not on filedocumented in this encounter Additional Health Concerns Assessment Noted Time PHQ-9 Depression Total Score: 2 05/28/19 25 9:31 AM EST documented as of this encounter Care Teams Director Case Relationship Specialty Start Date End Date Dorinda Iniguez MD [address] [place] [address] PCP - General Family Medicine 04/24/18 Ginny Hernandez Finisher Fine Diamond DiesNetwork Support Technician 01/17/24 documented as of this encounter
--- OUTSIDE RECORDS SUMMARY | 2025-03-05 18:04 | XMS_ITS | Encounter Summary ---
Author Organization [employer] Address [address] [place] [address] 7 [place] [address] Care Team Providers Care C2 Tactical Analysis Technician Name Role Phone Dorinda Iniguez MD Primary Care Provider [phone] Encounter Details Date Type Department Care Team (Latest Contact Info) Description 09/08/2021 Abstract [facility] CONVERSIONS Dental, Provider, DDS Social [...] Description 03/25/2025 11:30 AM EST Office Visit [facility] CHC MED & PEDS [address] [place] [address] Dorinda Iniguez MD [address] [place] [address] documented as of this encounter Visit Diagnoses Not on filedocumented in this encounter Care Teams C2 Tactical Analysis Technician Relationship Specialty Start Date End Date Dorinda Iniguez MD [address] [place] [address] PCP - General Family Medicine 04/24/18 Ginny Hernandez Commercial Lines UnderwriterForensic Artist 01/17/24 documented as of this encounter
--- OUTSIDE RECORDS SUMMARY | 2025-03-05 18:04 | XMS_ITS | Encounter Summary ---
Author Organization [employer] Address [address] [place] [address] 7 [place] [address] Care Team Providers Care Help Desk Representative Name Role Phone Dorinda Iniguez MD Primary Care Provider Reason for Visit * Reason Onset Date Comments Med Refill 05/22/2024 Encounter Details Date Type Department Care Team ([facility] st Contact Info) Description 05/22/2024 Refill [facility] CHC MED & PEDS [address] [place] [address] Dorinda Iniguez MD [address] [place] [address] Influenza B Social History Tobacco Use Types [...] 20 MG tablet To be sent to: [facility]/pharmacy #[id number] documented in this encounter Plan of Treatment Upcoming Encounters Date Type Department Care Team (Late st Contact Info) Description 03/25/2025 11:30 AM EST Office Visit [facility] MED & PEDS [address] [place] [address] Dorinda Iniguez MD [address] [place] [address] documented as of this encounter Visit Diagnoses Diagnosis Influenza B Influenza with other respiratory manifestations documented in this encounter Additional Health Concerns Assessment Noted Time PHQ-9 Depression Total Score: 4 08/17/19 24 1:37 PM EDT documented as of this encounter Care Teams Help Desk Representative Relationship Specialty Start Date End Date Dorinda Iniguez MD [address] [place] [address] PCP - General Family Medicine 04/24/18 Ginny Hernandez Rig ManagerCotton Bag Clipper 01/17/24 documented as of this encounter
--- OUTSIDE RECORDS SUMMARY | 2025-03-05 18:04 | XMS_ITS | Encounter Summary ---
Author Organization [employer] Address [address] [facility] 7 [place] [address] Care Team Providers Care Substation Design Draftsperson Name Role Phone Dorinda Iniguez MD Primary Care Provider [phone] Reason for Visit * Reason Onset Date Comments Med Refill 08/28/2024 Encounter Details Date Type Department Care Team ([facility] st Contact Info) Description 08/28/2024 Telephone [facility] MEDICINE [address] [place] [address] Dorinda Iniguez MD [address] [place] [address] Med Refill Social History Tobacco Use Types [...] sent to: [facility]/pharmacy #[id number] [place], [place] - [address] [place] [address] documented in this encounter Plan of Treatment Upcoming Encounters Date Type Department Care Team (Late st Contact Info) Description 03/25/2025 11:30 AM EST Office Visit [facility] CHC MED & PEDS [address] [place], [place] [phone] Dorinda Iniguez MD [address] [place] [address] documented as of this encounter Visit Diagnoses Not on filedocumented in this encounter Additional Health Concerns Assessment Noted Time PHQ-9 Depression Total Score: 2 05/28/19 25 9:31 AM EST documented as of this encounter Care Teams Substation Design Draftsperson Relationship Specialty Start Date End Date Dorinda Iniguez MD [address] [place] [address] PCP - General Family Medicine 04/24/18 Ginny Hernandez Laboratory AsstCopy Center Associate 01/17/24 documented as of this encounter
--- OUTSIDE RECORDS SUMMARY | 2025-03-05 18:04 | XMS_ITS | Encounter Summary ---
Author Organization [employer] Address [address] [place] [address] 7 [place] [address] Care Team Providers Care Chimney Repairer Name Role Phone Dorinda Iniguez MD Primary Care Provider [phone] Reason for Visit * Reason Comments Med Refill Encounter Details Date Type Department Care Team ([facility] st Contact Info) Description 03/05/2024 Refill [facility] CHC MED & PEDS [address] [place], [place] [phone] Dorinda Iniguez MD [address] [place] [address] Social History Tobacco Use Types Packs/Day Years [...] Upcoming Encounters Date Type Department Care Team ([facility] st Contact Info) Description 03/25/2025 11:30 AM EST Office Visit [facility] MED & PEDS [address] [place] [address] Dorinda Iniguez MD [address] [place] [address] documented as of this encounter Visit Diagnoses Not on filedocumented in this encounter Additional Health Concerns Assessment Noted Time PHQ-9 Depression Total Score: 4 08/17/19 24 1:37 PM EDT documented as of this encounter Care Teams Chimney Repairer Relationship Specialty Start Date End Date Dorinda Iniguez MD [address] [place] [address] PCP - General Family Medicine 04/24/18 Ginny Hernandez Electronics SpecialistDrilling Foreman 01/17/24 documented as of this encounter
--- OUTSIDE RECORDS SUMMARY | 2025-03-05 18:05 | XMS_ITS | Encounter Summary ---
Author Organization [employer] Address [address] [place] [address] Care Team Providers Care Communications Clerk Name Role Phone Dorinda Iniguez MD Primary Care Provider [phone] Encounter Details Date Type Department Care Team ([facility] st Contact Info) Description 03/03/2023 Abstract [facility] MEDICINE [address] [place], [place] [phone] Sarahi Pearl Social History Tobacco Use Types [...] Upcoming Encounters Date Type Department Care Team ([facility] st Contact Info) Description 03/25/2025 11:30 AM EST Office Visit [facility] MED & PEDS [address] [place] [address] Dorinda Iniguez MD [address] [place] [address] documented as of this encounter Procedures Procedure [...] documented as of this encounter Care Teams Communications Clerk Relationship Specialty Start Date End Date Dorinda Iniguez MD [address] [place] [address] PCP - General Family Medicine 04/24/18 Ginny Hernandez OrderlyCommercial Instructor Supervisor 01/17/24 documented as of this encounter
--- OUTSIDE RECORDS SUMMARY | 2025-03-05 18:05 | XMS_ITS | Encounter Summary ---
Author Organization [employer] Address [address] [facility] [address]t [place] [address] Care Team Providers Care Channel Lip Stiffener Insoles Name Role Phone Dorinda Iniguez MD Primary Care Provider [phone] Encounter Details Date Type Department Care Team (Latest Contact Info) Description 03/05/2025 Travel Social History Tobacco Use Types Packs/Day [...] Description 03/25/2025 11:30 AM EST Office Visit [facility] MED & PEDS [address] [place] [address] Dorinda Iniguez MD [address] [place] [address] documented as of this encounter Visit Diagnoses Not on filedocumented in this encounter Additional Health Concerns Assessment Noted Time PHQ-9 Depression Total Score: 2 05/28/19 25 9:31 AM EST documented as of this encounter Care Teams Channel Lip Stiffener Insoles Relationship Specialty Start Date End Date Dorinda Iniguez MD [address] [place] [address] PCP - General Family Medicine 04/24/18 Ginny Hernandez Integrated Marketing ManagerMedia Reporter 01/17/24 documented as of this encounter
--- OUTSIDE RECORDS SUMMARY | 2025-03-05 18:05 | XMS_ITS | Encounter Summary ---
Author Organization [employer] Address [address] [place] [address] 7 [place] [address] Care Team Providers Care Auto Job Estimator Name Role Phone Dorinda Iniguez MD Primary Care Provider [phone] Reason for Visit * Reason Comments Med Refill Encounter Details Date Type Department Care Team ([facility] Contact Info) Description 11/08/2022 Refill [facility] MED & PEDS [address] [place], [place] [phone] Dorinda Iniguez MD 505 [place] [address] Vitamin D deficiency; Generalized anxiety disorder Social [...] Upcoming Encounters Date Type Department Care Team ([facility] Contact Info) Description 03/25/2025 11:30 AM EST Office Visit [facility]C MED & PEDS 505 [place] [address] Dorinda Iniguez MD 505 [place] [address] documented as of this encounter Visit Diagnoses Diagnosis Vitamin D deficiency Generalized anxiety disorder documented in this encounter Additional Health Concerns Assessment Noted Time PHQ-9 Depression Total Score: 4 06/09/19 23 1:44 PM EST documented as of this encounter Care Teams Auto Job Estimator Relationship Specialty Start Date End Date Dorinda Iniguez MD 505 [place] [address] PCP - General Family Medicine 04/24/18 Ginny Hernandez Cold Work OperatorSports Instructor 01/17/24 documented as of this encounter
--- OUTSIDE RECORDS SUMMARY | 2025-03-05 18:05 | XMS_ITS | Encounter Summary ---
Author Organization [employer] Address [address] [facility] 7t [place] [address] Care Team Providers Care Solar Energy Technician Name Role Phone Dorinda Iniguez MD Primary Care Provider [phone] Encounter Details Date Type Department Care Team ([facility] st Contact Info) Description 08/04/2023 Orders Only [facility] CHC MED & PEDS [address] [place] [address] ProviderSakina MD Social History Tobacco Use Types [...] Upcoming Encounters Date Type Department Care Team ([facility] st Contact Info) Description 03/25/2025 11:30 AM EST Office Visit [facility] MED & PEDS 505 [place] [address] Dorinda Iniguez MD 505 [place] [address] documented as of this encounter Procedures Procedure Name Priority Date/Time Associated Diagnosis Comments MAMMOGRAPHY SCREENING Routine 08/04/2023 3:41 PM EDT documented in this encounter Results * MAMMOGRAPHY SCREENING (08/04/2023 3:41 PM EDT) Anatomical Region Laterality Modality Breast Left Mammography Historical Provider MD QAUINO BI PROCEDURES Final R esult documented in this encounter Visit Diagnoses Not on filedocumented in this encounter Additional Health Concerns Assessment Noted Time PHQ-9 Depression Total Score: 4 06/09/19 23 1:44 PM EST documented as of this encounter Care Teams Solar Energy Technician Relationship Specialty Start Date End Date Dorinda Iniguez MD 505 [place] [address] PCP - General Family Medicine 04/24/18 Ginyn Hernandez [employer] Tractor OperatorDirect Mail Coordinator 01/17/24 documented as of this encounter
--- OUTSIDE RECORDS SUMMARY | 2025-03-05 18:05 | XMS_ITS | Encounter Summary ---
Author Organization [employer] Address 75 [facility] 7 [place] [address] Care Team Providers Care Manager Strategy & Account Name Role Phone Dorinda Iniguez MD Primary Care Provider [phone] Reason for Visit * Reason Onset Date Comments Appointment Request 06/15/2023 Encounter Details Date Type Department Care Team ([facility] st Contact Info) Description 06/15/2023 Telephone [facility] MEDICINE [address] [place] [address] Dorinda Iniguez MD [address] [place] [address] Appointment Request Social History Tobacco Use Types [...] PCP before traveling and also do PE. Kazakh Speaker documented in this encounter Plan of Treatment Upcoming Encounters Date Type Department Care Team (Late st Contact Info) Description 03/25/2025 11:30 AM EST Office Visit [facility] MED & PEDS 505 [place] [address] Dorinda Iniguez MD 505 [place] [address] documented as of this encounter Visit Diagnoses Not on filedocumented in this encounter Additional Health Concerns Assessment Noted Time PHQ-9 Depression Total Score: 4 06/09/19 23 1:44 PM EST documented as of this encounter Care Teams Manager Strategy & Account Relationship Specialty Start Date End Date Dorinda Iniguez MD [address] [place] [address] PCP - General Family Medicine 04/24/18 Ginny Hernandez Drupal ProgrammerBench Assembler Operator 01/17/24 documented as of this encounter
--- OUTSIDE RECORDS SUMMARY | 2025-03-05 18:05 | XMS_ITS | Data Portability ---
Author Organization [place] - [facility], Allergy Address [address] [address] Care Team Providers Care Olive Pitter Name Role Phone LANCE KELLER Primary Care Provider [phone] Assessment Encounter Date Assessment Date Assessment LastModified [...] By Organization Details Last Modified Time 02/17/2025 51352 - Use a warm compress to alleviate [...] Organization Details Recorded Time Abnormal auditory perception 55109445 Active 2024 [facility], [address],[place] [address], [place], [address], 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 Procedures Surgical History Date Name Laterality Status Provider Name and Address Organization Details Recorded Time 02/17/2025 Comp Audio with Tymps - 27179 & 90760 completed [facility], [facility] 100 [facility],[address], [address], [facility] 02/17/2025 14:53:58 Imaging Results None recorded. [...] ICD10 Code Diagnosis IMO Codes Diagnosis Note [id number] KANNAN MOE MD [facility] of [address] [address] 02/17/2025 14:22:26 02/17/2025 15:22:05 Abnormal auditory perception 45712577 H93.291 74851274 Sensorineu ral hearing loss of left ear with normal hearing on right side 8439592208 H90.42 94056512 Right Ear:Normal hearing with excellent speech discrimina tion.Type A tympanogra m.Left Ear:Normal hearing with mild HL at 3K Hz only with excellent speech discrimina tion.Type A tympanogra m. Pain of ri ght temporomandibular joint [id number] 4239640 M26.621 06690502 Health Concerns Section Related Observation LastModified by Organization Detai ls LastModified Time None Recorded Concern Status LastModified by Organization Details LastModified Time None Recorded Advance Directives Directive None Recorded Payers Insurance Date Sequence Insurance Name Policy Number Policy Ash Covered Member ID Ash Member ID Guarantor Name 02/17/2025 1 [place] [facility] Chelle Melendez Ruiz [id number] Chelle Melchor 02/17/2025 1 [place] [facility] PLAN Chelle Melendez Ruiz [id number] Chelle Melchor Notes Date Note Type Note [...] affected the alignment of the jaw. An winderman was present during the session to assist with communication. KANNAN FLORES MD [address] [place] [address], [address], [facility] - [facility] 02/17/2025 15:44:32 OBGyn Episode No OBEpisode recorded.
[2025-03-05 18:26] LABS: Alanine Aminotransferase 15 U/L (0-31); Albumin Level 4.1 g/dL (3.5-5.0); Alkaline Phosphatase 79 U/L (39-117); Aspartate Amino Transferase 20 U/L (5-31); Total Protein 6.6 g/dL (6.5-8.0)
== END 2025-03-05 14:37 | disposition home or self-care (01) ==
LOC: HO.CHCLDS 14:36
PROVIDERS: Visit Provider Internal Medicine
DX: L30.4 Erythema intertrigo (principal)
CPT/HCPCS: 36415; 80076

== ENCOUNTER 2025-03-11 | Outpatient (REF) | payer MEDICAID, SELFPAY ==
--- OUTSIDE RECORDS SUMMARY | 2024-10-30 09:00 | XMS_ITS ---
Author Organization [facility] [facility] Address [address] [place] [phone] Care Team Providers Care Geophysics Teacher Name Role Phone Hira JASON, Dorinda Primary Care Provider Ute Rios Jr, Jeffrey Goins REASON FOR VISIT abdominal pain Encounters Encounter Location Date Provider Diagnosis [facility] [place] [address] [place] [id number] 10/30/2024 Jeffrey Rios Jr Plan Of Treatment No Information Progress Notes * RAYMOND WRIGHT MDOB: [birth year] (59 yo F)Acc No.[id number]:10/30/2024 EGD/MAC Patient: Jerrell RAYMOND HERNANDEZ Provider: Jerrell Rios MD :1965 A ge:59 Y S ex:Female Date:10/30/2024 Address:[address] [place] [address] Pcp:Dorinda Iniguez MD Subjective: * Chief Complaints: * A bdominal pain Billing Information: * Procedure Codes: * The named appointment provid er may or may not be the originator of this progress note, and it is not deemed complete until electronically signed by the appointment provider. Sign off status: Pending * Provider: Jerrell Rios MD Date: 0 10/30/2024 Generated for Printi ng/Faxing/eTransmitting on: 1 05/12/2024 09:59 PM EST
--- OUTSIDE RECORDS SUMMARY | 2025-03-06 23:59 | XMS_ITS | Continuity of Care Document ---
Author Organization [facility] Address [address] [place] [address] Care Team Providers Care Industrial Energy Engineer Name Role Phone Hira JASON, Dorinda Melendez Primary Care Physician [id number]s): [facility]/04/25 - 03/06/25 [facility] [address] [place] [address] Attending Physician: Grace Hamm Admitting Physician: Grace Hamm Referring Physician: Grace Hamm Referring Physician: Carrie Shin Encounter Type: Triage Allergies, Adverse Reactions, Alerts [...] Fills: 1 Fills Dispensed: 0 nystatin topical 196548 u/gm cream APPLY TO THE AFFECTED AREA(S) [...] Fills: 1 Fills Dispensed: 0 Vitamin D 96967 iu oral capsule 50,000 International_Units, 1, capsule, [...] Care team information Care Team Personnel Name: Billy Silverman Position: [facility] Outreach Member Role: Lifetime Consulting Physician Name: Hira JASON , Dorinda Melendez Position: [facility] Outreach Member Role: PCP Address: [address] [place] [address]- Telecom: Name: Jn Ventura MD Position: [facility] Renal MD Member Role: Lifetime Consulting Physician Address: [address] [facility] [address] [facility] [place] [address]- Telecom: Name: Penny Cid RN Position: [facility] SN RN Member Role: Primary Care Nurse Care Team Related Persons Name: IRWIN SHIN Name: ELIZABETH DELVALLE Insurance Providers Guarantor name: RAYMOND DOMINGUEZISTA DUSTY [facility] Plan Information #: 1 Payer: [employer] CUSTOMER SERVICE Payer Identifier: NA Member Number: [id number] Group Number: [id number] [id number] Subscriber Identifier: JEAN CLAUDE Relationship to Subscriber: self Coverage Type: MEDICAID Coverage Verification Date: NA Telecom: NA Address: NA
--- OUTSIDE RECORDS SUMMARY | 2025-03-11 14:40 | XMS_ITS | Encounter Summary ---
Author Organization [employer] Address [address] [facility] 7t [place] [address] Care Team Providers Care Financial Administration Officer Name Role Phone Dorinda Iniguez MD Primary Care Provider [phone] Encounter Details Date Type Department Care Team ([facility] st Contact Info) Description 03/11/2025 2:40 PM EST Office Visit [facility] WALK-IN CENTER [address] [place] [phone] Patricia Alfaro MD [address] [place] [phone] Rash (Primary Dx) Social History Tobacco Use Types [...] Reading Time Taken Comments Blood Pressure 148/78 03/11/2025 2:08 PM EST Pulse 96 03/11/2025 2:08 PM EST Temperature 36.1 C (97 F) 03/11/2025 2:08 PM EST Respiratory Rate 21 03/11/2025 2:08 PM EST Oxygen Saturation - - Inhaled Oxygen Concentration - - Weight 101 kg (223 lb 9.6 oz) 03/11/2025 2:08 PM EST Height 160 cm (5' 3 ) 03/11/2025 2:08 PM EST Body Mass Index 39.61 03/11/2025 2:08 PM EST documented in this encounter Progress Notes * Patricia Alfaro MD - 03/11/2025 2:40 PM EST Images from the original note were not included. Subjective Patient ID: Chelle Arias is a 59 y.o. female who presents to walk in clinic for rash. Pt c/o worsening topical rash since last Monday. Reports that she has completed 7 days of diflucan prescribed in [facility] but the rash continues to spread. Reports that the rash is spreading from her abdomen to the top of her breasts. Reports that rash is itchy and painful. Rates pain at 7/10. Reports rash is warm to the touch. Pt states she is concerned to [facility] of having MRSA 2 years ago[address] Dr[address] Giraldo 03/05/25 Pt reported they went to urgent care03/04/25 for a rash underneath both breasts. Pt reports the rash is open. Pt denies open wound with the rash but endorses clear draining without odor. Pt reports rash is red and itchy. Pt endorses nausea. Pt denies fever or chills. Pt reports rash began on Monday evening. Pt reports they were using Nystatin powder and cream, but nasreen h has worsened which is why they had an evaluation at urgent care yesterday. Pt reports urgent carewas supposed to send a cream, but it was not sent. Pt was also advised to contact PCP office for anoral prescription for treatment. Pt reports they advised her to contact PCP for oral prescription and that they need liver labs. Diagnosed with Intertrigo - Hepatic Function Panel; Future - fluconazole (Diflucan) 100 MG tablet; Take 1 tablet (100 mg) by mouth Once per day for 14 days. - hydrocortisone 2.5 % cream; Apply topically in the morning and in the evening. To use 2 times a day for no more than 2 weeks. She completed this treatment Review of Systems Constitutional: Negative for fever. Objective Visit Vitals BP (!) 148/78 (BP Location: Left arm, Patient Position: Sitting, BP Cuff Size: Adult long) Pulse 96 Temp 97 ??F (36.1 ??C) (Temporal) Resp 21 Body mass index is 39.61 kg/m??. Physical Exam Skin: Comments: Pruritic, erythematous, excoriated plaques under breasts and across chest. Assessment & Plan Rash History, exam and wet mount consistent with fungal likely with superimposed bacterial infection. Less likely hood daniels given local and no oral other systemic symptoms. Will treat with cephalexin, Bactrim for MRSA coverage and miconazole cream. Follow up with me in 48 hours. Benadryl prn for itching. ER precautions discussed. Orders: sulfamethoxazole-trimethoprim (Bactrim DS) 800-160 MG tablet; Take 1 tablet by mouth 2 times daily for 7 days. cephalexin (Keflex) 500 MG capsule; Take 1 capsule (500 mg) by mouth 3 times daily for 7 days. miconazole (Micatin) 2 % cream; Apply to affected area 2 times daily Wound culture; Future POCT Wet Mount/TIM Future Appointments Date Time Provider Department Center 03/11/2025 2:40 PM [facility]INIC 1 WALK-IN [facility] 03/25/2025 11:30 AM Dorinda Iniguez MD [facility] MED [facility] This note was drafted using Ambient (AI) technology. The patient/patient's guardian has been informed and has consented to the use of this technology: yes documented in this encounter Plan of Treatment Upcoming Encounters Date Type Department Care Team (Late st Contact Info) Description 03/13/2025 1:00 PM EST Office Visit [facility] WALK-IN CENTER [address] [place] [address] 03/18/2025 11:15 AM EST Office Visit [facility] MED & PEDS 505 [place] [address] Dorinda Iniguez MD 505 [place] [address] 03/25/2025 11:30 AM EST Office Visit [facility] MED & PEDS 505 [place] [address] Dorinda Iniguez MD [address] [place] [address] Scheduled Orders Name Type Priority Associated Diagnoses Orde r Schedule Wound culture Microbiology Routine Rash Expected: 03/11/2025 (Approximate), Expires: 03/11/2026 POCT Wet Mount/TIM Point of Care Testing Routine Rash Ordered: 03/11/2025 documented as of this encounter Visit Diagnoses Diagnosis Rash- Primary Rash and other nonspecific skin eruption documented in this encounter Additional Health Concerns Assessment Noted Time PHQ-9 Depression Total Score: 2 05/28/19 9:31 AM EST documented as of this encounter Care Teams Financial Administration Officer Relationship Specialty Start Date End Date Dorinda Iniguez MD [address] [place] [address] PCP - General Family Medicine 04/24/18 Ginny Hernandez Semiconductor Wafers TesterUpsetter Setter Up 01/17/24 documented as of this encounter
--- OUTSIDE RECORDS SUMMARY | 2025-03-12 21:59 | XMS_ITS | Encounter Summary ---
Author Organization [email or web address] Address 75 [facility] 7 [place] [address] Care Team Providers Care Mig Welder Name Role Phone Dorinda Iniguez MD Primary Care Provider [phone] Reason for Visit * Reason Onset Date Comments Med Refill 07/01/2024 Encounter Details Date Type Department Care Team (Late st Contact Info) Description 07/01/[address] [facility] MEDICINE [address] [place] [address] Dorinda Iniguez MD [address] [place] [address] Benign essential hypertension; BMI 40.0-44.9, adult (CMS/HCC); [...] MG/0.5ML solution auto-injector To be sent to: [facility]/pharmacy #[id number] documented in this encounter Plan of Treatment Upcoming Encounters Date Type Department Care Team ([facility] st Contact Info) Description 03/13/2025 1:00 PM EST Office Visit [facility] WALK-IN CENTER [address] [place] [address] 03/18/2025 11:15 AM EST Office Visit [facility] MED & PEDS [address] [place] [address] Dorinda Iniguez MD 505 [place] [address] 03/25/2025 11:30 AM EST Office Visit [facility] MED & PEDS [address] [place] [address] Dorinda Iniguez MD 505 [place] [address] documented as of this encounter Visit Diagnoses Diagnosis Benign essential hypertension Essential hypertension, benign BMI 40.0-44.9, adult (CMS/HCC) (HCC) FARHAN (obstructive sleep apnea) Obstructive sleep apnea (adult) (pediatric) documented in this encounter Additional Health Concerns Assessment Noted Time PHQ-9 Depression Total Score: 2 05/28/19 25 9:31 AM EST documented as of this encounter Care Teams Mig Welder Relationship Specialty Start Date End Date Dorinda Iniguez MD [address] [place] [address] PCP - General Family Medicine 04/24/18 Ginny Hernandez Cytogenetics Laboratory ManagerFelt Puller 01/17/24 documented as of this encounter
--- OUTSIDE RECORDS SUMMARY | 2025-03-12 21:59 | XMS_ITS | Continuity of Care Document ---
Author Organization [place] - [facility], [facility] Address [address] [place] [address] Care Team Providers Care Digital Media Producer Name Role Phone LANCE KELLER Primary Care [...] By Organization Details Last Modified Time 02/17/2025 32300 - Use a warm compress to alleviate [...] Organization Details Recorded Time Abnormal auditory perception 57906950 Active 2024 [facility], [facility] [address] [facility], [facility], [place], [address], 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 14:54:59 Pain of right temporomand ibular joint 2506761903436 9107 Active 2024 KANNAN JENKINS MD 100 [facility],[place] [address], [place], [address], [facility] 15:15:33 Problem Notes None recorded. Procedures Surgical History Date Name Laterality Status Provider Name and Address Organization Details Recorded Time 02/17/2025 Comp Audio with Tymps - 04634 & 78420 completed [facility], [facility] 100 [facility],[address], [address], [facility] 02/17/2025 14:53:58 Imaging Results None recorded. [...] ICD10 Code Diagnosis IMO Codes Diagnosis Note [id number] KANNAN MOE MD [facility] of [address] [address] 02/17/2025 14:22:26 02/17/2025 15:22:05 Abnormal auditory perception 30532185 H93.291 46800257 Sensorineu ral hearing loss of left ear with normal hearing on right side 4852320545 H90.42 56358412 Right Ear:Normal hearing with excellent speech discrimina tion.Type A tympanogra m.Left Ear:Normal hearing with mild HL at 3K Hz only with excellent speech discrimina tion.Type A tympanogra m. Pain of ri ght temporomandibular joint 8118970499 9362522 M26.621 85831575 Health Concerns Section Related Observation LastModified by Organization Detai ls LastModified Time None Recorded Concern Status LastModified by Organization Details LastModified Time None Recorded Payers Encounter Date Sequence Insurance Name Policy Number Policy Ash Covered Member ID Ash Member ID Guarantor Name 02/17/2025 1 [place] [facility] PLAN Chelle Sesayista [id number] Chelle Melchor Notes Date Note Type Note [...] affected the alignment of the jaw. An lang interpreter was present during the session to assist with communication. KANNAN FLORES MD [address] [place] [address], [address], [facility] - [facility] 02/17/2025 15:44:32 OBGyn Episode No OBEpisode recorded.
--- OUTSIDE RECORDS SUMMARY | 2025-03-12 21:59 | XMS_ITS | Encounter Summary ---
Author Organization [employer] Address 75 [facility] 7 [place] [address] Care Team Providers Care Inspector Hot Forgings Name Role Phone Dorinda Iniguez MD Primary Care Provider [phone] Reason for Visit * Reason Onset Date Comments Med Refill 08/28/2024 Encounter Details Date Type Department Care Team ([facility] st Contact Info) Description 08/28/2024 Telephone [facility] MEDICINE [address] [place] [address] Dorinda Iniguez MD [address] [place] [address] Med Refill Social History Tobacco Use Types [...] MG/0.5ML solution auto-injector To be sent to: [facility]/pharmacy #[id number] documented in this encounter Plan of Treatment Upcoming Encounters Date Type Department Care Team (Late st Contact Info) Description 03/13/2025 1:00 PM EST Office Visit [facility] WALK-IN CENTER [address] [place], [place] [phone] 03/18/2025 11:15 AM EST Office Visit [facility] CHC MED & PEDS [address] [place], [place] [phone] Dorinda Iniguez MD [address] [place], [place] [address] 03/25/2025 11:30 AM EST Office Visit [facility] CHC MED & PEDS [address] [place] [address] Dorinda Iniguez MD [address] [place] [address] documented as of this encounter Visit Diagnoses Not on filedocumented in this encounter Additional Health Concerns Assessment Noted Time PHQ-9 Depression Total Score: 2 05/28/19 9:31 AM EST documented as of this encounter Care Teams Inspector Hot Forgings Relationship Specialty Start Date End Date Dorinda Iniguez MD [address] [place] [address] PCP - General Family Medicine 04/24/18 Ginny Hernandez Publication DesignerLab Aide 01/17/24 documented as of this encounter
--- OUTSIDE RECORDS SUMMARY | 2025-03-12 21:59 | XMS_ITS | Encounter Summary ---
Author Organization [employer] Address [address] [place] [address] 7 [place] [address] Care Team Providers Care Rail Car Mechanic Name Role Phone Dorinda Iniguez MD Primary Care Provider [phone] Encounter Details Date Type Department Care Team (Latest Contact Info) Description 04/02/2020 Abstract [facility] CONVERSIONS Dental, Provider, DDS Social [...] Description 03/13/2025 1:00 PM EST Office Visit [facility] WALK-IN [address] [address] 03/18/2025 11:15 AM EST Office Visit [facility] MED & PEDS [address] [place] [address] Dorinda Iniguez MD [address] [place] [address] 03/25/2025 11:30 AM EST Office Visit [facility] MED & PEDS [address] [place] [address] Dorinda Iniguez MD [address] [place] [address] documented as of this encounter Visit Diagnoses Not on filedocumented in this encounter Care Teams Rail Car Mechanic Relationship Specialty Start Date End Date Dorinda Iniguez MD [address] [place] [address] PCP - General Family Medicine 04/24/18 Ginny Hernandez Water Resource ConsultantLight Rail Vehicle Operator 01/17/24 documented as of this encounter
--- OUTSIDE RECORDS SUMMARY | 2025-03-12 21:59 | XMS_ITS | Clinical Summary ---
Author Organization [facility] Address [address] [place] [address] Phone Care Team Providers Care Motorized Squad Sergeant Name Role Phone Dorinda Iniguez MD Primary Care Provider [phone] Allergies Active Allergy Reactions Criticality Noted Date [...] Insurance Medicaid [place] Medicaid [place] Care Teams Motorized Squad Sergeant Relationship Specialty Start Date End Date Dorinda Iniguez MD [address] PCP - General Internal Medicine 07/06/22
--- OUTSIDE RECORDS SUMMARY | 2025-03-12 21:59 | XMS_ITS | Encounter Summary ---
Author Organization [employer] Address [address] [place] [address] 7 [place] [address] Care Team Providers Care Ciso Name Role Phone Dorinda Iniguez MD Primary Care Provider [phone] Encounter Details Date Type Department Care Team (Late st Contact Info) Description 05/06/2022 Orders Only [facility] [address] [place] [address] Suki Schmitt LPN Social History Tobacco Use [...] Description 03/13/2025 1:00 PM EST Office Visit [facility] [address] [place] [address] 03/18/2025 11:15 AM EST Office Visit [facility] [address] [place] [address] Dorinda Iniguez MD 505 [place] [address] 03/25/2025 11:30 AM EST Office Visit [facility] [address] [place] [address] Dorinda Iniguez MD [address] [place] [address] documented as of this encounter Visit Diagnoses Not on filedocumented in this encounter Care Teams Ciso Relationship Specialty Start Date End Date Dorinda Iniguez MD [address] [place] [address] PCP - General Family Medicine 04/24/18 Ginny Hernandez Patent Litigation AssociateLine Patroller 01/17/24 documented as of this encounter
--- OUTSIDE RECORDS SUMMARY | 2025-03-12 21:59 | XMS_ITS | Encounter Summary ---
Author Organization [facility] Address [address] [place] [address] 7 [place] [address] Care Team Providers Care Shipping Support Name Role Phone Dorinda Iniguez MD Primary Care Provider [phone] Encounter Details Date Type Department Care Team (Latest Contact Info) Description 04/22/2019 Abstract [facility] CONVERSIONS Dental, Provider, DDS Social [...] Description 03/13/2025 1:00 PM EST Office Visit [facility] WALK-IN [address] [address] 03/18/2025 11:15 AM EST Office Visit [facility] MED [facility] PEDS [address] [place] [address] Dorinda Iniguez MD [address] [place] [address] 03/25/2025 11:30 AM EST Office Visit [facility] MED [facility] PEDS [address] [place] [address] Dorinda Iniguez MD [address] [place] [address] documented as of this encounter Visit Diagnoses Not on filedocumented in this encounter Care Teams Shipping Support Relationship Specialty Start Date End Date Dorinda Iniguez MD [address] [place] [address] PCP - General Family Medicine 04/24/18 Ginny Hernandez Water Well DrillerTool Die Maker 01/17/24 documented as of this encounter
--- OUTSIDE RECORDS SUMMARY | 2025-03-12 21:59 | XMS_ITS | Encounter Summary ---
Author Organization [employer] Address [address] [place] [address] 7 [place] [address] Care Team Providers Care Predatory Game Hunter Name Role Phone Dorinda Iniguez MD Primary Care Provider Encounter Details Date Type Department Care Team (Latest Contact Info) Description 09/08/2021 Abstract [facility] CONVERSIONS Dental, Provider, DDS Social History [...] Description 03/13/2025 1:00 PM EST Office Visit [facility] [place] [address] [place] [address] 03/18/2025 11:15 AM EST Office Visit [facility] MED [facility] PEDS [address] [place] [address] Doridna Iniguez MD 505 [place] [address] 03/25/2025 11:30 AM EST Office Visit [facility] [address] [place] [address] Dorinda Iniguez MD [address] [place] [address] documented as of this encounter Visit Diagnoses Not on filedocumented in this encounter Care Teams Predatory Game Hunter Relationship Specialty Start Date End Date Dorinda Iniguez MD [address] [place] [address] PCP - General Family Medicine 04/24/18 Ginny Hernandez Cocoa Butter Filter OperatorSurvey Methodologist 01/17/24 documented as of this encounter
--- OUTSIDE RECORDS SUMMARY | 2025-03-12 21:59 | XMS_ITS | Clinical Summary ---
Author Organization [employer] Address [address] [place] [address] 7t [place] [address] Care Team Providers Care Hauling Contractor Name Role Phone Dorinda Iniguez MD Primary Care Provider [phone] Allergies Active Allergy Reactions Criticality Noted Date Comments Lisinopril Rash,Unknown,Cough High 04/24/2010 Other reaction(s): cough, Cough Other reaction(s): cough Other reaction(s): cough, Cough Medications LORazepam (Ativan) 0.5 MG tablet TAKE ONE TABLET EVERY MORNING AND TWO TABLETS AT BEDTIME NEEDED 3 Active lidocaine (Lidoderm) 5 % patch APPLY TO LOWER BACK REGION. LEAVE ON FOR 12 HOURS OFF FOR 12 HOURS, NEEDED. 3 Active Procto-Med HC 2.5 % rectal creamIndications :Irritable bowel syndrome with diarrhea APPLY RECTALLY TWICE DAILY 28 g 5 3 Active metoprolol tartrate (Lopressor) 75 MG tablet Take 75 mg by mouth in the morning and 75 mg at noon and 75 mg in the evening. 3 Active loperamide (Imodium) 2 MG capsule Take 2 mg by mouth. Active traMADol (Ultram) 50 MG tablet Take 50 mg by mouth every 6 (six) hours if needed. Active pregabalin (Lyrica) 75 MG capsule ONE BY MOUTH EVERY NIGHT X3 DAYS THEN ONE BY MOUTH TWICE A DAY 4 Active Ventolin HFA 108 (90 Base) MCG/ACT inhalerIndicatio ns:Moderate persistent asthma without complication INHALE ONE PUFF EVERY 4 HOURS NEEDED FOR COUGH 18 g 1 4 Active albuterol (2.5 MG/3ML) 0.083% nebulizer solutionIndicati ons:Moderate persistent asthma without complication Take 3 mL (2.5 mg) by nebulization every 6 (six) hours if needed for wheezing or shortness of breath. 90 mL 3 4 Active hydrALAZINE (Apresoline) 100 MG tablet Take 1 tablet (100 mg) by mouth 3 times daily. 90 tablet 11 4 Active Arnuity Ellipta 100 MCG/ACT inhaler TAKE 1 PUFF EVERY DAY Active cholecalciferol (SM Vitamin D3) 50 MCG (2000 UT) capsuleIndicatio ns:Vitamin D deficiency Take 1 capsule orally daily 30 capsule 4 Active aspirin (Aspirin Low Dose) 81 MG chewable tablet Chew 1 tablet (81 mg) Once per day. 90 tablet 5 4 Active gabapentin (Neurontin) 100 MG capsule Take 2 capsules orally qhs 60 capsule 3 5 Active dicyclomine (Bentyl) 20 MG tablet TAKE 1 TABLET (20 MG) BY MOUTH BEFORE BREAKFAST, BEFORE LUNCH, BEFORE EVENING MEAL, AND AT BEDTIME. 120 tablet 5 Active albuterol (2.5 MG/3ML) 0.083% nebulizer solution Take 3 mL (2.5 mg) by nebulization every 6 (six) hours if needed for wheezing. 75 mL 5 026 Active verapamil SR (Calan SR) 180 MG ER tabletIndication s:Benign essential hypertension TAKE 2 CAPSULES BY MOUTH EVERY DAY 180 tablet 3 5 Active Tirzepatide-Weig ht Management (Zepbound) 10 MG/0.5ML solution auto-injectorInd ications:Class 3 severe obesity due to excess calories with serious comorbidity and body mass index (BMI) of 40.0 to 44.9 in adult (HCC) Inject 0.5 mL (10 mg) under the skin 1 (one) time per week. 2 mL 5 5 Active LORazepam (Ativan) 0.5 MG tabletIndication s:Generalized anxiety disorder Take 1 tab orally daily prn anxiety 30 tablet 5 Active pantoprazole (ProtoNix) 40 MG EC tablet TAKE 1 TABLET BY MOUTH EVERY DAY IN THE MORNING 90 tablet 5 Active fluconazole (Diflucan) 100 MG tabletIndication s:Intertrigo Take 1 tablet (100 mg) by mouth Once per day for 14 days. 14 tablet 5 025 Active hydrocortisone 2.5 % creamIndications :Intertrigo Apply topically in the morning and in the evening. To use 2 times a day for no more than 2 weeks. 28 g 5 Active sulfamethoxazole -trimethoprim (Bactrim DS) 800-160 MG tabletIndication s:Urinary Tract Infection Take 1 tablet by mouth 2 times daily for 7 days. 14 tablet 5 025 Active cephalexin (Keflex) 500 MG capsuleIndicatio ns:Rash Take 1 capsule (500 mg) by mouth 3 times daily for 7 days. 21 capsule 5 025 Active miconazole (Micatin) 2 % creamIndications :Rash Apply to affected area 2 times daily 28 g 1 5 Active Active Problems Problem Noted Date Diagnosed Date FARHAN (obstructive sleep apnea) 05/28/2024 BMI 40.0-44.9, adult ([facility]) 05/28/2024 Ear ache 10/04/2023 Assessment [...] Encounters Date Type Department Care Team Description 03/11/2025 2:40 PM EST Office Visit [facility] [address] [place] [address] Patricia Alfaro MD Rash (Primary Dx) 03/11/2025 Orders Only [facility] MEDICINE [address] [place] [address] Patricia Alfaro MD 03/11/2025 Travel 03/11/2025 Telephone [facility] MED [facility] [address] [place] [address] Dorinda Iniguez MD Nurse Triage 03/06/2025 Results Follow-Up [facility] [address] [place] [address] Angie Giraldo MD Hepatic Function Panel 03/06/2025 Telephone [facility] [address] [place] [address] Dorinda Iniguez MD verbal orders 03/05/2025 2:40 PM EST Office Visit [facility] [address] [place] [address] Angie Giraldo MD Intertrigo (Primary Dx); Nausea 03/05/2025 Travel 03/05/[address] [address] Dorinda Iniguez MD ER Follow-up 01/24/2025 Orders Only [facility] [address] [place] [address] Nona Umaña MD Leg cramps (Primary Dx) 01/23/2025 Telephone [facility] [address] [place], [place] [phone] Dorinda Iniguez MD Referral (TC US leg) 01/23/2025 Telephone [facility] [address] [place] [address] Dorinda Iniguez MD 01/22/2025 Telephone [facility] [address] [place] [address] Dorinda Iniguez MD Referral 01/20/2025 11:00 AM EDT Office Visit [facility] [address] [place] [address] Nona Umaña MD Leg cramps (Primary Dx); Ecchymosis 01/20/2025 Travel 01/20/2025 Telephone [facility] [address] [place] [address] Dorinda Iniguez MD Nurse Triage 01/13/2025 10:00 AM EDT Office Visit [facility] AD[facility] [address] [place] [address] Dee Lynch 01/13/[address] [address] Dorinda Iniguez MD 01/08/2025 Telephone [facility] [address] [place] [address] Dorinda Iniguez MD 01/03/2025 Orders Only [facility] [address] [place] [address] Dorinda Iniguez MD Kidney stone (Primary Dx) 01/02/[address] [address] Dorinda Iniguez MD Prior Authorization 01/01/[address] [address] Dorinda Iniguez MD Referral 12/26/2024 Telephone [facility] [address] [place] [address] Deb Rubio LPN 12/24/2024 10:30 AM EDT Office Visit [facility] [address] [place] [address] Dorinda Iniguez MD Class 3 severe obesity due to excess calories with serious comorbidity and body mass index (BMI) of 40.0 to 44.9 in adult (Primary Dx); Generalized anxiety disorder; Benign essential hypertension; Moderate persistent asthma without complication 12/24/2024 Travel 12/16/2024 Patient Outreach [facility] [address] [place] [phone] Kerry Chappell Pre-visit Planning (Pre visit planning [...] 21 03/11/2025 2:08 PM EST Oxygen Saturation 98% 03/05/2025 2:23 PM EST Inhaled Oxygen Concentration - - Weight 101 kg (223 lb 9.6 oz) 03/11/2025 2:08 PM EST Height 160 cm (5' 3 ) 03/11/2025 2:08 PM EST Body Mass Index 39.61 03/11/2025 2:08 PM EST Plan of Treatment Upcoming Encounters Date Type Department Care Team (Late st Contact Info) Description 03/13/2025 1:00 PM EST Office Visit [facility] [address] [place], [place] [phone] 03/18/2025 11:15 AM EST Office Visit [facility] P[facility]S [address] [place], [place] [phone] Dorinda Iniguez MD [address] [place] [address] 03/25/2025 11:30 AM EST Office Visit [facility] [address] [place] [address] Dorinda Iniguez MD [address] [place] [address] Health Maintenance Due Date Last Done Comments [...] Mammogram 09/06/2026 09/06/2024, 08/04/2023 Colonoscopy 07/31/2028 08/01/2023, 0412/2023, 09/25/2020 Colorectal Cancer Screening 07/31/2028 Lipid Panel [...] Procedure Name Priority Date/Time Associated Diagnosis Comments GRAM STAIN RESULT (NON ORDERABLE) Routine 03/11/2025 12:00 AM EST HEPATIC FUNCTION PANEL Routine 03/05/2025 2:38 PM EST Intertrigo US VENOUS DUPLEX LE RT Routine 01/24/2025 [...] Recently Relevant to Health Maintenance Results * Gram Stain Result (03/11/2025 12:00 AM EST) 03/11/2025 03/12/2025 11: 12 AM EST Comment:Chest Narrative [facility] - 03/12/2025 3:32 PM EST FROM CHEST RASH Gram stain results: No polys 2+ epithelial cells 2+ Gram-positive rods 1+ Gram-positive cocci Specimen Source: Chest us Patricia Alfaro MD HISTORICAL/NON ORDERABLE L ABS Final Result [facility] [address] [place] [phone] * Hepatic Function Panel (03/05/2025 2:38 PM EST) Bilirubin, Total 0.6 0.0 - 1.0 mg/dL [facility] Bilirubin, Direct 0.3 0.0 - 0.5 mg/dL [facility] Aspartate Amino Transferase 20 5 - 31 U/L [facility] Alanine Aminotransferase 15 0 - 31 U/L [facility] Total Protein 6.6 6.5 - 8.0 g/dL [facility] Albumin Level 4.1 3.5 - 5.0 g/dL [facility] Alkaline Phosphatase 79 39 - 117 U/L [facility] Blood Venous blood specimen / Unknown 03/05/2025 2:38 PM EST 03/05/2025 5:55 PM EST us Angie Giraldo MD LAB BLOOD ORDERABLES Final Result [facility] [address] [place] [phone] * US VENOUS DUPLEX LE RT (01/24/2025 2:30 PM EDT) Anatomical Region Laterality Modality Abdomen Ultrasound 01/24/2025 2:30 PM EDT Narrative 01/24/2025 2:43 PM EDT [address] [address] Ultrasound Report Signed Patient: Chelle Helm MR# : [id number] : 1965 Acct:[id number] Age/Sex: 59 / F ADM Date: 01/24/25 Loc: . Attending Dr: Nona Umaña MD Ordering Physician: Dorinda Iniguez MD Date of Service: 01/24/25 Procedure(s): US venous duplex LE RT Accession Number(s): [id number] cc: Dorinda Iniguez MD Reason for Exam: [...] OV> 01/24/25 1441 DD/ 1430 TD/TT: 01/24/25 143 [facility] Associate: TOM Procedure Note Donotuseinterpreter, Image - 01/24/[address] [address] Ultrasound Report Signed Patient: Chelle Helm MMR# : [id number] : 1965Acct:[id number] Age/Sex: 59 / FADM Date: 01/24/25 Loc: .US Attending Dr: Nona Umaña MD Ordering Physician: Dorinda Iniguez MD Date of Service: 01/24/25 Procedure(s): US venous duplex LE RT Accession Number(s): [id number] cc: Dorinda Iniguez MD Reason for Exam: [...] OV> 01/24/25 1441 DD/ 1430 TD/TT: 01/24/25 143 Copy Center Associate: TOM us Dorinda Iniguez MD IMG US PROCEDURES Final Resul t * (ABNORMAL) Basic Metabolic Panel (01/20/2025 11:42 AM EDT) Sodium 142 135 - 145 mmol/L [facility] Potassium 5.1 3.3 - 5.1 mmol/L [facility] Chloride 109(H) 96 - 108 mmol/L [facility] Carbon Dioxide 26 22 - 29 mmol/L [facility] Anion Gap 12 12 - 20 [facility] Urea Nitrogen (BUN) 25(H) 9 - 16 mg/dL [facility] Creatinine, Serum 0.80 0.5 - 1.4 mg/dL [facility] Estimated Glomerular Filt Rate >60 [facility] Comment:Chronic Kidney Disea se: Estimated GFR < 60 mL/min/[id number] Kidney Disease: Estimated GFR < 15 mL/min/1.73m2 Glucose 88 60 - 115 mg/dL [facility] Calcium 9.4 8.4 - 10.2 mg/dL [facility] Blood Venous blood specimen / Unknown 01/20/2025 11:42 AM EDT 01/20/2025 2:07 PM EDT us Nona Umaña MD LAB BLOOD ORDERABLES Final Resul t [facility] [address] [place] [phone] * Referral to Urology (12/13/2024) us Dorinda Iniguez MD OUTPATIENT REFERRAL ORDERABLE S Final Result * Mammography (09/06/2024) Mammogram Normal Normal, Abnormal, BIRADS 1 , BIRADS 2 Anatomical Region Laterality Modality Other us Dorinda Iniguez MD HEALTH MAINTENANCE Final Resu lt * (ABNORMAL) Lipid Panel, Standard (12/14/2023 9:32 AM EDT) Triglycerides 162(H) <150 mg/dL [facility] Comment:Desirable Triglyceri de: less than 150 mg/dLBorderline High Triglyceride 150-199 mg/dLHigh Triglyceride: 200-499 mg/dLVery High Triglyceride: greater than or equal to 5OO mg/dL Cholesterol 193 <200 mg/dL [facility] Comment:Desirable Cholestero l: less than 200 mg/dLBorderline High Cholesterol: 200-239 mg/dLHigh Cholesterol: greater than 239 mg/dL LDL Cholesterol Calculated 113(H) <100 mg/dL [facility] Comment:Desirable LDL: less than 100 mg/dLNear Optimal/Above Optimal LDL: 110- 129 mg/dLBorderline High LDL: 130-159 mg/dLHigh LDL: 160-189 mg/dLVery High LDL: greater than or equal to 190 mg/dL HDL Cholesterol 48 >40 mg/dL [facility] Comment:Desirable HDL: great er than 40 mg/dL Note: This HDL assay may give artificially low results in patients with liver disease. Blood Venous blood specimen / Unknown 12/14/2023 9:32 AM EDT 12/14/2023 2:14 PM EDT us Dorinda Iniguez MD LAB BLOOD ORDERABLES Final Re sult [facility] [address] [place] [phone] * Hepatitis C Antibody with Reflex to HCV, RNA, Quantitative, Real-Time PCR (08/17/2023 2:19 PM EDT) Hepatitis C Antibody Nonreactive Nonreactive [facility] Comment:Antibodies to HCV no t detected; does not exclude early acuteHCV infection. Blood Venous blood specimen / Unknown 08/17/2023 2:19 PM EDT 08/17/2023 5:21 PM EDT us Angie Giraldo MD LAB BLOOD ORDERABLES Final Result Performing Organization Address [facility]/ZIP Co de Phone Number [facility] [address] [place] [phone] * HIV-1/2 Antigen and Antibodies, Fourth [...] below the limit ofdetection of this assay.[employer] HIV Ag/Ab Combo assay result andsupplemental assay results should be interpreted inconjunction with the patient's clinical presentation,history and other laboratory results. If the results areinconsistent with clinical evidence, additional testing issuggested to confirm the result. Blood Venous blood specimen / Unknown 08/17/2023 2:19 PM EDT 08/17/2023 5:21 PM EDT Angie Giraldo MD LAB BLOOD ORDERABLES Final Result Performing Organization Address [facility] Co de Phone Number [facility] [address] [place] [address] [phone] * (ABNORMAL) Hm Colonoscopy (08/01/2023) Colonoscopy Abnormal(A ) Normal Dorinda Iniguez MD HEALTH MAINTENANCE Final Resu lt * Hm Pap Smear (09/01/2021) Pap Negative for intraephithelial lesion or malignancy Negative for intraephithelial lesion or malignancy, Other HPV Undetected Undetected, Indeterminate, Quantitative, Not Detected Sakina Cline MD HEALTH MAINTENANCE Final Result from Last 3 Months or Most Recently Relevant to Health Maintenance Insurance [place] [facility] MEDICAID STAND ADULT Care Teams Hauling Contractor Relationship Specialty Start Date End Date Dorinda Iniguez MD [address] [place] [address] PCP - General Family Medicine 04/24/18 Ginny Hernandez Identification TechnicianEquipment Operating Engineer 01/17/24
--- OUTSIDE RECORDS SUMMARY | 2025-03-12 21:59 | XMS_ITS | Encounter Summary ---
Author Organization [employer] Address [address] [place] [address] 7 [place] [address] Care Team Providers Care Allied Health Teacher Name Role Phone Dorinda Iniguez MD Primary Care Provider [phone] Reason for Visit * Reason Onset Date Comments Med Refill 05/22/2024 Encounter Details Date Type Department Care Team ([facility] st Contact Info) Description 05/22/2024 Refill [facility] PEDS [address] [place] [address] Dorinda Iniguez MD [address] [place] [address] Influenza B Social History Tobacco Use Types [...] 20 MG tablet To be sent to: [facility]/pharmacy #[id number] documented in this encounter Plan of Treatment Upcoming Encounters Date Type Department Care Team ([facility] st Contact Info) Description 03/13/2025 1:00 PM EST Office Visit [facility] [address] [address] 03/18/2025 11:15 AM EST Office Visit [facility] [address] [place] [address] Dorinda Iniguez MD [address] [place] [address] 03/25/2025 11:30 AM EST Office Visit [facility] [address] [place] [address] Dorinda Ingiuez MD [address] [place] [address] documented as of this encounter Visit Diagnoses Diagnosis Influenza B Influenza with other respiratory manifestations documented in this encounter Additional Health Concerns Assessment Noted Time PHQ-9 Depression Total Score: 4 08/17/19 24 1:37 PM EDT documented as of this encounter Care Teams Allied Health Teacher Relationship Specialty Start Date End Date Dorinda Iniguez MD [address] [place] [address] PCP - General Family Medicine 04/24/18 Ginny Hernandez Evaluation AdvisorSulfuric Acid Plant Supervisor 01/17/24 documented as of this encounter
--- OUTSIDE RECORDS SUMMARY | 2025-03-12 21:59 | XMS_ITS | Encounter Summary ---
Author Organization [employer] Address [address] [place] [address] 7 [place] [address] Care Team Providers Care Taxonomy Teacher Name Role Phone Dorinda Iniguez MD Primary Care Provider [phone] Reason for Visit * Reason Onset Date Comments Referral 01/22/2025 Encounter Details Date Type Department Care Team ([facility] Contact Info) Description 01/22/2025 Telephone [facility] [address] [place], [place] [phone] Dorinda Iniguez MD [address] [place] [address] Referral Social History Tobacco Use Types Packs/Day [...] 10:07 AM EDT [facility] with [facility]. Pt stated was advised an US would [...] a sonogram. Any questions contact pt at [phone] documented in this encounter Plan of Treatment Upcoming Encounters Date Type Department Care Team ([facility] Contact Info) Description 03/13/2025 1:00 PM EST Office Visit [facility] WALK-IN [address] [place] [address] 03/18/2025 11:15 AM EST Office Visit [facility] [address] [place] [address] Dorinda Inigeuz MD [address] [place] [address] 03/25/2025 11:30 AM EST Office Visit [facility] [address] [place] [address] Dorinda Iniguez MD [address] [place] [address] documented as of this encounter Visit Diagnoses Not on filedocumented in this encounter Additional Health Concerns Assessment Noted Time PHQ-9 Depression Total Score: 2 05/28/19 25 9:31 AM EST documented as of this encounter Care Teams Taxonomy Teacher Relationship Specialty Start Date End Date Dorinda Iniguez MD [address] [place] [address] PCP - General Family Medicine 04/24/18 Ginny Hernandez Burglar Alarm MechanicPiper Helper 01/17/24 documented as of this encounter
--- OUTSIDE RECORDS SUMMARY | 2025-03-12 21:59 | XMS_ITS | Encounter Summary ---
Author Organization [employer] Address [address] [place] [address] 7 [place] [address] Care Team Providers Care Robotics Technologist Name Role Phone Dorinda Iniguez MD Primary Care Provider [phone] Encounter Details Date Type Department Care Team (Latest Contact Info) Description 10/15/2018 Abstract [facility] CONVERSIONS Dental, Provider, DDS Social History [...] Description 03/13/2025 1:00 PM EST Office Visit [facility] WALK-IN [address] [address] 03/18/2025 11:15 AM EST Office Visit [facility] MED & PEDS [address] [place] [address] Dorinda Iniguez MD 505 [place] [address] 03/25/2025 11:30 AM EST Office Visit [facility] MED & PEDS [address] [place] [address] Dorinda Iniguez MD 505 [place] [address] documented as of this encounter Visit Diagnoses Not on filedocumented in this encounter Care Teams Robotics Technologist Relationship Specialty Start Date End Date Dorinda Iniguez MD [address] [place] [address] PCP - General Family Medicine 04/24/18 Ginny Hernandez Research And Development DirectorPharmacy Coordinator 01/17/24 documented as of this encounter
--- OUTSIDE RECORDS SUMMARY | 2025-03-12 21:59 | XMS_ITS | Encounter Summary ---
Author Organization [employer] Address [address] [place] [address] 7 [place] [address] Care Team Providers Care Touch Up Worker Name Role Phone Dorinda Iniguez MD Primary Care Provider [phone] Reason for Visit * Reason Comments Med Refill Encounter Details Date Type Department Care Team ([facility] st Contact Info) Description 03/01/2024 Refill [facility]C MED & PEDS [address] [place], [place] [phone] Dorinda Iniguez MD 505 [place] [address] Social History Tobacco Use Types Packs/Day Years [...] Description 03/13/2025 1:00 PM EST Office Visit [facility] WALK-IN [address] [address] 03/18/2025 11:15 AM EST Office Visit [facility] MED & PEDS [address] [place] [address] Dorinda Iniguez MD [address] [place] [address] 03/25/2025 11:30 AM EST Office Visit [facility] MED & PEDS [address] [place] [address] Dorinda Iniguez MD [address] [place] [address] documented as of this encounter Visit Diagnoses Not on filedocumented in this encounter Additional Health Concerns Assessment Noted Time PHQ-9 Depression Total Score: 4 08/17/19 1:37 PM EDT documented as of this encounter Care Teams Touch Up Worker Relationship Specialty Start Date End Date Dorinda Iniguez MD [address] [place] [address] PCP - General Family Medicine 04/24/18 Ginny Hernandez Cone TruckerDining Services Director 01/17/24 documented as of this encounter
--- OUTSIDE RECORDS SUMMARY | 2025-03-12 22:00 | XMS_ITS | Encounter Summary ---
Author Organization [employer] Address [address] [place] [address] 7t [place] [address] Care Team Providers Care Mounter Sousaphones Name Role Phone Dorinda Iniguez MD Primary Care Provider [phone] Reason for Visit * Reason Comments Med Refill Encounter Details Date Type Department Care Team ([facility] Contact Info) Description 11/08/2022 Refill [facility] CHC MED & PEDS [address] [place], [place] [phone] Dorinda Iniguez MD [address] [place] [address] Vitamin D deficiency; Generalized anxiety disorder Social [...] Upcoming Encounters Date Type Department Care Team ([facility] Contact Info) Description 03/13/2025 1:00 PM EST Office Visit [facility] WALK-IN CENTER [address] [place] [address] 03/18/2025 11:15 AM EST Office Visit [facility] MED & PEDS [address] [place] [address] Dorinda Iniguez MD [address] [place] [address] 03/25/2025 11:30 AM EST Office Visit [facility] MED & PEDS [address] [place] [address] Dorinda Iniguez MD [address] [place] [address] documented as of this encounter Visit Diagnoses Diagnosis Vitamin D deficiency Generalized anxiety disorder documented in this encounter Additional Health Concerns Assessment Noted Time PHQ-9 Depression Total Score: 4 06/09/19 23 1:44 PM EST documented as of this encounter Care Teams Mounter Sousaphones Relationship Specialty Start Date End Date Dorinda Iniguez MD [address] [place] [address] PCP - General Family Medicine 04/24/18 Ginny Hernandez Aviation Maintenance InstructorIntranet Specialist 01/17/24 documented as of this encounter
--- OUTSIDE RECORDS SUMMARY | 2025-03-12 22:00 | XMS_ITS | Data Portability ---
Author Organization [place] - [facility], Allergy Address [address] [address] Care Team Providers Care Impregnator And Drier Helper Name Role Phone LANCE KELLER Primary Care Provider [phone] Assessment Encounter Date Assessment Date Assessment LastModified [...] By Organization Details Last Modified Time 02/17/2025 04222 - Use a warm compress to alleviate [...] Organization Details Recorded Time Abnormal auditory perception 81546507 Active 2024 LE BUTT, [address],[place] [address], [place], [address], 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 Procedures Surgical History Date Name Laterality Status Provider Name and Address Organization Details Recorded Time 02/17/2025 Comp Audio with Tymps - 52176 & 85243 completed LE BUTT, [facility] 100 [facility],[address], [address], [facility] 02/17/2025 14:53:58 Imaging Results None recorded. [...] ICD10 Code Diagnosis IMO Codes Diagnosis Note [id number] KANNAN MOE MD [facility] of [address] [address] 02/17/2025 14:22:26 02/17/2025 15:22:05 Abnormal auditory perception 84836245 H93.291 [id number] Sensorineu ral hearing loss of left ear with normal hearing on right side 8159756265 H90.42 [id number] Right Ear:Normal hearing with excellent speech discrimina tion.Type A tympanogra m.Left Ear:Normal hearing with mild HL at 3K Hz only with excellent speech discrimina tion.Type A tympanogra m. Pain of ri ght temporomandibular joint [id number] M26.621 [id number] Health Concerns Section Related Observation LastModified by Organization Detai ls LastModified Time None Recorded Concern Status LastModified by Organization Details LastModified Time None Recorded Advance Directives Directive None Recorded Payers Insurance Date Sequence Insurance Name Policy Number Policy Ash Covered Member ID Ash Member ID Guarantor Name 02/17/2025 1 [place] [facility] [address] Chelle Melendez Ruiz [id number] Chelle Melchor 02/17/2025 1 [place] [facility] Chelle Melendez Ruiz [id number] Chelle Melchor Notes Date Note Type Note [...] to assist with communication. KANNAN FLORES MD [address] [place] [address], [address], [facility] - [facility] 02/17/2025 15:44:32 OBGyn Episode No OBEpisode recorded.
--- OUTSIDE RECORDS SUMMARY | 2025-03-12 22:00 | XMS_ITS | Encounter Summary ---
Author Organization [employer] Address [address] [facility] 7 [place] [address] Care Team Providers Care Assistant Track Coach Name Role Phone Dorinda Iniguez MD Primary Care Provider [phone] Reason for Visit * Reason Onset Date Comments Appointment Request 06/15/2023 Encounter Details Date Type Department Care Team ([facility] st Contact Info) Description 06/15/2023 Telephone [facility] MEDICINE [address] [place] [address] Dorinda Iniguez MD [address] [place] [address] Appointment Request Social History Tobacco Use Types [...] [facility] WALK-IN CENTER [address] [place] [address] 03/18/2025 11:15 AM EST Office Visit [facility] MED & PEDS [address] [place] [address] Dorinda Iniguez MD [address] [place] [address] 03/25/2025 11:30 AM EST Office Visit [facility] CH[facility] MED & PEDS [address] [place] [address] Dorinda Iniguez MD [address] [place] [address] documented as of this encounter Visit Diagnoses Not on filedocumented in this encounter Additional Health Concerns Assessment Noted Time PHQ-9 Depression Total Score: 4 06/09/19 23 1:44 PM EST documented as of this encounter Care Teams Assistant Track Coach Relationship Specialty Start Date End Date Dorinda Iniguez MD [address] [place] [address] PCP - General Family Medicine 04/24/18 Ginny Hernandez Lpn InstructorNetwork Contractor 01/17/24 documented as of this encounter
--- OUTSIDE RECORDS SUMMARY | 2025-03-12 22:00 | XMS_ITS | Encounter Summary ---
Author Organization [employer] Address [address] [place] [address] 7 [place] [address] Care Team Providers Care Steel Pourer Helper Name Role Phone Dorinda Iniguez MD Primary Care Provider [phone] Reason for Visit * Reason Onset Date Comments Call Back Request 09/29/2023 Encounter Details Date Type Department Care Team ([facility] Contact Info) Description 09/29/2023 Telephone [facility] CHC MED & PEDS [address] [place] [address] Dorinda Iniguez MD [address] [place] [address] Call Back Request Social History Tobacco Use [...] 10:56 AM EDT Tc to pt using [employer] [place], [place] [id number]. Advised pt about message by Brenda. Pt [...] ENT for 04/04/24. Please contact pt at [phone] documented in this encounter Plan of Treatment Upcoming Encounters Date Type Department Care Team (Late st Contact Info) Description 03/13/2025 1:00 PM EST Office Visit [facility] WALK-IN CENTER [address] [place] [address] 03/18/2025 11:15 AM EST Office Visit [facility] MED & PEDS [address] [place] [address] Dorinda Iniguez MD [address] [place] [address] 03/25/2025 11:30 AM EST Office Visit [facility] MED & PEDS [address] [place] [address] Dorinda Iniguez MD [address] [place] [address] documented as of this encounter Visit Diagnoses Not on filedocumented in this encounter Additional Health Concerns Assessment Noted Time PHQ-9 Depression Total Score: 4 08/17/19 24 1:37 PM EDT documented as of this encounter Care Teams Steel Pourer Helper Relationship Specialty Start Date End Date Dorinda Iniguez MD [address] [place] [address] PCP - General Family Medicine 04/24/18 Ginny Hernandez Product Marketing SpecialistClinical Phlebotomist 01/17/24 documented as of this encounter
--- OUTSIDE RECORDS SUMMARY | 2025-03-12 22:00 | XMS_ITS | Encounter Summary ---
Author Organization [employer] Address [address] [facility] 7t [place] [address] Care Team Providers Care Java Developer Analyst Name Role Phone Dorinda Iniguez MD Primary Care Provider [phone] Encounter Details Date Type Department Care Team ([facility] st Contact Info) Description 03/03/2023 Abstract [facility] MEDICINE [address] [place], [place] [phone] Sarahi Pearl Social History Tobacco Use Types [...] Description 03/13/2025 1:00 PM EST Office Visit [facility] WALK-IN CENTER [address] [place], [place] [phone] 03/18/2025 11:15 AM EST Office [facility] MED & PEDS [address] [place] [address] Dorinda Iniguez MD 505 [place] [address] 03/25/2025 11:30 AM EST Office [facility] MED & PEDS [address] [place] [address] Dorinda Iniguez MD [address] [place] [address] documented as of this encounter Procedures Procedure Name Priority Date/Time Associated Diagnosis Comments COLONOSCOPY Routine 09/25/2020 documented in this encounter Results * Colonoscopy (09/25/2020) Colonoscopy Normal Normal Narrative Ryanne Sarahi - 09/25/2020 Recommended 5 year follow up us Historical Provider HEALTH MAINTENANCE Final Result documented in this encounter Visit Diagnoses Not on filedocumented in this encounter Additional Health Concerns Assessment Noted Time PHQ-9 Depression Total Score: 4 06/09/19 23 1:44 PM EST documented as of this encounter Care Teams Java Developer Analyst Relationship Specialty Start Date End Date Dorinda Iniguez MD [address] [place] [address] PCP - General Family Medicine 04/24/18 Ginny Hernandez Event Lighting SpecialistElectronic Systems Security Assessment 01/17/24 documented as of this encounter
--- OUTSIDE RECORDS SUMMARY | 2025-03-12 22:00 | XMS_ITS | Encounter Summary ---
Author Organization [employer] Address [address] [place] [address] 7t [place] [address] Care Team Providers Care Cutter Grinder Name Role Phone Dorinda Iniguez MD Primary Care Provider [phone] Encounter Details Date Type Department Care Team ([facility] st Contact Info) Description 03/11/2025 Orders Only [facility] MEDICINE [address] [place], [place] [phone] Patricia Alfaro MD [address] [place], [place] [phone] Social History Tobacco Use Types Packs/Day Years [...] Upcoming Encounters Date Type Department Care Team ([facility] st Contact Info) Description 03/13/2025 1:00 PM EST Office Visit [facility] WALK-IN CENTER [address] [place] [address] 03/18/2025 11:15 AM EST Office Visit [facility] MED & PEDS [address] [place] [address] Dorinda Iniguez MD [address] [place] [address] 03/25/2025 11:30 AM EST Office Visit [facility] MED & PEDS [address] [place] [address] Dorinda Iniguez MD [address] [place] [address] documented as of this encounter Procedures Procedure Name Priority Date/Time Associated Diagnosis Comments GRAM STAIN RESULT (NON ORDERABLE) Routine 03/11/2025 12:00 AM EST documented in this encounter Results * Gram Stain Result (03/11/2025 12:00 AM EST) 03/11/2025 03/12/2025 11: 12 AM EST Comment:Chest [facility] LABS - 03/12/2025 3:32 PM EST FROM CHEST RASH Gram stain results: No polys 2+ epithelial cells 2+ Gram-positive rods 1+ Gram-positive cocci Specimen Source: Chest us Patricia Alfaro MD HISTORICAL/NON ORDERABLE L ABS Final Result [facility] [address] [place] [address] [phone] documented in this encounter Visit Diagnoses Not on filedocumented in this encounter Additional Health Concerns Assessment Noted Time PHQ-9 Depression Total Score: 2 05/28/19 25 9:31 AM EST documented as of this encounter Care Teams Cutter Grinder Relationship Specialty Start Date End Date Dorinda Iniguez MD [address] [place] [address] PCP - General Family Medicine 04/24/18 Ginny Hernandez Hand Printed Circuit Board AssemblerLithographed Plate Inspector 01/17/24 documented as of this encounter
--- OUTSIDE RECORDS SUMMARY | 2025-03-12 22:00 | XMS_ITS | Encounter Summary ---
Author Organization [employer] Address [address] [place] [address] 7 [place] [address] Care Team Providers Care Negative Assembler Name Role Phone Dorinda Iniguez MD Primary Care Provider Reason for Visit * Reason Onset Date Comments verbal orders 03/06/2025 Encounter Details Date Type Department Care Team ([facility] Contact Info) Description 03/06/2025 Telephone [facility] MED & PEDS [address] [place] [address] Dorinda Iniguez MD [address] [place] [address] verbal orders Social History Tobacco Use Types Packs/Day Years [...] encounter Miscellaneous Notes * Telephone Encounter - Di Mccray RN - 03/10/2025 3:53 PM EST Paperwork re-faxed to fax number provided at 3.32 * Telephone Encounter - Andrew Davis - 03/07/2025 4:38 PM EST Tc from [facility] calling in regards to message prior stating she did not receive the fax. * Telephone Encounter - Di Mccray RN - 03/06/2025 10:36 AM EST Verbal orders given to [facility]. Last office note and med list faxed to [phone] * Telephone Encounter - Dave Ovalles - 03/06/2025 9:42 AM EST Tc from [facility] at [facility] requesting verbal orders for VNA services Contact at [phone] documented in this encounter Plan of Treatment Upcoming Encounters Date Type Department Care Team (Late st Contact Info) Description 03/13/2025 1:00 PM EST Office Visit [facility] WALK-IN [place] [address] [place] [address] 03/18/2025 11:15 AM EST Office Visit [facility] MED & PEDS [address] [place] [address] Dorinda Iniguez MD [address] [place] [address] 03/25/2025 11:30 AM EST Office Visit [facility] MED & PEDS [address] [place] [address] Dorinda Iniguez MD [address] [place] [address] documented as of this encounter Visit Diagnoses Not on filedocumented in this encounter Additional Health Concerns Assessment Noted Time PHQ-9 Depression Total Score: 2 05/28/19 9:31 AM EST documented as of this encounter Care Teams Negative Assembler Relationship Specialty Start Date End Date Dorinda Iniguez MD [address] [place] [address] PCP - General Family Medicine 04/24/18 Ginny Hernandez Mixer Machine FeederBody Hanger 01/17/24 documented as of this encounter
--- OUTSIDE RECORDS SUMMARY | 2025-03-12 22:00 | XMS_ITS | Encounter Summary ---
Author Organization [employer] Address [address] [facility] 7t [place] [address] Care Team Providers Care Marklogic Developer Name Role Phone Dorinda Iniguez MD Primary Care Provider [phone] Encounter Details Date Type Department Care Team (Latest Contact Info) Description 03/11/2025 Travel Social History Tobacco Use Types Packs/Day [...] Description 03/13/2025 1:00 PM EST Office Visit [facility] WALK-IN CENTER [address] [place] [address] 03/18/2025 11:15 AM EST Office Visit [facility] MED & PEDS [address] [place] [address] Dorinda Iniguez MD 505 [place] [address] 03/25/2025 11:30 AM EST Office Visit [facility] & PEDS [address] [place] [address] Dorinda Iniguez MD [address] [place] [address] documented as of this encounter Visit Diagnoses Not on filedocumented in this encounter Additional Health Concerns Assessment Noted Time PHQ-9 Depression Total Score: 2 05/28/19 9:31 AM EST documented as of this encounter Care Teams Marklogic Developer Relationship Specialty Start Date End Date Dorinda Iniguez MD [address] [place] [address] PCP - General Family Medicine 04/24/18 Ginny Hernandez Aviation MetalsmithSoldering Machine Operator Helper 01/17/24 documented as of this encounter
--- OUTSIDE RECORDS SUMMARY | 2025-03-12 22:00 | XMS_ITS | Encounter Summary ---
Author Organization [employer] Address [address] [place] [address] 7 [place] [address] Care Team Providers Care Nutrition Aides Teacher Name Role Phone Dorinda Iniguez MD Primary Care Provider [phone] Reason for Visit * Reason Onset Date Comments Nurse Triage 03/11/2025 Encounter Details Date Type Department Care Team ([facility] Contact Info) Description 03/11/2025 Telephone [facility] CHC MED & PEDS [address] [place] [address] Dorinda Iniguez MD [address] [place] [address] Nurse Triage Social History Tobacco Use Types [...] Miscellaneous Notes * Telephone Encounter - Di Reyna RN - 03/11/2025 10:58 AM EST Call returned to pt via S Internal Grinder Allan #[id number]. Pt c/o worsening topical rash since last Monday. Reports that she has completed 7 days of diflucan prescribed in [facility] but the rash continues to spread. Reports that the rash is spreading drom her abdomen to the top of her breasts. Reports that rash is itchy and painful. Rates pain at 7/10. Reports rash is warm to the touch. 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 Pt denies fever, sob. Recommended that pt come to WIC at [facility] today for evaluation. Pt reports agreement with plan. Protocol Used: Rash or Redness - Localized (Adult) Protocol-Based Disposition: See in Office or Video Visit Today Video visit offer not recorded Positive Triage Questions: * Localized rash is very painful (no fever) * Patient wants to be seen * Localized rash present > 7 days * All higher-acuity triage questions were negative. Care Advice Discussed: * Reasons To Call Back - Rash spreads or becomes worse - You become worse * Telephone Encounter - Dave Ovalles - 03/11/2025 9:52 AM EST Symptom: Rash or Redness - Widespread Outcome: Schedule a same-day appointment or talk to a nurse or provider today Reason: Caller denied all higher acuity questions The caller accepted this outcome. Contact pt at [phone] (haitian) documented in this encounter Plan of Treatment Upcoming Encounters Date Type Department Care Team ([facility] st Contact Info) Description 03/13/2025 1:00 PM EST Office Visit [facility] WALK-IN CENTER [address] [place] [address] 03/18/2025 11:15 AM EST Office Visit [facility] MED & PEDS [address] [place] [address] Dorinda Iniguez MD [address] [place] [address] 03/25/2025 11:30 AM EST Office Visit [facility] MED & PEDS [address] [place] [address] Dorinda Iniguez MD [address] [place] [address] documented as of this encounter Visit Diagnoses Not on filedocumented in this encounter Additional Health Concerns Assessment Noted Time PHQ-9 Depression Total Score: 2 05/28/19 25 9:31 AM EST documented as of this encounter Care Teams Nutrition Aides Teacher Relationship Specialty Start Date End Date Dorinda Iniguez MD [address] [place] [address] PCP - General Family Medicine 04/24/18 Ginny Hernandez Vector Control AssistantBehavioral Technician 01/17/24 documented as of this encounter
--- OUTSIDE RECORDS SUMMARY | 2025-03-12 22:00 | XMS_ITS | Clinical Summary ---
Author Organization 175 [facility] Address 175 [place] [address] Phone Care Team Providers Care Wardrobe Specialist Name Role Phone Dorinda Iniguez MD Primary Care Provider [phone] Allergies Active Allergy Reactions Criticality Noted Date Comments Lisinopril Cough 04/07/2022 Oxycodone 12/15/2014 Other reaction(s): Itching Medications semaglutide (Wegovy) 0.25 mg/0.5 mL injection [...] of candidiasis. Do not swallow. 1 each 01/18/20 Active albuterol HFA (PROAIR HFA ; PROVENTIL HFA ; VENTOLIN HFA) 90 mcg/actuation inhaler Inhale 2 puffs by mouth every 6 (six) hours if needed for wheezing. 6.7 g 11 01/18/20 Active Hospital, Clinic, or Other Facility Administered Medication Ordered Dose Route Frequency Start Date End Date Status lidocaine (PF) (XYLOCAINE-MPF) 1 % injection 0.5 mLIndications:Planta r fascial fibromatosis .5 mL Once PRN Procedure 02/17/2025 02/17/2025 Ended triamcinolone acetonide (KENALOG-40) 40 mg/mL injection 20 mgIndications:Planta r fascial fibromatosis 20 mg Once PRN Procedure 02/17/2025 02/17/2025 Ended Active Problems Problem Noted Date Diagnosed Date [...] with medications for asthma Continue following at [facility] with Dr. Dickey Obstructive sleep apnea 04/07/2022 Overview (04/01/2024): Last Assessment & Plan: Follow-up with her sleep physician Encounters Date Type Department Care Team Description 02/17/2025 9:45 AM EDT Office Visit [facility] - [place] 250 175 [facility] 250 [place] [phone] Kashif Klein DPAl Plantar fascial fibromatosis (Primary Dx); Equinus contracture of ankle 01/17/2025 1:00 PM EDT Office Visit Pul[facility]ology [facility] 175 [facility] 200 [place] [phone] Artem Hanna MD Moderate persistent asthma, unspecified whether complicated (Primary Dx); Obstructive sleep apnea 12/20/2024 Telephone [facility]ology [facility] 175 [facility] 200 [place] [phone] Artem Hanna MD from Last 3 Months [...] Care Team (Late st Contact Info) Description 03/26/2025 9:15 AM EST Office Visit [facility] - [place] [address] [phone] Kashif Klein DPM [address] [phone] 07/18/2025 1:00 PM EDT Office Visit Pul[facility] 175 [facility] 200 [place] [phone] Artem Hanna MD [address] [place] [phone] Health Maintenance Due Date Last Done Comments Breast Cancer Screening 1965 Colorectal Cancer Screening: Colonoscopy 1965 Cervical Cancer Screening: Pap Smear 1984 Social Influencers of Health Screening 03/22/2022 Depression Screening 04/24/2024 COVID-19 Vaccine ( season) 2024 Hypertension/CHF/CAD Annual BMP Blood Test 01/20/2026 01/20/2025, 05/28/2024 Cholesterol Screening (Lipid Panel) 12/13/2028 12/14/2023 [...] Procedure Name Priority Date/Time Associated Diagnosis Comments INJECTION TENDON OR LIGAMENT Routine 02/17/2025 9:45 AM EDT Plantar fascial fibromatosis from Last 3 Months Results * Injection tendon or ligament (02/17/2025 9:45 AM EDT) Narrative Kashif Klein DPM - 02/17/2025 9:45 AM EDT Kashif Klein DPM 02/17/2025 12:41 PM Injection tendon or ligament Indications: pain Details: 25 G needle Medications: 0.5 mL lidocaine (PF) 1 %; 20 mg triamcinolone acetonide 40 mg/mL Informed Consent: Site: Foot ligament tendon us Kashif Klein DPAl IN CLINIC/BEDSIDE ORDERAB LES Final Result from Last 3 Months Insurance MEDICAID - [place] Care Teams Wardrobe Specialist Relationship Specialty Start Date End Date Dorinda Iniguez MD [address] [place] [phone] PCP - General 07/07/11
--- OUTSIDE RECORDS SUMMARY | 2025-03-12 22:00 | XMS_ITS | Encounter Summary ---
Author Organization [employer] Address 75 [facility] 7 [place] [address] Care Team Providers Care Temper Mill Operator Name Role Phone Dorinda Iniguez MD Primary Care Provider [phone] Reason for Visit * Reason Onset Date Comments Paperwork/Forms 08/17/2023 Encounter Details Date Type Department Care Team ([facility] st Contact Info) Description 08/17/[address] [facility] [address] [place] [address] Dorinda Iniguez MD [address] [place] [phone] Paperwork/Forms Social History Tobacco Use Types Packs/Day [...] EDT Last OV faxed as requested to [facility]. Returned call to [facility] regarding VO. LVM to return call. * Telephone Encounter - Piotr Mata - 08/17/2023 2:01 PM EDT [facility] requesting orders to restart home services and the last officeto be faxed to [phone] documented in this encounter Plan of Treatment Upcoming Encounters Date Type Department Care Team (Late st Contact Info) Description 03/13/2025 1:00 PM EST Office Visit [facility] [address] [place] [address] 03/18/2025 11:15 AM EST Office Visit [facility] 505 [place] [address] Dorinda Iniguez MD [address] [place] [address] 03/25/2025 11:30 AM EST Office Visit [facility] [address] [place] [address] Dorinda Iniguez MD [address] [place] [address] documented as of this encounter Visit Diagnoses Not on filedocumented in this encounter Additional Health Concerns Assessment Noted Time PHQ-9 Depression Total Score: 4 08/17/19 24 1:37 PM EDT documented as of this encounter Care Teams Temper Mill Operator Relationship Specialty Start Date End Date Dorinda Iniguez MD [address] [place] [address] PCP - General Family Medicine 04/24/18 Ginny Hernandez Drop Hammer Setter UpFiberglass Quality Technician 01/17/24 documented as of this encounter
--- OUTSIDE RECORDS SUMMARY | 2025-03-12 22:00 | XMS_ITS | Patient Health Record ---
Author Organization [facility] Address [address] [place] [address] Care Team Providers Care Jewelry Facer Name Role Phone Hira JASON, Dorinda Primary Care Provider Jeffrey Blackman Jr Unavailable [phone] Allergies Allergen (clinical drug ingredient) Drug/Non Drug Allergy documented on EMR Reaction Allergy Type Onset Date Status lisinopril Lisinopril Unknown Drug Allergy Activ e Results Component Value Reference Range Flag Notes Complete Blood Count no Diff Reviewed date:10/22/2024 03:41:25 PM Interpretation: Performing Lab:[facility], [address] [place] [phone] Notes/Report: White Blood Count 9.3 4.8-10.8 X10*3/uL N Red Blood Count 4.27 4.20-5.50 X10*6/uL N Hemoglobin 13.7 12.0-16.0 g/dl N Hematocrit 40.6 37.0-47.0 % N Mean Corpuscular Volume 95.1 80.0-98.0 fL N Mean Corpuscular Hemoglobin 32.1 27.0-33.0 pg N Mean Corpuscular HGB Conc 33.7 31.0-35.0 g/dl N Red Cell Distribution Width 13.8 11.0-16.0 % N Platelet Count 325 160-400 X10*3/uL N Mean Platelet Volume 10.4 9.4-12.3 fL N NRBC Pct Auto 0.0 0.0-0.2 /100WBC N NRBC Abs Auto 0.000 0.0-0.012 X10*3/uL N Liver Panel Reviewed date:10/22/2024 03:38:48 PM Interpretation: Performing Lab:[facility], [address] [place] [phone] Notes/Report: Bilirubin Total 0.6 0.0-1.0 mg/dL N Bilirubin Direct 0.2 0.0-0.5 mg/dL N Aspartate Amino Transferase 17 5-31 U/L N Alanine Aminotransferase 12 0-31 U/L N Total Protein 6.4 6.5-8.0 g/dL L Albumin Level 4.0 3.5-5.0 g/dL N Alkaline Phosphatase 78 39-117 U/L N Blood Urea Nitrogen Reviewed date:10/15/2024 04:39:10 PM Interpretation: Performing Lab:[facility], [address] [place] [phone] Notes/Report: Blood Urea Nitrogen 21 9-16 mg/dL H Creatinine Reviewed date:10/15/2024 04:39:19 PM Interpretation: Performing Lab:[facility], [address] [place] [phone] Notes/Report: Creatinine 1.01 0.5-1.4 mg/dL N Estimated Glomerular Filt Rate 56 Chronic Kidney Disease: Estimated GFR < 60 mL/min/1.73m2 Severe Kidney Disease: Estimated GFR < 15 mL/min/1.73m2 Lipase Reviewed date:10/22/2024 03:39:01 PM Interpretation: Performing Lab:[facility], [address] [place] [phone] Notes/Report: Lipase 8 8-78 U/L N Pathology Reviewed date:11/04/2024 08:11:06 AM Interpretation: Performing Lab:[facility], [address] [place] [phone] Notes/Report: Creatinine GFR POC Reviewed date:11/14/2024 08:44:34 AM Interpretation: Performing Lab:[facility], [address] [place] [phone] Notes/Report: [id number] 1.14 52 1149 HO.BERCHB Creatinine POC 1.1 0.5-1.4 mg/dL N GFR POC 52 Chronic Kidney Disease: Estimated GFR < 60 mL/min/1.73m2 Severe Kidney Disease: Estimated GFR < 15 mL/min/1.73m2 CT abdomen pelvis w con Reviewed date:11/14/2024 08:46:19 AM Interpretation: Performing Lab: Notes/Report: [address] [address] [address] Scan Report Signed Patient: Chelle Helm MR# : [id number] : 1965 Acct:[id number] Age/Sex: 59 / F ADM Date: 11/12/24 Loc: HO.CT Attending Dr: Jeffrey Narayan MD Ordering Physician: Jeffrey Narayan MD Date of Service: 11/12/24 Procedure(s): CT abdomen pelvis w IV con Accession Number(s): [id number] cc: Dorinda Iniguez MD; Jeffrey Narayan MD Report Number: [id number]: Total DLP = 667.00 mGy-cm EXAMINATION: CT [...] 11/12/24 1217 DD/ 1156 TD/TT: 11/12/24 1209 Manager Statistical: Reason For Referral Referring Provider First Name Dorinda Referring Provider Last Name Hira Referring Provider Speciality Internal M edicine Referred Organization [facility] Referred Provider Jeffrey Narayan Jr Referred Address [address] [place] [phone], Referred Provider Specialty Gastroentero logy General Notes Awilda Salazar 2024 02:39:04 PM >[place]ED [place] REFERRAL FROM [facility] FOR VISIT WITH DR NARAYAN ON [phone] Referral Priority Routine Reason small right groin he rnia Diagnosis 1 Right inguinal pain (R10.31) Referral Organization [facility] Referring Provider First Name Jeffrey Referring Provider Last Name Gabriel Coronado Referring Provider Speciality Gastroente rology Referred Provider Ibrahima Victoria Referred Provider Specialty Surgery Referral Priority Routine Referral Appointment Date 01/14/2025 Medications Medication SIG (Take, Route, Frequency, Duration) Notes Start Date End Date Status Diflucan 100 MG Tablet 2 tablets on day one, then one tablet daily until finished Orally; Duration: 10 day(s) 07/10/2019 Unknown Sucralfate 1 GM Tablet TAKE ONE TABLET B Y MOUTH THREE TIMES DAILY ON AN EMPTY STOMACH ONE HOUR BEFORE MEALS AND AT BEDTIME Diagnosis Unavailable Oral; Duration: 30 Unknown Dicyclomine HCl 20 MG Tablet 1 tablet Orally 2-4 times a day; Duration: 30 days 03/14/2019 Unknown Ventolin HFA 108 (90 Base) MCG/ACT Aerosol Solution INHALE ONE PUFF EVERY 4 HOURS NEEDED FOR COUGH Inhalation; Duration: 36 [id number],Unava ilable Unknown Cyanocobalamin 1000 MCG/ML Solution INJECT 1ml INTRAMUSCULARLY EVERY MONTH Injection; Duration: 28 Unknown Pregabalin 75 MG Capsule ONE BY MOUTH EV VALENTIN NIGHT X3 DAYS THEN ONE BY MOUTH TWICE A DAY Oral; Duration: 30 Unknown Biotin Maximum Strength 5000 MCG Capsule TAKE ONE CAPSULE DAILY Oral; Duration: 90 Unknown Gabapentin 300 MG Capsule TAKE ONE OR TW O CAPSULES AT BEDTIME NEEDED Oral; Duration: 30 Unknown Metoprolol Tartrate 100 MG Tablet TAKE ONE TABLET BY MOUTH TWICE DAILY Oral; Duration: 30 Unknown traMADol HCl 50 MG Tablet TAKE 1 TABLET BY MOUTH THREE TIMES A DAY NEEDED FOR MODERATE TO SEVERE PAIN Oral; Duration: 20 Unknown ProAir HFA 108 (90 Base) MCG/ACT Aerosol Solution INHALE ONE PUFF EVERY 4 HOURS NEEDED FOR COUGH Inhalation; Duration: 30 Unknown FLUoxetine HCl 20 MG Capsule TAKE ONE CAPSULE EVERY MORNING Oral; Duration: 30 Unknown Zepbound 7.5 MG/0.5ML Solution Auto-injector INJECT 0.5 ML (7.5 MG) UNDER THE SKIN 1 (ONE) TIME PER WEEK. Subcutaneous; Duration: 28 Days Unknown hydrALAZINE HCl 100 MG Tablet TAKE ONE TABLET TWICE DAILY WITH FOOD Oral; Duration: 30 Unknown hydroCHLOROthiazide 25 MG Tablet TAKE ONE TABLET BY MOUTH EVERY MORNING Diagnosis Unavailable Oral; Duration: 90 Unknown Chlorthalidone 50 MG Tablet TAKE ONE TABLET DAILY Oral; Duration: 30 Unknown Verapamil HCl ER 360 MG Capsule Extended Release 24 Hour TAKE ONE CAPSULE BY MOUTH EVERY DAY Oral; Duration: 30 Unknown Vitamin D (Ergocalciferol) 1.25 MG (72995 UT) Capsule TAKE ONE CAPSULE EVERY WEEK Oral; Duration: 28 Unknown MiraLax (colon prep) 8.3 ounce ((238) grams mixed with Gatorade or Crystal Light orally begin at 5:00 p.m. the day before the procedure; Duration: 1 day 09/14/2020 Unknown MiraLax (colon prep) 17 GM/SCOOP Powder mixed with Gatorade or Crystal Light Orally begin at 5:00 p.m. the day before the procedure; Duration: 1 day 06/28/2023 Unknown Dulcolax (colon prep) 5 MG Tablet Delayed Release take at 3:00 p.m and 7:00p.m. Orally two tablets twice a day for one day; Duration: 1 day 06/29/2023 Unknown MiraLax (colon prep) 8.3 ounce ((238) grams mixed with Gatorade or Crystal Light orally begin at 5:00 p.m. the day before the procedure; Duration: 1 day 06/29/2023 Unknown LORazepam 0.5 MG Tablet one in morning t wo at night Oral Twice a day Unknown Lidocaine Unknown Vitamin D3 50 MCG (1999 UT) Capsule TAKE ONE CAPSULE BY MOUTH TWICE DAILY Oral; Duration: 30 Unknown Albuterol Sulfate (2.5 MG/3ML) 0.083% Nebulization Solution INHALE ONE AMPULE USING A NEBULIZER THREE TIMES DAILY NEEDED Inhalation; Duration: 10 Unknown Vitamin C Unknown Collagen Unknown Multivitamin Unknown Biotin Unknown Pantoprazole Sodium 40 MG Tablet Delayed Release 1 tablet Orally Once a day; Duration: 30 day(s) 07/01/2021 Unknown Loperamide HCl 2 MG Capsule 1 capsule as needed Orally Four times a day; Duration: 30 days 03/14/2019 Unknown Immunizations Vaccine Route Administration Date Status Comme nts Influenza Unknown 02/27/2019 Administered Influenza Unknown 01/29/2020 Administered Influenza Unknown 12/23/2020 Administered Influenza Unknown 03/16/2022 Administered Influenza Unknown 06/28/2023 Refused Social History Tobacco Use: Social History Observation Description Date Details (start date - stop date) Never Smoker NA - NA Social History Drugs/Alcohol: Social Info Question Answer Notes Alcohol Screen Did you have a drink containing alcohol in the past year? No Points 0 Interpretation Negative Tobacco Use: Social Info Question Answer Notes Tobacco Use/Smoking Patient is a nonsmoker Additional Details Category Social Info Options Details Miscellaneous: Marital status: Occupation: disabled Problems Problem Type SNOMED Code ICD Code Onset Dates Problem Status W/U Status Risk Notes Problem Epigastric pain (41880167) Epigastric pain (R10.13) Active confirmed Problem Screening for malignant neoplasm of colon (378041782) Special screening for malignant neoplasms, colon (Z12.11) Active confirmed Problem Irritable bowel syndrome with diarrhea (497215558) Irritable bowel syndrome with diarrhea (K58.0) Active confirmed Problem Gastroesophageal reflux disease without esophagitis (080889050) Gastroesophageal reflux disease without esophagitis (K21.9) Active confirmed Vital Signs Temperature 97.8 degrees Fahrenheit 10/11/2024 Blood pressure diastolic 01 mm Hg 10/11/2024 Height 64 in 10/11/2024 Blood pressure systolic 001 mm Hg 10/11/2024 Weight 236.4 lbs 10/11/2024 BMI 40.57 kg/m2 10/11/2024 Encounters Encounter Location Date Provider Diagnosis [facility] [address] [place] [id number] 10/30/2024 Jeffrey Narayan Jr [facility] [address] [place] [phone] 10/11/2024 Jeffrey Narayan Jr Abdominal pain R10.9 ; Irritable bowel syndrome with diarrhea K58.0 and Special screening for malignant neoplasms, colon Z12.11 [facility] [address] [place] [phone] 10/11/2024 Jeffrey Narayan Jr [facility] [address] [place] [phone] 10/11/2024 Jeffrey Narayan Jr [facility] [address] [place] [phone] 10/22/2024 Jeffrey Narayan Jr [facility] [address] [place] [phone] 11/04/2024 Jeffrey Narayan Jr [facility] [address] [place] [phone] 11/14/2024 Jeffrey Narayan Jr [facility] [address] [place] [phone] 12/31/2024 Jeffrey Narayan Jr Assessments Encounter Date [...] Date BUN 10/11/2024 CREATININE 10/11/2024 LIVER PROFILE 10/11/2024 LIVER PROFILE 09/14/2020 LIPASE 09/14/2020 LIPASE 10/11/2024 CBC w/o DIFF [...] Start Date Coverage End Date MEDICAID OF [facility] [address] [place] [phone] [id number] CHELLE WRIGHT Self - patient is the insured Medical (General) History Medical History History ICD Code iron deficiency anemia GERD, EGD 06/28/19, and no H. pylori or Ba rrett's esophagus hypertension irritable bowel syndrome vitamin D deficiency kidney stones vitamin B12 deficiency Anxiety disorder Hypothyroidism asthma History of covid 19 infection Colonoscopy 08/15, benign polyp, 5-year f ollow-up Surgical History Surgery Date(Month/Year) cholecystectomy section Right arm surgery Surgery in the right kidney - kidney sto [facility]
--- OUTSIDE RECORDS SUMMARY | 2025-03-12 22:00 | XMS_ITS | Encounter Summary ---
Author Organization [employer] Address 75 [facility] 7 [place] [address] Care Team Providers Care Calculating Machine Operator Name Role Phone Dorinda Iniguez MD Primary Care Provider [phone] Reason for Visit * Reason Onset Date Comments Medication Question 04/12/2024 Encounter Details Date Type Department Care Team ([facility] st Contact Info) Description 04/12/2024 Telephone [facility] [address] [place] [address] Dorinda Iniguez MD [address] [place] [phone] Medication Question Social History Tobacco Use Types [...] and it doesn't help. Contact pt at [phone] documented in this encounter Plan of Treatment Upcoming Encounters Date Type Department Care Team (Late st Contact Info) Description 03/13/2025 1:00 PM EST Office Visit [facility] [address] [place], [place] [phone] 03/18/2025 11:15 AM EST Office Visit [facility] [address] [place] [address] Dorinda Iniguez MD [address] [place], [place] [phone] 03/25/2025 11:30 AM EST Office Visit [facility] [address] [place] [address] Dorinda Iniguez MD [address] [place] [address] documented as of this encounter Visit Diagnoses Not on filedocumented in this encounter Additional Health Concerns Assessment Noted Time PHQ-9 Depression Total Score: 4 08/17/19 24 1:37 PM EDT documented as of this encounter Care Teams Calculating Machine Operator Relationship Specialty Start Date End Date Dorinda Iniguez MD [address] [place] [address] PCP - General Family Medicine 04/24/18 Ginny Hernandez Automobile DriversShank Scourer 01/17/24 documented as of this encounter
--- OUTSIDE RECORDS SUMMARY | 2025-03-12 22:00 | XMS_ITS | Encounter Summary ---
Author Organization [employer] Address [address] [place] [address] 7 [place] [address] Care Team Providers Care Financial Services Associate Name Role Phone Dorinda Iniguez MD Primary Care Provider [phone] Reason for Visit * Reason Comments Med Refill Encounter Details Date Type Department Care Team ([facility] st Contact Info) Description 03/05/2024 Refill [facility] [address] [place], [place] [phone] Dorinda Iniguez MD [address] [place] [address] Social History Tobacco Use Types Packs/Day Years [...] Description 03/13/2025 1:00 PM EST Office Visit [facility] [address] [address] 03/18/2025 11:15 AM EST Office Visit [facility] [address] [place] [address] Dorinda Iniguez MD [address] [place] [address] 03/25/2025 11:30 AM EST Office Visit [facility] [address] [place] [address] Dorinda Iniguez MD [address] [place] [address] documented as of this encounter Visit Diagnoses Not on filedocumented in this encounter Additional Health Concerns Assessment Noted Time PHQ-9 Depression Total Score: 4 08/17/19 1:37 PM EDT documented as of this encounter Care Teams Financial Services Associate Relationship Specialty Start Date End Date Dorinda Iniguez MD [address] [place] [address] PCP - General Family Medicine 04/24/18 Ginny Hernandez Corporate Financial AnalystPain Medicine Physician 01/17/24 documented as of this encounter
--- OUTSIDE RECORDS SUMMARY | 2025-03-12 22:00 | XMS_ITS | Encounter Summary ---
Author Organization [employer] Address 75 [facility] 7t [place] [address] Care Team Providers Care Sewer Pipe Sorter Name Role Phone Dorinda Iniguez MD Primary Care Provider [phone] Encounter Details Date Type Department Care Team ([facility] st Contact Info) Description 08/04/2023 Orders Only [facility] [address] [place] [address] ProviderSakina MD Social History Tobacco Use Types [...] Description 03/13/2025 1:00 PM EST Office Visit [facility] [address] [place] [address] 03/18/2025 11:15 AM EST Office Visit [facility] [address] [place] [address] Dorinda Iniguez MD [address] [place] [address] 03/25/2025 11:30 AM EST Office Visit [facility] [address] [place] [address] Dorinda Iniguez MD [address] [place] [address] documented as of this encounter Procedures Procedure [...] documented as of this encounter Care Teams Sewer Pipe Sorter Relationship Specialty Start Date End Date Dorinda Iniguez MD [address] [place] [address] PCP - General Family Medicine 04/24/18 Ginny Hernandez Midwife PractitionerForest Ecologist 01/17/24 documented as of this encounter
--- OUTSIDE RECORDS SUMMARY | 2025-03-12 22:00 | XMS_ITS | Encounter Summary ---
Author Organization [employer] Address [address] [place] [address] 7 [place] [address] Care Team Providers Care Automatic Profile Sander Operator Name Role Phone Dorinda Iniguez MD Primary Care Provider [phone] Reason for Visit * Reason Onset Date Comments Results 03/06/2025 Encounter Details Date Type Department Care Team ([facility] Contact Info) Description 03/06/2025 Results Follow-Up [facility] [address] [place] [address] Angie Giraldo MD [address] [place] [address] Hepatic Function Panel Social History Tobacco Use Types Packs/Day Years [...] encounter Miscellaneous Notes * Telephone Encounter - Kristie Wisdmo RN - 03/08/2025 8:53 AM EST Result letter generated ed by Dr Giraldo has been mailed to address on file documented in this encounter Plan of Treatment Upcoming Encounters Date Type Department Care Team (Late st Contact Info) Description 03/13/2025 1:00 PM EST Office Visit [facility] WALK-IN [address] [address] 03/18/2025 11:15 AM EST Office Visit [facility] [address] [place] [address] Dorinda Iniguez MD [address] [place] [address] 03/25/2025 11:30 AM EST Office Visit [facility] [address] [place] [address] Dorinda Iniguez MD [address] [place] [address] documented as of this encounter Visit Diagnoses Not on filedocumented in this encounter Additional Health Concerns Assessment Noted Time PHQ-9 Depression Total Score: 2 05/28/19 25 9:31 AM EST documented as of this encounter Care Teams Automatic Profile Sander Operator Relationship Specialty Start Date End Date Dorinda Iniguez MD [address] [facility] [place] [address] PCP - General Family Medicine 04/24/18 Ginny Hernandez Cardiac Care Unit NursePhotography Assistant 01/17/24 documented as of this encounter
== END 2025-03-11 00:01 | disposition home or self-care (01) ==
LOC: HO.HHCLNP
PROVIDERS: Visit Provider Family Medicine
DX: R21 Rash and other nonspecific skin eruption (principal)
CPT/HCPCS: 87070; 87205

== ENCOUNTER 2025-03-18 11:59 | Outpatient (REF) | payer MEDICAID, SELFPAY ==
--- OUTSIDE RECORDS SUMMARY | 2024-10-30 09:00 | XMS_ITS ---
Author Organization [facility] Address [address] [place] [phone] Care Team Providers Care Senior Data Modeler Name Role Phone Hira JASON, Dorinda Primary Care Provider Ute Rios Jr, Jeffrey Goins [phone] REASON FOR VISIT abdominal pain Encounters Encounter Location Date Provider Diagnosis [facility] [address] [place] [id number] 10/30/2024 Jeffrey Rios Jr Plan Of Treatment No Information Progress Notes * RAYMOND WRIGHT MDOB: [birth year] (59 yo F)Acc No.[id number]:10/30/2024 EGD/MAC Patient: Jerrell RAYMOND HERNANDEZ Provider: Jerrell Rios MD :1965 A ge:59 Y S ex:Female Date:10/30/2024 Address:[address] [place] [address] Pcp:Dorinda Iniguez MD Subjective: * Chief Complaints: * A bdominal pain Billing Information: * Procedure Codes: * The named appointment provid er may or may not be the originator of this progress note, and it is not deemed complete until electronically signed by the appointment provider. Sign off status: Pending * Provider: Jerrell Rios MD Date: 0 10/30/2024 Generated for Printi ng/Familindg/eTransmitting on: 1 05/18/2024 10:52 AM EST
--- OUTSIDE RECORDS SUMMARY | 2025-03-13 13:20 | XMS_ITS | Encounter Summary ---
Author Organization [employer] Address [address] [facility] 7[address] [place] [address] Care Team Providers Care Sales Department Clerk Name Role Phone Dorinda Iniguez MD Primary Care Provider [phone] Reason for Visit * Reason Comments Rash Encounter Details Date Type Department Care Team ([facility] st Contact Info) Description 03/13/2025 1:20 PM EST Office Visit [facility] [address] [place] [address] [phone] Patricia Alfaro MD [address] [place], [place] [phone] Rash (Primary Dx) Social History Tobacco Use [...] Sign Reading Time Taken Comments Blood Pressure 130/84 03/13/2025 1:06 PM EST Pulse 73 03/13/2025 1:06 PM EST Temperature 36.3 C (97.4 F) 03/13/2025 1:06 PM EST Respiratory Rate 16 03/13/2025 1:06 PM EST Oxygen Saturation - - Inhaled Oxygen Concentration - - Weight 102 kg (224 lb 12.8 oz) 03/13/2025 1:06 P M EST Height 160 cm (5' 3 ) 03/13/2025 1:06 PM EST Body Mass Index 39.82 03/13/2025 1:06 PM EST documented in this encounter Progress Notes * Patricia Alfaro MD - 03/13/2025 1:20 PM EST Images from the original note were not included. Subjective Patient ID: Chelle Arias is a 59 y.o. female who presents to walk in clinic for rash. Seen by me 03/11/25 with c/o worsening topical rash since last Monday. Reports that she has completed 7 days of diflucan prescribed in [facility] but the rash continues to spread. Reports that the rash is spreading from her abdomen to the top of her breasts. Reports that rash is itchy and painful. Rates pain at 7/10. Reports rash is warm to the touch. Pt states she is concerned to pmh of having MRSA 2 years ago. History, exam and wet mount consistent with fungal likely with superimposed bacterial infection. Less likely hood daniels given local and no oral other systemic symptoms. Will treat with cephalexin, Bactrim for MRSA coverage and miconazole cream. Follow up with me in 48 hours. Benadryl prn for itching. ER precautions discussed. Today 03/13/25 she reports rash is improving, less swelling and itching. She does not newer area onupper chest neck. Seen by Dr. Giraldo 03/05/25 Pt reported [...] Negative for fever. Objective Visit Vitals BP 130/84 (BP Location: Right arm, Patient Position: Sitting, BP Cuff Size: Large adult) Pulse 73 Temp 97.4 ??F (36.3 ??C) (Temporal) Resp 16 Body mass index is 39.82 kg/m??. Physical Exam Skin: Comments: Pruritic, erythematous, excoriated plaques under breasts and across chest. 03/11/2025 03/13/25 Assessment & Plan Rash Improving. History, exam and wet mount consistent with fungal likely with superimposed bacterial infection. Less likely hood daniels given local and no oral other systemic symptoms. Possible systemic or autoimmune issue but given improving, will continue current course On 03/11/25 I prescribed cephalexin, Bactrim for MRSA coverage and miconazole cream. Skin culture pending. Today is 48 hours later and she reports rash is improving. Advised to continue medications and she will follow up with PCP as scheduled on 03/18/35. Benadryl prn for itching. ER precautions discussed. Future Appointments Date Time Provider Department Center 03/18/2025 11:15 AM Dorinda Iniguez MD [facility] 03/25/2025 11:30 AM Dorinda Iniguez MD [facility] This note was drafted using Ambient (AI) [...] documented as of this encounter Care Teams Sales Department Clerk Relationship Specialty Start Date End Date Dorinda Iniguez MD [address] [place] [address] PCP - General Family Medicine 04/24/18 Ginny Hernandez Yard General Car SupervisorWill Call Clerk 01/17/24 documented as of this encounter
--- OUTSIDE RECORDS SUMMARY | 2025-03-18 11:15 | XMS_ITS | Encounter Summary ---
Author Organization [employer] Address [address] [place] [address] 7 [place] [address] Care Team Providers Care Surg Physician Asst Name Role Phone Dorinda Iniguez MD Primary Care Provider [phone] Reason for Referral * Consultation (Urgent) - Authorized Specialty Diagnoses / Procedures Referred By Nathan ying Referred To Contact Diagnoses Dorinda Cherry MD [address] [place] [address] Phone: tel: fax: Rigo Suresh [address] [place] [phone] Phone: tel: fax: Referral ID Status Reason Start Date Expiration Date Visits Requested Visits Authorized [id number] Authorized Specialty Services Required 03/18/2026 1 1 Scheduling Instructions [facility] in [place] [phone] * Consultation (Routine) - Pending Review Specialty Diagnoses / Procedures Referred By Nathan ying Referred To Contact Genetics Diagnoses Dorinda Cherry MD [address] [place] [address] Phone: tel: fax: Referral ID Status Reason Start Date Expiration Date Visits Requested Visits Authorized [id number] Pending Review Specialty Services Required 03/18/2026 1 1 Encounter Details Date Type Department Care Team ([facility] st Contact Info) Description 03/18/2025 11:15 AM EST Office Visit [facility] [address] [place] [address] Dorinda Iniguez MD [address] [place] [address] Rash (Primary Dx); Intertrigo; Class 3 severe obesity due to excess calories with serious comorbidity and body mass index (BMI) of 40.0 to 44.9 in adult (HCC); Benign essential hypertension Social History Tobacco Use Types Packs/Day Years [...] Sign Reading Time Taken Comments Blood Pressure 134/90 03/18/2025 11:01 AM EST Pulse 92 03/18/2025 11:01 AM EST Temperature 36.1 C (97 F) 03/18/2025 11:01 AM EST Respiratory Rate 20 03/18/2025 11:01 AM EST Oxygen Saturation - - Inhaled Oxygen Concentration - - Weight 101 kg (223 lb) 03/18/2025 11:01 AM EST Height - - Body Mass Index 39.5 03/13/2025 1:06 PM EST documented in this encounter Progress Notes * Dorinda Iniguez MD - 03/18/2025 11:15 AM EST Images from the original note were not included. Subjective Patient ID: Chelle Arias is a 59 y.o. female who presents for f/u rash. Chelle Arias, age 59 years Skin Infection Had onset of skin symptoms after spending a full day at [employer] with her daughter, who was ill. Developed a lesion that started in one area and spread upwards, with associated fever. Was seen in the emergency department on Monday, , and Monday, and received antibiotics including Diflucan, Bactrim, and Keflex. Rash was described as severe, with burning and itching sensations. A skin culture was performed. Lesion is currently drying but not fully resolved. No new medications prior to onset. Denies current fever. History of MRSA Expressed concern due to previous MRSA infection. No MRSA detected in current episode. Appetite and Weight Noted decreased appetite and slower eating, with weight loss of nearly 10 lbs since December. Attributed changes to increased dose of GLP1 medication, which is sometimes missed for up to a week due to delays in receiving it. Family History of Lupus Has multiple maternal relatives with lupus. Referred to genetics for evaluation due to family history, but has not yet been contacted by genetics. Expressed concern about possible autoimmune disease. Review of Systems Constitutional: Negative for activity change, chills, fever and unexpected weight change. Respiratory: Negative for cough, shortness of breath and wheezing. Cardiovascular: Negative for chest pain, palpitations and leg swelling. Gastrointestinal: Negative for abdominal pain and blood in stool. Endocrine: Negative for polydipsia and polyuria. Genitourinary: Negative for decreased urine volume, difficulty urinating, dysuria and hematuria. Musculoskeletal: Negative for arthralgias and gait problem. Skin: Positive for rash. Negative for color change. Neurological: Negative for dizziness and headaches. Hematological: Negative for adenopathy. Psychiatric/Behavioral: Negative for dysphoric mood, hallucinations, sleep disturbance and suicidalideas. The patient is not nervous/anxious. Objective BP (!) 134/90 (BP Location: Left arm, Patient Position: Sitting, BP Cuff Size: Thigh) Pulse 92 Temp 97 ??F (36.1 ??C) (Oral) Resp 20 Wt 223 lb (101 kg) LMP (LMP Unknown) BMI 39.50 kg/m?? Physical Exam Vitals reviewed. Constitutional: General: She is not in acute distress. Appearance: She is obese. HENT: Head: Normocephalic. Cardiovascular: Rate and Rhythm: Normal rate and regular rhythm. Pulmonary: Effort: Pulmonary effort is normal. No respiratory distress. Breath sounds: Normal breath sounds. Abdominal: General: There is distension. Palpations: Abdomen is soft. Musculoskeletal: Right lower leg: No edema. Left lower leg: No edema. Skin: General: Skin is dry. Coloration: Skin is not cyanotic or jaundiced. Findings: Erythema and rash present. No bruising, ecchymosis, laceration, petechiae or wound. Rash is macular and scaling. Rash is not crusting, nodular, papular, purpuric, pustular, urticarial or vesicular. Neurological: Mental Status: She is alert and oriented to person, place, and time. Mental status is at baseline. Psychiatric: Mood and Affect: Mood normal. Behavior: Behavior normal. Assessment/Plan Rash: - Rash of unclear etiology, not consistent with herpes zoster (shingles). Differential includes skin infection and other dermatologic conditions. Previous treatments with antifungals and antibiotics with partial response. Biopsy indicated due to persistent and spreading nature. - Referred to dermatology for urgent skin biopsy. Prescribed topical corticosteroid to alleviate pruritus. Advised to discontinue corticosteroid prior to biopsy to avoid interference with histopathological results. Prescribed mupirocin ointment for use as directed. Intertrigo: - Intertrigo considered as part of the differential for the rash, with partial response to antifungal therapy. - Continue topical nystatin as previously prescribed until completion. Monitor for further improvement or worsening. Autoimmune disease evaluation (including lupus): - Autoimmune disease, including lupus, considered due to family history and patient concern. No current evidence of fever or classic lupus presentation. - Ordered laboratory studies to evaluate for autoimmune disease, including lupus. Results to be reviewed when available. Weight management and appetite: - Ongoing weight loss and decreased appetite, possibly related to medication dose adjustment. - Monitor weight and appetite. Follow-up appointment scheduled for April 01, 2025, to address weight management. Genetic counseling referral: - Genetic counseling indicated due to strong family history of cancer and autoimmune disease. - Referred to genetics for evaluation. Patient to await contact from genetics department; referral to be resent due to lack of response from previous referral. Diagnoses and all orders for this visit: Rash - Referral to Genetics; Future - GERALDO Screen,IFA, with Reflex to Titer and Pattern; Future - CBC auto differential; Future - Sed Rate by Modified Westergren; Future - Rheumatoid Factor; Future - Referral to Dermatology; Future Intertrigo Comments: follow up in 2 weeks if no improvement. Orders: - hydrocortisone 2.5 % cream; Apply topically in the morning and in the evening. To use 2 times a day for no more than 2 weeks. Class 3 severe obesity due to excess calories with serious comorbidity and body mass index (BMI) of40.0 to 44.9 in adult (HCC) Benign essential hypertension Other orders - mupirocin (Bactroban) 2 % ointment; Apply topically 3 times daily for 10 days. documented in this encounter Plan of Treatment Scheduled Orders Name Type Priority Associated Diagnoses Orde r Schedule GERALDO Screen,IFA, with Reflex to Titer and Pattern Lab Routine Rash Expected: 03/18/2025 (Approximate), Expires: 03/18/2026 Scheduled Referrals Name Type Priority Associated Diagnoses Order Schedule Referral to Genetics Outpatient Referral Routine Rash Expected: 03/18/2025 (Approximate), Expires: 03/18/2026 Referral to Dermatology Outpatient Referral Urgent Rash Expected: 03/18/2025 (Approximate), Expires: 03/18/2026 documented as of this encounter Procedures Procedure Name Priority Date/Time Associated Diagnosis Comments CBC WITH AUTO DIFFERENTIAL Routine 03/18/2025 12:00 PM EST Rash SED RATE BY MODIFIED WESTERGREN Routine 03/18/2025 12:00 PM EST Rash RHEUMATOID FACTOR Routine 03/18/2025 12: 00 PM EST Rash documented in this encounter Results * Rheumatoid Factor (03/18/2025 12:00 PM EST) Rheumatoid Factor <13.0 <15.0 IU/mL [facility] Blood Venous blood specimen / Unknown 03/18/2025 12:00 PM EST 03/18/2025 2:19 PM EST Dorinda Iniguez MD LAB BLOOD ORDERABLES Final Re sult Performing Organization Address City/[facility] Co de Phone Number [facility] [address] [place] [phone] * Sed Rate by Modified Westergren (03/18/2025 12:00 PM EST) Pathologist [facility] Erythrocyte Sedimentation Rate 16 0 - 20 MM/HR [facility] Comment:Patients with polycy themia and many hemoglobin abnormalitiesmay have depressed sed rates whereas patients with anemiamay have elevated sed rates. Blood Venous blood specimen / Unknown 03/18/2025 12:00 PM EST 03/18/2025 2:14 PM EST us Dorinda Iniguez MD LAB BLOOD ORDERABLES Final Re sult Performing Organization Address City/[facility] Co de Phone Number [facility] [address] [place] [phone] * (ABNORMAL) CBC auto differential (03/18/2025 12:00 PM EST) White Blood Count 9.0 4.8 - 10.8 X10*3/uL [facility] Red Blood Count 4.26 4.20 - 5.50 X10*6/uL [facility] Hemoglobin 13.9 12.0 - 16.0 g/dl [facility] Hematocrit 42.6 37.0 - 47.0 % [facility] Mean Corpuscular Volume 100.0(H) 80.0 - 98.0 fL [facility] Mean Corpuscular Hemoglobin 32.6 27.0 - 33.0 pg [facility] Mean Corpuscular HGB Conc 32.6 31.0 - 35.0 g/dl [facility] Red Cell Distribution Width 14.2 11.0 - 16.0 % [facility] Platelet Count 325 160 - 400 X10*3/uL [facility] Mean Platelet Volume 12.0 9.4 - 12.3 fL [facility] Neutrophils Percent Auto 56.9 45 - 73 % [facility] Imm Gran Pct Auto 0.2 0.0 - 0.4 % [facility] Lymphocytes Percent Auto 35.3 20 - 40 % [facility] Monocytes Percent Auto 6.1 2 - 11 % [facility] Eosinophils Percent Auto 1.2 0 - 4 % [facility] Basophils Percent Auto 0.3 0 - 2 % [facility] NRBC Pct Auto 0.0 0.0 - 0.2 /100WBC [facility] Neutrophils Absolute Auto 5.1 2.0 - 8.3 x10*3/uL [facility] Imm Gran Abs Auto 0.02 0.00 - 0.03 X10*3/uL [facility] Lymphocytes Absolute Auto 3.2 1.2 - 4.9 X10*3/uL [facility] Monocytes Absolute Auto 0.6 0.1 - 1.2 X10*3/uL [facility] Eosinophils Absolute Auto 0.1 0.0 - 0.4 X10*3/uL [facility] Basophils Absolute Auto 0.0 0.0 - 0.2 X10*3/uL [facility] NRBC Abs Auto 0.000 0.0 - 0.012 X10*3/uL [facility] Blood Venous blood specimen / Unknown 03/18/2025 12:00 PM EST 03/18/2025 2:14 PM EST Dorinda Iniguez MD LAB BLOOD ORDERABLES Final Re sult [facility] [address] [place] [phone] documented in this encounter Visit Diagnoses Diagnosis Rash- Primary Rash and other nonspecific skin eruption Intertrigo Other specified erythematous condition Class 3 severe obesity due to excess calories with serious comorbidity and body mass index (BMI) of 40.0 to 44.9 in adult (HCC) Benign essential hypertension Essential hypertension, benign documented in this encounter Additional Health Concerns Assessment Noted Time PHQ-9 Depression Total Score: 2 05/28/19 25 9:31 AM EST documented as of this encounter Care Teams Surg Physician Asst Relationship Specialty Start Date End Date Dorinda Iniguez MD [address] [place] [phone] PCP - General Family Medicine 04/24/18 Ginny Hernandez Ethnoarchaeology ProfessorSenior Oracle Adf Developer 01/17/24 documented as of this encounter
[2025-03-18 14:17] LABS: MANUAL DIFF FLAG NO
[2025-03-18 14:28] LABS: Hematocrit 42.6 % (37.0-47.0); Hemoglobin 13.9 g/dl (12.0-16.0); Imm Gran Abs Auto 0.02 X10*3/uL (0.00-0.03); Imm Gran Pct Auto 0.2 % (0.0-0.4); Lymphocytes Absolute Auto 3.2 X10*3/uL (1.2-4.9); Mean Corpuscular HGB Conc 32.6 g/dl (31.0-35.0); Mean Corpuscular Hemoglobin 32.6 pg (27.0-33.0); Mean Corpuscular Volume 100.0 fL (80.0-98.0); NRBC Abs Auto 0.000 X10*3/uL (0.0-0.012); NRBC Pct Auto 0.0 /100WBC (0.0-0.2); Platelet Count 325 X10*3/uL (160-400); Red Blood Count 4.26 X10*6/uL (4.20-5.50); White Blood Count 9.0 X10*3/uL (4.8-10.8)
--- OUTSIDE RECORDS SUMMARY | 2025-03-18 15:45 | XMS_ITS | Clinical Summary ---
Author Organization [employer] Address [address] [place] [address] 7t [place] [address] Care Team Providers Care Stationary Engineer Supervisor Name Role Phone Dorinda Iniguez MD Primary Care Provider [phone] Allergies Active Allergy Reactions Criticality Noted Date [...] mg) Once per day. 90 tablet 5 024 Active gabapentin (Neurontin) 100 MG capsule Take [...] EVERY DAY IN THE MORNING 90 tablet 09/22/2 025 Active fluconazole (Diflucan) 100 MG tabletIndicatio ns:Intertrigo Take 1 tablet (100 mg) by mouth Once per day for 14 days. 14 tablet 2024 Active sulfamethoxazol e-trimethoprim (Bactrim DS) 800-160 MG tabletIndicatio ns:Urinary Tract Infection Take 1 tablet by mouth 2 times daily for 7 days. 14 tablet 2024 Active cephalexin (Keflex) 500 MG capsuleIndicati ons:Rash Take 1 capsule (500 mg) by mouth 3 times daily for 7 days. 21 capsule 2024 Active miconazole (Micatin) 2 % creamIndication s:Rash Apply to affected area 2 times daily 28 g 1 Active hydrocortisone 2.5 % creamIndication s:Intertrigo Apply topically in the morning and in the evening. To use 2 times a day for no more than 2 weeks. 28 g 2 Active mupirocin (Bactroban) 2 % ointment Apply topically 3 times daily for 10 days. 22 g 2024 Active hydrocortisone 2.5 % creamIndication s:Intertrigo Apply topically in the morning and in the evening. To use 2 times a day for no more than 2 weeks. 28 g 2024 Discontinued(R eorder (will not trigger notification to Pharmacy)) Active Problems Problem Noted Date Diagnosed Date FARHAN (obstructive sleep apnea) 05/28/2024 BMI 40.0-44.9, adult ([facility]) 05/28/2024 Ear ache 10/04/2023 Assessment [...] Encounters Date Type Department Care Team Description 03/18/2025 11:15 AM EST Office Visit [facility] [address] [place] [address] Dorinda Iniguez MD Rash (Primary Dx); Intertrigo; Class 3 severe obesity due to excess calories with serious comorbidity and body mass index (BMI) of 40.0 to 44.9 in adult (HCC); Benign essential hypertension 03/18/2025 Travel 03/13/2025 1:20 PM EST Office Visit [facility] [address] [place] [address] Patricia Alfaro MD Rash (Primary Dx) 03/13/2025 Travel 03/13/2025 Patient Outreach [facility] [address] [place] [address] Dorinda Iniguez MD Pre-visit Planning ([facility] screening completed on 05/21/24 ) 03/11/2025 2:40 PM EST Office Visit [facility] [address] [address] Patricia Alfaro MD Rash (Primary Dx) 03/11/2025 Orders Only [facility] [address] [place] [address] Patricia Alfaro MD 03/11/2025 Travel 03/11/2025 Telephone [facility] [address] [place] [address] Dorinda Iniguez MD Nurse Triage 03/06/2025 Results Follow-Up [facility] [address] [place] [address] Angie Giraldo MD Hepatic Function Panel 03/06/2025 Telephone [facility] [address] [place], [place] [phone] Dorinda Iniguez MD verbal orders 03/05/2025 2:40 PM EST Office Visit [facility] [address] [place] [address] Angie Giraldo MD Intertrigo (Primary Dx); Nausea 03/05/2025 Travel 03/05/[address] [address] Dorinda Iniguez MD ER Follow-up 01/24/2025 Orders Only [facility] [address] [place] [address] Nona Umaña MD Leg cramps (Primary Dx) 01/23/2025 Telephone [facility] [address] [place] [address] Dorinda Iniguez MD Referral (TC US leg) 01/23/2025 Telephone [facility] [address] [place] [address] Dorinda Iniguez MD 01/22/2025 Telephone [facility] [address] [place] [address] Dorinda Iniguez MD Referral 01/20/2025 11:00 AM EDT Office Visit [facility] [address] [place] [address] Nona Umaña MD Leg cramps (Primary Dx); Ecchymosis 01/20/2025 Travel 01/20/[address] [address] Dorinda Iniguez MD Nurse Triage 01/13/2025 10:00 AM EDT Office Visit [facility] [address] [place] [address] Iván Lynchine 01/13/2025 Refill [facility] [address] [place] [address] Dorinda Iniguez MD 01/08/2025 Telephone [facility] [address] [place] [address] Dorinda Iniguez MD 01/03/2025 Orders Only [facility] [address] [place] [address] Dorinda Iniguez MD Kidney stone (Primary Dx) 01/02/2025 Telephone [facility] [address] [place] [address] Dorinda Iniguez MD Prior Authorization 01/01/[address] [address] Dorinda Iniguez MD Referral 12/26/2024 Telephone [facility] [address] [place] [address] Deb Rubio LPN 12/24/2024 10:30 AM EDT Office Visit [facility] [address] [place] [address] Dorinda Iniguez MD Class 3 severe obesity due to excess calories with serious comorbidity and body mass index (BMI) of 40.0 to 44.9 in adult (Primary Dx); Generalized anxiety disorder; Benign essential hypertension; Moderate persistent asthma without complication 12/24/2024 Travel 12/16/2024 Patient Outreach [facility] [address] [place] [phone] Kerry Chappell Pre-visit Planning (Pre visit planning [...] 20 03/18/2025 11:01 AM EST Oxygen Saturation 98% 03/05/2025 2:23 PM EST Inhaled Oxygen Concentration - - Weight 101 kg (223 lb) 03/18/2025 11:01 AM EST Height 160 cm (5' 3 ) 03/13/2025 1:06 PM EST Body Mass Index 39.5 03/13/2025 1:06 PM EST Plan of Treatment Health Maintenance Due Date [...] 07/10/2024, 01/08/2024, Additional history exists Tobacco Screening 03/18/2026 03/18/2025 Cervical Cancer Screening 09/01/2026 HPV/Cotest 09/01/2026 09/01/2021 [...] Procedure Name Priority Date/Time Associated Diagnosis Comments RHEUMATOID FACTOR Routine 03/18/2025 12: 00 PM EST Rash SED RATE BY MODIFIED WESTERGREN Routine 03/18/2025 12:00 PM EST Rash CBC WITH AUTO DIFFERENTIAL Routine 03/18/2025 12:00 PM EST Rash GRAM STAIN RESULT (NON ORDERABLE) Routine 03/11/2025 12:00 AM EST HEPATIC FUNCTION PANEL Routine 03/05/2025 2:38 PM EST Intertrigo US VENOUS DUPLEX LE RT Routine 01/24/2025 2:30 PM EDT BASIC METABOLIC PANEL Routine 01/20/2025 11:42 AM EDT Leg cramps CASE PRESENTATION, DETAILED AND EXTENSIVE TREATMENT PLANNING Routine 01/13/2025 10:00 AM EDT PROPHYLAXIS - ADULT Routine 01/13/2025 1 0:00 AM EDT HM MAMMOGRAPHY Routine 09/06/2024 PERIODIC ORAL EVALUATION [...] Relevant to Health Maintenance Results * (ABNORMAL) CBC auto differential (03/18/2025 12:00 PM EST) White Blood Count 9.0 4.8 - 10.8 X10*3/uL [facility] Red Blood Count 4.26 4.20 - 5.50 X10*6/uL [facility] Hemoglobin 13.9 12.0 - 16.0 g/dl [facility] Hematocrit 42.6 37.0 - 47.0 % [facility] Mean Corpuscular Volume 100.0(H) 80.0 - 98.0 fL [facility] Mean Corpuscular Hemoglobin 32.6 27.0 - 33.0 pg [facility] Mean Corpuscular HGB Conc 32.6 31.0 - 35.0 g/dl [facility] Red Cell Distribution Width 14.2 11.0 - 16.0 % [facility] Platelet Count 325 160 - 400 X10*3/uL [facility] Mean Platelet Volume 12.0 9.4 - 12.3 fL [facility] Neutrophils Percent Auto 56.9 45 - 73 % [facility] Imm Gran Pct Auto 0.2 0.0 - 0.4 % [facility] Lymphocytes Percent Auto 35.3 20 - 40 % [facility] Monocytes Percent Auto 6.1 2 - 11 % [facility] Eosinophils Percent Auto 1.2 0 - 4 % [facility] Basophils Percent Auto 0.3 0 - 2 % [facility] NRBC Pct Auto 0.0 0.0 - 0.2 /100WBC [facility] Neutrophils Absolute Auto 5.1 2.0 - 8.3 x10*3/uL [facility] Imm Gran Abs Auto 0.02 0.00 - 0.03 X10*3/uL [facility] Lymphocytes Absolute Auto 3.2 1.2 - 4.9 X10*3/uL [facility] Monocytes Absolute Auto 0.6 0.1 - 1.2 X10*3/uL [facility] Eosinophils Absolute Auto 0.1 0.0 - 0.4 X10*3/uL [facility] Basophils Absolute Auto 0.0 0.0 - 0.2 X10*3/uL [facility] NRBC Abs Auto 0.000 0.0 - 0.012 X10*3/uL [facility] Blood Venous blood specimen / Unknown 03/18/2025:00 PM EST 03/18/2025 2:14 PM EST Dorinda Iniguez MD LAB BLOOD ORDERABLES Final Re sult Performing Organization Address City/[facility]/ZIP Co de Phone Number [facility] [address] [place] [phone] * Sed Rate by Modified Westergren (03/18/2025 12:00 PM EST) Pathologist [facility] Erythrocyte Sedimentation Rate 16 0 - 20 MM/HR [facility] Comment:Patients with polycy themia and many hemoglobin abnormalitiesmay have depressed sed rates whereas patients with anemiamay have elevated sed rates. Blood Venous blood specimen / Unknown 03/18/2025 12:00 PM EST 03/18/2025 2:14 PM EST Dorinda Iniguez MD LAB BLOOD ORDERABLES Final Re sult Performing Organization Address [facility]/ZIP Co de Phone Number [facility] [address] [place] [phone] * Rheumatoid Factor (03/18/2025 12:00 PM EST) [facility] Rheumatoid Factor <13.0 <15.0 IU/mL [facility] Blood Venous blood specimen / Unknown 03/18/2025 12:00 PM EST 03/18/2025 2:19 PM EST Dorinda Iniguez MD LAB BLOOD ORDERABLES Final Re sult Performing Organization Address City/[facility]/ZIP Co de Phone Number [facility] [address] [place] [phone] * Gram Stain Result (03/11/2025 12:00 AM EST) 03/11/2025 03/12/2025 11: 12 AM EST Comment:Chest Narrative [facility] - 03/14/2025 8:27 AM EST FROM CHEST RASH Gram stain results: No polys 2+ epithelial cells 2+ Gram-positive rods 1+ Gram-positive cocci FROM CHEST RASH Routine Culture Report - external Routine Culture 4+ Mixed skin tenisha Specimen Source: Chest us Patricia Alfaro MD HISTORICAL/NON ORDERABLE L ABS Final Result Performing Organization Address [facility] Co de Phone Number [facility] [address] [place] [phone] * Hepatic Function Panel (03/05/2025 2:38 PM EST) Bilirubin, Total 0.6 0.0 - 1.0 mg/dL [facility] Bilirubin, Direct 0.3 0.0 - 0.5 mg/dL [facility] Aspartate Amino Transferase 20 5 - 31 U/L [facility] Alanine Aminotransferase 15 0 - 31 U/L [facility] Total Protein 6.6 6.5 - 8.0 g/dL [facility] Albumin Level 4.1 3.5 - 5.0 g/dL [facility] Alkaline Phosphatase 79 39 - 117 U/L [facility] Blood Venous blood specimen / Unknown 03/05/2025 2:38 PM EST 03/05/2025 5:55 PM EST us Angie Giraldo MD LAB BLOOD ORDERABLES Final Result Performing Organization Address [facility] Co de Phone Number [facility] [address] [place] [phone] * US VENOUS DUPLEX LE RT (01/24/2025 2:30 PM EDT) Anatomical Region Laterality Modality Abdomen Ultrasound 01/24/2025 2:30 PM EDT Narrative 01/24/2025 2:43 PM EDT [address] [address] Ultrasound Report Signed Patient: Chelle Helm MR# : [id number] : 1965 Acct:[id number] Age/Sex: 59 / F ADM Date: 01/24/25 Loc: .US Attending Dr: Nona Umaña MD Ordering Physician: Dorinda Iniguez MD Date of Service: 01/24/25 Procedure(s): US venous duplex LE RT Accession Number(s): [id number] cc: Dorinda Iniguez MD Reason for Exam: [...] 01/24/25 1441 DD/ 1430 TD/TT: 01/24/25 1436 Field Handyman: TOM Procedure Note Donotuseinterpreter, Image - 01/24/2025 [place] [address] Ultrasound Report Signed Patient: Chelle Helm [facility]# : [id number] : 1965Acct:[id number] Age/Sex: 59 / FADM Date: 01/24/25 Loc: .[place] Attending Dr: Nona Umaña MD Ordering Physician: Dorinda Iniguez MD Date of Service: 01/24/25 Procedure(s): US venous duplex LE RT Accession Number(s): [id number] cc: Dorinda Iniguez MD Reason for Exam: [...] 01/24/25 1441 DD/ 1430 TD/TT: 01/24/25 1436 Field Handyman: TOM us Dorinda Iniguez MD IMG US PROCEDURES Final Resul t * (ABNORMAL) Basic Metabolic Panel (01/20/2025 11:42 AM EDT) Sodium 142 135 - 145 mmol/L [facility] Potassium 5.1 3.3 - 5.1 mmol/L [facility] Chloride 109(H) 96 - 108 mmol/L [facility] Carbon Dioxide 26 22 - 29 mmol/L [facility] Anion Gap 12 12 - 20 [facility] Urea Nitrogen (BUN) 25(H) 9 - 16 mg/dL [facility] Creatinine, Serum 0.80 0.5 - 1.4 mg/dL [facility] Estimated Glomerular Filt Rate >60 [facility] Comment:Chronic Kidney Disea se: Estimated GFR < 60 mL/min/[id number] Kidney Disease: Estimated GFR < 15 mL/min/1.73m2 Glucose 88 60 - 115 mg/dL [facility] Calcium 9.4 8.4 - 10.2 mg/dL [facility] Blood Venous blood specimen / Unknown 01/20/2025 11:42 AM EDT 01/20/2025 2:07 PM EDT Nona Umaña MD LAB BLOOD ORDERABLES Final Resul t Performing Organization Address City/[facility]/ZIP Co de Phone Number [facility] [address] [place] [phone] * Mammography (09/06/2024) Mammogram Normal Normal, Abnormal, BIRADS 1 , BIRADS 2 Anatomical Region Laterality Modality Other Dorinda Iniguez MD HEALTH MAINTENANCE Final Resu lt * (ABNORMAL) Lipid Panel, Standard (12/14/2023 9:32 AM EDT) Triglycerides 162(H) <150 mg/dL [facility] Comment:Desirable Triglyceri de: less than 150 mg/dLBorderline High Triglyceride 150-199 mg/dLHigh Triglyceride: 200-499 mg/dLVery High Triglyceride: greater than or equal to 5OO mg/dL Cholesterol 193 <200 mg/dL [facility] Comment:Desirable Cholestero l: less than 200 mg/dLBorderline High Cholesterol: 200-239 mg/dLHigh Cholesterol: greater than 239 mg/dL LDL Cholesterol Calculated 113(H) <100 mg/dL [facility] Comment:Desirable LDL: less than 100 mg/dLNear Optimal/Above Optimal LDL: 110- 129 mg/dLBorderline High LDL: 130-159 mg/dLHigh LDL: 160-189 mg/dLVery High LDL: greater than or equal to 190 mg/dL HDL Cholesterol 48 >40 mg/dL [facility] Comment:Desirable HDL: great er than 40 mg/dL Note: This HDL assay may give artificially low results in patients with liver disease. Blood Venous blood specimen / Unknown 12/14/2023 9:32 AM EDT 12/14/2023 2:14 PM EDT Dorinda Iniguez MD LAB BLOOD ORDERABLES Final Re sult [facility] [address] [place] [phone] * Hepatitis C Antibody with Reflex to HCV, RNA, Quantitative, Real-Time PCR (08/17/2023 2:19 PM EDT) Pathologist [facility] Hepatitis C Antibody Nonreactive Nonreactive [facility] Comment:Antibodies to HCV no t detected; does not exclude early acuteHCV infection. Blood Venous blood specimen / Unknown 08/17/2023 2:19 PM EDT 08/17/2023 5:21 PM EDT us Angie Giraldo MD LAB BLOOD ORDERABLES Final Result Performing Organization Address [facility]/ZIP Co de Phone Number [facility] [address] [place] [phone] * HIV-1/2 Antigen and Antibodies, Fourth Generation, with Reflexes (08/17/2023 2:19 PM EDT) [facility] HIV AB/AG Nonreactive Nonreactive [facility] Comment:HIV-1 p24 Ag and/or HIV-1/HIV-2 Ab not detected.A test result that is nonreactive does not exclude thepossibility of exposure to or infection with HIV-1 and/orHIV-2. Nonreactive results in this assay for individualswith prior exposure to HIV-1 and/or HIV-2 may be due toantigen and antibody levels that are below the limit ofdetection of this assay.The [employer] HIV Ag/Ab Combo assay result andsupplemental assay results should be interpreted inconjunction with the patient's clinical presentation,history and other laboratory results. If the results areinconsistent with clinical evidence, additional testing issuggested to confirm the result. Blood Venous blood specimen / Unknown 08/17/2023 2:19 PM EDT 08/17/2023 5:21 PM EDT us Angie Giraldo MD LAB BLOOD ORDERABLES Final Result Performing Organization Address [facility]/ZIP Co de Phone Number [facility] [address] [place] [address] [phone] * (ABNORMAL) Colonoscopy (08/01/2023) Colonoscopy Abnormal(A ) Normal us Dorinda Iniguez MD HEALTH MAINTENANCE Final Resu lt * Hm Pap Smear (09/01/2021) Pap Negative for intraephithelial lesion or malignancy Negative for intraephithelial lesion or malignancy, Other HPV Undetected Undetected, Indeterminate, Quantitative, Not Detected us Historical Provider HEALTH MAINTENANCE Final Result from Last 3 Months or Most Recently Relevant to Health Maintenance [place] [address] [address] [facility] Care Teams Stationary Engineer Supervisor Relationship Specialty Start Date End Date Dorinda Iniguez MD [address] [place] [phone] PCP - General Family Medicine 04/24/18 Ginny Hernandez Medicaid Business AnalystStock Sorter 01/17/24
--- OUTSIDE RECORDS SUMMARY | 2025-03-18 15:45 | XMS_ITS | Encounter Summary ---
Author Organization [employer] Address [address] [facility] 7 [place] [address] Care Team Providers Care Pipe Line Gauger Name Role Phone Dorinda Iniguez MD Primary Care Provider [phone] Reason for Visit * Reason Onset Date Comments Med Refill 07/01/2024 Encounter Details Date Type Department Care Team (Late st Contact Info) Description 07/01/2024 Refill [facility] [address] [place] [address] Dorinda Iniguez MD [address] [place] [phone] Benign essential hypertension; BMI 40.0-44.9, adult (CMS/HCC); [...] MG/0.5ML solution auto-injector To be sent to: [facility]/pharmacy #[id number] documented in this encounter Plan of [...] documented as of this encounter Care Teams Pipe Line Gauger Relationship Specialty Start Date End Date Dorinda Iniguez MD [address] [place] [address] PCP - General Family Medicine 04/24/18 Ginny Hernandez Senior Education SpecialistStacking Machine Operator 01/17/24 documented as of this encounter
--- OUTSIDE RECORDS SUMMARY | 2025-03-18 15:45 | XMS_ITS | Encounter Summary ---
Author Organization [employer] Address [address] [place] [address] 7 [place] [address] Care Team Providers Care Frequency Checker Name Role Phone Dorinda Iniguez MD Primary Care Provider [phone] Encounter Details Date Type Department Care Team (Latest Contact Info) Description 04/02/2020 Abstract [facility] Dental, Provider, DDS Social History Tobacco [...] on filedocumented in this encounter Care Teams Frequency Checker Relationship Specialty Start Date End Date Dorinda Iniguez MD [address] [place] [address] PCP - General Family Medicine 04/24/18 Ginny Hernandez Academic CounselorRheumatology Specialist 01/17/24 documented as of this encounter
--- OUTSIDE RECORDS SUMMARY | 2025-03-18 15:45 | XMS_ITS | Encounter Summary ---
Author Organization [employer] Address [address] [place] [address] 7 [place] [address] Care Team Providers Care Shooting Gallery Operator Name Role Phone Dorinda Iniguez MD Primary Care Provider [phone] Encounter Details Date Type Department Care Team ([facility] st Contact Info) Description 05/06/2022 Orders Only [facility] [address] [place] [address] Suki Schmitt LPN Social History Tobacco Use [...] on filedocumented in this encounter Care Teams Shooting Gallery Operator Relationship Specialty Start Date End Date Dorinda Iniguez MD [address] [place] [address] PCP - General Family Medicine 04/24/18 Ginny Hernandez Health Care Sanitary TechnicianHistoriographer 01/17/24 documented as of this encounter
--- OUTSIDE RECORDS SUMMARY | 2025-03-18 15:45 | XMS_ITS | Encounter Summary ---
Author Organization [employer] Address [address] [facility] 7 [place] [address] Care Team Providers Care Sap Functional Analyst Name Role Phone Dorinda Iniguez MD Primary Care Provider [phone] Reason for Visit * Reason Onset Date Comments Med Refill 08/28/2024 Encounter Details Date Type Department Care Team ([facility] st Contact Info) Description 08/28/2024 Telephone [facility] [address] [place] [address] Dorinda Iniguez MD [address] [place] [phone] Med Refill Social History Tobacco Use Types [...] solution auto-injector To be sent to: [facility]/pharmacy #[id number] documented in this encounter Plan of Treatment Not on file documented as of this encounter Visit Diagnoses Not on filedocumented in this encounter Additional Health Concerns Assessment Noted Time PHQ-9 Depression Total Score: 2 05/28/19 25 9:31 AM EST documented as of this encounter Care Teams Sap Functional Analyst Relationship Specialty Start Date End Date Dorinda Iniguez MD [address] [place] [address] PCP - General Family Medicine 04/24/18 Ginny Hernandez Health Insurance AgentOrnamental Iron Worker Helper 01/17/24 documented as of this encounter
--- OUTSIDE RECORDS SUMMARY | 2025-03-18 15:45 | XMS_ITS | Encounter Summary ---
Author Organization [employer] Address [address] [place] [address] 7 [place] [address] Care Team Providers Care Copywriter Name Role Phone Dorinda Iniguez MD Primary Care Provider [phone] Encounter Details Date Type Department Care Team (Latest Contact Info) Description 09/08/[address] [facility] Dental, Provider, DDS Social History [...] on filedocumented in this encounter Care Teams Copywriter Relationship Specialty Start Date End Date Dorinda Iniguez MD [address] [place] [address] PCP - General Family Medicine 04/24/18 Ginny Hernandez Senior Software Qa AnalystAppeals Examiner 01/17/24 documented as of this encounter
--- OUTSIDE RECORDS SUMMARY | 2025-03-18 15:45 | XMS_ITS | Encounter Summary ---
Author Organization [employer] Address [address] [place] [address] 7 [place] [address] Care Team Providers Care Scheduling Representative Name Role Phone Dorinda Iniguez MD Primary Care Provider [phone] Reason for Visit * Reason Onset Date Comments Referral 01/22/2025 Encounter Details Date Type Department Care Team ([facility] Contact Info) Description 01/22/2025 Telephone [facility] CHC MED & PEDS [address] [place], [place] [phone] Dorinda Iniguez MD 505 [place] [address] Referral Social History Tobacco Use Types Packs/Day [...] 10:07 AM EDT [facility]. Pt stated was advised an [place] [...] a sonogram. Any questions contact pt at [phone] documented in this encounter Plan of Treatment Not on file documented as of this encounter Visit Diagnoses Not on filedocumented in this encounter Additional Health Concerns Assessment Noted Time PHQ-9 Depression Total Score: 2 05/28/19 9:31 AM EST documented as of this encounter Care Teams Scheduling Representative Relationship Specialty Start Date End Date Dorinda Iniguez MD [address] [place] [address] PCP - General Family Medicine 04/24/18 Ginny Hernandez Disability Insurance Claim ExaminerRefinery Operator Vapor Recovery Unit 01/17/24 documented as of this encounter
--- OUTSIDE RECORDS SUMMARY | 2025-03-18 15:46 | XMS_ITS | Encounter Summary ---
Author Organization [employer] Address [address] [place] [address] 7 [place] [address] Care Team Providers Care Pest Control Service Sales Agent Name Role Phone Dorinda Iniguez MD Primary Care Provider [phone] Encounter Details Date Type Department Care Team (Latest Contact Info) Description 10/15/2018 Abstract [facility] CONVERSIONS Dental, Provider, DDS Social History Tobacco [...] on filedocumented in this encounter Care Teams Pest Control Service Sales Agent Relationship Specialty Start Date End Date Dorinda Iniguez MD 505 [place] [address] PCP - General Family Medicine 04/24/18 Ginny Hernandez Pickling OperatorHand Hide Stretcher 01/17/24 documented as of this encounter
--- OUTSIDE RECORDS SUMMARY | 2025-03-18 15:46 | XMS_ITS | Encounter Summary ---
Author Organization [employer] Address [address] [facility] 7 [place] [address] Care Team Providers Care Faith Doctor Name Role Phone Dorinda Iniguez MD Primary Care Provider [phone] Reason for Visit * Reason Onset Date Comments Paperwork/Forms 08/17/2023 Encounter Details Date Type Department Care Team ([facility] st Contact Info) Description 08/17/2023 Telephone [facility] MEDICINE [address] [place] [address] Dorinda Iniguez MD [address] [place] [address] Paperwork/Forms Social History Tobacco Use Types Packs/Day [...] EDT Last OV faxed as requested to [facility]. Returned call to [facility] regarding VO. LVM to return call. * Telephone Encounter - Piotr Mata - 08/17/2023 2:01 PM EDT [facility] requesting orders to restart home services and the last officeto be faxed to [phone] documented in this encounter Plan of Treatment Not on file documented as of this encounter Visit Diagnoses Not on filedocumented in this encounter Additional Health Concerns Assessment Noted Time PHQ-9 Depression Total Score: 4 08/17/19 24 1:37 PM EDT documented as of this encounter Care Teams Faith Doctor Relationship Specialty Start Date End Date Dorinda Iniguez MD [address] [place], [place] [address] [address] PCP - General Family Medicine 04/24/18 Ginny Hernandez Tdp Displays AnalystCommand Post Craftsman 01/17/24 documented as of this encounter
--- OUTSIDE RECORDS SUMMARY | 2025-03-18 15:46 | XMS_ITS | Encounter Summary ---
Author Organization [employer] Address 75 [facility] 7t [place] [address] Care Team Providers Care Tool Checker Name Role Phone Dorinda Iniguez MD Primary Care Provider [phone] Encounter Details Date Type Department Care Team (Latest Contact Info) Description 03/18/2025 Travel Social History Tobacco Use Types Packs/Day [...] as of this encounter Care Teams Tool Checker Relationship Specialty Start Date End Date Dorinda Iniguez MD 505 [place] [address] PCP - General Family Medicine 04/24/18 Ginny Hernandez Pressed Or Blown Glass WorkerManager Education 01/17/24 documented as of this encounter
--- OUTSIDE RECORDS SUMMARY | 2025-03-18 15:46 | XMS_ITS | Encounter Summary ---
Author Organization [employer] Address [address] [facility] 7 [place] [address] Care Team Providers Care Research And Development Researcher Name Role Phone Dorinda Iniguez MD Primary Care Provider [phone] Reason for Visit * Reason Comments Pre-visit Planning SDOH screening compl eted on 05/21/24 Encounter Details Date Type Department Care Team ([facility] st Contact Info) Description 03/13/2025 Patient Outreach [facility] MEDICINE [address] [place] [address] Dorinda Iniguez MD [address] [place] [address] Pre-visit Planning (SDOH screening completed on 05/21/24 ) Social History Tobacco Use Types Packs/Day [...] as of this encounter Progress Notes * Kerry Chappell - 03/13/2025 11:13 AM EST CC Kerry rangel successful outbound call to patient for pre-visit planning. Patient name and confirmed. Patient confirms appt date and time, and has transportation arrangements. Biggest concern for appointment at this time is no concerns. Patient advised to bring to appointment a photo id and insurance card. Appropriate screenings completed in anticipation of appointment. documented in this encounter Plan of Treatment Not on file documented as of this encounter Visit Diagnoses Not on filedocumented in this encounter Additional Health Concerns Assessment Noted Time PHQ-9 Depression Total Score: 2 05/28/19 9:31 AM EST documented as of this encounter Care Teams Research And Development Researcher Relationship Specialty Start Date End Date Dorinda Iniguez MD 505 [place] [address] PCP - General Family Medicine 04/24/18 Ginyn Hernandez Literature TeacherTechnical Clerk 01/17/24 documented as of this encounter
--- OUTSIDE RECORDS SUMMARY | 2025-03-18 15:46 | XMS_ITS | Encounter Summary ---
Author Organization [employer] Address [address] [place] [address] 7 [place] [address] Care Team Providers Care Insulation Applicator Name Role Phone Dorinda Iniguez MD Primary Care Provider [phone] Reason for Visit * Reason Comments Med Refill Encounter Details Date Type Department Care Team ([facility] st Contact Info) Description 03/05/2024 Refill [facility] CHC MED & PEDS [address] [place], [place] [phone] Dorinda Iniguez MD 505 [place] [address] Social History Tobacco Use Types Packs/Day Years [...] documented as of this encounter Care Teams Insulation Applicator Relationship Specialty Start Date End Date Dorinda Iniguez MD [address] [place] [address] PCP - General Family Medicine 04/24/18 Ginny Hernandez Client Sales And Service OfficerMedia Planner 01/17/24 documented as of this encounter
--- OUTSIDE RECORDS SUMMARY | 2025-03-18 15:46 | XMS_ITS | Continuity of Care Document ---
Author Organization [place] [facility], [facility] Address [address] [place] [address] Care Team Providers Care Leasing Agent Name Role Phone LANCE KELLER Primary Care [...] By Organization Details Last Modified Time 02/17/2025 20956 - Use a warm compress to alleviate [...] Organization Details Recorded Time Abnormal auditory perception 99142274 Active 2024 [place], [facility] [address] [facility], [facility], [place], [address], [facility] 14:50:30 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 Procedures Surgical History Date Name Laterality Status Provider Name and Address Organization Details Recorded Time 02/17/2025 Comp Audio with Tymps - 90524 & 29649 completed [place], [facility] 100 [facility],[address], [address], [facility] 02/17/2025 14:53:58 Imaging Results None recorded. [...] ICD10 Code Diagnosis IMO Codes Diagnosis Note [id number] KANNAN MOE MD [facility]NT[facility] of [address] [address] 02/17/2025 14:22:26 02/17/2025 15:22:05 Abnormal auditory perception 18993884 H93.291 [id number] Sensorineu ral hearing loss of left ear with normal hearing on right side 4304547569 H90.42 55327188 Right Ear:Normal hearing with excellent speech discrimina tion.Type A tympanogra m.Left Ear:Normal hearing with mild HL at 3K Hz only with excellent speech discrimina tion.Type A tympanogra m. Pain of ri ght temporomandibular joint [id number] 7859716 M26.621 [id number] Health Concerns Section Related Observation LastModified by Organization Detai ls LastModified Time None Recorded Concern Status LastModified by Organization Details LastModified Time None Recorded Payers Encounter Date Sequence Insurance Name Policy Number Policy Ash Covered Member ID Ash Member ID Guarantor Name 02/17/2025 1 [place]: [facility] PLAN Chelle Sesayista [id number] Chelle Melchor Notes Date Note Type Note [...] affected the alignment of the jaw. An collection manager was present during the session to assist with communication. KANNAN FLORES MD [address] [place] [address], [phone], [facility] - [facility] 02/17/2025 15:44:32 OBGyn Episode No OBEpisode recorded.
--- OUTSIDE RECORDS SUMMARY | 2025-03-18 15:46 | XMS_ITS | Encounter Summary ---
Author Organization [employer] Address [address] [place] [address] 7 [place] [address] Care Team Providers Care Vacuum Worker Name Role Phone Dorinda Iniguez MD Primary Care Provider [phone] Encounter Details Date Type Department Care Team (Latest Contact Info) Description 04/22/[address] [facility] CONVERSIONS Dental, Provider, DDS Social History [...] on filedocumented in this encounter Care Teams Vacuum Worker Relationship Specialty Start Date End Date Dorinda Iniguez MD [address] [place] [address] PCP - General Family Medicine 04/24/18 Ginny Hernandez Respiratory ManagerDomestic Technician 01/17/24 documented as of this encounter
--- OUTSIDE RECORDS SUMMARY | 2025-03-18 15:46 | XMS_ITS | Encounter Summary ---
Author Organization [employer] Address 75 [facility] 7t [place] [address] Care Team Providers Care Adjunct Latin Professor Name Role Phone Dorinda Iniguez MD Primary Care Provider [phone] Encounter Details Date Type Department Care Team ([facility] st Contact Info) Description 08/04/2023 Orders Only [facility] CHC MED & PEDS [address] [place] [address] ProviderSakina MD Social History Tobacco Use Types [...] documented as of this encounter Care Teams Adjunct Latin Professor Relationship Specialty Start Date End Date Dorinda Iniguez MD [address] [place] [address] PCP - General Family Medicine 04/24/18 Ginny Hernandez Manufacturing Project EngineerTrailers And Motor Homes Salesperson 01/17/24 documented as of this encounter
--- OUTSIDE RECORDS SUMMARY | 2025-03-18 15:46 | XMS_ITS | Encounter Summary ---
Author Organization [employer] Address [address] [place] [address] 7 [place] [address] Care Team Providers Care Gun Synchronizer Name Role Phone Dorinda Iniguez MD Primary Care Provider [phone] Reason for Visit * Reason Comments Med Refill Encounter Details Date Type Department Care Team ([facility] st Contact Info) Description 03/01/2024 Refill [facility] CHC MED & PEDS 505 [place], [place] [phone] Dorinda Iniguez MD 505 [place] [address] Social History Tobacco Use Types Packs/Day Years [...] documented as of this encounter Care Teams Gun Synchronizer Relationship Specialty Start Date End Date Dorinda Iniguez MD [address] [place] [address] PCP - General Family Medicine 04/24/18 Ginny Hernandez Transplant CoordinatorFixture Designer 01/17/24 documented as of this encounter
--- OUTSIDE RECORDS SUMMARY | 2025-03-18 15:46 | XMS_ITS | Encounter Summary ---
Author Organization [employer] Address 75 [facility] 7 [place] [address] Care Team Providers Care Broadcast Operations Manager Name Role Phone Dorinda Iniguez MD Primary Care Provider [phone] Reason for Visit * Reason Onset Date Comments Appointment Request 06/15/2023 Encounter Details Date Type Department Care Team ([facility] st Contact Info) Description 06/15/2023 Telephone [facility] MEDICINE [address] [place] [address] Dorinda Iniguez MD [address] [place] [address] Appointment Request Social History Tobacco Use Types [...] PCP before traveling and also do PE. Macedonian Speaker documented in this encounter Plan of Treatment Not on file documented as of this encounter Visit Diagnoses Not on filedocumented in this encounter Additional Health Concerns Assessment Noted Time PHQ-9 Depression Total Score: 4 06/09/19 23 1:44 PM EST documented as of this encounter Care Teams Broadcast Operations Manager Relationship Specialty Start Date End Date Dorinda Iniguez MD 505 [place] [address] PCP - General Family Medicine 04/24/18 Ginyn Hernandez Forestry Farm LaborerChargemaster Specialist 01/17/24 documented as of this encounter
--- OUTSIDE RECORDS SUMMARY | 2025-03-18 15:46 | XMS_ITS | Encounter Summary ---
Author Organization [employer] Address [address] [place] [address] 7 [place] [address] Care Team Providers Care Plastic Card Grader Cardroom Name Role Phone Dorinda Iniguez MD Primary Care Provider [phone] Reason for Visit * Reason Onset Date Comments Call Back Request 09/29/2023 Encounter Details Date Type Department Care Team ([facility] Contact Info) Description 09/29/2023 Telephone [facility] CHC MED & PEDS 505 [place] [address] Dorinda Iniguez MD 505 [place] [address] Call Back Request Social History Tobacco Use [...] 10:56 AM EDT Tc to pt using [employer] [place], [place] [id number]. Advised pt about message by Brenda. Pt [...] ENT for 04/04/24. Please contact pt at [phone] documented in this encounter Plan of Treatment Not on file documented as of this encounter Visit Diagnoses Not on filedocumented in this encounter Additional Health Concerns Assessment Noted Time PHQ-9 Depression Total Score: 4 08/17/19 24 1:37 PM EDT documented as of this encounter Care Teams Plastic Card Grader Cardroom Relationship Specialty Start Date End Date Dorinda Iniguez MD [address] [place] [address] PCP - General Family Medicine 04/24/18 Ginny Hernandez Master CosmetologistNascar Racer 01/17/24 documented as of this encounter
--- OUTSIDE RECORDS SUMMARY | 2025-03-18 15:46 | XMS_ITS | Encounter Summary ---
Author Organization [employer] Address 75 [facility] 7 [place] [address] Care Team Providers Care Flavor Tank Tender Name Role Phone Dorinda Iniguez MD Primary Care Provider [phone] Reason for Visit * Reason Onset Date Comments Medication Question 04/12/2024 Encounter Details Date Type Department Care Team ([facility] [place] st Contact Info) Description 04/12/2024 Telephone [facility] MEDICINE 230 [place] [address] Dorinda Iniguez MD [address] [place] [address] Medication Question Social History Tobacco Use Types [...] and it doesn't help. Contact pt at [phone] documented in this encounter Plan of Treatment Not on file documented as of this encounter Visit Diagnoses Not on filedocumented in this encounter Additional Health Concerns Assessment Noted Time PHQ-9 Depression Total Score: 4 08/17/19 24 1:37 PM EDT documented as of this encounter Care Teams Flavor Tank Tender Relationship Specialty Start Date End Date Dorinda Iniguez MD 505 [place] [address] PCP - General Family Medicine 04/24/18 Ginny Hernandez Lay Out TechnicianInventory Planner 01/17/24 documented as of this encounter
--- OUTSIDE RECORDS SUMMARY | 2025-03-18 15:46 | XMS_ITS | Patient Health Record ---
Author Organization [facility] Address [address] [place] [address] Care Team Providers Care Senior Security Engineer Name Role Phone Hira JASON, Dorinda Primary Care Provider Jeffrey Blackman Jr Unavailable Allergies Allergen (clinical drug ingredient) Drug/Non Drug Allergy documented on EMR Reaction Allergy Type Onset Date Status lisinopril Lisinopril Unknown Drug Allergy Activ e Results Component Value Reference Range Flag Notes Pathology Reviewed date:11/04/2024 08:11:06 AM Interpretation: Performing Lab:[facility], [address] [place] [phone] Notes/Report: Creatinine GFR POC Reviewed date:11/14/2024 08:44:34 AM Interpretation: Performing Lab:[facility], [address] [place] [phone] Notes/Report: [id number] 1.14 52 1149 HO.BERCHB Creatinine POC 1.1 0.5-1.4 mg/dL N GFR POC 52 Chronic Kidney Disease: Estimated GFR < 60 mL/min/1.73m2 Severe Kidney Disease: Estimated GFR < 15 mL/min/1.73m2 CT abdomen pelvis w con Reviewed date:11/14/2024 08:46:19 AM Interpretation: Performing Lab: Notes/Report: [address] [address] [address] Scan Report Signed Patient: Chelle Helm MR# : [id number] : 1965 Acct:[id number] Age/Sex: 59 / F ADM Date: 11/12/24 Loc: HO.CT Attending Dr: Jeffrey Narayan MD Ordering Physician: Jeffrey Narayan MD Date of Service: 11/12/24 Procedure(s): CT abdomen pelvis w IV con Accession Number(s): [id number] cc: Dorinda Iniguez MD; Jeffrey Narayan MD Report Number: [id number]: Total DLP = 667.00 mGy-cm EXAMINATION: CT [...] 11/12/24 1217 DD/ 1156 TD/TT: 11/12/24 1209 Drop Board Worker: Lipase Reviewed date:10/22/2024 03:39:01 PM Interpretation: Performing Lab:[facility], [address] [place] [phone] Notes/Report: Lipase 8 8-78 U/L N Creatinine Reviewed date:10/15/2024 04:39:19 PM Interpretation: Performing Lab:[facility], [address] [place] [phone] Notes/Report: Creatinine 1.01 0.5-1.4 mg/dL N Estimated Glomerular Filt Rate 56 Chronic Kidney Disease: Estimated GFR < 60 mL/min/1.73m2 Severe Kidney Disease: Estimated GFR < 15 mL/min/1.73m2 Blood Urea Nitrogen Reviewed date:10/15/2024 04:39:10 PM Interpretation: Performing Lab:[facility], [address] [place] [phone] Notes/Report: Blood Urea Nitrogen 21 9-16 mg/dL H Liver Panel Reviewed date:10/22/2024 03:38:48 PM Interpretation: Performing Lab:[facility], [address] [place] [phone] Notes/Report: Bilirubin Total 0.6 0.0-1.0 mg/dL N Bilirubin Direct 0.2 0.0-0.5 mg/dL N Aspartate Amino Transferase 17 5-31 U/L N Alanine Aminotransferase 12 0-31 U/L N Total Protein 6.4 6.5-8.0 g/dL L Albumin Level 4.0 3.5-5.0 g/dL N Alkaline Phosphatase 78 39-117 U/L N Complete Blood Count no Diff Reviewed date:10/22/2024 03:41:25 PM Interpretation: Performing Lab:[facility], [address] [place] [address] Notes/Report: White Blood Count 9.3 4.8-10.8 X10*3/uL [...] NRBC Abs Auto 0.000 0.0-0.012 X10*3/uL N Reason For Referral Referring Provider First Name Dorinda Referring Provider Last Name Hira Referring Provider Speciality Internal M edicine Ref[facility] Referred Provider Jeffrey Narayan Jr Referred Address [address] [place] [phone], Referred Provider Specialty Gastroentero logy General Notes Awilda Salazar 2024 02:39:04 PM >[place]ED [place] REFERRAL FROM [facility] FOR VISIT WITH DR NARAYAN ON [phone] Referral Priority Routine Reason small right groin he rnia Diagnosis 1 Right inguinal pain (R10.31) Referral Organization [facility] Referring Provider First Name [...] 30 Unknown Vitamin D (Ergocalciferol) 1.25 MG (61170 UT) Capsule TAKE ONE CAPSULE EVERY WEEK [...] W/U Status Risk Notes Problem Epigastric pain (12962226) Epigastric pain (R10.13) Active confirmed Problem Screening for malignant neoplasm of colon (753943238) Special screening for malignant neoplasms, colon (Z12.11) Active confirmed Problem Irritable bowel syndrome with diarrhea (973146790) Irritable bowel syndrome with diarrhea (K58.0) Active confirmed Problem Gastroesophageal reflux disease without esophagitis (285242530) Gastroesophageal reflux disease without esophagitis (K21.9) Active confirmed Vital Signs Temperature 97.8 degrees Fahrenheit 10/11/2024 Blood pressure diastolic 01 mm Hg 10/11/2024 Height 64 in 10/11/2024 Blood pressure systolic 001 mm Hg 10/11/2024 Weight 236.4 lbs 10/11/2024 BMI 40.57 kg/m2 10/11/2024 Encounters Encounter Location Date Provider Diagnosis [facility] Outpatient [address] [place] [id number] 10/30/2024 Jeffrey Narayan Jr [facility] [address] [place] [phone] 10/11/2024 Jeffrey Narayan Jr Abdominal pain R10.9 ; Irritable bowel syndrome with diarrhea K58.0 and Special screening for malignant neoplasms, colon Z12.11 [facility] [address] [place] [phone] 10/11/2024 Jeffrey Narayan Jr [facility] [address] [place] [phone] 10/11/2024 Jeffrey Narayan Jr [facility] [address] [place] [phone] 10/22/2024 Jeffrey Narayan Jr [facility] [address] [place] [phone] 11/04/2024 Jeffrey Narayan Jr [facility] [address] [place] [phone] 11/14/2024 Jeffrey Narayan Jr [facility] [address] [place] [phone] 12/31/2024 Jeffrey Narayan Jr Assessments Encounter Date [...] Start Date Coverage End Date MEDICAID OF [facility] [address] [place] [id number] CHELLE WRIGHT Self - patient is the [...]
--- OUTSIDE RECORDS SUMMARY | 2025-03-18 15:46 | XMS_ITS | Encounter Summary ---
Author Organization [employer] Address [address] [place] [address] 7 [place] [address] Care Team Providers Care De Ionizer Operator Name Role Phone Dorinda Iniguez MD Primary Care Provider [phone] Reason for Visit * Reason Onset Date Comments Med Refill 05/22/2024 Encounter Details Date Type Department Care Team ([facility] st Contact Info) Description 05/22/2024 Refill [facility] CHC MED & PEDS [address] [place] [address] Dorinda Iniguez MD 505 [place] [address] Influenza B Social History Tobacco Use Types [...] MG tablet To be sent to: [facility]/pharmacy #[id number] documented in this encounter Plan of Treatment Not on file documented as of this encounter Visit Diagnoses Diagnosis Influenza B Influenza with other respiratory manifestations documented in this encounter Additional Health Concerns Assessment Noted Time PHQ-9 Depression Total Score: 4 08/17/19 24 1:37 PM EDT documented as of this encounter Care Teams De Ionizer Operator Relationship Specialty Start Date End Date Dorinda Iniguez MD [address] [place] [address] PCP - General Family Medicine 04/24/18 Ginny Hernandez Boiler Plant OperatorInspector Purchased Parts 01/17/24 documented as of this encounter
--- OUTSIDE RECORDS SUMMARY | 2025-03-18 15:46 | XMS_ITS | Encounter Summary ---
Author Organization [employer] Address 75 [facility] 7t [place] [address] Care Team Providers Care Oven Dumper Name Role Phone Dorinda Iniguez MD Primary Care Provider [phone] Encounter Details Date Type Department Care Team ([facility] st Contact Info) Description 03/03/2023 Abstract [facility] MEDICINE [address] [place], [place] [phone] Sarahi Pearl Social History Tobacco Use Types [...] documented as of this encounter Care Teams Oven Dumper Relationship Specialty Start Date End Date Dorinda Iniguez MD 505 [place] [address] PCP - General Family Medicine 04/24/18 Ginny Hernandez Ux Research AssociateBrusher Hand 01/17/24 documented as of this encounter
--- OUTSIDE RECORDS SUMMARY | 2025-03-18 15:46 | XMS_ITS | Clinical Summary ---
Author Organization [address] [facility] Address 175 [place] [address] Phone Care Team Providers Care Security Vehicle Patrol Officer Name Role Phone Dorinda Iniguez MD Primary Care Provider [phone] Allergies Active Allergy Reactions Criticality Noted Date [...] with medications for asthma Continue following at [facility] with Dr. Dickey Obstructive sleep apnea 04/07/2022 Overview (04/01/2024): Last Assessment & Plan: Follow-up with her sleep physician Encounters Date Type Department Care Team Description 02/17/2025 9:45 AM EDT Office Visit Orthopedic Surgery - [place] [address] 175 [facility] [address] [place] [phone] Kashif Klein DPAl Plantar fascial fibromatosis (Primary Dx); Equinus contracture of ankle 01/17/2025 1:00 PM EDT Office Visit Pulmonology [facility] 175 [facility] 200 [place] [phone] Artem [place] MD Moderate persistent asthma, unspecified whether complicated (Primary Dx); Obstructive sleep apnea 12/20/2024 Telephone Pulmonology [facility] 175 [facility] 200 [place] [phone] Artem [place] MD from Last 3 Months [...] AM EST Office Visit Orthopedic Surgery - [place] [address] [phone] Kashif Klein DPM [address] [phone] 07/18/2025 1:00 PM EDT Office Visit Pulmonology [facility] 175 [facility] [address] [place] [phone] Artem [place] MD [address] [place] [phone] Health Maintenance Due Date Last Done Comments [...] Months Insurance MEDICAID - [place] Care Teams Security Vehicle Patrol Officer Relationship Specialty Start Date End Date Dorinda Iniguez MD [address] [place] [phone] PCP - General 07/07/11
--- OUTSIDE RECORDS SUMMARY | 2025-03-18 15:46 | XMS_ITS | Encounter Summary ---
Author Organization [employer] Address 75 [facility] 7t [place] [address] Care Team Providers Care Formwork Carpenter Name Role Phone Dorinda Iniguez MD Primary Care Provider [phone] Encounter Details Date Type Department Care Team (Latest Contact Info) Description 03/13/2025 Travel Social History Tobacco Use Types Packs/Day [...] documented as of this encounter Care Teams Formwork Carpenter Relationship Specialty Start Date End Date Dorinda Iniguez MD 505 [place] [address] PCP - General Family Medicine 04/24/18 Ginny Hernandez National Accounts RecruiterCompound Machine Operator 01/17/24 documented as of this encounter
--- OUTSIDE RECORDS SUMMARY | 2025-03-18 15:46 | XMS_ITS | Data Portability ---
Author Organization [place] [facility], Allergy Address [address] [address] Care Team Providers Care Security Systems Integrator Name Role Phone LANCE KELLER Primary Care Provider [phone] Assessment Encounter Date Assessment Date Assessment LastModified [...] By Organization Details Last Modified Time 02/17/2025 [address]1478 - Use a warm compress to alleviate [...] Organization Details Recorded Time Abnormal auditory perception [id number] Active 2024 [facility], [address],[place] [address], [place], [phone], 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 Procedures Surgical History Date Name Laterality Status Provider Name and Address Organization Details Recorded Time 02/17/2025 Comp Audio with Tymps - 66143 & [address]5360 completed [facility], [facility] 100 [facility],[address], [address], [facility] 02/17/2025 14:53:58 Imaging Results None recorded. Procedure [...] ICD10 Code Diagnosis IMO Codes Diagnosis Note [id number] KANNAN MOE MD [facility] [address] [address] 02/17/2025 14:22:26 02/17/2025 15:22:05 Abnormal auditory perception 96238069 H93.291 [id number] Sensorineu ral hearing loss of left ear with normal hearing on right side 8811475491 H90.42 [id number] Right Ear:Normal hearing with excellent speech discrimina tion.Type A tympanogra m.Left Ear:Normal hearing with mild HL at 3K Hz only with excellent speech discrimina tion.Type A tympanogra m. Pain of ri ght temporomandibular joint [id number] M26.621 [id number] Health Concerns Section Related Observation LastModified by Organization Detai ls LastModified Time None Recorded Concern Status LastModified by Organization Details LastModified Time None Recorded Advance Directives Directive None Recorded Payers Insurance Date Sequence Insurance Name Policy Number Policy Ash Covered Member ID Ash Member ID Guarantor Name 02/17/2025 1 [place] [facility] Chelle Melendez Ruiz [id number] Chelle Melchor 02/17/2025 1 [place] [facility] Chelle Melendez Ruiz [id number] Chelle Melchor Notes Date Note Type Note [...] affected the alignment of the jaw. An machinist tool and die was present during the session to assist with communication. KANNAN FLORES MD [address] [place] [address], [phone], [facility] - [facility] 02/17/2025 15:44:32 OBGyn Episode No OBEpisode recorded.
--- OUTSIDE RECORDS SUMMARY | 2025-03-18 15:46 | XMS_ITS | Encounter Summary ---
Author Organization [employer] Address [address] [place] [address] 7 [place] [address] Care Team Providers Care Census Clerk Name Role Phone Dorinda Iniguez MD Primary Care Provider [phone] Reason for Visit * Reason Comments Med Refill Encounter Details Date Type Department Care Team ([facility] st Contact Info) Description 11/08/2022 Refill [facility] CHC MED & PEDS 505 [place], [place] [phone] Dorinda Iniguez MD 505 [place] [address] Vitamin D deficiency; Generalized anxiety disorder Social [...] documented as of this encounter Care Teams Census Clerk Relationship Specialty Start Date End Date Dorinda Iniguez MD 505 [place] [address] PCP - General Family Medicine 04/24/18 Ginny Hernandez Operations IntelligenceCoil Tier 01/17/24 documented as of this encounter
--- OUTSIDE RECORDS SUMMARY | 2025-03-18 15:46 | XMS_ITS | Clinical Summary ---
Author Organization [facility] Address [address] [place] [address] Phone Care Team Providers Care In Room Dining Server Name Role Phone Dorinda Iniguez MD Primary Care Provider [phone] Allergies Active Allergy Reactions Criticality Noted Date [...] complete this topic Insurance Medicaid [place] Medicaid [place] Care Teams In Room Dining Server Relationship Specialty Start Date End Date Dorinda Iniguez MD [address] PCP - General Internal Medicine 07/06/22
[2025-03-21 12:53] LABS: Anti Nuclear Antibody Screen NEGATIVE (NEGATIVE)
== END 2025-03-18 12:00 | disposition home or self-care (01) ==
LOC: HO.CHCLDS 11:59
PROVIDERS: Visit Provider Pediatrics
DX: R21 Rash and other nonspecific skin eruption (principal); Z01.84 Encounter for antibody response examination
CPT/HCPCS: 36415; 85025; 85652; 86038; 86431

== ENCOUNTER 2025-04-03 14:08 | Outpatient (REF) | payer MEDICAID, SELFPAY ==
--- OUTSIDE RECORDS SUMMARY | 2024-10-30 09:00 | XMS_ITS ---
Author Organization [facility] Address [address] [place] [phone] Care Team Providers Care Deliver Driver Name Role Phone Hira JASON, Dorinda Primary Care Provider Ute Rios Jr, Jeffrey Goins [phone] REASON FOR VISIT abdominal pain Encounters Encounter Location Date Provider Diagnosis [facility] [place] [address] [place] [phone] 10/30/2024 Jeffrey Rios Jr Plan Of Treatment No Information Progress Notes * RAYMOND WRIGHT MDOB: [birth year] (59 yo F)Acc No.[id number]:10/30/2024 EGD/MAC Patient: Jerrell RAYMOND HERNANDEZ Provider: Jerrell Rios MD :1965 A ge:59 Y S ex:Female Date:10/30/2024 Address:[address] [place] [address] Pcp:Dorinda Iniguez MD Subjective: * Chief Complaints: [...] 10/30/2024 Generated for Printi ng/Faxing/eTransmitting on: 1 06/04/2024 08:51 AM EST
--- OUTSIDE RECORDS SUMMARY | 2025-04-03 09:00 | XMS_ITS | Encounter Summary ---
Author Organization [employer] Address [address] [place] [address] [place] [address] Care Team Providers Care Electrical Machine Builder Name Role Phone Dorinda Iniguez MD Primary Care Provider [phone] Encounter Details Date Type Department Care Team ([facility] Contact Info) Description 04/03/2025 9:00 AM EST Office Visit [facility] CHC MED & PEDS 505 [place] [address] Dorinda Iniguez MD [address] [place] [address] Wound check, abscess (Primary Dx) Social History Tobacco Use Types [...] Sign Reading Time Taken Comments Blood Pressure 148/76 04/03/2025 8:54 AM EST Pulse 92 04/03/2025 8:54 AM EST Temperature 37 C (98.6 F) 04/03/2025 8:54 AM EST Respiratory Rate 24 04/03/2025 8:54 AM EST Oxygen Saturation - - Inhaled Oxygen Concentration - - Weight 105 kg (232 lb) 04/03/2025 8:54 AM EST Height - - Body Mass Index 41.1 03/13/2025 1:06 PM EST documented in this encounter Progress Notes * Dorinda Iniguez MD - 04/03/2025 9:00 AM EST Images from the original note were not included. Subjective Patient ID: Chelle Arias is a 59 y.o. female who presents for f/u rash. Chelle Arias, age 59 years here for f/u rash. Skin infection and abscesses Had a history of recurrent skin abscesses and boils, including a previous MRSA infection approximately 12-13 years ago. Recently developed a new lesion at a biopsy site, which became infected. Was seen in the emergency department on the Monday prior to this visit with fever up to 101.9??F and sore throat. Started on cephalexin for pharyngitis and infection at the biopsy site. Reports that the fever and sore throat resolved with antibiotics. The lesion was cleaned by a nurse and has improved. Previously treated with topical and oral antibiotics, including Bactrim and doxycycline, for similarskin infections. Reports concern about possible staphylococcal infection due to recurrent abscessesand boils. Denies allergy to antibiotics.Saw derm office and skin biopsy results were negative.Has a f/u with derm in 04/2025. Steroid injections for foot pain Received steroid injection in the heel for foot pain, with significant discomfort during the procedure. Reports upcoming repeat injections scheduled. Weight changes Noted a 10 lb weight increase over the past week, which is unexpected as she is on zepbound 10 mg weekly. Anxiety Uses lorazepam 0.5 mg at night as needed for anxiety, especially related to family stressors. Reports not taking it during the day.Needs a refill. Review of Systems Constitutional: Negative for activity change, chills, fever and unexpected weight change. HENT: Negative for sinus pain and sore throat. Respiratory: Negative for cough, shortness of breath and wheezing. Cardiovascular: Negative for chest pain, palpitations and leg swelling. Gastrointestinal: Negative for abdominal pain and blood in stool. Endocrine: Negative for polydipsia and polyuria. Genitourinary: Negative for decreased urine volume, difficulty urinating, dysuria and hematuria. Musculoskeletal: Positive for arthralgias. Negative for gait problem. Skin: Positive for rash and wound. Negative for color change. Neurological: Negative for dizziness and headaches. Hematological: Negative for adenopathy. Psychiatric/Behavioral: Negative for dysphoric mood, hallucinations, sleep disturbance and suicidalideas. The patient is not nervous/anxious. Objective BP (!) 148/76 (BP Location: Left arm, Patient Position: Sitting, BP Cuff Size: Adult) Pulse 92 Temp 98.6 ??F (37 ??C) (Oral) Resp 24 Wt 232 lb (105 kg) LMP (LMP Unknown) BMI 41.10 kg/m?? Physical Exam Vitals reviewed. Constitutional: General: She is not in acute distress. Appearance: Normal appearance. She is not ill-appearing. HENT: Head: Normocephalic. Right Ear: Tympanic membrane and ear canal normal. Left Ear: Tympanic membrane and ear canal normal. Nose: Nose normal. Mouth/Throat: Mouth: Mucous membranes are moist. Pharynx: No oropharyngeal exudate or posterior oropharyngeal erythema. Eyes: Extraocular Movements: Extraocular movements intact. Conjunctiva/sclera: Conjunctivae normal. Pupils: Pupils are equal, round, and reactive to light. Cardiovascular: Rate and Rhythm: Normal rate and regular rhythm. Pulses: Normal pulses. Heart sounds: Normal heart sounds. Pulmonary: Effort: Pulmonary effort is normal. No respiratory distress. Breath sounds: Normal breath sounds. Abdominal: Palpations: Abdomen is soft. Musculoskeletal: General: Normal range of motion. Cervical back: Normal range of motion. Right lower leg: No edema. Left lower leg: No edema. Skin: General: Skin is warm. Capillary Refill: Capillary refill takes less than 2 seconds. Findings: Wound present. Comments: 2 circular superficial wounds located on anterior chest wounds are dry and savage in color Neurological: General: No focal deficit present. Mental Status: She is alert and oriented to person, place, and time. Psychiatric: Mood and Affect: Mood normal. Behavior: Behavior normal. Thought Content: Thought content normal. Judgment: Judgment normal. Assessment/Plan Diagnoses and all orders for this visit: Wound check, abscess: - Abscess at biopsy site, previously infected, now improved after wound care and antibiotics. Biopsy result negative. No current signs of active infection. - Continue wound care. Use chlorhexidine gluconate solution (EpiCleanse) for showers. Obtain wound cultures from both sides of the nose. Change antibiotic to doxycycline if tolerated, otherwise consider Bactrim. Follow up with dermatology as scheduled. Monitor for signs of recurrent or deep infection. Recurrent skin infections / MRSA concern: - Recurrent boils/abscesses with concern for MRSA, given past history and current presentation. - Obtain wound cultures. Consider changing antibiotic to doxycycline or Bactrim based on tolerance and culture results. Use topical mupirocin as previously prescribed. Advise use of chlorhexidine gluconate solution for hygiene. Reinforce follow-up with dermatology. Pharyngitis: - Pharyngitis, previously treated with cephalexin, now improved. No evidence of streptococcal infection per recent testing. - No further antibiotics indicated for pharyngitis at this time. Monitor for recurrence of symptoms. Anxiety / insomnia: - Anxiety and insomnia, currently using lorazepam 0.5 mg at night as needed. - Continue lorazepam 0.5 mg at night as needed. Monitor for ongoing symptoms. Refill lorazepam as requested. Weight gain: - Noted weight gain of 10 lbs compared to previous week, unclear etiology. - Monitor weight. No immediate intervention indicated. Pending genetic testing: - Pending genetic testing referral due to family history of melanoma. - Await genetic testing appointment and results. Follow up as needed. Wound check, abscess - Wound Culture Other orders - doxycycline (Vibra-Tabs) 100 MG tablet; Take 1 tablet (100 mg) by mouth 2 times daily for 10 days. Take with a full glass of water and do not lie down for at least 30 minutes after. - Chlorhexidine Gluconate 4 % solution; Use with hand towel and apply to body once a day - LORazepam (Ativan) 0.5 MG tablet; Use 1 tab orally qhs documented in this encounter Plan of Treatment Scheduled Orders Name Type Priority Associated Diagnoses Orde r Schedule Wound Culture Microbiology Routine Wound check, abscess Ordered: 04/03/2025 documented as of this encounter Visit Diagnoses Diagnosis Wound check, abscess- Primary documented in this encounter Additional Health Concerns Assessment Noted Time PHQ-9 Depression Total Score: 2 05/28/19 25 9:31 AM EST documented as of this encounter Care Teams Electrical Machine Builder Relationship Specialty Start Date End Date Dorinda Iniguez MD [address] [place] [address] PCP - General Family Medicine 04/24/18 Ginny Hernandez Retail Merchandiser TechnicianCoffee Plantation Worker 01/17/24 documented as of this encounter
--- OUTSIDE RECORDS SUMMARY | 2025-04-03 21:37 | XMS_ITS | Encounter Summary ---
Author Organization [employer] Address [address] [place] [address] [place] [address] Care Team Providers Care Business Support Professional Name Role Phone Dorinda Iniguez MD Primary Care Provider Encounter Details Date Type Department Care Team (Latest Contact Info) Description 04/02/2020 Abstract [facility] Dental, Provider, DDS Social History Tobacco [...] on filedocumented in this encounter Care Teams Business Support Professional Relationship Specialty Start Date End Date Dorinda Iniguez MD [address] [place] [address] PCP - General Family Medicine 04/24/18 Ginny Hernandez Paint Prep TechnicianHome Aid 01/17/24 documented as of this encounter
--- OUTSIDE RECORDS SUMMARY | 2025-04-03 21:37 | XMS_ITS | Encounter Summary ---
Author Organization [employer] Address [address] [place] [address] Care Team Providers Care Canine Enforcement Officer Name Role Phone Dorinda Iniguez MD Primary Care Provider [phone] Reason for Visit * Reason Onset Date Comments Med Refill 08/28/2024 Encounter Details Date Type Department Care Team ([facility] st Contact Info) Description 08/28/2024 Telephone [facility] MEDICINE [address] [place] [address] Dorinda Iniguez MD [address] [place] [phone] Med Refill Social History Tobacco Use Types [...] solution auto-injector To be sent to: [facility]/pharmacy #[id number] documented in this encounter Plan of Treatment Not on file documented as of this encounter Visit Diagnoses Not on filedocumented in this encounter Additional Health Concerns Assessment Noted Time PHQ-9 Depression Total Score: 2 05/28/19 25 9:31 AM EST documented as of this encounter Care Teams Canine Enforcement Officer Relationship Specialty Start Date End Date Dorinda Iniguez MD [address] [place] [address] PCP - General Family Medicine 04/24/18 Ginny Hernandez Foreign Language TeacherRhythmic Gymnastics Coach 01/17/24 documented as of this encounter
--- OUTSIDE RECORDS SUMMARY | 2025-04-03 21:37 | XMS_ITS | Encounter Summary ---
Author Organization [employer] Address [address] [address] Care Team Providers Care Slipper Maker Name Role Phone Dorinda Iniguez MD Primary Care Provider [phone] Reason for Visit * Reason Onset Date Comments Med Refill 07/01/2024 Encounter Details Date Type Department Care Team ([facility] st Contact Info) Description 07/01/2024 Refill [facility] MEDICINE [address] [place] [address] Dorinda Iniguez MD [address] [place] [address] Benign essential hypertension; BMI 40.0-44.9, adult (CMS/HCC); [...] MG/0.5ML solution auto-injector To be sent to: [facility]/pharmacy #[id number] documented in this encounter Plan of [...] documented as of this encounter Care Teams Slipper Maker Relationship Specialty Start Date End Date Dorinda Iniguez MD [address] [place] [address] PCP - General Family Medicine 04/24/18 Ginny Hernandez Lead FormerBelt Measurer 01/17/24 documented as of this encounter
--- OUTSIDE RECORDS SUMMARY | 2025-04-03 21:37 | XMS_ITS | Clinical Summary ---
Author Organization [employer] Address [address] [place] [address] 7 [place] [address] Care Team Providers [facility] Name Role Phone Dorinda Iniguez MD Primary Care Provider [phone] Allergies Active Allergy Reactions Criticality Noted Date Comments Lisinopril Cough,Rash,Unknown High 04/24/2010 Other reaction(s): cough, Cough Other reaction(s): cough Other reaction(s): cough, Cough Oxycodone 12/15/2014 Other reaction(s): Itching Medications lidocaine (Lidoderm) 5 % patch APPLY TO [...] Active cholecalciferol (SM Vitamin D3) 50 MCG (1999 UT) capsuleIndicati ons:Vitamin D deficiency Take 1 capsule orally daily 30 capsule 11 024 Active aspirin (Aspirin Low Dose) 81 [...] THE MORNING 90 tablet 09/22/2 025 Active miconazole (Micatin) 2 % creamIndication s:Rash Apply to affected area 2 times daily 28 g 1 025 Active hydrocortisone 2.5 % creamIndication s:Intertrigo Apply topically in the morning and in the evening. To use 2 times a day for no more than 2 weeks. 28 g 2 Active acetaminophen (Tylenol 8 Hour) 650 MG ER tablet TAKE 1 CAP BY MOUTH EVERY 8 HOURS NEEDED FOR 14 DAYS Active Advair Diskus 500-50 MCG/ACT aerosol powder INHALE 1 PUFF BY MOUTH 2 TIMES A DAY. RINSE MOUTH WITH WATER AFTER USE. DO NOT SWALLOW. Active ibuprofen 600 MG tablet TAKE 1 TABLET BY MOUTH 3 TIMES A DAY FOR 10 DAYS Active Flublok 0.5 ML solution prefilled syringe Active nystatin (Mycostatin) cream apply to affected area twice a day for 14 days Active Semaglutide-Bin ght Management (Wegovy) 0.5 MG/0.5ML solution auto-injector INJECT ONE PEN (=0.5 MG) SUBCUTANEOUSLY ONCE A WEEK Active topiramate (Topamax) 25 MG tablet TAKE 1 TABLET BY MOUTH EVERY DAY MAY INCREASE BY 1 TAB EVERY 7 DAYS TO MAX OF 100MG A DAY Active doxycycline (Vibra-Tabs) 100 MG tablet Take 1 tablet (100 mg) by mouth 2 times daily for 10 days. Take with a full glass of water and do not lie down for at least 30 minutes after. 20 tablet 025 2024 Active Chlorhexidine Gluconate 4 % solution Use with hand towel and apply to body once a day 946 mL 3 Active LORazepam (Ativan) 0.5 MG tablet Use 1 tab orally qhs 30 tablet Active LORazepam (Ativan) 0.5 MG tablet TAKE ONE TABLET EVERY MORNING AND TWO TABLETS AT BEDTIME NEEDED 023 2024 Discontinued(R marly (will not trigger notification to Pharmacy)) fluconazole (Diflucan) 100 MG tabletIndicatio ns:Intertrigo Take 1 tablet (100 mg) by mouth Once per day for 14 days. 14 tablet 025 2024 hydrocortisone 2.5 % creamIndication s:Intertrigo Apply topically in the morning and in the evening. To use 2 times a day for no more than 2 weeks. 28 g 025 2024 Discontinued(R eorder (will not trigger notification to Pharmacy)) sulfamethoxazol e-trimethoprim (Bactrim DS) 800-160 MG tabletIndicatio ns:Urinary Tract Infection Take 1 tablet by mouth 2 times daily for 7 days. 14 tablet 2024 cephalexin (Keflex) 500 MG capsuleIndicati ons:Rash Take 1 capsule (500 mg) by mouth 3 times daily for 7 days. 21 capsule 2024 mupirocin (Bactroban) 2 % ointment Apply topically 3 times daily for 10 days. 22 g 2024 Active Problems Problem Noted Date Diagnosed Date Post covid-19 condition, unspecified 04/02/2025 Special screening for malignant neoplasms, colon 04/02/2025 Increased BMI 04/02/2025 Class 2 obesity 04/02/2025 Severe obesity (CMS/HCC) 04/02/2025 Abnormal auditory perception 02/17/2025 Arthralgia of right temporomandibular joint 01/23 Sensorineural hearing loss ( SNHL) of left ear with unrestricted hearing of right ear 02/17/2025 FARHAN (obstructive sleep apnea) 05/28/2024 BMI 40.0-44.9, adult (CMS/HCC) 05/28/2024 Osteoarthritis of right knee 04/05/2024 Ear ache 10/04/2023 Assessment & Plan (10/04/2023 3:32 PM EDT): Advised if symptoms worsen of ear infection to f/u with [facility]. Osteoarthritis of both knees 08/16/2023 Impingement syndrome of left shoulder region Impingement syndrome of right shoulder region Osteoarthritis of knee 08/16/2023 Noncompliance with treatment 06/04/2023 Epigastric pain 06/09/2022 Asthma 04/07/2022 Overview (09/23/2024): Last Assessment & Plan: Continue with Flovent 110 mcg twice a day Continue with albuterol as needed Dyspnea on exertion 04/07/2022 Overview (04/02/2025): Last Assessment & Plan: Multifactorial dyspnea due to combination of deconditioning, asthma and most likely diastolic dysfunction due to the hypertension She will benefit from a weight reduction program. Continue with medications for asthma Continue following at [facility] with Dr. Dickey Obstructive sleep apnea 04/07/2022 Overview (04/02/2025): Last Assessment & Plan: Follow-up with her sleep physician Idiopathic osteoarthritis 01/09/2019 Overview (04/02/2025): Problem Code: M17.11; Problem Code Type: ICD-10; Status: 'A'; Disorder of vitamin B12 11/15/2018 Female stress incontinence 05/08/2018 Strain of muscle, fascia and tendon of the posterior muscle group at thigh level, right thigh, initial encounter 01/17/2018 Overview (04/02/2025): Problem Code: S76.311A; Problem Code Type: ICD-10; Status: 'A'; Muscle strain of right thigh 10/05/2017 Verruca vulgaris 09/22/2017 Kidney stone 02/02/2016 Renal stone 02/02/2016 Generalized anxiety disorder 10/06/2015 Full thickness rotator cuff tear 05/27/2015 Overview (04/02/2025): Problem Code: M75.120; Problem Code Type: ICD-10; Status: 'A'; Hordeolum externum 07/04/2013 Vitamin D deficiency 02/03/2012 Obesity 02/03/2012 Irritable bowel syndrome with diarrhea 2 Iron deficiency anemia 02/03/2012 Hypothyroidism 02/03/2012 Gastroesophageal reflux disease without esophagi tis 02/03/2012 Depressive disorder 02/03/2012 Benign essential hypertension 02/03/2012 Assessment & Plan (10/04/2023 3:33 PM EDT): F/u with Dr. Iniguez Anxiety state 02/03/2012 Hypertension 02/03/2012 Encounters Date Type Department Care Team Description 04/03/2025 9:00 AM EST Office Visit [facility] [address] [place] [address] Dorinda Iniguez MD Wound check, abscess (Primary Dx) 04/03/2025 Orders Only [facility] [address] [place] [address] Dorinda Iniguez MD 04/03/2025 Travel 04/02/2025 Telephone [facility] [address] [place], [place] [phone] Dorinda Iniguez MD chart prep 03/26/[address] [phone] Dorinda Iniguez MD Care Coordination (Utilization Review order to be updated) 03/26/[address] [address] Dorinda Iniguez MD Care Coordination (Home Care Utilization Review) 03/25/2025 Results Follow-Up [facility] [address] [place], [place] [phone] Patricia Nicole RN GERALDO Screen,IFA, with Reflex to Titer and Pattern, CBC auto differential, Sed Rate by Modified Westergren, Rheumatoid Factor 03/18/2025 11:15 AM EST Office Visit [facility] [address] [place], [place] [phone] Dorinda Iniguez MD Rash (Primary Dx); Intertrigo; Class 3 severe obesity due to excess calories with serious comorbidity and body mass index (BMI) of 40.0 to 44.9 in adult (HCC); Benign essential hypertension 03/18/2025 Travel 03/13/2025 1:20 PM EST Office Visit [facility] [address] [place] [address] [phone] Patricia Alfaro MD Rash (Primary Dx) 03/13/2025 Travel 03/13/2025 Patient Outreach [facility] [address] [place] [phone] Dorinda Iniguez MD Pre-visit Planning (SDOH screening completed on 05/21/24 ) 03/11/2025 2:40 PM EST Office Visit [facility] [address] [place] [phone] Patricia Alfaro MD Rash (Primary Dx) 03/11/2025 Orders Only [facility] [address] [place] [phone] Patricia Alfaro MD 03/11/2025 Travel 03/11/2025 Telephone [facility] [address] [place], [place] [phone] Dorinda Iniguez MD Nurse Triage 03/06/2025 Results Follow-Up [facility] [address] [place] [address] Angie Giraldo MD Hepatic Function Panel 03/06/2025 Telephone [facility] [address] [place] [address] Dorinda Iniguez MD verbal orders 03/05/2025 2:40 PM EST Office Visit [facility] [address] [place] [address] Angie Giraldo MD Intertrigo (Primary Dx); Nausea 03/05/2025 Travel 03/05/[address] [phone] Dorinda Iniguez MD ER Follow-up 01/24/2025 Orders Only [facility] [address] [place] [address] Nona Umaña MD Leg cramps (Primary Dx) 01/23/2025 Telephone [facility] [address] [place] [address] Dorinda Iniguez MD Referral (TC US leg) 01/23/2025 Telephone [facility] [address] [place] [address] Dorinda Iniguez MD 01/22/2025 Telephone [facility] [address] [place] [address] Dorinda Iniguez MD Referral 01/20/2025 11:00 AM EDT Office Visit [facility] [address] [place] [address] Nona Umaña MD Leg cramps (Primary Dx); Ecchymosis 01/20/2025 Travel 01/20/2025 Telephone [facility] [address] [place] [phone] Dorinda Iniguez MD Nurse Triage 01/13/2025 10:00 AM EDT Office Visit [facility] [address] [place] [address] Dee Lynch 01/13/2025 Refill [facility] [address] [place] [phone] Dorinda Iniguez MD 01/08/2025 Telephone [facility] [address] [place] [address] Dorinda Iniguez MD 01/03/2025 Orders Only [facility] [address] [place] [address] Dorinda Iniguez MD Kidney stone (Primary Dx) 01/02/2025 Telephone [facility] [address] [place] [phone] Dorinda Iniguez MD Prior Authorization from Last 3 Months Immunizations Immunization Administration Dates Next Due Hep A, Adult 09/23/2024,12/14/2023 Influenza injectable quadriv alent IIV4 with preservative 03/08/2018,03/07/2017,01/22/2015 Influenza injectable quadriv alent preservative free 01/11/2023,02/10/2022,01/13/2021,03/16,01/17/2019,01/11/2016 Influenza, IIV3, injectable 12/14/2023,1 05/16/2021,12/23/2020,01/28,02/27/2019,02/03/2014 Influenza, Injectable, MDCK, preservative free 12/14/2023 Influenza, Recombinant, inje ctable, preservative free 01/06/2025 Influenza, Split (incl. emily fied surface antigen) [...] 24 04/03/2025 8:54 AM EST Oxygen Saturation 98% 03/05/2025 2:23 PM EST Inhaled Oxygen Concentration - - Weight 105 kg (232 lb) 04/03/2025 8:54 AM EST Height 160 cm (5' 3 ) 03/13/2025 1:06 PM EST Body Mass Index 41.1 03/13/2025 1:06 PM EST Plan of Treatment [...] Comments GRAM STAIN RESULT (NON ORDERABLE) Routine 04/03/2025 9:25 AM EST RHEUMATOID FACTOR Routine 03/18/2025 12: 00 PM EST Rash SED RATE BY MODIFIED WESTERGREN Routine 03/18/2025 12:00 PM EST Rash CBC WITH AUTO DIFFERENTIAL Routine 03/18/2025 12:00 PM EST Rash GERALDO SCREEN, IFA, W/REFL TITER AND PATTERN Routine 03/18/2025 12:00 PM EST Rash GRAM [...] Health Maintenance Results * Gram Stain Result (04/03/2025 9:25 AM EST) Only the most recent of2 resultswithin the time period is included. 04/03/2025 9:25 AM EST 04/03/2025 2:43 PM EST Comment:Cheek Narrative [facility] - 04/03/2025 4:01 PM EST Gram stain results: No polys No organisms seen Specimen Source: Cheek us Dorinda Iniguez MD HISTORICAL/NON ORDERABLE LABS Final Result [facility] [address] [place] [address] [phone] * (ABNORMAL) CBC auto differential (03/18/2025 12:00 PM EST) White Blood Count 9.0 4.8 - 10.8 X10*3/uL [facility] Red Blood Count 4.26 4.20 - 5.50 X10*6/uL [facility] Hemoglobin 13.9 12.0 - 16.0 g/dl [facility] Hematocrit 42.6 37.0 - 47.0 % [facility] Mean Corpuscular Volume 100.0(H) 80.0 - 98.[address] [facility] Mean Corpuscular Hemoglobin 32.6 27.0 - 33.[address] [facility] Mean Corpuscular HGB Conc 32.6 31.0 - 35.0 g/dl [facility] Red Cell Distribution Width 14.2 11.0 - 16.0 % [facility] Platelet Count 325 160 - 400 X10*3/uL [facility] Mean Platelet Volume 12.0 9.4 - 12.[address] [facility] Neutrophils Percent Auto 56.9 45 - 73 % [facility] Imm Gran Pct Auto 0.2 0.0 - 0.4 % [facility] Lymphocytes Percent Auto 35.3 20 - 40 % [facility] Monocytes Percent Auto 6.1 2 - 11 % [facility] Eosinophils Percent Auto 1.2 0 - 4 % [facility] Basophils Percent Auto 0.3 0 - 2 % [facility] NRBC Pct Auto 0.0 0.0 - 0.2 /100WBC [facility] Neutrophils Absolute Auto 5.1 2.0 - 8.3 x10*3/uL [facility] Imm Gran Abs Auto 0.02 0.00 - 0.03 X10*3/uL [facility] Lymphocytes Absolute Auto 3.2 1.2 - 4.9 X10*3/uL [facility] Monocytes Absolute Auto 0.6 0.1 - 1.2 X10*3/uL [facility] Eosinophils Absolute Auto 0.1 0.0 - 0.4 X10*3/uL [facility] Basophils Absolute Auto 0.0 0.0 - 0.2 X10*3/uL [facility] NRBC Abs Auto 0.000 0.0 - 0.012 X10*3/uL [facility] Blood Venous blood specimen / Unknown 03/18/2025 12:00 PM EST 03/18/2025 2:14 PM EST Dorinda Iniguez MD LAB BLOOD ORDERABLES Final Re sult Performing Organization Address [facility] Co de Phone Number [facility] [address] [place] [phone] * Sed Rate by Modified Westergren (03/18/2025 12:00 PM EST) Pathologist [facility] Erythrocyte Sedimentation Rate 16 0 - 20 MM/HR [facility] Comment:Patients with polycy themia and many hemoglobin abnormalitiesmay have depressed sed rates whereas patients with anemiamay have elevated sed rates. Blood Venous blood specimen / Unknown 03/18/2025 12:00 PM EST 03/18/2025 2:14 PM EST Dorinda Iniguez MD LAB BLOOD ORDERABLES Final Re sult Performing Organization Address [facility] Co de Phone Number [facility] [address] [place] [phone] * Rheumatoid Factor (03/18/2025 12:00 PM EST) Pathologist [facility] Rheumatoid Factor <13.0 <15.0 IU/mL [facility] Blood Venous blood specimen / Unknown 03/18/2025 12:00 PM EST 03/18/2025 2:19 PM EST Dorinda Iniguez MD LAB BLOOD ORDERABLES Final Re sult Performing Organization Address [facility]/ZIP Co de Phone Number [facility] [address] [place] [phone] * GERALDO Screen,IFA, with Reflex to Titer and Pattern (03/18/2025 12:00 PM EST) Anti Nuclear Antibody Screen NEGATIVE NEGATIVE [facility] Comment:GERALDO IFA is a first l ine screen for detecting thepresence of up to approximately 150 autoantibodies invarious autoimmune diseases. A negative GERALDO IFA resultsuggests an GERALDO-associated autoimmune disease is notpresent at this time, but is not definitive. If thereis high clinical suspicion for Sjogren's syndrome,testing for anti-SS-A/Ro antibody should be considered.Anti-Sarah-1 antibody should be considered for clinicallysuspected inflammatory myopathies.AC-0: NegativeInternational Consensus on GERALDO Patterns(https://doi.org/10.1515/mgrh-2855-6060)For additional information, please refer tohttp://education.[employer]/faq/WHR421(This link is being provided for informational/educational purposes only.)THIS TEST WAS PERFORMED AT:[address] [place] [phone] BAY MD GERALDO Titer TNP [facility] GERALDO Pattern TNP [facility] GERALDO Titer 2 [facility] Pattern [facility] GERALDO TITER 3 [facility] GERALDO PATTERN 3 [facility] Blood Venous blood specimen / Unknown 03/18/2025 12:00 PM EST 03/18/2025 2:16 PM EST Dorinda Iniguez MD LAB BLOOD ORDERABLES Final Re sult [facility] [address] [place] [phone] * Hepatic Function Panel (03/05/2025 2:38 PM EST) Bilirubin, Total 0.6 0.0 - 1.0 mg/dL [facility] Bilirubin, Direct 0.3 0.0 - 0.5 mg/dL [facility] Aspartate Amino Transferase 20 5 - 31 U/L [facility] Alanine Aminotransferase 15 0 - 31 U/L [facility] Total Protein 6.6 6.5 - 8.0 g/dL [facility] Albumin Level 4.1 3.5 - 5.0 g/dL [facility] Alkaline Phosphatase 79 39 - 117 U/L [facility] Blood Venous blood specimen / Unknown 03/05/2025 2:38 PM EST 03/05/2025 5:55 PM EST us Angie Giraldo MD LAB BLOOD ORDERABLES Final Result Performing Organization Address City/State/[facility] Co de Phone Number [facility] [address] [place] [phone] * US VENOUS DUPLEX LE RT (01/24/2025 2:30 PM EDT) Anatomical Region Laterality Modality Abdomen Ultrasound 01/24/2025 2:30 PM EDT Narrative 01/24/2025 2:43 PM EDT [address] [address] Ultrasound Report Signed Patient: Chelle Helm MR# : [id number] : 1965 Acct:[id number] Age/Sex: 59 / F ADM Date: 01/24/25 Loc: HO.US Attending Dr: Nona Umaña MD Ordering Physician: Dorinda Iniguez MD Date of Service: 01/24/25 Procedure(s): US venous duplex LE RT Accession Number(s): [id number] cc: Dorinda Iniguez MD Reason for Exam: [...] 01/24/25 1441 DD/ 1430 TD/TT: 01/24/25 1436 Cotton Farmer: TOM Procedure Note Donotuseinterpreter, Image - 01/24/2025 [place] [address] Ultrasound Report Signed Patient: Chelle Helm [facility]# : [id number] : 1965Acct:[id number] Age/Sex: 59 / FADM Date: 01/24/25 Loc: . Attending Dr: Nona Umaña MD Ordering Physician: Dorinda Iniguez MD Date of Service: 01/24/25 Procedure(s): US venous duplex LE RT Accession Number(s): [id number] cc: Dorinda Iniguez MD Reason for Exam: [...] 01/24/25 1441 DD/ 1430 TD/TT: 01/24/25 1436 Cotton Farmer: TOM us Dorinda Iniguez MD IMG US PROCEDURES Final Resul t * (ABNORMAL) Basic Metabolic Panel (01/20/2025 11:42 AM EDT) Sodium 142 135 - 145 mmol/L [facility] Potassium 5.1 3.3 - 5.1 mmol/L [facility] Chloride 109(H) 96 - 108 mmol/L [facility] Carbon Dioxide 26 22 - 29 mmol/L [facility] Anion Gap 12 12 - [address] [facility] Urea Nitrogen (BUN) 25(H) 9 - 16 mg/dL [facility] Creatinine, Serum 0.80 0.5 - 1.4 mg/dL [facility] Estimated Glomerular Filt Rate >[address] [facility] Comment:Chronic Kidney Disea se: Estimated GFR < 60 mL/min/1.73g8Ngmgoa Kidney Disease: Estimated GFR < 15 mL/min/1.73m2 Glucose 88 60 - 115 mg/dL [facility] Calcium 9.4 8.4 - 10.2 mg/dL [facility] Blood Venous blood specimen / Unknown 01/20/2025 11:42 AM EDT 01/20/2025 2:07 PM EDT us Nona Umaña MD LAB BLOOD ORDERABLES Final Resul t [facility] [address] [place] [phone] * Mammography (09/06/2024) Mammogram Normal Normal, Abnormal, BIRADS 1 , BIRADS 2 Anatomical Region Laterality Modality Other Dorinda Iniguez MD HEALTH MAINTENANCE Final Resu lt * (ABNORMAL) Lipid Panel, Standard (12/14/2023 9:32 AM EDT) Pathologist [facility] Triglycerides 162(H) <150 mg/dL [facility] Comment:Desirable Triglyceri de: less than 150 mg/dLBorderline High Triglyceride 150-199 mg/dLHigh Triglyceride: 200-499 mg/dLVery High Triglyceride: greater than or equal to 5OO mg/dL Cholesterol 193 <200 mg/dL [facility] Comment:Desirable Cholestero l: less than 200 mg/dLBorderline High Cholesterol: 200-239 mg/dLHigh Cholesterol: greater than 239 mg/dL LDL Cholesterol Calculated 113(H) <100 mg/dL [facility] Comment:Desirable LDL: less than 100 mg/dLNear Optimal/Above Optimal LDL: 110- 129 mg/dLBorderline High LDL: 130-159 mg/dLHigh LDL: 160-189 mg/dLVery High LDL: greater than or equal to 190 mg/dL HDL Cholesterol 48 >40 mg/dL [facility] Comment:Desirable HDL: great er than 40 mg/dL Note: This HDL assay may give artificially low results in patients with liver disease. Blood Venous blood specimen / Unknown 12/14/2023 9:32 AM EDT 12/14/2023 2:14 PM EDT Dorinda Iniguez MD LAB BLOOD ORDERABLES Final Re sult [facility] [address] [place] [phone] [phone] * Hepatitis C Antibody with Reflex to HCV, RNA, Quantitative, Real-Time PCR (08/17/2023 2:19 PM EDT) Pathologist [facility] Hepatitis C Antibody Nonreactive Nonreactive [facility] Comment:Antibodies to HCV no t detected; does not exclude early acuteHCV infection. Blood Venous blood specimen / Unknown 08/17/2023 2:19 PM EDT 08/17/2023 5:21 PM EDT us Angie Giraldo MD LAB BLOOD ORDERABLES Final Result Performing Organization Address City/[facility]/ZIP Co de Phone Number [facility] [address] [place] [phone] * HIV-1/2 Antigen and Antibodies, Fourth Generation, with Reflexes (08/17/2023 2:19 PM EDT) HIV AB/AG Nonreactive Nonreactive [facility] Comment:HIV-1 p24 Ag and/or HIV-1/HIV-2 Ab not detected.A test result that is nonreactive does not exclude thepossibility of exposure to or infection with HIV-1 and/orHIV-2. Nonreactive results in this assay for individualswith prior exposure to HIV-1 and/or HIV-2 may be due toantigen and antibody levels that are below the limit ofdetection of this assay.The [employer] HIV Ag/Ab Combo assay result andsupplemental assay results should be interpreted inconjunction with the patient's clinical presentation,history and other laboratory results. If the results areinconsistent with clinical evidence, additional testing issuggested to confirm the result. Blood Venous blood specimen / Unknown 08/17/2023 2:19 PM EDT 08/17/2023 5:21 PM EDT us Angie Giraldo MD LAB BLOOD ORDERABLES Final Result Performing Organization Address [facility]/ZIP Co de Phone Number [facility] [address] [place] [phone] [phone] * (ABNORMAL) Hm Colonoscopy (08/01/2023) Colonoscopy [...] Most Recently Relevant to Health Maintenance [place] [address] [place] [address] C3 [facility] MEDICAID STAND ADULT Care Teams Foundation Digger Relationship Specialty Start Date End Date Dorinda Iniguez MD [address] [place] [phone] PCP - General Family Medicine 04/24/18 Ginny Hernandez Pressurised Container FillerTitle Inspector 01/17/24
--- OUTSIDE RECORDS SUMMARY | 2025-04-03 21:37 | XMS_ITS | Encounter Summary ---
Author Organization [employer] Address [address] [place] [address] Care Team Providers Care Aircraft Servicer Name Role Phone Dorinda Iniguez MD Primary Care Provider [phone] Reason for Visit * Reason Onset Date Comments Referral 01/22/2025 Encounter Details Date Type Department Care Team ([facility] Contact Info) Description 01/22/2025 Telephone [facility] CHC MED & PEDS [address] [place], [place] [phone] Dorinda Iniguez MD [address] [place] [address] Referral Social History Tobacco Use Types Packs/Day [...] 10:07 AM EDT TC to pt with [facility] freelance interpreter/translator. Pt stated was advised an [place] would [...] a sonogram. Any questions contact pt at [phone] documented in this encounter Plan of Treatment Not on file documented as of this encounter Visit Diagnoses Not on filedocumented in this encounter Additional Health Concerns Assessment Noted Time PHQ-9 Depression Total Score: 2 05/28/19 25 9:31 AM EST documented as of this encounter Care Teams Aircraft Servicer Relationship Specialty Start Date End Date Dorinda Iniguez MD [address] [place] [address] PCP - General Family Medicine 04/24/18 Ginny Hernandez Information SecurityCommercial Litigation Paralegal 01/17/24 documented as of this encounter
--- OUTSIDE RECORDS SUMMARY | 2025-04-03 21:37 | XMS_ITS | Encounter Summary ---
Author Organization [employer] Address [address] [place] [address] Care Team Providers Care Microsoft Crm Developer Name Role Phone Dorinda Iniguez MD Primary Care Provider [phone] Encounter Details Date Type Department Care Team (Latest Contact Info) Description 09/08/2021 Abstract [facility] Dental, Provider, DDS Social [...] on filedocumented in this encounter Care Teams Microsoft Crm Developer Relationship Specialty Start Date End Date Dorinda Iniguez MD [address] [place] [address] PCP - General Family Medicine 04/24/18 Ginny Hernandez Respiratory Therapist AssistantAdaptive Physical Educator 01/17/24 documented as of this encounter
--- OUTSIDE RECORDS SUMMARY | 2025-04-03 21:37 | XMS_ITS | Encounter Summary ---
Author Organization [employer] Address [address] [place] [address] Care Team Providers Care Structural Technician Name Role Phone Dorinda Iniguez MD Primary Care Provider [phone] Encounter Details Date Type Department Care Team ([facility] st Contact Info) Description 05/06/2022 Orders Only [facility] CHC MED & PEDS [address] [place] [address] Suki Schmitt LPN Social History Tobacco Use [...] on filedocumented in this encounter Care Teams Structural Technician Relationship Specialty Start Date End Date Dorinda Iniguez MD 505 [place] [address] PCP - General Family Medicine 04/24/18 Ginny Hernandez Director VoiceMounter Clarinets 01/17/24 documented as of this encounter
--- OUTSIDE RECORDS SUMMARY | 2025-04-03 21:38 | XMS_ITS | Encounter Summary ---
Author Organization [employer] Address [address] [place] [address] Care Team Providers Care Contract Specialist Name Role Phone Dorinda Iniguez MD Primary Care Provider [phone] Reason for Visit * Reason Onset Date Comments Medication Question 04/12/2024 Encounter Details Date Type Department Care Team ([facility] st Contact Info) Description 04/12/2024 Telephone [facility] MEDICINE [address] [place] [address] Dorinda Iniguez MD [address] [place] [address] Medication Question Social History Tobacco Use Types [...] and it doesn't help. Contact pt at [phone] documented in this encounter Plan of Treatment Not on file documented as of this encounter Visit Diagnoses Not on filedocumented in this encounter Additional Health Concerns Assessment Noted Time PHQ-9 Depression Total Score: 4 08/17/19 24 1:37 PM EDT documented as of this encounter Care Teams Contract Specialist Relationship Specialty Start Date End Date Dorinda Iniguez MD [address] [place] [address] PCP - General Family Medicine 04/24/18 Ginny Hernandez Taper/FinisherAssociate Professor Of Geography 01/17/24 documented as of this encounter
--- OUTSIDE RECORDS SUMMARY | 2025-04-03 21:38 | XMS_ITS | Encounter Summary ---
Author Organization [employer] Address 75 [facility] 7t [place] [address] Care Team Providers Care Assistant Federal Public Defender Name Role Phone Dorinda Iniguez MD Primary Care Provider [phone] Encounter Details Date Type Department Care Team ([facility] st Contact Info) Description 08/04/[address] [facility] CHC MED & PEDS [address] [place], [place] [phone] ProviderSakina MD Social History Tobacco Use Types Packs/Day Years Used Date Smoking Tobacco: Never Passive Smoke Exposure: Never Smokeless Tobacco: Never Alcohol Use Standard Drinks/Week Comments Never 0 (1 standard drink = 0.6 oz pur e alcohol) Depression Answer Date Recorded Patient Health Questionnaire-9 Score 4 06/09/2022 Housing Stability Answer Date Recorded What is your housing situation today? I have alvakenney garcia 02/09/[address] you [...] as of this encounter Care Teams Assistant Federal Public Defender Relationship Specialty Start Date End Date Dorinda Iniguez MD 505 [place] [address] PCP - General Family Medicine 04/24/18 Ginny Hernandez GamemasterNeuro Ophthalmologist 01/17/24 documented as of this encounter
--- OUTSIDE RECORDS SUMMARY | 2025-04-03 21:38 | XMS_ITS | Encounter Summary ---
Author Organization [employer] Address 75 [facility] 7t [place] [address] Care Team Providers Care Retail And Restaurant Associate Name Role Phone Dorinda Iniguez MD Primary Care Provider [phone] Encounter Details Date Type Department Care Team ([facility] st Contact Info) Description 03/03/[address] [facility] MEDICINE [address] [place] [address] Sarahi Pearl Social History Tobacco Use Types [...] documented as of this encounter Care Teams Retail And Restaurant Associate Relationship Specialty Start Date End Date Dorinda Iniguez MD 505 [place] [address] PCP - General Family Medicine 04/24/18 Ginny Hernandez Mail Carrier TechnicianAdvertising Account Manager 01/17/24 documented as of this encounter
--- OUTSIDE RECORDS SUMMARY | 2025-04-03 21:38 | XMS_ITS | Encounter Summary ---
Author Organization [employer] Address [address] [place] [address] Care Team Providers Care Tax Senior Associate Name Role Phone Dorinda Iniguez MD Primary Care Provider [phone] Reason for Visit * Reason Onset Date Comments chart prep 04/02/2025 Encounter Details Date Type Department Care Team ([facility] Contact Info) Description 04/02/2025 Telephone [facility] CHC MED & PEDS [address] [place], [place] [phone] Dorinda Iniguez MD 505 [place] [address] chart prep Social History Tobacco Use Types Packs/Day Years [...] encounter Miscellaneous Notes * Telephone Encounter - Ann-Marie Garcia [place] - 04/02/2025 2:28 PM EST Chart Prep Labs: done Images: not applicable Referrals: not applicable Vaccines due: Covid Screenings: not applicable Overdue care gaps: Not applicable documented in this encounter Plan of Treatment Not on file documented as of this encounter Visit Diagnoses Not on filedocumented in this encounter Additional Health Concerns Assessment Noted Time PHQ-9 Depression Total Score: 2 05/28/19 25 9:31 AM EST documented as of this encounter Care Teams Tax Senior Associate Relationship Specialty Start Date End Date Dorinda Iniguez MD 505 [facility] [place] [address] PCP - General Family Medicine 04/24/18 Ginny Hernandez Arts AdministratorDairy Frozen Manager 01/17/24 documented as of this encounter
--- OUTSIDE RECORDS SUMMARY | 2025-04-03 21:38 | XMS_ITS | Clinical Summary ---
Author Organization [address] [facility] Address [address] [place] [address] Phone Care Team Providers Care Bonderite Operator Name Role Phone Dorinda Iniguez MD Primary Care Provider [phone] Allergies Active Allergy Reactions Criticality Noted Date [...] fascial fibromatosis .5 mL Once PRN Procedure 03/26/2025 03/26/2025 Ended triamcinolone acetonide (KENALOG-40) 40 mg/mL injection 20 mgIndications:Planta r fascial fibromatosis 20 mg Once PRN Procedure 03/26/2025 03/26/2025 Ended Active Problems Problem Noted Date Diagnosed [...] Encounters Date Type Department Care Team Description 03/26/2025 9:15 AM EST Office Visit Orthopedic Surgery [place] [address] [phone] Kashif Klein, DPM Plantar fascial fibromatosis (Primary Dx); Equinus contracture of ankle 02/17/2025 9:45 AM EDT Office Visit Orthopedic Surgery [facility] [address] [facility] [address] [place] [phone] Kashif Klein, DPAl Plantar fascial fibromatosis (Primary Dx); Equinus contracture of ankle 01/17/2025 1:00 PM EDT Office Visit Pulmonology [facility] 175 [facility] [address] [place] [phone] Artem Hanna MD Moderate persistent asthma, unspecified whether complicated (Primary Dx); Obstructive sleep apnea from Last 3 Months Medical History Medical [...] Care Team (Late st Contact Info) Description 04/23/2025 8:45 AM EST Office Visit Orthopedic Surgery - [place] [address] [facility] [address] [place] [phone] Kashif Klein DPM 175 [facility] 250 [place] [phone] 07/18/2025 1:00 PM EDT Office Visit Pulmonology - [place] 175 [facility] [address] [place] [phone] Artem Hanna MD [address] [place] [phone] Health Maintenance Due Date Last Done Comments [...] Diagnosis Comments INJECTION TENDON OR LIGAMENT Routine 03/26/2025 9:15 AM EST Plantar fascial fibromatosis INJECTION TENDON OR LIGAMENT Routine 02/17/2025 9:45 AM EDT Plantar fascial fibromatosis from Last 3 Months Results * Injection tendon or ligament (03/26/2025 9:15 AM EST) Narrative Kashif Klein DPM - 03/26/2025 9:15 AM EST Kashif Klein DPM 03/26/2025 12:51 PM Injection tendon or ligament Indications: pain Details: 25 G needle Medications: 0.5 mL lidocaine (PF) 1 %; 20 mg triamcinolone acetonide 40 mg/mL Informed Consent: Site: Foot ligament tendon Kashif BOWENM IN CLINIC/BEDSIDE ORDERAB LES Final Result * Injection tendon or ligament (02/17/2025 9:45 AM EDT) Kashif Reina DPM - 02/17/2025 9:45 AM EDT Kashif Klein DPM 02/17/2025 12:41 PM Injection tendon or ligament Indications: pain Details: 25 G needle Medications: 0.5 mL lidocaine (PF) 1 %; 20 mg triamcinolone acetonide 40 mg/mL Informed Consent: Site: Foot ligament tendon Kashif Klein DPM IN CLINIC/BEDSIDE ORDERAB LES Final Result from Last 3 Months Insurance MEDICAID - [place] Care Teams Bonderite Operator Relationship Specialty Start Date End Date Dorinda Iniguez MD [address] [place] [phone] PCP - General 07/07/11
--- OUTSIDE RECORDS SUMMARY | 2025-04-03 21:38 | XMS_ITS | Encounter Summary ---
Author Organization [employer] Address [address] [place] [address] Care Team Providers Care Financial Service Rep Name Role Phone Dorinda Iniguez MD Primary Care Provider [phone] Reason for Visit * Reason Onset Date Comments Call Back Request 09/29/2023 Encounter Details Date Type Department Care Team ([facility] Contact Info) Description 09/29/2023 Telephone [facility] CHC MED & PEDS [address] [place], [place] [phone] Dorinda Iniguez MD 505 [place] [address] Call Back Request Social History Tobacco Use [...] 10:56 AM EDT Tc to pt using [employer] [facility] [place], [place] [id number]. Advised pt about message by Brenda. Pt [...] ENT for 04/04/24. Please contact pt at [phone] documented in this encounter Plan of Treatment Not on file documented as of this encounter Visit Diagnoses Not on filedocumented in this encounter Additional Health Concerns Assessment Noted Time PHQ-9 Depression Total Score: 4 08/17/19 24 1:37 PM EDT documented as of this encounter Care Teams Financial Service Rep Relationship Specialty Start Date End Date Dorinda Iniguez MD [address] [place] [address] PCP - General Family Medicine 04/24/18 Ginny Hernandez Greaser And OilerMetallographer 01/17/24 documented as of this encounter
--- OUTSIDE RECORDS SUMMARY | 2025-04-03 21:38 | XMS_ITS | Encounter Summary ---
Author Organization [employer] Address [address] [place] [address] Care Team Providers Care Analysis Internship Name Role Phone Dorinda Iniguez MD Primary Care Provider [phone] Reason for Visit * Reason Onset Date Comments Appointment Request 06/15/2023 Encounter Details Date Type Department Care Team ([facility] st Contact Info) Description 06/15/[address] [facility] MEDICINE [address] [place] [address] Dorinda Iniguez MD [address] [place] [address] Appointment Request Social History Tobacco Use Types [...] PCP before traveling and also do PE. Faroese Speaker documented in this encounter Plan of Treatment Not on file documented as of this encounter Visit Diagnoses Not on filedocumented in this encounter Additional Health Concerns Assessment Noted Time PHQ-9 Depression Total Score: 4 06/09/19 23 1:44 PM EST documented as of this encounter Care Teams Analysis Internship Relationship Specialty Start Date End Date Dorinda Iniguez MD [address] [place] [address] PCP - General Family Medicine 04/24/18 Ginny Hernandez Powerhouse OilerConcrete Gun Operator 01/17/24 documented as of this encounter
--- OUTSIDE RECORDS SUMMARY | 2025-04-03 21:38 | XMS_ITS | Encounter Summary ---
Author Organization [employer] Address 75 [facility] 7t [place] [address] Care Team Providers Care Neonatal Intensive Care Nurse Name Role Phone Dorinda Iniguez MD Primary Care Provider [phone] Encounter Details Date Type Department Care Team (Latest Contact Info) Description 04/03/2025 Travel Social History Tobacco Use Types Packs/Day [...] documented as of this encounter Care Teams Neonatal Intensive Care Nurse Relationship Specialty Start Date End Date Dorinda Iniguez MD [address] [place] [address] PCP - General Family Medicine 04/24/18 Ginny Hernandez Graphic Design ProfessorActing Teacher 01/17/24 documented as of this encounter
--- OUTSIDE RECORDS SUMMARY | 2025-04-03 21:38 | XMS_ITS | Encounter Summary ---
Author Organization [employer] Address [address] [place] [address] Care Team Providers Care Hide Inspector And Sorter Name Role Phone Dorinda Iniguez MD Primary Care Provider [phone] Reason for Visit * Reason Onset Date Comments Med Refill 05/22/2024 Encounter Details Date Type Department Care Team ([facility] st Contact Info) Description 05/22/2024 Refill [facility] MED & PEDS [address] [place] [address] Dorinda Iniguez MD 505 [place] [address] Influenza B Social History Tobacco Use Types [...] MG tablet To be sent to: [facility]/pharmacy [address] [place] [address] documented in this encounter Plan of Treatment Not on file documented as of this encounter Visit Diagnoses Diagnosis Influenza B Influenza with other respiratory manifestations documented in this encounter Additional Health Concerns Assessment Noted Time PHQ-9 Depression Total Score: 4 08/17/19 24 1:37 PM EDT documented as of this encounter Care Teams Hide Inspector And Sorter Relationship Specialty Start Date End Date Dorinda Iniguez MD 505 [place] [address] PCP - General Family Medicine 04/24/18 Ginny Hernandez Operating Room CoordinatorState Trooper 01/17/24 documented as of this encounter
--- OUTSIDE RECORDS SUMMARY | 2025-04-03 21:38 | XMS_ITS | Encounter Summary ---
Author Organization [employer] Address [address] [place] [address] [place] [address] Care Team Providers Care Home Energy Inspector Name Role Phone Dorinda Iniguez MD Primary Care Provider [phone] Encounter Details Date Type Department Care Team (Latest Contact Info) Description 10/15/2018 Abstract [facility] CONVERSIONS Dental, Provider, DDS Social [...] on filedocumented in this encounter Care Teams Home Energy Inspector Relationship Specialty Start Date End Date Dorinda Iniguez MD [address] [place] [address] PCP - General Family Medicine 04/24/18 Ginny Hernandez Roof TechnicianFans Clerk 01/17/24 documented as of this encounter
--- OUTSIDE RECORDS SUMMARY | 2025-04-03 21:38 | XMS_ITS | Continuity of Care Document ---
Author Organization [place] - [facility], [facility] Address [address] [place] [address] Care Team Providers Care Clinical Staff Anesthesiologist Name Role Phone LANCE KELLER Primary Care Provider [phone] Assessment Encounter Date Assessment Date Assessment LastModified [...] By Organization Details Last Modified Time 02/17/2025 [address]7611 - Use a warm compress to alleviate [...] was required prior to finalizing the note. 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,[place] [address], [place], [phone], [facility] 14:54:59 Pain of right temporomand ibular joint 0705996724350 9107 Active 2024 KANNAN JENKINS MD [address] [facility],[place] [address], [place], [address], [facility] 15:15:33 Problem Notes None recorded. Procedures Surgical History Date Name Laterality Status Provider Name and Address Organization Details Recorded Time 02/17/2025 Comp Audio with Tymps - 18297 & 74936 completed [facility], [facility] [address] [facility],[address], [address], [facility] 02/17/2025 14:53:58 Imaging Results None recorded. Procedure Notes None recorded. Medical Equipment None Reported. Allergies Allergen ID Allergen Name Allergen Category Reaction Reaction Severity Criticality Documentation Date Start Date Code Code System Note Provider Name and Address Organization Details Recorded Time 181636 lisinopri l medicatio n Not available Not available Not available 04/01/2025 39907 RxNorm Not Available [employer] - prod 5 11:21:36 000964 oxycodone medicatio n Not available Not available Not available 04/01/20252014 7804 RxNorm Other react ion(s ): Itchi ng Not Available [employer] - prod 5 11:21:43 Medications Name Sig Start Date Stop Date [...] Available Not Available No t Available dextrometho [facility] enesin 10 mg-100 mg/5 mL oral syrup [...] ICD10 Code Diagnosis IMO Codes Diagnosis Note [id number] KANNAN MOE MD [facility] [address] [address] 02/17/2025 14:22:26 02/17/2025 15:22:05 Abnormal auditory perception 50747407 H93.291 84451438 Sensorineu ral hearing loss of left ear with normal hearing on right side 2075481322 H90.42 59382571 Right Ear:Normal hearing with excellent speech discrimina tion.Type A tympanogra m.Left Ear:Normal hearing with mild HL at 3K Hz only with excellent speech discrimina tion.Type A tympanogra m. Pain of ri ght temporomandibular joint [id number] 7510049 M26.621 [id number] Health Concerns Section Related Observation LastModified by Organization Detai ls LastModified Time None Recorded Concern Status LastModified by Organization Details LastModified Time None Recorded Payers Encounter Date Sequence Insurance Name Policy Number Policy Ash Covered Member ID Ash Member ID Guarantor Name 02/17/2025 1 [place]: [facility] PLAN Chelle Melchor [id number] Chelle Melchor Notes Date Note Type Note [...] affected the alignment of the jaw. An siding stapler was present during the session to assist with communication. KANNAN FLORES MD [address] [place] [address], [phone], [facility] - [facility] 02/17/2025 15:44:32 OBGyn Episode No OBEpisode recorded.
--- OUTSIDE RECORDS SUMMARY | 2025-04-03 21:38 | XMS_ITS | Data Portability ---
Author Organization ID - [facility], Allergy Address [address] [address] Care Team Providers Care Brick Mason Name Role Phone LANCE KELLER Primary Care [...] By Organization Details Last Modified Time 02/17/2025 06852 - Use a warm compress to alleviate [...] was required prior to finalizing the note. 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 Procedures Surgical History Date Name Laterality Status Provider Name and Address Organization Details Recorded Time 02/17/2025 Comp Audio with Tymps - 04272 & 32026 completed LE BUTT, AUD 100 [facility],[address], [address], [facility] 02/17/2025 14:53:58 Imaging Results None recorded. Procedure Notes None recorded. Medical Equipment None Reported. Allergies Allergen ID Allergen Name Allergen Category Reaction Reaction Severity Criticality Documentation Date Start Date Code Code System Note Provider Name and Address Organization Details Recorded Time 016562 lisinopri l medicatio n Not available Not available Not available 04/01/2025 74155 RxNorm Not Available [facility] [employer] - prod 5 11:21:36 136802 oxycodone medicatio n Not available Not available Not available 04/01/20252014 7804 RxNorm Other react ion(s ): Itchi ng Not Available [employer] [place] [employer] - prod 5 11:21:43 Medications [...] Available Not Available No t Available dextrometho [facility] enesin 10 mg-100 mg/5 mL oral syrup [...] ICD10 Code Diagnosis IMO Codes Diagnosis Note 35338 KANNAN MOE MD [facility] [address] [address] 02/17/2025 14:22:26 02/17/2025 15:22:05 Abnormal auditory perception 90527375 H93.291 47042741 Sensorineu ral hearing loss of left ear with normal 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 Pain of ri ght temporomandibular joint [id number] 0695084 M26.621 91234988 Health Concerns Section Related Observation LastModified by Organization Detai ls LastModified Time None Recorded Concern Status LastModified by Organization Details LastModified Time None Recorded Advance Directives Directive None Recorded Payers Insurance Date Sequence Insurance Name Policy Number Policy Ash Covered Member ID Ash Member ID Guarantor Name 02/17/2025 1 [place] Chelle Melchor [id number] Chelle Melchor 02/17/2025 1 [place] [facility] Chelle Melchor [id number] Chelle Melchor Notes Date Note Type Note [...] affected the alignment of the jaw. An negative assembler was present during the session to assist with communication. KANNAN FLORES MD [address] [place] [address], [address], [facility] - [facility] 02/17/2025 15:44:32 OBGyn Episode No OBEpisode recorded.
--- OUTSIDE RECORDS SUMMARY | 2025-04-03 21:38 | XMS_ITS | Encounter Summary ---
Author Organization [employer] Address [address] [place] [address] [place] [address] Care Team Providers Care Podiatric Technician Name Role Phone Dorinda Iniguez MD Primary Care Provider Encounter Details Date Type Department Care Team (Latest Contact Info) Description 04/22/2019 Abstract [facility] CONVERSIONS Dental, Provider, DDS Social [...] on filedocumented in this encounter Care Teams Podiatric Technician Relationship Specialty Start Date End Date Dorinda Iniguez MD [address] [place] [address] PCP - General Family Medicine 04/24/18 Ginny Hernandez Forging Machine OperatorTile Roofer 01/17/24 documented as of this encounter
--- OUTSIDE RECORDS SUMMARY | 2025-04-03 21:38 | XMS_ITS | Encounter Summary ---
Author Organization [employer] Address [address] [place] [address] [place] [address] Care Team Providers Care Director Geothermal Operations Name Role Phone Dorinda Iniguez MD Primary Care Provider [phone] Reason for Visit * Reason Comments Med Refill Encounter Details Date Type Department Care Team ([facility] st Contact Info) Description 03/01/2024 Refill [facility] MED & PEDS [address] [place], [place] [phone] Dorinda Iniguez MD 505 [place] [address] Social History Tobacco Use Types Packs/Day Years [...] as of this encounter Care Teams Director Geothermal Operations Relationship Specialty Start Date End Date Dorinda Iniguez MD [address] [place] [address] PCP - General Family Medicine 04/24/18 Ginny Hernandez Blowing WeasandDirector Of Intelligence 01/17/24 documented as of this encounter
--- OUTSIDE RECORDS SUMMARY | 2025-04-03 21:38 | XMS_ITS | Encounter Summary ---
Author Organization [employer] Address [address] [place] [address] [place] [address] Care Team Providers Care Tobacco Stemmer Name Role Phone Dorinda Iniguez MD Primary Care Provider [phone] Reason for Visit * Reason Comments Med Refill Encounter Details Date Type Department Care Team ([facility] Contact Info) Description 03/05/2024 Refill [facility] CH[facility] MED & PEDS [address] [place], [place] [phone] Dorinda Iniguez MD 505 [place] [address] Social History Tobacco Use Types Packs/Day Years [...] documented as of this encounter Care Teams Tobacco Stemmer Relationship Specialty Start Date End Date Dorinda Iniguez MD [address] [place] [address] PCP - General Family Medicine 04/24/18 Ginny Hernandez Tray FillerButcher Meat 01/17/24 documented as of this encounter
--- OUTSIDE RECORDS SUMMARY | 2025-04-03 21:38 | XMS_ITS | Encounter Summary ---
Author Organization [facility] Address [address] [address] Care Team Providers Care Waterproof Coating Machine Tender Name Role Phone Dorinda Iniguez MD Primary Care Provider [phone] Reason for Visit * Reason Onset Date Comments Paperwork/Forms 08/17/2023 Encounter Details Date Type Department Care Team ([facility] Contact Info) Description 08/17/2023 Telephone [facility] MEDICINE [address] [place] [address] Dorinda Iniguez MD [address] [place] [address] Paperwork/Forms Social History Tobacco Use Types Packs/Day [...] EDT Last OV faxed as requested to [facility]. Returned call to [facility] regarding VO. LVM to return call. * Telephone Encounter - Piotr Mata - 08/17/2023 2:01 PM EDT [facility] requesting orders to restart home services and the last officeto be faxed to [phone] documented in this encounter Plan of Treatment Not on file documented as of this encounter Visit Diagnoses Not on filedocumented in this encounter Additional Health Concerns Assessment Noted Time PHQ-9 Depression Total Score: 4 08/17/19 24 1:37 PM EDT documented as of this encounter Care Teams Waterproof Coating Machine Tender Relationship Specialty Start Date End Date Dorinda Iniguez MD [address] [place] [address] PCP - General Family Medicine 04/24/18 Ginny Hernandez Putty Tinter MakerBillet Bed Operator 01/17/24 documented as of this encounter
--- OUTSIDE RECORDS SUMMARY | 2025-04-03 21:38 | XMS_ITS | Patient Health Record ---
Author Organization [facility] Address [address] [place] [address] Care Team Providers Care Otr Hazmat Company Driver Name Role Phone Hira JASON, Dorinda Primary Care Provider Jeffrey Blackman Jr Unavailable Allergies Allergen (clinical drug ingredient) Drug/Non Drug Allergy documented on EMR Reaction Allergy Type Onset Date Status lisinopril Lisinopril Unknown Drug Allergy Activ e Results Component Value Reference Range Flag Notes Complete Blood Count no Diff Reviewed date:10/22/2024 03:41:25 PM Interpretation: Performing Lab:[facility], [address] [place] [address] Notes/Report: White Blood Count 9.3 4.8-10.8 X10*3/uL [...] Panel Reviewed date:10/22/2024 03:38:48 PM Interpretation: Performing Lab:[facility], [address] [place] [address] Notes/Report: Bilirubin Total 0.6 0.0-1.0 mg/dL N Bilirubin Direct 0.2 0.0-0.5 mg/dL N Aspartate Amino Transferase 17 5-31 U/L N Alanine Aminotransferase 12 0-31 U/L N Total Protein 6.4 6.5-8.0 g/dL L Albumin Level 4.0 3.5-5.0 g/dL N Alkaline Phosphatase 78 39-117 U/L N Blood Urea Nitrogen Reviewed date:10/15/2024 04:39:10 PM Interpretation: Performing Lab:[facility], [address] [place] [address] Notes/Report: Blood Urea Nitrogen 21 9-16 mg/dL H Creatinine Reviewed date:10/15/2024 04:39:19 PM Interpretation: Performing Lab:[facility], [address] [place] [phone] Notes/Report: Creatinine 1.01 0.5-1.4 mg/dL N Estimated Glomerular Filt Rate 56 Chronic Kidney Disease: Estimated GFR < 60 mL/min/1.73m2 Severe Kidney Disease: Estimated GFR < 15 mL/min/1.73m2 Lipase Reviewed date:10/22/2024 03:39:01 PM Interpretation: Performing Lab:[facility], [address] [place] [phone] Notes/Report: Lipase 8 8-78 U/L N Pathology Reviewed date:11/04/2024 08:11:06 AM Interpretation: Performing Lab:[facility], [address] [place] [address] Notes/Report: Creatinine GFR POC Reviewed date:11/14/2024 08:44:34 AM Interpretation: Performing Lab:[facility], [address] [place] [address] Notes/Report: [id number] 1.14 52 1149 HO.BERCHB Creatinine POC 1.1 0.5-1.4 mg/dL N GFR POC 52 Chronic Kidney Disease: Estimated GFR < 60 mL/min/1.73m2 Severe Kidney Disease: Estimated GFR < 15 mL/min/1.73m2 CT abdomen pelvis w con Reviewed date:11/14/2024 08:46:19 AM Interpretation: Performing Lab: Notes/Report: [address] [address] [address] Scan Report Signed Patient: Chelle Helm MR# : [id number] : 1965 Acct:[id number] Age/Sex: 59 / F ADM Date: 11/12/24 Loc: HO.CT Attending Dr: Jeffrey Narayan MD Ordering Physician: Jeffrey Narayan MD Date of Service: 11/12/24 Procedure(s): CT abdomen pelvis w IV con Accession Number(s): [id number] cc: Dorinda Iniguez MD; Jeffrey Narayan MD Report Number: [id number]: Total DLP = 667.00 mGy-cm EXAMINATION: CT [...] 11/12/24 1217 DD/ 1156 TD/TT: 11/12/24 1209 Ice Crusher: Reason For Referral Referring Provider First Name Dorinda Referring Provider Last Name Hira Referring Provider Speciality Internal M edicine Referred Organization [facility] [place] [facility] Referred Provider Jeffrey Narayan Jr Referred Address [address] [place] [address], Referred Provider Specialty Gastroentero logy General Notes Awilda Salazar 2024 02:39:04 PM >[place] [facility] FOR VISIT WITH DR NARAYAN ON [phone] Referral Priority Routine Reason small right groin he rnia Diagnosis 1 Right inguinal pain (R10.31) Referral Organization [facility] Referring Provider First [...] 30 Unknown Vitamin D (Ergocalciferol) 1.25 MG (95165 UT) Capsule TAKE ONE CAPSULE EVERY WEEK [...] W/U Status Risk Notes Problem Epigastric pain (87236710) Epigastric pain (R10.13) Active confirmed Problem Screening for malignant neoplasm of colon (058099179) Special screening for malignant neoplasms, colon (Z12.11) Active confirmed Problem Irritable bowel syndrome with diarrhea (896148210) Irritable bowel syndrome with diarrhea (K58.0) Active confirmed Problem Gastroesophageal reflux disease without esophagitis (134506792) Gastroesophageal reflux disease without esophagitis (K21.9) Active confirmed Vital Signs Temperature 97.8 degrees Fahrenheit 10/11/2024 Blood pressure diastolic 01 mm Hg 10/11/2024 Height 64 in 10/11/2024 Blood pressure systolic 001 mm Hg 10/11/2024 Weight 236.4 lbs 10/11/2024 BMI 40.57 kg/m2 10/11/2024 Encounters Encounter Location Date Provider Diagnosis [facility] Outpatient [address] [place] [phone] 10/30/2024 Jeffrey Narayan Jr [facility] [address] [place] [address] 10/11/2024 Jeffrey Narayan Jr Abdominal pain R10.9 ; Irritable bowel syndrome with diarrhea K58.0 and Special screening for malignant neoplasms, colon Z12.11 [facility] [address] [place] [address] 10/11/2024 Jeffrey Narayan Jr [facility] [address] [place] [address] 10/11/2024 Jeffrey Narayan Jr [facility] [address] [place] [address] 10/22/2024 Jeffrey Narayan Jr [facility] [address] [place] [address] 11/04/2024 Jeffrey Narayan Jr [facility] [address] [place] [address] 11/14/2024 Jeffrey Narayan Jr [facility] [address] [place] [address] 12/31/2024 Jeffrey Narayan Jr Assessments Encounter Date [...] Start Date Coverage End Date MEDICAID OF [facility] [address] [place] [phone] [id number] CHELLE WRIGHT Self - patient is the [...]
--- OUTSIDE RECORDS SUMMARY | 2025-04-03 21:39 | XMS_ITS | Encounter Summary ---
Author Organization [employer] Address [address] [place] [address] Care Team Providers Care Syrup Mixer Helper Name Role Phone Dorinda Iniguez MD Primary Care Provider [phone] Reason for Visit * Reason Comments Med Refill Encounter Details Date Type Department Care Team ([facility] st Contact Info) Description 11/08/2022 Refill [facility] CH[facility] MED & PEDS [address] [place], [place] [phone] Dorinda Iniguez MD 505 [place] [address] Vitamin D deficiency; Generalized anxiety disorder Social [...] documented as of this encounter Care Teams Syrup Mixer Helper Relationship Specialty Start Date End Date Dorinda Iniguez MD [address] [place] [address] PCP - General Family Medicine 04/24/18 Ginny Hernandez Projects ManagerNeon Installer 01/17/24 documented as of this encounter
--- OUTSIDE RECORDS SUMMARY | 2025-04-03 21:39 | XMS_ITS | Encounter Summary ---
Author Organization [employer] Address [address] [place] [address] 7 [place] [address] Care Team Providers Care Petroleum Refinery Worker Name Role Phone Dorinda Iniguez MD Primary Care Provider [phone] Encounter Details Date Type Department Care Team ([facility] Contact Info) Description 04/03/2025 Orders Only [facility] CHC MED & PEDS [address] [place], [place] [phone] Dorinda Iniguez MD 505 [place] [address] Social History Tobacco Use Types Packs/Day Years [...] (NON ORDERABLE) Routine 04/03/2025 9:25 AM EST documented in this encounter Results * Gram Stain Result (04/03/2025 9:25 AM EST) 04/03/2025 9:25 AM EST 04/03/2025 2:43 PM EST Comment:Sue Sherman [facility] - 04/03/2025 4:01 PM EST Gram stain results: No polys No organisms seen Specimen Source: Cheek us Dorinda Iniguez MD HISTORICAL/NON ORDERABLE LABS Final Result [facility] [address] [place] [address] [phone] documented in this encounter Visit Diagnoses Not on filedocumented in this encounter Additional Health Concerns Assessment Noted Time PHQ-9 Depression Total Score: 2 05/28/19 9:31 AM EST documented as of this encounter Care Teams Petroleum Refinery Worker Relationship Specialty Start Date End Date Dorinda Iniguez MD [address] [place] [address] PCP - General Family Medicine 1/1/19 iGnny Hernandez Safety CoordinatorBaseball Inspector 01/17/24 documented as of this encounter
== END 2025-04-03 14:09 ==
LOC: HO.CHCLNP 14:08
PROVIDERS: PCP Pediatrics; Visit Provider Pediatrics
DX: Z51.89 Encounter for other specified aftercare (principal)
CPT/HCPCS: 87070; 87205